=== PATIENT | female | born 1940 | race Caucasian/White ===

== ENCOUNTER 2018-02-04 10:11 | Inpatient (IN) | payer MEDICARE, SELFPAY ==
[2018-02-04] VITALS (10 sets, daily range): BP systolic 114–151; BP diastolic 54–81; PULSE 91–107; RESP 16–20; TEMP 36.7–38.3; O2SAT 94–99; BMI 49.9; BMI 54.6; BMI 54.7
--- NOTE | 2018-02-04 10:33 | EKG12_ITS ---
Test Reason : N/V Blood Pressure : / mmHG Vent. Rate : 112 BPM Atrial Rate : 112 BPM P-R Int : 166 ms QRS Dur : 090 ms QT Int : 332 ms P-R-T Axes : 059 007 035 degrees QTc Int : 453 ms Sinus tachycardia Otherwise normal ECG Confirmed by SHERI SHEA, MAURISIO ([id number]), purchase request editor LAURE GUERRA ([id number]) on 02/08/2018 3:48:02 PM Referred By: ADOLFO Confirmed By:MAURISIO WADE MD
--- NOTE | 2018-02-04 10:35 | RAD_ITS ---
STUDY: X-RAY CHEST REASON FOR EXAM: Female, 78 years old. Shortness of breath TECHNIQUE: Single view of the chest was obtained COMPARISON: None. FINDINGS: No lung consolidation or pneumothorax. Mild cardiomegaly. Calcified nodules in the perihilar region seen. Reticulonodular opacities are also seen bilaterally. No pleural effusion. Osseous structures demonstrate no acute abnormalities. IMPRESSION: Mild cardiomegaly with bilateral pulmonary vascular congestion. Electronically Signed: Olivier Pearson, at 11:05 EDT Tel , Service support , RAD/Chest 1 View (Portable)
--- NOTE | 2018-02-04 10:41 | VDLE_ITS ---
Reason For Study: SWELLING RIGHT Technically difficult/ limited study due to patient body habitus. Unable to visualize CFV/SFJ due to pannus. Rt SFV is compressible where visualized and fills with color. RT POP V is compressible and fills with color. RT T/P Trunk is difficult to assess but appears compressible. RT distal PTV is compressible and fills with color. Proximal PTV is not visualized. RT PeroV is not well visualized. RT GSV is compressible. Procedure Exam performed portable in ED. The exam was of poor technical quality due to body habitus. A preliminary report was called and/or faxed to ED. Interpretation Summary Deep veins of the right lower extremity are patent and compressible segmentally. There is no evidence of right lower extremity deep vein thrombosis. However, portions of the right lower extremity deep venous system were not visualized, or poorly visualized, due to the patient's body habitus. These portions include the right common femoral vein and the right sapheno-femoral junction, the right femoral vein, the right tibio-peroneal trunk, the proximal right posterior tibial vein, and the right peroneal vein. The right greater saphenous vein appears patent and compressible segmentally. Ordering Physician: Jennifer Hope Referring Physician: ANTONIA GODOY Performed By: Shantel Caba, JONH, RVT
--- NOTE | 2018-02-04 10:42 | ED.VISSUMM ---
- ER Visit Summary Date of Service: 02/04/18 Chief Complaint: Nausea History of Present Illness: The patient is a 78 F who presents with complaints of nausea and dry heaves for the past 3 days. She denies any abdominal pain or diarrhea. She has not noticed a fever at home. Patient was seen by her PCP on the for leg swelling and increased dyspnea with exertion. The swelling was felt to be secondary to Actos and this medication was stopped. Patient states since that time she has had nausea and dry heaves. She has not taken her diabetes medications since the . She does have a dry cough that is slightly worse than her baseline. She is on home O2 chronically. Physical Examination: Blood pressure is 151/81, temperature 101.0 TA, heart rate 107, respiratory rate 16, pulse ox 94% on room air. She is 100% on her normal 3 L. Head neck examination is grossly unremarkable. Heart is tachycardic. Lung sounds are grossly clear. Abdomen is soft, obese, nontender. Hypoactive bowel sounds are present throughout. Lower extremity examination reveals 3+ edema to the right leg, 2+ edema to the left leg. There is erythema across the anterior right jacobo that is warm to the touch. Patient states this is chronic secondary to prior phlebitis. Test Results: EKG is sinus tach at 112. No acute ischemia. CBC was a white count of 27.0 with 94% neutrophils. Chemistry studies reveal a sodium of 133, chloride 92, glucose 323. Her creatinine is 1.23. LFTs and lipase are normal. Urinalysis is significant only for glucose. Her lactate is 3.1. Chest x-ray shows mild cardiomegaly and bilateral pulmonary vascular congestion. CT the abdomen pelvis with IV contrast reveals no evidence of obstruction. There is no drainable fluid collection. There is subsegmental atelectasis in the lung bases. Venous ultrasound of the right leg reveals no evidence of DVT. Emergency Department Course and Treatment: Patient is given IV fluids, Zofran, Tylenol. On repeat evaluation temperature is under 99. Heart rate is 95-100. At this time I do not have a definitive source of infection. We will admit the patient overnight for IV hydration and antiemetics. Repeat labs in the morning. Treatment Plan: [] Disposition: Admit Impression: 1. SIRS 2. Vomiting This note was generated with [employer] dictation software. It may contain incorrect words, spelling, and punctuation that were not noted in review of the chart prior to signing ED Disposition - Plan for ED Patient: Chief Complaint: Nausea/Vomiting Referrals: Erlinda Lombardi NP-C [NON-STAFF] -
[2018-02-04] MEDS: 0.9% Normal Saline 1,000 ML 150 ML IV ×2 (10:51→15:57)
[2018-02-04] MEDS: Ondansetron 4 MG/2 ML Vial IV ×2 (10:51→13:17)
[2018-02-04] MEDS: Acetaminophen 325 MG Tablet 650 MG PO (10:51)
--- NOTE | 2018-02-04 10:55 | NURSING ---
NO LW OR POA
[2018-02-04 11:02] LABS: Absolute Lymphocyte Count 0.48 X10^3/ul (0.83-4.51); Absolute Neutrophil Count 25.3 X10^3/uL (2.0-7.7); Basophil# 0.01 X10^3/uL; Hematocrit 40.3 % (37-47); Hemoglobin 12.8 g/dl (12.0-15.0); Lymphocyte # 0.48 X10^3/ul (4.0); Lymphocyte % 1.8 % (19-41); Mean Corp Hgb Conc 31.8 g/gl (32-36); Mean Corpuscular Hgb 30.5 pg (27.0-32.0); Mean Platelet Vol. 10.2 fl (6.2-12.0); Monocyte# 1.13 X10^3/uL; Monocyte% 4.2 % (0-10); Neutrophil # 25.32 X10^3/uL (2.7-7.7); Neutrophil % 93.9 % (47-70); Platelet Count 250 K/mm3 (150-450); RBC Distribution Width CV 13.4 % (11.6-14.6); RBC Distribution Width SD 46.6 fl (35.1-43.9)
[2018-02-04 11:03] LABS: Differential Indicated SCAN CRITERIA MET; POSITIVE COUNT NO; POSITIVE DIFFERENTIAL YES; POSITIVE MORPHOLOGY NO
[2018-02-04 11:14] LABS: AST(SGOT) 35 U/L (15-37); Alanine Aminotransfer ALT/SGPT 36 U/L (13-56); Albumin, Serum 2.9 g/dL (3.2-5.0); Alkaline Phosphatase 106 U/L (45-117); Anion Gap 10 (5-15); BUN 11 mg/dL (7-18); BUN/Creat Ratio 8.9 RATIO (10-20); Bilirubin, Direct 0.24 mg/dL (0.00-0.30); Calcium,Total 8.5 mg/dL (8.5-10.1); Chloride 92 mmol/L (98-107); Creatinine, Serum 1.23 mg/dL (0.55-1.02); EST Glomerular Filtration Rate 45 mL/min (>60); Est Glom Filt Rate - Afr Amer 54 mL/min (>60); Estimated Creatinine Clearance 33.37 ml/min; Globulin 5.3 g/dL (2.2-4.2); Glucose 323 mg/dL (74-106); Lipase 84 U/L (73-393); Potassium 3.8 mmol/L (3.5-5.1); Protein, Total 8.2 g/dL (6.4-8.2); Sodium Level 133 mmol/L (136-145)
[2018-02-04 11:20] LABS: Lactic Acid 3.1 mmol/L (0.4-2.0)
--- NOTE | 2018-02-04 11:26 | CT_ITS ---
STUDY: CT ABDOMEN AND PELVIS WITH CONTRAST REASON FOR EXAM: Female, 78 years old. Nausea with dry heaves since Monday RADIATION DOSAGE (If Supplied By Facility): CTDIvol = ( 21.57 ) mGy, DLP = ( 1678.78 ) mGycm TECHNIQUE: Transaxial images were obtained from the dome of the diaphragm to the symphysis pubis without oral contrast. 100 ml of Isovue 300 contrast was administered. Sagittal and coronal images were reconstructed. Individualized dose optimization techniques were used for this CT. COMPARISON: None. FINDINGS: Lung bases demonstrate no evidence for consolidative process. Bibasilar subsegmental atelectasis and scarring. Small hiatal hernia. Mild hepatic steatosis. Spleen appears unremarkable. No evidence for mesenteric adenopathy. Portal vein is patent. Gallbladder is not visualized. Adrenal glands appear unremarkable. The pancreas are within normal limits. The bowel gas pattern is nonobstructive. Appendix is not seen Vascular calcifications of the abdominal aorta. Kidneys demonstrate no evidence for hydronephrosis. Degenerative changes in the lumbar spine. Multilevel neural foraminal narrowing predominant in the lower lumbar spine small hemangioma of the L2 vertebral body. No free fluid in the pelvis. No free air within the peritoneal cavity. Degenerative changes in the hip joints. There is evidence for hysterectomy. IMPRESSION: Mild hepatic steatosis with mild enlargement of the liver. No evidence for small bowel obstruction. No drainable fluid collections. Somewhat motion degraded CT examination Subsegmental atelectasis in the lung bases Electronically Signed: Olivier Pearson, at 12:18 EDT Tel , Service support , CT/Abdomen/Pelvis W IV Cont ONLY
[2018-02-04] MEDS: 0.9% Normal Saline 1,000 ML 999 ML IV ×3 (11:30→14:57)
[2018-02-04 12:26] LABS: Bedside Glucose 300 mg/dL (70-110)
[2018-02-04 13:08] LABS: Bacteria 0 SEEN /hpf (None Seen); Mucous, Urine 0 SEEN /hpf (<or=2+); Red Blood Cells-Urine 0 SEEN /hpf (0-5); White Blood Cells 0 SEEN /hpf (0-5)
[2018-02-04 13:10] LABS: Color, Urine Yellow (Yellow); Glucose, Dipstick 1000 mg/dl (Normal); Ketone-Dipstick Negative (Negative); Leukocyte Esterase-Dipstick Negative /ul (Negative); Nitrite-Dipstick Negative (Negative); Occult Blood-Urine 10 /ul (Negative); Protein-Dipstick 30 mg/dl (Negative); Urine Bilirubin Dipstick Negative (Negative); Urine Clarity Clear (Clear); Urine Urobilinogen 1 mg/dl (Normal)
[2018-02-04 13:16] LABS: Squamous Epithelial Cells - UA 0-5 SEEN /hpf (5-10)
--- NOTE | 2018-02-04 13:40 | NURSING ---
DR STACK FOR DR MATA
--- NOTE | 2018-02-04 13:54 | NURSING ---
124 SIRS,VOMITING ASHELFAH
--- NOTE | 2018-02-04 14:05 | PCM.HP.STD ---
Problem List (1) Osteoarthritis Status: Chronic (2) Depression Status: Chronic (3) Anxiety Status: Chronic (4) Obstructive sleep apnea Status: Chronic (5) Acquired hypothyroidism Status: Chronic (6) Hypertension Status: Chronic (7) Type 2 diabetes mellitus Status: Chronic History of Present Illness Date of Admission: 02/04/18 Chief Complaint: Nausea. The patient is a 78 year old F with past medical history as mentioned above presented to the medicine because of nausea. Her symptoms started 2 days ago with nausea, persistent, associated with poor appetite, could not keep down any food or liquid and it is without vomiting. She denied abdominal pain, constipation or diarrhea. She denies fever or chills. She denied urinary symptoms. She denied chest pain or shortness of breath. She reported mild dry cough. This past Monday, she went to her PCPs office for leg swelling and increased shortness of breath and this leg swelling attributed to Actos that was discontinued. She has a history of type 2 diabetes mellitus and she has been on 3 different oral hypoglycemic drugs but Actos was discontinued 2 days ago because of leg swelling. She has a history of phlebitis of the right leg and she mentioned that her right leg is always red on the lateral aspect and it is not changed. She had a history of acquired hypothyroidism and according to her, her PCP discontinuing her levothyroxine recently. She had a history of obstructive sleep apnea and she is not using CPAP at home. She had a history of depression and anxiety and she has been on Wellbutrin. In the emergency room, patient was febrile, tachycardic, pulse ox is normal on room air. Her routine blood work was remarkable for significant leukocytosis, creatinine of 1.23. Her LFT and lipase were normal. Lactic acid was elevated at 3.1. Her EKG revealed sinus tachycardia, otherwise normal. Chest x-ray showed mild cardiomegaly, no acute infiltrate, probable pulmonary vascular congestion. CT scan abdomen and pelvis with contrast revealed no evidence of infiltrate or consolidation on the lung bases, mild hepatic steatosis, no acute intra-abdominal pathology. Urinalysis revealed clear urine, negative for nitrite, negative for leukocyte esterase, there was no WBC is and no bacteria seen. She is being admitted for severe sepsis without clear source of infection, low probability of right leg cellulitis, intractable nausea and dehydration. Past Medical History Past Medical History (Chronic Problems): Chronic Problems Osteoarthritis (Chronic) Depression (Chronic) Anxiety (Chronic) Obstructive sleep apnea (Chronic) Acquired hypothyroidism (Chronic) Hypertension (Chronic) Type 2 diabetes mellitus (Chronic) Allergies erythromycin base [Erythromycin Base] Allergy (Verified 02/04/18 10:12) Unknown ibuprofen [From Nuprin] Allergy (Verified 02/04/18 10:12) Unknown Home Medications: Ambulatory Orders Medication Instructions Recorded Gabapentin [Gabapentin] 100 mg PO QHS 05/22/14 Glipizide [Glipizide] 10 mg PO BID 05/22/14 Lisinopril [Lisinopril] 10 mg PO DAILY 05/22/14 Metformin [Metformin HCl] 1,000 mg PO BID 05/22/14 buPROPion SR [Wellbutrin Sr] 150 mg PO BID 05/22/14 Linagliptin [Tradjenta] 5 mg PO DAILY 02/04/18 Surgical History: appendectomy, cholecystectomy, hysterectomy Psychiatric History: Anxiety, Depression 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 Denies: Chills Eyes: Denies: Blurred vision, Double vision, Drainage, Redness HEENT: Denies: Difficulty Hearing, Ear Pain, Eye Pain, Nasal Congestion, Post Nasal Drip, Sore Throat Cardiovascular: Denies: Chest Pain, Chest Pressure, Chest Tightness, Palpitations, Paroxysmal Noc. Dyspnea, Syncope Respiratory: Denies: Cough, Pleuritic Pain, Shortness of Breath, Sputum production, Wheezing Gastrointestinal: Reports: Nausea. Denies: Abdominal Pain, Constipation, Diarrhea, Hematochezia, Melena, Vomiting Genitourinary: Denies: Dysuria, Frequency, Hematuria Musculoskeletal: Denies: Arm Pain, Back Pain, Foot Pain Skin: Denies: Dryness, Rash Neurological: Denies: Balance problems, Double vision, Change in Speech, Slurred speech, Confusion, Headaches, Incoordination, Numbness, Tingling Psychiatric: Reports: Anxiety, Depression Endocrine: Denies: Change in Body Habitus, Polydipsia VTE Information - Inpt Only VTE Present on Admission: No VTE Mechan Device Prophylaxis: None VTE Pharm Prophylaxis ordered?: Yes - Physical Exam General: Alert, Oriented x3, Cooperative, No apparent distress HEENT: Atraumatic, PERRLA, EOMI, Normocephalic Oral: Moist Mucosa, No Gingival or Mucosal Lesions/ Ulcerations Neck: Supple, No JVD, Negative Carotid Bruits, Trachea Midline, Thyroid Normal Size and Texture Lungs: Clear to auscultation, No rhonchi, No wheeze, No rales, Diminished Cardiovascular: Regular rate, Regular Rhythm, Normal S1, Normal S2, No murmurs, PMI Normal, Tachycardic Abdomen: Bowel Sounds Present, Soft, Non Tender, Non-Distended, No Hepato-splenomegaly, Obese Extremities: No clubbing, No cyanosis, Edema - Trace edema., - - Right leg: Area of erythema and mild swelling on the lateral aspect of the right leg, warm to touch, no open wounds. Skin: No rashes, Ulcer/ Wound Lymphatic: No Cervical, Supraclavicular, or Inguinal Adenopathy Neurological: Cranial nerves II-XII grossly intact, Motor Exam 5/5 strength throughout Psych/Mental Status: Normal Affect, Appropriate, Alert and oriented to time, place, person, mood and affect Vital Signs Temp Pulse Resp BP Pulse Ox 101.0 F H 97 16 125/67 H 98 02/04/18 10:12 02/04/18 13:49 02/04/18 13:49 02/04/18 13:49 02/04/18 13:49 Oxygen Delivery Method Room Air Weight: 300 lb Body Mass Index (BMI) 49.9 Finger Stick Blood Glucose 300 Laboratory Tests Past 24 Hrs 02/04/18 02/04/18 02/04/18 10:35 10:35 10:35 WBC 27.0 H RBC 4.20 Hgb 12.8 Hct 40.3 MCV 96.0 MCH 30.5 MCHC 31.8 L RDW 13.4 RDW Differential 46.6 H Plt Count 250 MPV 10.2 Immature Gran % (Auto) 0.100 Neut % (Auto) 93.9 H Lymph % (Auto) 1.8 L [place] % (Auto) 4.2 Eos % (Auto) 0.0 Baso % (Auto) 0.0 Absolute Neuts (auto) 25.3 H Absolute Lymphs (auto) 0.48 L Total Counted Not Reportable Sodium 133 L Potassium 3.8 Chloride 92 L Carbon Dioxide 31.0 Anion Gap 10 BUN 11 Creatinine 1.23 H Estim Creat Clear Calc 33.37 Est GFR (MDRD) Af Amer 54 L Est GFR (MDRD) Non-Af 45 L BUN/Creatinine Ratio 8.9 L Glucose 323 H Lactic Acid 3.1 H Calcium 8.5 Total Bilirubin 0.70 Direct Bilirubin 0.24 AST 35 ALT 36 Alkaline Phosphatase 106 Total Protein 8.2 Albumin 2.9 L Globulin 5.3 H Lipase 84 Urine Color Urine Clarity Urine pH Ur Specific [place] Urine Protein Urine Glucose (UA) Urine Ketones Urine Occult Blood Urine Nitrite Urine Bilirubin Urine Urobilinogen Ur Leukocyte Esterase Urine RBC Urine WBC Ur Squamous Epith Cells Urine Bacteria Urine Mucus 02/04/18 13:00 WBC RBC Hgb Hct MCV MCH MCHC RDW RDW Differential Plt Count MPV Immature Gran % (Auto) Neut % (Auto) Lymph % (Auto) [place] % (Auto) Eos % (Auto) Baso % (Auto) Absolute Neuts (auto) Absolute Lymphs (auto) Total Counted Sodium Potassium Chloride Carbon Dioxide Anion Gap BUN Creatinine Estim Creat Clear Calc Est GFR (MDRD) Af Amer Est GFR (MDRD) Non-Af BUN/Creatinine Ratio Glucose Lactic Acid Calcium Total Bilirubin Direct Bilirubin AST ALT Alkaline Phosphatase Total Protein Albumin Globulin Lipase Urine Color Yellow Urine Clarity Clear Urine pH 6.0 Ur Specific [place] 1.010 Urine Protein 30 H Urine Glucose (UA) 1000 H Urine Ketones Negative Urine Occult Blood 10 H Urine Nitrite Negative Urine Bilirubin Negative Urine Urobilinogen 1 H Ur Leukocyte Esterase Negative Urine RBC 0 SEEN Urine WBC 0 SEEN Ur Squamous Epith Cells 0-5 SEEN Urine Bacteria 0 SEEN Urine Mucus 0 SEEN POC Glucose 02/04/18 12:16 POC Glucose 300 H Clinical Impression(s) from Imaging Studies Chest X-Ray 02/04/18 10:35 Abdomen/Pelvis CT 02/04/18 11:26 Assessment/Plan This is a 78 years old female patient presented to the medicine because of nausea without any other significant complaints, found to have fever, significant leukocytosis, elevated lactic acid consistent with severe sepsis without obvious source of infection when she is being admitted for evaluation. #1 severe sepsis: Without source of infection except mild erythema and swelling on the lateral aspect of the left leg and according to the patient, this is chronic secondary to history of phlebitis. She is febrile, tachycardic, lactic acid is elevated. Chest x-ray showed no acute infiltrate. Urine analysis was negative for acute cystitis. She received 2 L of IV fluid bolus in the ER, blood culture sent. Plan: Admit to PCU, cardiac monitoring, will give her under 1 L of IV fluid bolus, maintenance IV fluids, urine culture, repeat chest x-ray tomorrow morning, repeat lactic acid in 3 hours, start empiric IV vancomycin and Zosyn, repeat CBC and BMP tomorrow morning, PT OT evaluation and treatment. #2 probable acute right leg cellulitis: Patient had a history of phlebitis according to her and her right leg is usually red and swollen and she noticed no change. On examination, lateral aspect of the right leg is slightly erythematous, swollen, warm to palpation. Venous Doppler was done in the ER and verbal report from the ER physician stated that it was negative. Plan as above, start IV empiric antibiotics, wait for the official report of the venous Doppler of the right leg. #3 dehydration: Secondary to severe sepsis. Creatinine 1.23, sodium is 133, likely hypovolemic hyponatremia. Plan for IV fluids with normal saline, input output chart, repeat BMP tomorrow morning. #4 type 2 diabetes mellitus: Blood sugar has been in the 300s, bicarbonate is normal, no acute DKA. Plan: ADA diet, Accu-Cheks, insulin sliding scale, continue glipizide, Tradjenta, hold metformin. #5 hypertension: Blood pressure stable, continue lisinopril. #6 acquired hypothyroidism: According to the patient, levothyroxine was discontinued recently by PCP. Plan to check TSH. #7 obstructive sleep apnea: She is not on CPAP at home. #8 DVT prophylaxis: Subcu heparin. This note was generated with [employer] dictation software. It may contain incorrect words, spelling, and punctuation that were not noted in checking the note before signing. Code Visit Inpatient E&M: 70787 Init Hosp L3
--- NOTE | 2018-02-04 14:12 | NURSING ---
Christophe notified that patient may transfer to PCU.
--- NOTE | 2018-02-04 14:16 | NURSING ---
124 SEVERE SEPSIS, DEHYDRATION, INTRACTABLE NAUSEA ASHELFAH
[2018-02-04 14:44] LABS: Reflex Lactate? Y
[2018-02-04 15:41] LABS: Thyroid Stim Hormone (TSH) 0.42 uIU/mL (0.358-3.74)
--- NOTE | 2018-02-04 15:42 | PCM.RX.CS ---
Consult Pharmacy has been consulted to manage selected antiobiotic: Vancomycin Type of Consult: New start Suspected Infection: Sepsis Prior Doses of Antibiotics Received/Current Regimen: NO PRIOR DOSES OF VANCO Labs: Sodium 133 mmol/L (136-145) L 02/04/18 10:35 Potassium 3.8 mmol/L (3.5-5.1) 02/04/18 10:35 Chloride 92 mmol/L (98-107) L 02/04/18 10:35 Carbon Dioxide 31.0 mmol/L (21.0-32.0) 02/04/18 10:35 Anion Gap 10 (5-15) 02/04/18 10:35 BUN 11 mg/dL (7-18) 02/04/18 10:35 Creatinine 1.23 mg/dL (0.55-1.02) H 02/04/18 10:35 Est GFR (MDRD) Af Amer 54 mL/min (>60) L 02/04/18 10:35 Est GFR (MDRD) Non-Af 45 mL/min (>60) L 02/04/18 10:35 BUN/Creatinine Ratio 8.9 RATIO (10-20) L 02/04/18 10:35 Glucose 323 mg/dL (74-106) H 02/04/18 10:35 Weight used for dosin kg Estimated Creatinine Clearance: 33ML/MIN Goal Trough: 15-20 mcg/mL Pharmacy Plan for Drug Dosing: PLAN/RECOMMENDATIONS 1. Vancomycin 2000mg IV x1 (02/04/18 @1600) 2. Start vancomycin 1500mg IV Q24hrs on 02/05/18 @1600 3. Trough scheduled 02/06/18 @1530, prior to 3rd total dose of vancomycin 4. Pharmacy Service will continue to monitor and adjust dosing as required.
[2018-02-04] MEDS: Heparin Injection (Vial) 5,000 UNIT/ML VIAL 5000 UNIT SC ×2 (16:26→21:20)
[2018-02-04] MEDS: glipiZIDE 10 MG Tablet PO (16:26)
[2018-02-04] MEDS: Insulin Lispro 100 UNIT/ML INSULN.PEN SC (16:31)
[2018-02-04 17:01] LABS: Bedside Glucose 208 mg/dL (70-110)
[2018-02-04 18:09] LABS: Lactic Acid 2.3 mmol/L (0.4-2.0)
[2018-02-04] MEDS: Piperacil/Tazobactam 3.375 GM/50 ML ML IV (21:20)
[2018-02-04] MEDS: buPROPion (SR) 150 MG Tablet.SA PO (21:20)
[2018-02-04 21:30] LABS: Reflex Lactate? Y
[2018-02-04 21:35] LABS: Bedside Glucose 114 mg/dL (70-110)
[2018-02-04 22:34] LABS: Lactic Acid 0.8 mmol/L (0.4-2.0)
[2018-02-05] VITALS (13 sets, daily range): BP systolic 99–126; BP diastolic 46–68; PULSE 83–96; RESP 16–20; TEMP 36.7–37; O2SAT 97–99
[2018-02-05] MEDS: 0.9% Normal Saline 1,000 ML 150 ML IV ×4 (00:34→20:05)
--- NOTE | 2018-02-05 05:55 | RAD_ITS ---
STUDY: X-RAY CHEST REASON FOR EXAM: Female, 78 years old. History of fever. TECHNIQUE: Single AP portable view of the chest. COMPARISON: Comparison is made with prior examination dated February 04, 2018. FINDINGS: EKG electrodes are seen. Mild increased markings at the lung bases suggestive of bibasilar atelectasis. Mild degree of basilar congestion. Follow-up is recommended. There is moderate cardiac enlargement. Normal mediastinum and charlene. Normal visualized pulmonary arteries. There is atherosclerotic calcification of the aortic arch with tortuosity. Normal visualized thoracic spine. Normal visualized ribs, clavicles, and shoulders. There is no demonstrated abnormality of the visualized soft tissue structures of the upper abdomen. RAD/Chest 1 View (Portable) IMPRESSION: Findings suggestive of a mild degree of vascular congestion with bibasilar atelectasis. Cardiomegaly. Electronically Signed: Shawn Sawyer MD at 9:14 EDT Tel [phone], Service support ,
[2018-02-05 06:33] LABS: Absolute Lymphocyte Count 1.27 X10^3/ul (0.83-4.51); Basophil# 0.03 X10^3/uL; Basophil% 0.1 % (0-1); Eosinophil# 0.02 X10^3/uL; Eosinophils% 0.1 % (0-5); Hematocrit 34.9 % (37-47); Hemoglobin 10.9 g/dl (12.0-15.0); Lymphocyte # 1.27 X10^3/ul (4.0); Lymphocyte % 6.2 % (19-41); Mean Corp Hgb Conc 31.2 g/gl (32-36); Mean Corpuscular Hgb 30.4 pg (27.0-32.0); Mean Corpuscular Volume 97.5 fL (81-99); Mean Platelet Vol. 10.3 fl (6.2-12.0); Monocyte% 5.8 % (0-10); Neutrophil # 17.96 X10^3/uL (2.7-7.7); Neutrophil % 87.5 % (47-70); Platelet Count 212 K/mm3 (150-450); RBC Distribution Width CV 13.5 % (11.6-14.6); RBC Distribution Width SD 46.5 fl (35.1-43.9); Red Blood Count 3.58 M/mm3 (4.2-5.4); White Blood Count 20.5 K/mm3 (4.4-11.0)
[2018-02-05 06:40] LABS: POSITIVE COUNT NO; POSITIVE DIFFERENTIAL NO; POSITIVE MORPHOLOGY NO
[2018-02-05 06:53] LABS: Anion Gap 7 (5-15); BUN 11 mg/dL (7-18); BUN/Creat Ratio 11.1 RATIO (10-20); Calcium,Total 7.6 mg/dL (8.5-10.1); Chloride 102 mmol/L (98-107); Creatinine, Serum 0.99 mg/dL (0.55-1.02); EST Glomerular Filtration Rate 57 mL/min (>60); Est Glom Filt Rate - Afr Amer 69 mL/min (>60); Estimated Creatinine Clearance 38.12 ml/min; Glucose 89 mg/dL (74-106); Potassium 3.5 mmol/L (3.5-5.1); Sodium Level 136 mmol/L (136-145)
[2018-02-05] MEDS: Piperacil/Tazobactam 3.375 GM/50 ML ML IV (06:53)
[2018-02-05] MEDS: Heparin Injection (Vial) 5,000 UNIT/ML VIAL 5000 UNIT SC ×3 (06:53→22:00)
[2018-02-05 07:05] LABS: Bedside Glucose 104 mg/dL (70-110)
[2018-02-05] MEDS: buPROPion (SR) 150 MG Tablet.SA PO ×2 (08:43→22:01)
[2018-02-05] MEDS: glipiZIDE 10 MG Tablet PO (08:43)
[2018-02-05] MEDS: LINAGLIPTIN 5 MG TABLET PO (08:43)
[2018-02-05] MEDS: Lisinopril 10 MG Tablet PO (08:43)
[2018-02-05 11:15] LABS: Bedside Glucose 174 mg/dL (70-110)
--- NOTE | 2018-02-05 11:22 | CON.PCM_ITS ---
Problem List (1) Streptococcal bacteremia Status: Acute Reason for Consult: (+) bcx Consulted by: Dr. Haley History of Present Illness: The patient is a 78 year old F who presented yesterday with 2 day history of progressive, severe, nausea and dry heaves. No recent infection, no fever, no chills, no diarrhea or abd pain. No recent dental work or skin infections. No blood in stool, no h/o prior colonoscopy. Sx worsened and taken to ED. Found to be severe sepsis, started on vanc/zosyn. Feeling much better this AM. Full ROS performed and neg except as noted above. - Medical History Past Medical History (Chronic Problems): Chronic Problems Osteoarthritis (Chronic) Depression (Chronic) Anxiety (Chronic) Obstructive sleep apnea (Chronic) Acquired hypothyroidism (Chronic) Hypertension (Chronic) Type 2 diabetes mellitus (Chronic) Allergies/Adverse Reactions: Allergies erythromycin base [Erythromycin Base] Allergy (Verified 02/04/18 10:12) Unknown ibuprofen [From Nuprin] Allergy (Verified 02/04/18 10:12) Unknown Home Medications: Ambulatory Orders Medication Instructions Recorded Glipizide [Glipizide] 10 mg PO BIDCM 05/22/14 Lisinopril [Lisinopril] 10 mg PO DAILY 05/22/14 Metformin [Metformin HCl] 1,000 mg PO BID 05/22/14 buPROPion SR [Wellbutrin Sr] 150 mg PO BID 05/22/14 Fluticasone 0.05% [Flonase Nasal 2 spray NASAL DAILY 02/04/18 [place]] Linagliptin [Tradjenta] 5 mg PO DAILY 02/04/18 Umeclidinium Brm/Vilanterol Tr 1 each IH DAILY 02/04/18 [Anoro Ellipta 62.5-25 Mcg INH] busPIRone [Buspar] 5 mg PO BID 02/04/18 - Social History SMOKING STATUS:: Former smoker Vital Signs Temp Pulse Resp BP Pulse Ox 98.0 F 90 20 H 101/52 L 98 02/05/18 08:44 02/05/18 08:44 02/05/18 08:44 02/05/18 08:44 02/05/18 09:41 Oxygen Flow Rate (L/min) 2 Oxygen Delivery Method Nasal Cannula Weight: 140 kg Body Mass Index (BMI) 54.6 Laboratory Tests Past 24 Hrs 02/04/18 02/04/18 02/04/18 14:58 17:20 21:45 WBC RBC Hgb Hct MCV MCH MCHC RDW RDW Differential Plt Count MPV Immature Gran % (Auto) Neut % (Auto) Lymph % (Auto) [place] % (Auto) Eos % (Auto) Baso % (Auto) Absolute Neuts (auto) Absolute Lymphs (auto) Total Counted Sodium Potassium Chloride Carbon Dioxide Anion Gap BUN Creatinine Estim Creat Clear Calc Est GFR (MDRD) Af Amer Est GFR (MDRD) Non-Af BUN/Creatinine Ratio Glucose Lactic Acid 2.3 H 0.8 Calcium TSH 0.42 02/05/18 02/05/18 06:18 06:18 WBC 20.5 H RBC 3.58 L Hgb 10.9 L Hct 34.9 L MCV 97.5 MCH 30.4 MCHC 31.2 L RDW 13.5 RDW Differential 46.5 H Plt Count 212 MPV 10.3 Immature Gran % (Auto) 0.300 Neut % (Auto) 87.5 H Lymph % (Auto) 6.2 L [place] % (Auto) 5.8 Eos % (Auto) 0.1 Baso % (Auto) 0.1 Absolute Neuts (auto) 18.0 H Absolute Lymphs (auto) 1.27 Total Counted Not Reportable Sodium 136 Potassium 3.5 Chloride 102 Carbon Dioxide 27.0 Anion Gap 7 BUN 11 Creatinine 0.99 Estim Creat Clear Calc 38.12 Est GFR (MDRD) Af Amer 69 Est GFR (MDRD) Non-Af 57 L BUN/Creatinine Ratio 11.1 Glucose 89 Lactic Acid Calcium 7.6 L TSH - Other Studies Radiology: [] reviewed Other Studies: [] Route of nutrition/ use of supplements: [] Nutritional Intake: [] IV Site: [] Rodriguez Catheter: [] - Physical Exam General: Alert, Oriented x3, Cooperative, No apparent distress HEENT: Atraumatic, PERRLA, EOMI Neck: Supple, No Nodes Lungs: Clear to auscultation, Normal air movement Cardiovascular: Regular rate, Regular Rhythm, No murmurs Abdomen: Bowel Sounds Present, Soft, Non Tender, Non-Distended Extremities: Edema Skin: No rashes IV Site: Peripheral, without redness Musculoskeletal: No Tenderness to Palpation of Joints or Extremities Neurological: Cranial nerves II-XII grossly intact - Assessment/Plan Antibiotics: [] Assessment/Plan: [] severe sepsis due to group G strep bacteremia from unclear source - no infection seen on CT abd/pelvis. May be gut translocation with her nausea and dry heaves. Narrow abx to ceftriaxone. May be a candidate for po abx at discharge. Will follow, d/w Dr. Haley, thank you.
[2018-02-05] MEDS: Insulin Lispro 100 UNIT/ML INSULN.PEN SC (12:35)
--- NOTE | 2018-02-05 14:15 | CASEMGMT ---
This RN CM to room to complete CM assessment and pt is on the bedside commode at this time. Will attempt again later. [place] RN CM
--- NOTE | 2018-02-05 15:27 | CASEMGMT ---
Face to Face with patient for initial transition planning/care coordination assessment. RN HAIR introduced self and role at [facility], pt voices understanding and consents to assessment at this time. Pt is sitting up in bed in no distress at this time. Pt is A/Ox4 at this time and answers all questions appropriately at this time. Care providers, pharmacy, and demographics verified. See attached link. Pt voices no further concerns/needs at this time. Advised pt to ask for CM if any further questions/concerns/needs arise, voices understanding. CM to follow for any further discharge planning/needs. PLAN: Home [place]
--- NOTE | 2018-02-05 15:45 | PN_ITS ---
<Carlos Estrella - Last Filed: 02/05/18 15:35> Patient Problems: Active and Suspected Problems Streptococcal bacteremia (Acute) Subjective: Pt resting comfortably in bed. She does have erythema of the RLE with warmth however she has been dealing with this chronically and states this is what it always looks like. She has no nausea or vomiting. She has no SOB or cough. She denies dysuria. - Physical Exam General: Alert, Oriented x3, Cooperative HEENT: Atraumatic, PERRLA, EOMI, Normocephalic Neck: Supple, No JVD, Negative Carotid Bruits Lungs: Clear to auscultation, Normal air movement Cardiovascular: Regular rate, No murmurs Abdomen: Bowel Sounds Present, Soft, Non Tender Extremities: No edema, Capillary Refill Less than 3 Seconds Skin: - - erythema RLE. + warmth. no open areas or discharge. Musculoskeletal: No Tenderness to Palpation of Joints or Extremities Neurological: Cranial nerves II-XII grossly intact Psych/Mental Status: Normal Affect, Appropriate, Alert and oriented to time, place, person, mood and affect Vital Signs Temp Pulse Resp BP Pulse Ox 98.0 F 83 20 H 101/52 L 98 02/05/18 08:44 02/05/18 11:06 02/05/18 08:44 02/05/18 08:44 02/05/18 09:41 Oxygen Flow Rate (L/min) 2 Oxygen Delivery Method Nasal Cannula Weight: 140 kg Body Mass Index (BMI) 54.6 Intake and Output for Last 24 Hours 02/03/18 02/04/18 02/05/18 23:59 23:59 23:59 Intake Total 1601 / 1601 3334 / 3334 Output Total 800 / 800 600 / 600 Balance 801 / 801 2734 / 2734 Laboratory Tests Past 24 Hrs 02/04/18 02/04/18 02/04/18 14:58 17:20 21:45 WBC RBC Hgb Hct MCV MCH MCHC RDW RDW Differential Plt Count MPV Immature Gran % (Auto) Neut % (Auto) Lymph % (Auto) Sullivan % (Auto) Eos % (Auto) Baso % (Auto) Absolute Neuts (auto) Absolute Lymphs (auto) Total Counted Sodium Potassium Chloride Carbon Dioxide Anion Gap BUN Creatinine Estim Creat Clear Calc Est GFR (MDRD) Af Amer Est GFR (MDRD) Non-Af BUN/Creatinine Ratio Glucose Lactic Acid 2.3 H 0.8 Calcium TSH 0.42 02/05/18 02/05/18 06:18 06:18 WBC 20.5 H RBC 3.58 L Hgb 10.9 L Hct 34.9 L MCV 97.5 MCH 30.4 MCHC 31.2 L RDW 13.5 RDW Differential 46.5 H Plt Count 212 MPV 10.3 Immature Gran % (Auto) 0.300 Neut % (Auto) 87.5 H Lymph % (Auto) 6.2 L Sullivan % (Auto) 5.8 Eos % (Auto) 0.1 Baso % (Auto) 0.1 Absolute Neuts (auto) 18.0 H Absolute Lymphs (auto) 1.27 Total Counted Not Reportable Sodium 136 Potassium 3.5 Chloride 102 Carbon Dioxide 27.0 Anion Gap 7 BUN 11 Creatinine 0.99 Estim Creat Clear Calc 38.12 Est GFR (MDRD) Af Amer 69 Est GFR (MDRD) Non-Af 57 L BUN/Creatinine Ratio 11.1 Glucose 89 Lactic Acid Calcium 7.6 L TSH POC Glucose 02/05/18 02/05/18 02/04/18 11:13 07:01 21:20 POC Glucose 174 H 104 114 H 02/04/18 16:29 POC Glucose 208 H Medical Necessity - Tobacco Use Smoking Status: Former smoker Assessment/Plan All Active Problems Streptococcal bacteremia (Acute) 1. Acute severe sepsis with bacteremia 2/2 group G strep unclear source - ID following. Ceftriaxone. ? cellulitis RLE, but there is chronic phlebitis according to patient and she says that there no are new changes. Blood cx + x 2. Possibly able to be go on PO when ready. WBC improved. Lactate now resolved. TSH and lipase neg. Fever resolved. -CXR neg for consolidation - vascular congestion, atelectasis, cardiomegaly -LE doppler for DVT NEG. -CT abdomen unremarkable -UA neg for infection 2. Dehydration - improved. Hyponatremia resolved. 3. T2DM with morbid obesity - continue current therapy. Metformin held. SSI. dietary consult. 4. HTN - stable 5. LAINA - not on home CPAP. 6. Hypothyroid - tsh normal. recently synthroid dc'd. 7. Anx/Dep - home meds. DVT ppx: heparin This patient was seen by Carlos Estrella PA-C under the supervision of Doctor Tera. <Kyle Haley - Last Filed: 02/05/18 16:27> Subjective: Seen and examined. Patient has chronic erythema and warmth of lateral aspect of right lower extremity for several years. No change. No focal source of infection. Patient had nausea but no vomiting. Blood culture positive of Streptococcus G. Discussed with TANIYA Méndez - Physical Exam General: Alert, Oriented x3, Cooperative HEENT: Atraumatic, PERRLA, EOMI, Normocephalic Neck: Supple, No JVD, Negative Carotid Bruits Lungs: Clear to auscultation, Normal air movement Cardiovascular: Regular rate, Regular Rhythm, Normal S1, Normal S2, No murmurs Abdomen: Bowel Sounds Present, Soft, Non Tender Extremities: No edema, Capillary Refill Less than 3 Seconds Skin: No rashes, No breakdown, - Musculoskeletal: No Tenderness to Palpation of Joints or Extremities, - - Bilateral lower extremity, right more than left after Actos Neurological: Cranial nerves II-XII grossly intact Psych/Mental Status: Normal Affect, Appropriate Vital Signs Temp Pulse Resp BP Pulse Ox 98.4 F 85 20 H 99/46 L 99 02/05/18 13:45 02/05/18 15:03 02/05/18 13:45 02/05/18 13:45 02/05/18 13:45 Oxygen Flow Rate (L/min) 2 Oxygen Delivery Method Nasal Cannula Weight: 308 lb 10.354 oz Body Mass Index (BMI) 54.6 Intake and Output for Last 24 Hours 02/03/18 02/04/18 02/05/18 23:59 23:59 23:59 Intake Total 1601 / 1601 3334 / 3334 Output Total 800 / 800 600 / 600 Balance 801 / 801 2734 / 2734 Laboratory Tests Past 24 Hrs 02/04/18 02/04/18 02/05/18 17:20 21:45 06: WBC 20.5 H RBC 3.58 L Hgb 10.9 L Hct 34.9 L MCV 97.5 MCH 30.4 MCHC 31.2 L RDW 13.5 RDW Differential 46.5 H Plt Count 212 MPV 10.3 Immature Gran % (Auto) 0.300 Neut % (Auto) 87.5 H Lymph % (Auto) 6.2 L [place] % (Auto) 5.8 Eos % (Auto) 0.1 Baso % (Auto) 0.1 Absolute Neuts (auto) 18.0 H Absolute Lymphs (auto) 1.27 Total Counted Not Reportable Sodium Potassium Chloride Carbon Dioxide Anion Gap BUN Creatinine Estim Creat Clear Calc Est GFR (MDRD) Af Amer Est GFR (MDRD) Non-Af BUN/Creatinine Ratio Glucose Lactic Acid 2.3 H 0.8 Calcium 02/05/18 06:18 WBC RBC Hgb Hct MCV MCH MCHC RDW RDW Differential Plt Count MPV Immature Gran % (Auto) Neut % (Auto) Lymph % (Auto) [place] % (Auto) Eos % (Auto) Baso % (Auto) Absolute Neuts (auto) Absolute Lymphs (auto) Total Counted Sodium 136 Potassium 3.5 Chloride 102 Carbon Dioxide 27.0 Anion Gap 7 BUN 11 Creatinine 0.99 Estim Creat Clear Calc 38.12 Est GFR (MDRD) Af Amer 69 Est GFR (MDRD) Non-Af 57 L BUN/Creatinine Ratio 11.1 Glucose 89 Lactic Acid Calcium 7.6 L POC Glucose 02/05/18 02/05/18 02/04/18 11:13 07:01 21:20 POC Glucose 174 H 104 114 H 02/04/18 16:29 POC Glucose 208 H Assessment/Plan This patient was seen in conjunction with Carlos ADAM. I have independently interviewed and examined the patient and reviewed pertinent history, examination findings, laboratory and plan of management. I have reviewed the note and agree with the documented findings with the few additional points. In brief, patient is admitted for severe sepsis secondary to Streptococcus G bacteremia, possible GERD source as the patient has nausea. Denies abdominal pain or diarrhea fever. In view of fever, he recommended to continue antibiotics ceftriaxone. I have discussed my assessment with Carlos ADAM and orders have been reviewed. Code Visit Inpatient E&M: 83551 Subs Hosp L3
[2018-02-05 17:00] LABS: Bedside Glucose 49 mg/dL (70-110)
[2018-02-05 18:01] LABS: Bedside Glucose 82 mg/dL (70-110)
[2018-02-05 18:01] LABS: Bedside Glucose 51 mg/dL (70-110)
[2018-02-05 22:15] LABS: Bedside Glucose 65 mg/dL (70-110)
[2018-02-05 23:11] LABS: Bedside Glucose 86 mg/dL (70-110)
[2018-02-06] VITALS (11 sets, daily range): BP systolic 100–158; BP diastolic 55–82; PULSE 78–90; RESP 16–18; TEMP 36.6–37.1; O2SAT 95–97
[2018-02-06] MEDS: 0.9% Normal Saline 1,000 ML 150 ML IV ×2 (03:05→10:01)
[2018-02-06 04:51] LABS: Bedside Glucose 89 mg/dL (70-110)
[2018-02-06] MEDS: glipiZIDE 10 MG Tablet PO (06:59)
[2018-02-06] MEDS: Heparin Injection (Vial) 5,000 UNIT/ML VIAL 5000 UNIT SC ×3 (06:59→22:41)
[2018-02-06 07:05] LABS: Bedside Glucose 102 mg/dL (70-110)
[2018-02-06 08:56] LABS: Absolute Lymphocyte Count 0.96 X10^3/ul (0.83-4.51); Absolute Neutrophil Count 11.5 X10^3/uL (2.0-7.7); Basophil# 0.02 X10^3/uL; Basophil% 0.1 % (0-1); Eosinophil# 0.08 X10^3/uL; Eosinophils% 0.6 % (0-5); Hematocrit 32.9 % (37-47); Hemoglobin 10.3 g/dl (12.0-15.0); Lymphocyte # 0.96 X10^3/ul (4.0); Mean Corp Hgb Conc 31.3 g/gl (32-36); Mean Corpuscular Hgb 30.6 pg (27.0-32.0); Mean Corpuscular Volume 97.6 fL (81-99); Mean Platelet Vol. 11.1 fl (6.2-12.0); Monocyte# 1.05 X10^3/uL; Monocyte% 7.7 % (0-10); Neutrophil # 11.49 X10^3/uL (2.7-7.7); Platelet Count 222 K/mm3 (150-450); RBC Distribution Width CV 13.4 % (11.6-14.6); RBC Distribution Width SD 46.2 fl (35.1-43.9); Red Blood Count 3.37 M/mm3 (4.2-5.4); White Blood Count 13.7 K/mm3 (4.4-11.0)
[2018-02-06 09:01] LABS: POSITIVE COUNT NO; POSITIVE DIFFERENTIAL NO; POSITIVE MORPHOLOGY NO
[2018-02-06 09:22] LABS: Anion Gap 7 (5-15); BUN 12 mg/dL (7-18); Calcium,Total 7.7 mg/dL (8.5-10.1); Chloride 105 mmol/L (98-107); EST Glomerular Filtration Rate 57 mL/min (>60); Est Glom Filt Rate - Afr Amer 69 mL/min (>60); Estimated Creatinine Clearance 37.74 ml/min; Glucose 93 mg/dL (74-106); Potassium 3.2 mmol/L (3.5-5.1); Sodium Level 139 mmol/L (136-145)
[2018-02-06 09:31] LABS: Hemoglobin A1c 7.3 % (4.2-6.3)
[2018-02-06] MEDS: buPROPion (SR) 150 MG Tablet.SA PO ×2 (10:02→22:41)
[2018-02-06] MEDS: LINAGLIPTIN 5 MG TABLET PO (10:02)
[2018-02-06] MEDS: Lisinopril 10 MG Tablet PO (10:02)
--- NOTE | 2018-02-06 10:55 | PN.ID_ITS ---
Patient Problems: Active and Suspected Problems Streptococcal bacteremia (Acute) Subjective: Increased R jacobo pain and redness, no fever. No n/v/d. - Physical Exam General: Alert, Cooperative, No apparent distress Lungs: Clear to auscultation, Normal air movement Cardiovascular: Regular rate, Regular Rhythm Abdomen: Soft, Non Tender, Non-Distended Skin: Rash Present - increased over R jacobo Vital Signs Temp Pulse Resp BP Pulse Ox 97.9 F 79 16 100/59 L 97 02/06/18 10:05 02/06/18 10:05 02/06/18 10:05 02/06/18 10:05 02/06/18 10:05 Oxygen Flow Rate (L/min) 2 Oxygen Delivery Method Room Air Weight: 140 kg Body Mass Index (BMI) 54.6 Intake and Output for Last 24 Hours 02/04/18 02/05/18 02/06/18 23:59 23:59 23:59 Intake Total 1601 / 1601 4386 / 4386 1158 / 1158 Output Total 800 / 800 600 / 600 Balance 801 / 801 3786 / 3786 1158 / 1158 Microbiology Past 72 Hours 02/04/18 17:45 Urine Culture - Final Urine, Clean Catch Mixed Gram Positive Organisms Laboratory Tests Past 24 Hrs 02/06/18 02/06/18 02/06/18 08:15 08:15 08:15 WBC 13.7 H RBC 3.37 L Hgb 10.3 L Hct 32.9 L MCV 97.6 MCH 30.6 MCHC 31.3 L RDW 13.4 RDW Differential 46.2 H Plt Count 222 MPV 11.1 Immature Gran % (Auto) 0.600 Neut % (Auto) 84.0 H Lymph % (Auto) 7.0 L [place] % (Auto) 7.7 Eos % (Auto) 0.6 Baso % (Auto) 0.1 Absolute Neuts (auto) 11.5 H Absolute Lymphs (auto) 0.96 Total Counted Not Reportable Sodium 139 Potassium 3.2 L Chloride 105 Carbon Dioxide 27.0 Anion Gap 7 BUN 12 Creatinine 1.00 Estim Creat Clear Calc 37.74 Est GFR (MDRD) Af Amer 69 Est GFR (MDRD) Non-Af 57 L BUN/Creatinine Ratio 12.0 Glucose 93 Hemoglobin A1c 7.3 H Calcium 7.7 L POC Glucose 0702/06/18 02/05/18 07:00 04:28 23:01 POC Glucose 102 89 86 02/05/18 02/05/18 02/05/18 21:58 17:54 17:19 POC Glucose 65 L 82 51 L 02/05/18 02/05/18 16:49 11:13 POC Glucose 49 L 174 H Medical Necessity - Tobacco Use Smoking Status: Former smoker Route of nutrition/ use of supplements: [] Nutritional Intake: [] IV Site: [] Rodriguez Catheter: [] - Assessment/Plan Antibiotics: [] Assessment/Plan: [] severe sepsis due to group G strep bacteremia from unclear source, likely RLE cellulitis - no infection seen on CT abd/pelvis. Cont ceftriaxone. Will follow, d/w primary team
--- NOTE | 2018-02-06 11:30 | NURSING ---
wound photo: right lower leg
--- NOTE | 2018-02-06 11:35 | CT_ITS ---
Exam: Contrast CT of the right leg. HISTORY: Abscess. Cellulitis. COMPARISON: None. FINDINGS: There is no focal fluid collection or evidence for abscess. There is diffuse subcutaneous induration and skin thickening which is most pronounced distally. These findings could represent cellulitis. There is diffuse atrophy of the muscle bundles. Heavily calcified vascular structures are seen. Normal bone contours. No acute fracture, destructive process, or dislocation. Mineralization appears within normal limits. Mild degenerative changes. CT/Extremity Lower WITH Contrast IMPRESSION: No focal fluid collection or evidence for abscess. Induration of the subcutis tissues with areas of skin thickening could represent cellulitis. Electronically Signed: Lisandro Curry MD at 16:57 EDT , Service support ,
[2018-02-06 11:45] LABS: Bedside Glucose 96 mg/dL (70-110)
--- NOTE | 2018-02-06 12:27 | NURSING ---
Was asked to see patient to mateus redness to the right lower leg. there are no open areas noted. there is redness and warmth noted that extends up to the thigh. area is slightly tender. washed legs with soap and water. applied aloe vesta and wrapped with kerlix after marking the redness. see photo.
--- NOTE | 2018-02-06 13:44 | PCM.PROGNOTE ---
<Carlos Estrella - Last Filed: 02/06/18 13:44> Patient Problems: Active and Suspected Problems Streptococcal bacteremia (Acute) Subjective: Today she has increased pain, swelling, and discomfort of her RLE. Rash is more diffuse. No SOB. On home o2 levels for COPD hx. No fever or chills. No abdominal pain, Naus/Vomiting. - Physical Exam General: Alert, Oriented x3, Cooperative HEENT: Atraumatic, PERRLA, EOMI, Normocephalic Neck: Supple, No JVD, Negative Carotid Bruits Lungs: Clear to auscultation, Normal air movement Cardiovascular: Regular rate, No murmurs Abdomen: Bowel Sounds Present, Soft, Non Tender Extremities: Capillary Refill Less than 3 Seconds, Edema - RLE Skin: - - erythematous, diffuse, spreading up lateral thigh. no open areas. warm to the touch . Musculoskeletal: No Tenderness to Palpation of Joints or Extremities Neurological: Cranial nerves II-XII grossly intact Psych/Mental Status: Normal Affect, Appropriate, Alert and oriented to time, place, person, mood and affect Vital Signs Temp Pulse Resp BP Pulse Ox 97.9 F 83 16 100/59 L 97 02/06/18 10:05 02/06/18 11:58 02/06/18 10:05 02/06/18 10:05 02/06/18 10:05 Oxygen Flow Rate (L/min) 2 Oxygen Delivery Method Room Air Weight: 140 kg Body Mass Index (BMI) 54.6 Intake and Output for Last 24 Hours 02/04/18 02/05/18 02/06/18 23:59 23:59 23:59 Intake Total 1601 / 1601 4386 / 4386 3188 / 3188 Output Total 800 / 800 600 / 600 Balance 801 / 801 3786 / 3786 3188 / 3188 Microbiology Past 72 Hours 02/04/18 17:45 Urine Culture - Final Urine, Clean Catch Mixed Gram Positive Organisms Laboratory Tests Past 24 Hrs 02/06/18 02/06/18 02/06/18 08:15 08:15 08:15 WBC 13.7 H RBC 3.37 L Hgb 10.3 L Hct 32.9 L MCV 97.6 MCH 30.6 MCHC 31.3 L RDW 13.4 RDW Differential 46.2 H Plt Count 222 MPV 11.1 Immature Gran % (Auto) 0.600 Neut % (Auto) 84.0 H Lymph % (Auto) 7.0 L [place] % (Auto) 7.7 Eos % (Auto) 0.6 Baso % (Auto) 0.1 Absolute Neuts (auto) 11.5 H Absolute Lymphs (auto) 0.96 Total Counted Not Reportable Sodium 139 Potassium 3.2 L Chloride 105 Carbon Dioxide 27.0 Anion Gap 7 BUN 12 Creatinine 1.00 Estim Creat Clear Calc 37.74 Est GFR (MDRD) Af Amer 69 Est GFR (MDRD) Non-Af 57 L BUN/Creatinine Ratio 12.0 Glucose 93 Hemoglobin A1c 7.3 H Calcium 7.7 L POC Glucose 02/06/18 02/06/18 02/06/18 11:39 07:00 04:28 POC Glucose 96 102 89 02/05/18 02/05/18 02/05/18 23:01 21:58 17:54 POC Glucose 86 65 L 82 02/05/18 02/05/18 17:19 16:49 POC Glucose 51 L 49 L Medical Necessity - Tobacco Use Smoking Status: Former smoker Assessment/Plan All Active Problems Streptococcal bacteremia (Acute) 1. Acute severe sepsis with bacteremia 2/2 group G strep unclear source - ID following. Ceftriaxone. ? cellulitis RLE, increased swelling, erythema, pain. Blood cx + x 2.WBC improved, afebrile. Lactate now resolved. TSH and lipase neg. Fever resolved. -LE CT with contrast ordered. pending -repeat Blood cultures. -wound care to see and demarcate. -CXR neg for consolidation - vascular congestion, atelectasis, cardiomegaly -LE doppler for DVT NEG. -CT abdomen unremarkable -UA neg for infection 2. Dehydration - improved. Hyponatremia resolved. 3. T2DM with morbid obesity - continue current therapy. Metformin held. SSI. dietary consult. A1c 7.3. Glipizide decreased as she was running low here. 4. HTN - stable 5. LAINA - not on home CPAP. 6. Hypothyroid - tsh normal. recently synthroid dc'd. 7. Anx/Dep - home meds. 8. Hx COPD with chronic hypoxic respiratory failure - no breathing symptoms, on home o2 level 9. Hypokalemia - replete. DVT ppx: heparin This patient was seen by Carlos Estrella PA-C under the supervision of Doctor Tera. <Kyle Haley - Last Filed: 02/06/18 14:52> Subjective: Patient did not had a spike in temperature. Leukocytosis improving. The extent of erythema, swelling and pain spread proximally to lateral aspect of right lower thigh and upper leg. Patient also has increased tenderness. CT right lower extremity with contrast ordered. Patient also seen by wound nurse, Gretel and discussed with her. - Physical Exam Cardiovascular: Regular rate Extremities: Edema Skin: - Musculoskeletal: No Tenderness to Palpation of Joints or Extremities Vital Signs Temp Pulse Resp BP Pulse Ox 97.9 F 83 16 100/59 L 97 02/06/18 10:05 02/06/18 11:58 02/06/18 10:05 02/06/18 10:05 02/06/18 10:05 Oxygen Flow Rate (L/min) 2 Oxygen Delivery Method Nasal Cannula Weight: 308 lb 10.354 oz Body Mass Index (BMI) 54.6 Intake and Output for Last 24 Hours 02/04/18 02/05/18 02/06/18 23:59 23:59 23:59 Intake Total 1601 / 1601 4386 / 4386 3188 / 3188 Output Total 800 / 800 600 / 600 Balance 801 / 801 3786 / 3786 3188 / 3188 Microbiology Past 72 Hours 02/04/18 17:45 Urine Culture - Final Urine, Clean Catch Mixed Gram Positive Organisms Laboratory Tests Past 24 Hrs 02/06/18 02/06/18 02/06/18 08:15 08:15 08:15 WBC 13.7 H RBC 3.37 L Hgb 10.3 L Hct 32.9 L MCV 97.6 MCH 30.6 MCHC 31.3 L RDW 13.4 RDW Differential 46.2 H Plt Count 222 MPV 11.1 Immature Gran % (Auto) 0.600 Neut % (Auto) 84.0 H Lymph % (Auto) 7.0 L [place] % (Auto) 7.7 Eos % (Auto) 0.6 Baso % (Auto) 0.1 Absolute Neuts (auto) 11.5 H Absolute Lymphs (auto) 0.96 Total Counted Not Reportable Sodium 139 Potassium 3.2 L Chloride 105 Carbon Dioxide 27.0 Anion Gap 7 BUN 12 Creatinine 1.00 Estim Creat Clear Calc 37.74 Est GFR (MDRD) Af Amer 69 Est GFR (MDRD) Non-Af 57 L BUN/Creatinine Ratio 12.0 Glucose 93 Hemoglobin A1c 7.3 H Calcium 7.7 L POC Glucose 02/06/18 02/06/18 02/06/18 11:39 07:00 04:28 POC Glucose 96 102 89 02/05/18 02/05/18 02/05/18 23:01 21:58 17:54 POC Glucose 86 65 L 82 02/05/18 02/05/18 17:19 16:49 POC Glucose 51 L 49 L Assessment/Plan This patient was seen in conjunction with Carlos ADAM. I have independently interviewed and examined the patient and reviewed pertinent history, examination findings, laboratory and plan of management. I have reviewed the note and agree with the documented findings with the few additional points. In brief, patient is admitted for severe sepsis secondary to Streptococcus G bacteremia, possible GI source as the patient had nausea. Denies abdominal pain or diarrhea fever. Maculopapular rash, pain and swelling spread more proximally in right lower extremity suggestive of worsening of cellulitis. CT right lower extremity ordered and report is pending. Continue ceftriaxone. Mild hypokalemia: Potassium being replaced. I have discussed my assessment with Carlos ADAM and orders have been reviewed. Code Visit Inpatient E&M: 45344 Subs Hosp L3
[2018-02-06] MEDS: glipiZIDE 10 MG Tablet 5 MG PO (16:28)
[2018-02-06 18:00] LABS: Bedside Glucose 87 mg/dL (70-110)
[2018-02-06] MEDS: Nystatin Powder 15gm Bottle 1 APPLIC TOPICAL (22:45)
[2018-02-06 22:56] LABS: Bedside Glucose 87 mg/dL (70-110)
[2018-02-07 03:13] VITALS: PULSE 88
[2018-02-07 04:00] VITALS: BP 131/59; PULSE 84; RESP 16; TEMP 36.5; O2SAT 99
[2018-02-07] MEDS: Heparin Injection (Vial) 5,000 UNIT/ML VIAL 5000 UNIT SC (06:48)
[2018-02-07] MEDS: glipiZIDE 10 MG Tablet 5 MG PO (06:49)
[2018-02-07 06:55] LABS: Absolute Lymphocyte Count 1.03 X10^3/ul (0.83-4.51); Absolute Neutrophil Count 10.1 X10^3/uL (2.0-7.7); Basophil# 0.03 X10^3/uL; Basophil% 0.2 % (0-1); Eosinophil# 0.09 X10^3/uL; Eosinophils% 0.7 % (0-5); Hemoglobin 10.4 g/dl (12.0-15.0); Lymphocyte # 1.03 X10^3/ul (4.0); Lymphocyte % 8.4 % (19-41); Mean Corp Hgb Conc 30.6 g/gl (32-36); Mean Corpuscular Hgb 29.8 pg (27.0-32.0); Mean Corpuscular Volume 97.4 fL (81-99); Mean Platelet Vol. 10.1 fl (6.2-12.0); Monocyte# 0.97 X10^3/uL; Monocyte% 7.9 % (0-10); Neutrophil # 10.12 X10^3/uL (2.7-7.7); Neutrophil % 82.1 % (47-70); Platelet Count 253 K/mm3 (150-450); RBC Distribution Width CV 13.8 % (11.6-14.6); RBC Distribution Width SD 49.5 fl (35.1-43.9); Red Blood Count 3.49 M/mm3 (4.2-5.4); White Blood Count 12.3 K/mm3 (4.4-11.0)
[2018-02-07 07:01] LABS: Bedside Glucose 105 mg/dL (70-110)
[2018-02-07 07:03] LABS: POSITIVE COUNT NO; POSITIVE DIFFERENTIAL NO; POSITIVE MORPHOLOGY NO
[2018-02-07 07:04] LABS: Anion Gap 5 (5-15); BUN 11 mg/dL (7-18); Chloride 105 mmol/L (98-107); Creatinine, Serum 0.92 mg/dL (0.55-1.02); EST Glomerular Filtration Rate 63 mL/min (>60); Est Glom Filt Rate - Afr Amer 76 mL/min (>60); Estimated Creatinine Clearance 41.02 ml/min; Glucose 98 mg/dL (74-106); Potassium 3.7 mmol/L (3.5-5.1); Sodium Level 139 mmol/L (136-145)
[2018-02-07 07:08] VITALS: PULSE 80
[2018-02-07 07:25] VITALS: O2SAT 94
[2018-02-07] MEDS: Nystatin Powder 15gm Bottle 1 APPLIC TOPICAL (09:29)
[2018-02-07] MEDS: buPROPion (SR) 150 MG Tablet.SA PO (09:30)
[2018-02-07] MEDS: Lisinopril 10 MG Tablet PO (09:30)
[2018-02-07] MEDS: LINAGLIPTIN 5 MG TABLET PO (09:30)
--- NOTE | 2018-02-07 09:34 | PCM.PN.ID ---
Patient Problems: Active and Suspected Problems Streptococcal bacteremia (Acute) Subjective: Feeling better, leg less sore, no fever. - Physical Exam General: Alert, Cooperative, No apparent distress Lungs: Clear to auscultation, Normal air movement Cardiovascular: Regular rate, Regular Rhythm Extremities: Edema Skin: Rash Present - RLE erythema, receding Vital Signs Temp Pulse Resp BP Pulse Ox 97.7 F L 80 16 131/59 H 94 02/07/18 04:00 02/07/18 07:08 02/07/18 04:00 02/07/18 04:00 02/07/18 07:25 Oxygen Flow Rate (L/min) 2 Oxygen Delivery Method Nasal Cannula Weight: 140 kg Body Mass Index (BMI) 54.6 Intake and Output for Last 24 Hours 02/05/18 02/06/18 02/07/18 23:59 23:59 23:59 Intake Total 4386 / 4386 3548 / 3548 220 / 220 Output Total 600 / 600 400 / 400 Balance 3786 / 3786 3148 / 3148 220 / 220 Microbiology Past 72 Hours 02/04/18 17:45 Urine Culture - Final Urine, Clean Catch Mixed Gram Positive Organisms Laboratory Tests Past 24 Hrs 02/07/18 02/07/18 06:15 06:15 WBC 12.3 H RBC 3.49 L Hgb 10.4 L Hct 34.0 L MCV 97.4 MCH 29.8 MCHC 30.6 L RDW 13.8 RDW Differential 49.5 H Plt Count 253 MPV 10.1 Immature Gran % (Auto) 0.700 Neut % (Auto) 82.1 H Lymph % (Auto) 8.4 L [place] % (Auto) 7.9 Eos % (Auto) 0.7 Baso % (Auto) 0.2 Absolute Neuts (auto) 10.1 H Absolute Lymphs (auto) 1.03 Total Counted Not Reportable Sodium 139 Potassium 3.7 Chloride 105 Carbon Dioxide 29.0 Anion Gap 5 BUN 11 Creatinine 0.92 Estim Creat Clear Calc 41.02 Est GFR (MDRD) Af Amer 76 Est GFR (MDRD) Non-Af 63 BUN/Creatinine Ratio 12.0 Glucose 98 Calcium 8.0 L POC Glucose 02/07/18 02/06/18 02/06/18 06:47 22:40 16:25 POC Glucose 105 87 87 02/06/18 11:39 POC Glucose 96 Medical Necessity - Tobacco Use Smoking Status: Former smoker Route of nutrition/ use of supplements: [] Nutritional Intake: [] IV Site: [] Rodriguez Catheter: [] - Assessment/Plan Antibiotics: [] Assessment/Plan: [] severe sepsis due to group G strep bacteremia from RLE cellulitis - no infection seen on CT abd/pelvis. On ceftriaxone. Ok for d/c home today or tomorrow on po levaquin 500mg tid for one more week. This should have good strep coverage as well as good blood levels. Will follow, d/w primary team
[2018-02-07 10:00] VITALS: BP 139/78; PULSE 87; RESP 18; TEMP 36.6; O2SAT 97
[2018-02-07 11:01] LABS: Bedside Glucose 142 mg/dL (70-110)
[2018-02-07 11:11] VITALS: PULSE 82
--- NOTE | 2018-02-07 11:39 | PCM.DC ---
- Discharge Diagnoses Current Active Problems: Current Active and Chronic Problems Streptococcal bacteremia (Acute) Osteoarthritis (Chronic) Depression (Chronic) Anxiety (Chronic) Obstructive sleep apnea (Chronic) Acquired hypothyroidism (Chronic) Hypertension (Chronic) Type 2 diabetes mellitus (Chronic) You will use the following diet at home:: Calorie/Carbohydrate Controlled (specify 1200, 1400, etc) - 1800 lexx / day, Cardiac - <2 grams sodium per day Your food should be the consistency of: Regular Your liquids should be the consistency of: Regular/Thin Discharge Activity: Return to Normal Activity Allergies/Adverse Reactions: Allergies erythromycin base [Erythromycin Base] Allergy (Verified 02/04/18 10:12) Unknown ibuprofen [From Nuprin] Allergy (Verified 02/04/18 10:12) Unknown Medications to take at Discharge Lisinopril 10 mg PO DAILY 05/22/14 Metformin [Metformin HCl] 1,000 mg PO BID 05/22/14 buPROPion SR [Wellbutrin SR (150mg tablets)] 150 mg PO BID 05/22/14 Fluticasone 0.05% [Flonase Nasal [place]] 2 spray NASAL DAILY 02/04/18 Linagliptin [Tradjenta] 5 mg PO DAILY 02/04/18 Umeclidinium Brm/Vilanterol Tr [Anoro Ellipta 62.5-25 Mcg INH] 1 each IH DAILY 02/04/18 busPIRone [Buspar] 5 mg PO BID 02/04/18 Levofloxacin [Levaquin] 500 mg PO DAILY #7 tab 02/07/18 Nystatin Powder [Mycostatin Powder] 1 applic TOPICAL BID bottle 02/07/18 glipiZIDE [Glucotrol] 5 mg PO BIDAC tablet 02/07/18 The following prescriptions were given: Levofloxacin [Levaquin] 500 mg PO DAILY #7 tab Primary Care Physician: Erlinda Lombardi NP-C [NON-STAFF] - Please follow up with your Primary Care Physician in: 1-2 weeks Test Results: Please Follow Up With: Juvencio Méndez MD When: 2 weeks Proposed Discharge Date: 02/07/18
--- NOTE | 2018-02-07 14:23 | PCM.DC.SUM ---
<Carlos Estrella - Last Filed: 02/07/18 14:25> Discharge Date and Diagnosis Date of Admission: 02/04/18 Date of Discharge: 02/07/18 - Primary Discharge Diagnosis Acute severe sepsis 2/2 group G strep bacteremia 2/2 RLE cellulitis Dehydration DMt2 with morbid obesity HTN LAINA Hypothyroidism COPD with chronic hypoxic respiratory failure Anx/Depression - Secondary Discharge Diagnosis Chronic Problems Osteoarthritis (Chronic) Depression (Chronic) Anxiety (Chronic) Obstructive sleep apnea (Chronic) Acquired hypothyroidism (Chronic) Hypertension (Chronic) Type 2 diabetes mellitus (Chronic) Hospital Course and Treatment Imaging Results: CXR: FINDINGS: No lung consolidation or pneumothorax. Mild cardiomegaly. Calcified nodules in the perihilar region seen. Reticulonodular opacities are also seen bilaterally. No pleural effusion. Osseous structures demonstrate no acute abnormalities. IMPRESSION: Mild cardiomegaly with bilateral pulmonary vascular congestion. Venous US: Interpretation Summary Deep veins of the right lower extremity are patent and compressible segmentally. There is no evidence of right lower extremity deep vein thrombosis. However, portions of the right lower extremity deep venous system were not visualized, or poorly visualized, due to the patient's body habitus. These portions include the right common femoral vein and the right sapheno-femoral junction, the right femoral vein, the right tibio-peroneal trunk, the proximal right posterior tibial vein, and the right peroneal vein. The right greater saphenous vein appears patent and compressible segmentally. CT abd: IMPRESSION: Mild hepatic steatosis with mild enlargement of the liver. No evidence for small bowel obstruction. No drainable fluid collections. Somewhat motion degraded CT examination Subsegmental atelectasis in the lung bases RAD/Chest 1 View (Portable) IMPRESSION: Findings suggestive of a mild degree of vascular congestion with bibasilar atelectasis. Cardiomegaly. CT/Extremity Lower WITH Contrast IMPRESSION: No focal fluid collection or evidence for abscess. Induration of the subcutis tissues with areas of skin thickening could represent cellulitis. Consultations Dev: Infectious Disease. 02/06/18 10:32 Consult: Onc/Wound/mechanical design engineer facilities Routine Comment: RLE cellulitis Reason for Consult:: RLE cellulitis Comments:: please demarcate Operations: None Procedures: None Summary of Care Provided: Physical exam on day of discharge: General: Resting comfortably NAD Psych: A/Ox3 normal affect HEENT: BON[place] AT NC Neck: Supple NT CV: RRR no m/t/r/g/h Resp: CTA Abd: [id number] Soft NT no guarding or rigidity Ext: DP2+= decreased swelling right lower extremity. Erythema is receding away from demarcations that were placed yesterday. She is decreased tenderness to palpation. It is mildly warm to the touch. There is no lymphatic stranding appreciated at this time. Skin: W/D normal turgor Lymph/Heme: No active bleeding or adenopathy Neuro: CN2-12 intact Hospital course: The patient is a 78 year old F with past medical history of type 2 diabetes, COPD, chronic hypoxic respiratory failure on 2 L of oxygen at home, obstructive sleep apnea for which she is not on BiPAP or CPAP at home, anxiety depression, osteoarthritis, hypertension who presented to the emergency room with chief complaint of nausea and vomiting. She had been in her PCPs office Monday prior to presentation with increased swelling of her right lower extremity and some shortness of breath, at that time it was felt to be related to recent trial of Actos for her diabetes and this was discontinued. 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 It did appear with increased warmth and erythema compared to the left and it was felt to be a possible cellulitis. She was septic on presentation in the ER with leukocytosis, lactic acidosis, fever, tachycardia. Venous ultrasound of the right lower extremity was obtained was negative. A CT of her abdomen was obtained and was negative. Chest x-ray and urinalysis were negative for infection. She is placed on Vanco and Zosyn and IV fluids and admitted to the PCU. Blood cultures were obtained and both blood cultures grew group G Streptococcus-infectious disease was consulted. Her antibiotics were changed to ceftriaxone. At first it did not appear that her right lower extremity was greatly inflamed however during the course of her stay became severely edematous, erythematous, the rash spread upper proximal leg. Repeat blood cultures were obtained which are pending at this time. She became afebrile, and her white count improved, her pain and swelling were controlled her leg. Wound care was consulted and dressed and wrapped her leg appropriately. She was transitioned to oral Levaquin. She will complete 500 mg daily for 7 more days. Infectious disease felt comfortable with her being transitioned to oral antibiotics and being followed up with as an outpatient. She is advised to see her PCP in 1-2 weeks and follow-up with infectious disease at the wound care center in 1-2 weeks. She was discharged home in stable condition. Also of note while she was here her blood sugars are running on the low side and her glipizide was decreased by half. Her A1c was 7.3. This patient was seen by Carlos Estrella PA-C under the supervision of Doctor Tera. [] Discharge Diet: Low fat/ Low Cholesterol, 1800 Calorie Control Diet, 2000 mg Sodium Diet Discharge Activity: Return to Normal Activity Home Medications: Medications to take at Discharge Lisinopril 10 mg PO DAILY 05/22/14 Metformin [Metformin HCl] 1,000 mg PO BID 05/22/14 buPROPion SR [Wellbutrin SR (150mg tablets)] 150 mg PO BID 05/22/14 Fluticasone 0.05% [Flonase Nasal Cactus] 2 spray NASAL DAILY 02/04/18 Linagliptin [Tradjenta] 5 mg PO DAILY 02/04/18 Umeclidinium Brm/Vilanterol Tr [Anoro Ellipta 62.5-25 Mcg INH] 1 each IH DAILY 02/04/18 busPIRone [Buspar] 5 mg PO BID 02/04/18 Levofloxacin [Levaquin] 500 mg PO DAILY #7 tab 02/07/18 Nystatin Powder [Mycostatin Powder] 1 applic TOPICAL BID bottle 02/07/18 glipiZIDE [Glucotrol] 5 mg PO BIDAC tablet 02/07/18 Following Prescrptions Were Given to Patient: Levofloxacin [Levaquin] 500 mg PO DAILY #7 tab Primary Care Physician: Erlinda Lombardi NP-C [NON-STAFF] - Please follow up with your Primary Care Physician in: 1-2 weeks Please Follow Up With: Juvencio Méndez MD When: 2 weeks Disposition: Home Minutes spent on discharge:: 35 Patient Condition:: Stable Medical Necessity - Tobacco Use Smoking Status: Former smoker Meaningful Use Info Meaningful Use Diagnoses (Choose all that apply): None applicable <Kyle Haley - Last Filed: 02/07/18 15:24> Discharge Date and Diagnosis - Secondary Discharge Diagnosis Chronic Problems Osteoarthritis (Chronic) Depression (Chronic) Anxiety (Chronic) Obstructive sleep apnea (Chronic) Acquired hypothyroidism (Chronic) Hypertension (Chronic) Type 2 diabetes mellitus (Chronic) Hospital Course and Treatment Consultations 02/06/18 10:32 Consult: Onc/Wound/mechanical design engineer facilities Routine Comment: RLE cellulitis Reason for Consult:: RLE cellulitis Comments:: please demarcate Summary of Care Provided: This patient was seen in conjunction with Carlos ADAM. I have independently interviewed and examined the patient and reviewed pertinent history, examination findings, laboratory and plan of management. I have reviewed the note and agree with the documented findings with the few additional points. The patient was seen and examined today General: Alert, Oriented x3, Cooperative HEENT: Atraumatic, PERRLA, EOMI, Normocephalic Neck: Supple, No JVD, Negative Carotid Bruits Lungs: Clear to auscultation, Normal air movement Cardiovascular: Regular rate, No murmurs Abdomen: Bowel Sounds Present, Soft, Non Tender Extremities: Capillary Refill Less than 3 Seconds, bilateral lower extremity edema, right more than left, improved Skin: - erythematous rash in right lower leg improved. No open areas. warm to the touch . Musculoskeletal: No Tenderness to Palpation of Joints or Extremities Neurological: Cranial nerves II-XII grossly intact In brief, patient is admitted for severe sepsis secondary to Streptococcus G bacteremia, possible GI source as the patient had nausea. Denies abdominal pain or diarrhea fever. Initially, maculopapular rash, pain and swelling spread more proximally in right lower extremity but today is much better. ID Dr. Méndez was consulted. CT lower extremity was done which did not show any focal fluid collection or evidence of abscess but more suggestive of cellulitis. Initially started on IV ceftriaxone but later changed to Levaquin 500 mg daily. Discharge on Levaquin for 7 days. Discharge medication reconciliation done. Discharge follow-up instructions completed. Total time spent, exact 35 minutes on discharge meds reconciliation, examination, review of imaging and blood test and discussion with the patient on follow-up instructions. Clinical Impression(s) from Imaging Studies Lower Extremity CT 02/06/18 11:35 IMPRESSION: No focal fluid collection or evidence for abscess. Induration of the subcutis tissues with areas of skin thickening could represent cellulitis. Electronically Signed: Lisandro Curry MD at 16:57 EDT , Service support , Mild hypokalemia: Potassium being replaced. I have discussed my assessment with Carlos ADAM and orders have been reviewed. [] Code Visit Inpatient E&M: 24778 Disch Hosp
--- NOTE | 2018-02-08 16:39 | CASEMGMT ---
LAMIN ARNDT Discharge F/U Phone Call LACE: 11 Strata: 3 Discharge Date: 02/07/18 Call Date: 02/08/18 Call Time: 1638 Attempted to reach pt without success at this time and there is no opportunity to leave a message. [facility]ND[facility] Admission dx: Severe sepsis, dehydration, intractable nausea
== END 2018-02-07 14:06 | disposition home or self-care (01) | DRG 872 ==
LOC: ED 11:06 → PCU 14:31
PROVIDERS: Admitting Provider Hospitalist; Emergency Provider Emergency Medicine; Family Provider Internal Medicine; PCP Internal Medicine; Visit Provider Internal Medicine
DX: A40.8 Other streptococcal sepsis (principal); L03.115 Cellulitis of right lower limb; J96.11 Chronic respiratory failure with hypoxia; E87.1 Hypo-osmolality and hyponatremia; R65.20 Severe sepsis without septic shock; J44.9 Chronic obstructive pulmonary disease, unspecified; E03.9 Hypothyroidism, unspecified; G47.33 Obstructive sleep apnea (adult) (pediatric); I10 Essential (primary) hypertension; E66.01 Morbid (severe) obesity due to excess calories; E11.9 Type 2 diabetes mellitus without complications; E86.0 Dehydration; M19.90 Unspecified osteoarthritis, unspecified site; F32.9 Major depressive disorder, single episode, unspecified; F41.9 Anxiety disorder, unspecified; Z99.81 Dependence on supplemental oxygen; Z87.891 Personal history of nicotine dependence; Z79.84 Long term (current) use of oral hypoglycemic drugs
CPT/HCPCS: 36415; 71045; 73701; 74177; 80048; 80076; 81001; 82962; 83036; 83605; 83690; 84443; 85025; 87040; 87077; 87086; 87088; 87149; 87186; 93005; 93971; 94762; 97162; 97165; 97530; 97802; 99283; J7030; J7040; Q9967; A4216; J0696; J2405

== ENCOUNTER 2018-04-29 21:07 | Inpatient (IN) | payer MEDICARE, SELFPAY ==
[2018-04-29 21:08] VITALS: BP 160/63; PULSE 102; RESP 22; TEMP 38.3; O2SAT 90; BMI 54.6
[2018-04-29 22:34] VITALS: PULSE 99; RESP 22; O2SAT 97
--- NOTE | 2018-04-29 22:34 | EKG12_ITS ---
Test Reason : Blood Pressure : / mmHG Vent. Rate : 100 BPM Atrial Rate : 100 BPM P-R Int : 166 ms QRS Dur : 090 ms QT Int : 366 ms P-R-T Axes : 043 003 030 degrees QTc Int : 472 ms Normal sinus rhythm Normal ECG Confirmed by SHERI SHEA, MAURISIO ([id number]), video effects editor LAURE GUERRA ([id number]) on 05/02/2018 9:00:50 AM Referred By: KAYLEE Confirmed By:MAURISIO WADE MD
--- NOTE | 2018-04-29 22:34 | RAD_ITS ---
STUDY: X-RAY CHEST REASON FOR EXAM: Female, 78 years old. Nausea and fever. History of recent infection. TECHNIQUE: 1 view COMPARISON: Prior portable chest exam of February 05, 2018, February 04, 2018 and a prior anterior lateral chest of December 01, 2016 FINDINGS: The lung rosas remain well expanded. Stable appearance of chronic lung changes including bronchial thickening similar to preceding exams. Negative for new major areas of consolidation or focal atelectasis. Stable cardiac size, borderline cardiomegaly. Normal mediastinum and charlene. Negative for pulmonary venous congestion. There is atherosclerotic calcification of the aortic arch with tortuosity. Normal visualized ribs, clavicles, and shoulders. There is no demonstrated abnormality of the visualized soft tissue structures of the upper abdomen. RAD/Chest 1 View (Portable) IMPRESSION: Stable chronic changes without new consolidation, focal atelectasis or a substantial pleural effusion. Stable cardiac size, borderline cardiomegaly without pulmonary venous congestion. Electronically Signed: Joyce Armstrong MD at 23:31 EDT , Service support ,
--- NOTE | 2018-04-29 22:34 | CT_ITS ---
STUDY: CT ABDOMEN AND PELVIS WITHOUT CONTRAST REASON FOR EXAM: Female, 78 years old. Nausea, fever and abdominal pain. RADIATION DOSAGE (If Supplied By Facility): CTDIvol = ( 23.57 ) mGy, DLP = ( 1165.69 ) mGycm TECHNIQUE: Transaxial images were obtained from the dome of the diaphragm to the symphysis pubis without oral contrast, and without intravenous contrast. Sagittal and coronal images were reconstructed. Individualized dose optimization techniques were used for this CT. COMPARISON: Prior abdomen and pelvic CT exam of February 04, 2018 FINDINGS: Stable chronic scarring of the lung bases. The visualized portions of the heart are within normal limits. Elongated right liver lobe which is of unusually globular and protrudes anteriorly. This portion of the liver also has a slightly reduced in density compared to the remaining liver parenchyma without a focal mass density. The left liver lobe is not enlarged. Slightly reduced density of the inferior portion of the liver, possibly fatty change without a focal well-defined mass density. There are surgical clips in the gallbladder fossa consistent with a prior cholecystectomy. Normal spleen. Normal pancreas. Normal bilateral adrenal glands. Normal right kidney. Normal left kidney. Normal visualized stomach. Several distal small bowel loops are mildly dilated and are associated with slightly alice adjacent mesentery. Minimal diverticulosis of the colon without evidence of acute diverticulitis. There is non-visualization of the appendix. Normal abdominal aorta. Normal inferior vena cava. Normal retroperitoneum. Normal urinary bladder. There is absence of the uterus consistent with a prior hysterectomy. Normal abdominal wall. There are diffuse degenerative changes of the visualized lumbar spine. CT/Abdomen/Pelvis without Cont IMPRESSION: Negative for evidence of bowel obstruction or perforation. Minimal diverticulosis without evidence of diverticulitis. The appendix is not visualized. Mildly dilated distal small bowel with slightly alice mesentery. Findings may indicate infectious/inflammatory ileitis. Negative for mesenteric adenopathy. Elongated and globular inferior right liver with a slightly lower density than the remainder of the liver. This finding is unchanged from the prior exam and demonstrated no underlying enhancing mass density on the prior contrasted exam. 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 Status post cholecystectomy with a nondistended common bile duct without filling defects. Status post hysterectomy without pelvic mass or free fluid in the pelvis. Minor atherosclerotic calcifications of the aorta. Normal size of the kidneys bilaterally without hydronephrosis or stones. Electronically Signed: Joyce Armstrong MD at 23:55 EDT , Service support ,
[2018-04-29] MEDS: 0.9% Normal Saline 1,000 ML 250 ML IV (22:37)
[2018-04-29 22:59] LABS: Absolute Lymphocyte Count 0.93 X10^3/ul (0.83-4.51); Basophil# 0.02 X10^3/uL; Basophil% 0.1 % (0-1); Hemoglobin 12.1 g/dl (12.0-15.0); Lymphocyte # 0.93 X10^3/ul (4.0); Lymphocyte % 4.7 % (19-41); Mean Corpuscular Hgb 29.3 pg (27.0-32.0); Mean Corpuscular Volume 94.4 fL (81-99); Mean Platelet Vol. 10.7 fl (6.2-12.0); Monocyte# 0.67 X10^3/uL; Monocyte% 3.4 % (0-10); Neutrophil % 91.7 % (47-70); Platelet Count 297 K/mm3 (150-450); RBC Distribution Width CV 14.2 % (11.6-14.6); RBC Distribution Width SD 48.8 fl (35.1-43.9); Red Blood Count 4.13 M/mm3 (4.2-5.4); White Blood Count 19.6 K/mm3 (4.4-11.0)
[2018-04-29 23:00] LABS: POSITIVE COUNT NO; POSITIVE DIFFERENTIAL NO; POSITIVE MORPHOLOGY NO
[2018-04-29 23:01] LABS: International Normalized Ratio 1.1; Partial Thromboplast Time 29.7 Seconds (24.1-36.2); Prothrombin Time (Protime)PT. 14.6 SECONDS (11.7-14.9)
[2018-04-29 23:11] LABS: Lactic Acid 1.8 mmol/L (0.4-2.0)
[2018-04-29 23:14] LABS: ALB/GLOB Ratio 0.5 RATIO (0.9-2.4); AST(SGOT) 13 U/L (15-37); Alanine Aminotransfer ALT/SGPT 15 U/L (13-56); Albumin, Serum 2.8 g/dL (3.2-5.0); Alkaline Phosphatase 87 U/L (45-117); Anion Gap 6 (5-15); BUN 13 mg/dL (7-18); BUN/Creat Ratio 13.2 RATIO (10-20); Calcium,Total 8.4 mg/dL (8.5-10.1); Chloride 97 mmol/L (98-107); Creatinine, Serum 0.99 mg/dL (0.55-1.02); EST Glomerular Filtration Rate 58 mL/min (>60); Est Glom Filt Rate - Afr Amer 70 mL/min (>60); Estimated Creatinine Clearance 36.44 ml/min; Globulin 5.6 g/dL (2.2-4.2); Glucose 222 mg/dL (74-106); Potassium 3.8 mmol/L (3.5-5.1); Protein, Total 8.4 g/dL (6.4-8.2); Sodium Level 133 mmol/L (136-145)
[2018-04-29 23:34] VITALS: BP 147/71; PULSE 99; RESP 19; TEMP 37.2; O2SAT 96
[2018-04-29 23:54] VITALS: TEMP 37.2
[2018-04-29 23:56] LABS: Mucous, Urine 0 SEEN /hpf (<or=2+); Red Blood Cells-Urine 0 SEEN /hpf (0-5); White Blood Cells 0 SEEN /hpf (0-5)
[2018-04-29 23:58] LABS: Color, Urine Yellow (Yellow); Glucose, Dipstick Normal (Normal); Ketone-Dipstick Negative (Negative); Leukocyte Esterase-Dipstick Negative /ul (Negative); Nitrite-Dipstick Negative (Negative); Occult Blood-Urine 10 /ul (Negative); Protein-Dipstick 15 mg/dl (Negative); Specific Gravity, Urine 1.015 (1.002-1.030); Urine Bilirubin Dipstick Negative (Negative); Urine Clarity Clear (Clear); Urine Urobilinogen Normal (Normal); Urine pH 6.5 (5.0 - 8.0)
[2018-04-30] VITALS (12 sets, daily range): BP systolic 125–161; BP diastolic 50–74; PULSE 77–92; RESP 16–18; TEMP 36.8–37.3; O2SAT 95–98; BMI 53.5
[2018-04-30 00:09] LABS: Bacteria RARE /hpf (None Seen); Squamous Epithelial Cells - UA 0-5 SEEN /hpf (5-10)
--- NOTE | 2018-04-30 01:29 | ED.DCSUM_ITS ---
- ER Visit Summary Date of Service: 04/30/18 Chief Complaint: Abdominal pain, nausea, feverish History of Present Illness: The patient is a 78 F who presents with the above symptoms. Her main complaints are of being feverish and nauseous. Patient states she was admitted back in February for cellulitis of the right lower extremity. She states it grew out a pretty rare infection. Upon evaluation of her records it was shown that she grew out group G strep. It was sensitive to Rocephin. She states that she went home and is felt better but today she started feeling worse. She felt feverish. She noticed on the right buttock that was warm and hot. She also had some dull left-sided abdominal pain as well. Denies any urinary symptoms. Physical Examination: Vital signs reviewed. Temperature over 100. HEENT exam unremarkable. Heart is tachycardic and regular rhythm without murmurs. Lungs are clear to auscultation. Abdomen soft nontender with no distention. Extremities reveal no edema. Skin exam reveals erythema of the right buttock. No abscess. Neurologic exam normal Test Results: EKG is sinus rhythm with nonspecific ST and T-wave changes. Chest x-ray reveals no acute findings. CAT scan of the abdomen and pelvis reveals some mildly enlarged lymph nodes. There is also remarked of some possible inflammatory or infectious ileitis. I feel that this is likely incidental. White blood cell count 19.6. Lactate normal. Glucose 222. Urinalysis is negative for infection Emergency Department Course and Treatment: Feel that the patient's source of her infection is the buttock cellulitis. She has no pneumonia or UTI. I feel that the CAT scan of the abdomen findings are all incidental. Patient will be treated with IV Rocephin as her last cellulitis was sensitive to this. Cultures will be taken and the patient will be admitted to the hospital. Treatment Plan: [] Disposition: Admit Impression: Sepsis, right buttock cellulitis This note was generated with [employer] dictation software. It may contain incorrect words, spelling, and punctuation that were not noted in review of the chart prior to signing ED Disposition - Plan for ED Patient: Chief Complaint: Nausea/Vomiting Referrals: Dustin Lang MD [Primary Care Provider] -
[2018-04-30] MEDS: Ceftriaxone 1 GM/50 ML BAG IV (01:57)
[2018-04-30] MEDS: 0.9% Normal Saline 1,000 ML 125 ML IV ×3 (04:35→21:18)
--- NOTE | 2018-04-30 05:11 | PCM.HP.STD ---
Problem List (1) Cellulitis Status: Acute (2) Depression Status: Chronic (3) Anxiety Status: Chronic (4) Hypertension Status: Chronic (5) Type 2 diabetes mellitus Status: Chronic History of Present Illness Date of Admission: 04/30/18 Chief Complaint: Rash The patient is a 78 year old F with a PMH as above presents to the hospital with a rash. She happened to noti that she had some mild pain with redness and warmth on herright buttock, so she presented to the ER. She was worried because the last time she had cellulitis, she had it in her blood and was told that her group G strep infection was rare, so she did not want to take any chances this time and she came in. She denies fevers, chills, SOB, CP, lightheadedness, malaise or fatigue, and states that if she didnt have the rash she would not be here because she feels great otherwise. In the ER she was found to have a leukocytosis, with tachycardia, tachypnea and a temperature >38. She was given a fluid bolus and had cultures drawn and was given a dose of rocephin in the ER, based on the previous sensitivities. Lactate was normal. Past Medical History Past Medical History (Chronic Problems): Chronic Problems Osteoarthritis (Chronic) Depression (Chronic) Anxiety (Chronic) Obstructive sleep apnea (Chronic) Acquired hypothyroidism (Chronic) Hypertension (Chronic) Type 2 diabetes mellitus (Chronic) Allergies erythromycin base [Erythromycin Base] Allergy (Verified 04/29/18 21:11) Unknown ibuprofen [From Nuprin] Allergy (Verified 04/29/18 21:11) Unknown Home Medications: Ambulatory Orders Medication Instructions Recorded Lisinopril 10 mg PO DAILY 05/22/14 Metformin [Metformin HCl] 1,000 mg PO BID 05/22/14 buPROPion SR [Wellbutrin SR (150mg 150 mg PO BID 05/22/14 tablets)] Linagliptin [Tradjenta] 5 mg PO DAILY 02/04/18 Umeclidinium Brm/Vilanterol Tr 1 each IH DAILY 02/04/18 [Anoro Ellipta 62.5-25 Mcg INH] busPIRone [Buspar] 5 mg PO BID 02/04/18 Gabapentin [Neurontin] 1 capsule PO DAILY 04/30/18 Surgical History: appendectomy, cholecystectomy, hysterectomy Psychiatric History: Anxiety, Depression 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 History: No pertinent DIESEL DINKEY ENGINEER history Smoking Status: Former smoker Alcohol: None Drugs: None - *Family History Maternal History Items: No pertinent history Paternal History Items: No pertinent history Review of Systems Constitutional: Denies: Chills, Fever, Weight Change HEENT: Denies: Head Aches, Sinus Congestion, Sinus Drainage Cardiovascular: Denies: Chest Pain, Palpitations Respiratory: Denies: Cough, Shortness of breath at rest, Sputum production Gastrointestinal: Denies: Abdominal Pain, Nausea, Vomiting Genitourinary: Denies: Dysuria Musculoskeletal: Denies: Joint Pain, Joint Tenderness Skin: Reports: Rash. Denies: Wounds Neurological: Denies: Numbness, Tingling, Focal weakness Psychiatric: Denies: Anxiety, Depression Hematologic/ Lymphatic: Denies: Easy Bruising, Easy Bleeding VTE Information - Inpt Only VTE Present on Admission: No Patient Problems: Active and Suspected Problems Cellulitis (Acute) - Physical Exam General: Alert, Oriented x3, Cooperative, No apparent distress HEENT: Atraumatic, PERRLA, EOMI, Normocephalic Oral: Moist Mucosa Neck: Supple, No JVD Lungs: Clear to auscultation, Normal air movement, No rhonchi, No wheeze, No rales Cardiovascular: Regular rate, Regular Rhythm, Normal S1, Normal S2, No murmurs Abdomen: Soft, Non Tender, Non-Distended, No Hepato-splenomegaly Extremities: No edema, Capillary Refill Less than 3 Seconds Skin: - - Erythema on the right buttock and right thigh. Warm to the touch Musculoskeletal: No Tenderness to Palpation of Joints or Extremities Neurological: Neuro grossly intact, Sensory exam intact to light touch and pain Psych/Mental Status: Normal Affect, Appropriate Vital Signs Temp Pulse Resp BP Pulse Ox 98.3 F 86 16 144/60 H 97 04/30/18 02:28 04/30/18 02:48 04/30/18 02:28 04/30/18 02:28 04/30/18 03:21 Oxygen Flow Rate (L/min) 3 Oxygen Delivery Method Nasal Cannula Weight: 292 lb 12.382 oz Body Mass Index (BMI) 53.5 Assessment/Plan All Active Problems Streptococcal bacteremia (Acute) Cellulitis (Acute) 1. Sepsis 2/2 cellulitis - Based on her previous sensitivities, will start Unasyn for possible conversion to augmentin on DC - Blood cx pending - IVF@125 - Lactate is normal 2. DM2 - Will hold home medications and start a SSI coverage 3. HTN - Stable currently - Will restart home medications, once the home med list is verified 4. Depression/Anxiety - Appears stable - Once her home med list is verified, can rest her medications DVT: Lovenox Diet: DM Code Visit Inpatient E&M: 37429 Init Hosp L3
--- NOTE | 2018-04-30 05:16 | HP.PCM_ITS ---
Problem List (1) Cellulitis Status: Acute (2) Depression Status: Chronic (3) Anxiety Status: Chronic (4) Hypertension Status: Chronic (5) Type 2 diabetes mellitus Status: Chronic History of Present Illness Date of Admission: 04/30/18 Chief Complaint: Rash The patient is a 78 year old F with a PMH as above presents to the hospital with a rash. She happened to noti that she had some mild pain with redness and warmth on herright buttock, so she presented to the ER. She was worried because the last time she had cellulitis, she had it in her blood and was told that her group G strep infection was rare, so she did not want to take any chances this time and she came in. She denies fevers, chills, SOB, CP, lightheadedness, malaise or fatigue, and states that if she didnt have the rash she would not be here because she feels great otherwise. In the ER she was found to have a leukocytosis, with tachycardia, tachypnea and a temperature >38. She was given a fluid bolus and had cultures drawn and was given a dose of rocephin in the ER , based on the previous sensitivities. Lactate was normal. Past Medical History Past Medical History (Chronic Problems): Chronic Problems Osteoarthritis (Chronic) Depression (Chronic) Anxiety (Chronic) Obstructive sleep apnea (Chronic) Acquired hypothyroidism (Chronic) Hypertension (Chronic) Type 2 diabetes mellitus (Chronic) Allergies erythromycin base [Erythromycin Base] Allergy (Verified 04/29/18 21:11) Unknown ibuprofen [From Nuprin] Allergy (Verified 04/29/18 21:11) Unknown Home Medications: Ambulatory Orders Medication Instructions Recorded Lisinopril 10 mg PO DAILY 05/22/14 Metformin [Metformin HCl] 1,000 mg PO BID 05/22/14 buPROPion SR [Wellbutrin SR (150mg 150 mg PO BID 05/22/14 tablets)] Linagliptin [Tradjenta] 5 mg PO DAILY 02/04/18 Umeclidinium Brm/Vilanterol Tr 1 each IH DAILY 02/04/18 [Anoro Ellipta 62.5-25 Mcg INH] busPIRone [Buspar] 5 mg PO BID 02/04/18 Gabapentin [Neurontin] 1 capsule PO DAILY 04/30/18 Surgical History: appendectomy, cholecystectomy, hysterectomy Psychiatric History: Anxiety, Depression CERTIFIED INDUSTRIAL HYGIENIST History: No pertinent CERTIFIED INDUSTRIAL HYGIENIST history Smoking Status: Former smoker Alcohol: None Drugs: None - *Family History Maternal History Items: No pertinent history Paternal History Items: No pertinent history Review of Systems Constitutional: Denies: Chills, Fever, Weight Change HEENT: Denies: Head Aches, Sinus Congestion, Sinus Drainage Cardiovascular: Denies: Chest Pain, Palpitations Respiratory: Denies: Cough, Shortness of breath at rest, Sputum production Gastrointestinal: Denies: Abdominal Pain, Nausea, Vomiting Genitourinary: Denies: Dysuria Musculoskeletal: Denies: Joint Pain, Joint Tenderness Skin: Reports: Rash. Denies: Wounds Neurological: Denies: Numbness, Tingling, Focal weakness Psychiatric: Denies: Anxiety, Depression Hematologic/ Lymphatic: Denies: Easy Bruising, Easy Bleeding VTE Information - Inpt Only VTE Present on Admission: No Patient Problems: Active and Suspected Problems Cellulitis (Acute) - Physical Exam General: Alert, Oriented x3, Cooperative, No apparent distress HEENT: Atraumatic, PERRLA, EOMI, Normocephalic Oral: Moist Mucosa Neck: Supple, No JVD Lungs: Clear to auscultation, Normal air movement, No rhonchi, No wheeze, No rales Cardiovascular: Regular rate, Regular Rhythm, Normal S1, Normal S2, No murmurs Abdomen: Soft, Non Tender, Non-Distended, No Hepato-splenomegaly Extremities: No edema, Capillary Refill Less than 3 Seconds Skin: - - Erythema on the right buttock and right thigh. Warm to the touch Musculoskeletal: No Tenderness to Palpation of Joints or Extremities Neurological: Neuro grossly intact, Sensory exam intact to light touch and pain Psych/Mental Status: Normal Affect, Appropriate Vital Signs Temp Pulse Resp BP Pulse Ox 98.3 F 86 16 144/60 H 97 04/30/18 02:28 04/30/18 02:48 04/30/18 02:28 04/30/18 02:28 04/30/18 03:21 Oxygen Flow Rate (L/min) 3 Oxygen Delivery Method Nasal Cannula Weight: 292 lb 12.382 oz Body Mass Index (BMI) 53.5 Assessment/Plan All Active Problems Streptococcal bacteremia (Acute) Cellulitis (Acute) 1. Sepsis 2/2 cellulitis - Based on her previous sensitivities, will start Unasyn for possible conversion to augmentin on DC - Blood cx pending - IVF@125 - Lactate is normal 2. DM2 - Will hold home medications and start a SSI coverage 3. HTN - Stable currently - Will restart home medications, once the home med list is verified 4. Depression/Anxiety - Appears stable - Once her home med list is verified, can rest her medications DVT: Lovenox Diet: DM Code Visit Inpatient E&M: 41655 Init Hosp L3
[2018-04-30 06:18] LABS: Absolute Lymphocyte Count 1.49 X10^3/ul (0.83-4.51); Basophil# 0.03 X10^3/uL; Basophil% 0.2 % (0-1); Eosinophil# 0.03 X10^3/uL; Eosinophils% 0.2 % (0-5); Hematocrit 35.1 % (37-47); Lymphocyte # 1.49 X10^3/ul (4.0); Mean Corp Hgb Conc 31.3 g/gl (32-36); Mean Corpuscular Hgb 29.8 pg (27.0-32.0); Mean Corpuscular Volume 95.1 fL (81-99); Mean Platelet Vol. 11.1 fl (6.2-12.0); Neutrophil # 14.03 X10^3/uL (2.7-7.7); Neutrophil % 84.4 % (47-70); Platelet Count 245 K/mm3 (150-450); RBC Distribution Width CV 14.1 % (11.6-14.6); RBC Distribution Width SD 46.4 fl (35.1-43.9); Red Blood Count 3.69 M/mm3 (4.2-5.4); White Blood Count 16.6 K/mm3 (4.4-11.0)
[2018-04-30 06:31] LABS: Anion Gap 8 (5-15); BUN 10 mg/dL (7-18); BUN/Creat Ratio 12.5 RATIO (10-20); Calcium,Total 8.1 mg/dL (8.5-10.1); Chloride 101 mmol/L (98-107); EST Glomerular Filtration Rate 74 mL/min (>60); Est Glom Filt Rate - Afr Amer 89 mL/min (>60); Glucose 170 mg/dL (74-106); Potassium 3.6 mmol/L (3.5-5.1); Sodium Level 138 mmol/L (136-145)
[2018-04-30 06:35] LABS: POSITIVE COUNT NO; POSITIVE DIFFERENTIAL NO; POSITIVE MORPHOLOGY NO
[2018-04-30 06:56] LABS: Bedside Glucose 185 mg/dL (70-110)
[2018-04-30] MEDS: Enoxaparin 40 MG/0.4 ML Syringe SC (08:29)
[2018-04-30] MEDS: Insulin Lispro 100 UNIT/ML INSULN.PEN SQ ×4 (08:30→21:13)
[2018-04-30 11:21] LABS: Bedside Glucose 206 mg/dL (70-110)
--- NOTE | 2018-04-30 11:34 | PCM.PROGNOTE ---
Patient Problems: Active and Suspected Problems Cellulitis (Acute) Subjective: Pt resting comfortably in bed. No fevers or chills. She has been seeing dr. Mullins in the office since last admission for cellulitis and bacteremia, strep at that time. She was treated with vanc/zosyn/rocephin and ultimately dc'd on levaquin. She states that cellulitis of her RLE has resolved, however a new erythema, warmth and pain started on her right buttocks, which is why she is now here. She has been on an antibiotic - green tid pill otherwise unsure what it is. She denies open wounds, sores, drainage, denies trauma. - Physical Exam General: Alert, Oriented x3, Cooperative HEENT: Atraumatic, PERRLA, EOMI, Normocephalic Neck: Supple, No JVD, Negative Carotid Bruits Lungs: Clear to auscultation, Normal air movement Cardiovascular: Regular rate, No murmurs Abdomen: Bowel Sounds Present, Soft, Non Tender Extremities: No edema, Capillary Refill Less than 3 Seconds Skin: - - large area of warmth and erythema with no open sores or drainage. Musculoskeletal: No Tenderness to Palpation of Joints or Extremities, - - BL feet with fungal changes. Neurological: Cranial nerves II-XII grossly intact Psych/Mental Status: Normal Affect, Appropriate, Alert and oriented to time, place, person, mood and affect Vital Signs Temp Pulse Resp BP Pulse Ox 98.7 F 83 16 126/50 H 95 04/30/18 08:28 04/30/18 10:59 04/30/18 08:28 04/30/18 08:28 04/30/18 08:28 Oxygen Flow Rate (L/min) 3 Oxygen Delivery Method Nasal Cannula Weight: 292 lb 12.382 oz Body Mass Index (BMI) 53.5 Intake and Output for Last 24 Hours 04/28/18 04/29/18 04/30/18 23:59 23:59 23:59 Intake Total 1451 / 1451 Balance 1451 / 1451 Laboratory Tests Past 24 Hrs 04/30/18 04/30/18 05:10 05:10 WBC 16.6 H RBC 3.69 L Hgb 11.0 L Hct 35.1 L MCV 95.1 MCH 29.8 MCHC 31.3 L RDW 14.1 RDW Differential 46.4 H Plt Count 245 MPV 11.1 Immature Gran % (Auto) 0.200 Neut % (Auto) 84.4 H Lymph % (Auto) 9.0 L Harper % (Auto) 6.0 Eos % (Auto) 0.2 Baso % (Auto) 0.2 Absolute Neuts (auto) 14.0 H Absolute Lymphs (auto) 1.49 Total Counted Not Reportable Sodium 138 Potassium 3.6 Chloride 101 Carbon Dioxide 29.0 Anion Gap 8 BUN 10 Creatinine 0.80 Estim Creat Clear Calc 45.10 Est GFR (MDRD) Af Amer 89 Est GFR (MDRD) Non-Af 74 BUN/Creatinine Ratio 12.5 Glucose 170 H Calcium 8.1 L POC Glucose 04/30/18 04/30/18 11:12 06:50 POC Glucose 206 H 185 H Medical Necessity - Tobacco Use Smoking Status: Former smoker Assessment/Plan All Active Problems Streptococcal bacteremia (Acute) Cellulitis (Acute) 1. Acute sepsis 2/2 cellulitis right buttocks - unasyn. Known to ID - consult placed. Bacteremic with strep 2 months ago from cellulitis. That area is resolved. Blood cultures pending. WBC improved, fever resolved. Only possible open area I can see at this time is her BL fungal feet issues - she needs outpatient podiatry follow up given her diabetes. Will treat this with BID clotrimazole for now. 2. DMt2 with morbid obesity - restart oral if renal function remains stable. SSI only for now. 3. HTN - stable 4. Anx/dep - home meds 5. Chronic hypoxic resp failure 2/2 copd - stable, at baseline. DVT ppx: lovenox DC planning: pending improvement in cellulitis, blood cultures. This patient was seen by Carlos Estrella PA-C under the supervision of Doctor Kaur.
--- NOTE | 2018-04-30 11:48 | CASEMGMT ---
Face to Face with patient for initial transition planning/care coordination assessment. LAMIN ARNDT introduced self and role at [facility], pt voices understanding and consents to assessment at this time. Pt is lying in bed in no distress at this time. Pt is A/O x4 at this time and answers all questions appropriately at this time. Care providers, pharmacy, and demographics verified. See attached link. Pt states no concerns/needs at this time. Advised pt to ask for CM if any further questions/concerns/needs arise, voices understanding. CM to follow for any further discharge planning/needs. PLAN: [place] LAMIN ARNDT
--- NOTE | 2018-04-30 13:06 | PCM.HP.ID ---
Problem List (1) Cellulitis Status: Acute Reason for Consult: cellulitis Consulted by: Dr. Alfaro History of Present Illness: The patient is a 78 year old F with recurrent cellulitis, last admission with strep bacteremia, presented to ED 04/29 with one day of R hip severe burning pain, redness. No fever or chills. Some nausea. No recent abx. No inciting event. Fever to 100.8 in ED. Given ceftriaxone, then unasyn. Feeling better, pain resolved. Full ROS performed and neg except as noted above. - Medical History Past Medical History (Chronic Problems): Chronic Problems Osteoarthritis (Chronic) Depression (Chronic) Anxiety (Chronic) Obstructive sleep apnea (Chronic) Acquired hypothyroidism (Chronic) Hypertension (Chronic) Type 2 diabetes mellitus (Chronic) Allergies/Adverse Reactions: Allergies erythromycin base [Erythromycin Base] Allergy (Verified 04/29/18 21:11) Unknown ibuprofen [From Nuprin] Allergy (Verified 04/29/18 21:11) Unknown Home Medications: Ambulatory Orders Medication Instructions Recorded Lisinopril 10 mg PO DAILY 05/22/14 Metformin [Metformin HCl] 1,000 mg PO BID 05/22/14 buPROPion SR [Wellbutrin SR (150mg 150 mg PO BID 05/22/14 tablets)] Linagliptin [Tradjenta] 5 mg PO DAILY 02/04/18 Umeclidinium Brm/Vilanterol Tr 1 each IH DAILY 02/04/18 [Anoro Ellipta 62.5-25 Mcg INH] busPIRone [Buspar] 5 mg PO BID 02/04/18 Gabapentin [Neurontin] 1 capsule PO DAILY 04/30/18 - Social History SMOKING STATUS:: Former smoker Vital Signs Temp Pulse Resp BP Pulse Ox 98.7 F 83 16 126/50 H 95 04/30/18 08:28 04/30/18 10:59 04/30/18 08:28 04/30/18 08:28 04/30/18 08:28 Oxygen Flow Rate (L/min) 3 Oxygen Delivery Method Nasal Cannula Weight: 132.8 kg Body Mass Index (BMI) 53.5 Laboratory Tests Past 24 Hrs 04/30/18 04/30/18 05:10 05:10 WBC 16.6 H RBC 3.69 L Hgb 11.0 L Hct 35.1 L MCV 95.1 MCH 29.8 MCHC 31.3 L RDW 14.1 RDW Differential 46.4 H Plt Count 245 MPV 11.1 Immature Gran % (Auto) 0.200 Neut % (Auto) 84.4 H Lymph % (Auto) 9.0 L [place] % (Auto) 6.0 Eos % (Auto) 0.2 Baso % (Auto) 0.2 Absolute Neuts (auto) 14.0 H Absolute Lymphs (auto) 1.49 Total Counted Not Reportable Sodium 138 Potassium 3.6 Chloride 101 Carbon Dioxide 29.0 Anion Gap 8 BUN 10 Creatinine 0.80 Estim Creat Clear Calc 45.10 Est GFR (MDRD) Af Amer 89 Est GFR (MDRD) Non-Af 74 BUN/Creatinine Ratio 12.5 Glucose 170 H Calcium 8.1 L - Other Studies Radiology: [] reviewed Other Studies: [] Route of nutrition/ use of supplements: [] Nutritional Intake: [] IV Site: [] Rodriguez Catheter: [] - Physical Exam General: Alert, Oriented x3, Cooperative, No apparent distress HEENT: Atraumatic, PERRLA, EOMI Neck: Supple, No Nodes Lungs: Clear to auscultation, Normal air movement Cardiovascular: Regular rate, Regular Rhythm Abdomen: Soft, Non Tender, Non-Distended Extremities: No edema Skin: Rash Present - area of redness, mild pain, warmth, tenderness over R hip IV Site: Peripheral, without redness Musculoskeletal: No Tenderness to Palpation of Joints or Extremities Neurological: Cranial nerves II-XII grossly intact - Assessment/Plan Antibiotics: [] Assessment/Plan: [] Active and Suspected Problems Cellulitis (Acute) R hip cellulitis with sepsis (fever and leukocytosis) - much improved. No purulence seen. Narrow unasyn to cefazolin. Feeling much better. Likely home soon on po keflex. May benefit from continuous pillowcase cutter suppressive low dose amoxicillin. Will follow, thank you.
[2018-04-30] MEDS: Cefazolin 1 GM/50 ML BAG IV ×2 (14:09→21:18)
[2018-04-30 18:00] LABS: Bedside Glucose 218 mg/dL (70-110)
[2018-04-30 21:50] LABS: Bedside Glucose 224 mg/dL (70-110)
[2018-05-01] MEDS: 0.9% Normal Saline 1,000 ML 125 ML IV (05:16)
[2018-05-01] MEDS: Cefazolin 1 GM/50 ML BAG IV (05:16)
[2018-05-01 06:21] LABS: Anion Gap 4 (5-15); BUN 11 mg/dL (7-18); BUN/Creat Ratio 13.5 RATIO (10-20); Calcium,Total 7.8 mg/dL (8.5-10.1); Chloride 105 mmol/L (98-107); Creatinine, Serum 0.82 mg/dL (0.55-1.02); EST Glomerular Filtration Rate 72 mL/min (>60); Est Glom Filt Rate - Afr Amer 87 mL/min (>60); Glucose 162 mg/dL (74-106); Potassium 3.7 mmol/L (3.5-5.1); Sodium Level 139 mmol/L (136-145)
[2018-05-01 06:29] LABS: Absolute Lymphocyte Count 1.37 X10^3/ul (0.83-4.51); Absolute Neutrophil Count 7.9 X10^3/uL (2.0-7.7); Basophil# 0.02 X10^3/uL; Basophil% 0.2 % (0-1); Eosinophil# 0.13 X10^3/uL; Eosinophils% 1.3 % (0-5); Hematocrit 35.4 % (37-47); Hemoglobin 10.7 g/dl (12.0-15.0); Lymphocyte # 1.37 X10^3/ul (4.0); Lymphocyte % 13.3 % (19-41); Mean Corp Hgb Conc 30.2 g/gl (32-36); Mean Corpuscular Hgb 29.3 pg (27.0-32.0); Mean Platelet Vol. 10.7 fl (6.2-12.0); Monocyte# 0.82 X10^3/uL; Neutrophil # 7.91 X10^3/uL (2.7-7.7); Neutrophil % 76.8 % (47-70); Platelet Count 236 K/mm3 (150-450); RBC Distribution Width CV 14.2 % (11.6-14.6); RBC Distribution Width SD 48.2 fl (35.1-43.9); Red Blood Count 3.65 M/mm3 (4.2-5.4); White Blood Count 10.3 K/mm3 (4.4-11.0)
[2018-05-01 06:40] LABS: POSITIVE COUNT NO; POSITIVE DIFFERENTIAL NO; POSITIVE MORPHOLOGY NO
[2018-05-01 07:00] LABS: Bedside Glucose 180 mg/dL (70-110)
[2018-05-01 07:01] VITALS: BP 172/72; PULSE 80; RESP 18; TEMP 36.7; O2SAT 96
[2018-05-01 07:13] VITALS: PULSE 78
[2018-05-01] MEDS: Enoxaparin 40 MG/0.4 ML Syringe SC (08:17)
[2018-05-01] MEDS: Insulin Lispro 100 UNIT/ML INSULN.PEN SQ ×2 (08:17→11:20)
[2018-05-01] MEDS: Lisinopril 10 MG Tablet PO (08:17)
[2018-05-01] MEDS: LINAGLIPTIN 5 MG TABLET PO (09:50)
--- NOTE | 2018-05-01 10:40 | DCINST_ITS ---
- Discharge Diagnoses Current Active Problems: Current Active and Chronic Problems Cellulitis (Acute) You will use the following diet at home:: Calorie/Carbohydrate Controlled (specify 1200, 1400, etc) - 1800 lexx / day, Cardiac Your food should be the consistency of: Regular Your liquids should be the consistency of: Regular/Thin Discharge Activity: Return to Normal Activity Allergies/Adverse Reactions: Allergies erythromycin base [Erythromycin Base] Allergy (Verified 04/29/18 21:11) Unknown ibuprofen [From Nuprin] Allergy (Verified 04/29/18 21:11) Unknown Medications to take at Discharge Lisinopril 10 mg PO DAILY 05/22/14 Metformin [Metformin HCl] 1,000 mg PO BID 05/22/14 buPROPion SR [Wellbutrin SR (150mg tablets)] 150 mg PO BID 05/22/14 Linagliptin [Tradjenta] 5 mg PO DAILY 02/04/18 Umeclidinium Brm/Vilanterol Tr [Anoro Ellipta 62.5-25 Mcg INH] 1 each IH DAILY 02/04/18 busPIRone [Buspar] 5 mg PO BID 02/04/18 Gabapentin [Neurontin] 1 capsule PO DAILY 04/30/18 Amoxicillin 500 mg PO DAILY #30 tablet 05/01/18 Cephalexin [Keflex] 500 mg PO BID #11 capsule 05/01/18 The following prescriptions were given: Amoxicillin 500 mg PO DAILY #30 tablet Cephalexin [Keflex] 500 mg PO BID #11 capsule Primary Care Physician: Dustin Lang MD [Primary Care Provider] - Please follow up with your Primary Care Physician in: 1-2 weeks Test Results: Test results from this visit will be discussed in further detail at your follow- up appointment, if applicable. Please Follow Up With: Juvencio Méndez MD When: 2 weeks
--- NOTE | 2018-05-01 10:56 | PN.ID_ITS ---
Patient Problems: Active and Suspected Problems Cellulitis (Acute) Subjective: Feeling better, no fever, rash improving. - Physical Exam General: Alert, Cooperative, No apparent distress Lungs: Clear to auscultation, Normal air movement Cardiovascular: Regular rate, Regular Rhythm Abdomen: Soft, Non Tender, Non-Distended Skin: Rash Present - Over R thigh and buttock Vital Signs Temp Pulse Resp BP Pulse Ox 98.0 F 78 18 172/72 H 96 05/01/18 07:01 05/01/18 07:13 05/01/18 07:01 05/01/18 07:01 05/01/18 07:01 Oxygen Flow Rate (L/min) 3 Oxygen Delivery Method Nasal Cannula Weight: 132.8 kg Body Mass Index (BMI) 53.5 Finger Stick Blood Glucose 300 Intake and Output for Last 24 Hours 04/29/18 04/30/18 05/01/18 23:59 23:59 23:59 Intake Total 2935 / 2935 694 / 694 Balance 2935 / 2935 694 / 694 Microbiology Past 72 Hours 04/29/18 23:50 Urine Culture - Preliminary Urine, Clean Catch Culture exhibits no growth. Laboratory Tests Past 24 Hrs 05/01/18 05/01/18 05:25 05:25 WBC 10.3 RBC 3.65 L Hgb 10.7 L Hct 35.4 L MCV 97.0 MCH 29.3 MCHC 30.2 L RDW 14.2 RDW Differential 48.2 H Plt Count 236 MPV 10.7 Immature Gran % (Auto) 0.400 Neut % (Auto) 76.8 H Lymph % (Auto) 13.3 L Trinity % (Auto) 8.0 Eos % (Auto) 1.3 Baso % (Auto) 0.2 Absolute Neuts (auto) 7.9 H Absolute Lymphs (auto) 1.37 Total Counted Not Reportable Sodium 139 Potassium 3.7 Chloride 105 Carbon Dioxide 30.0 Anion Gap 4 L BUN 11 Creatinine 0.82 Estim Creat Clear Calc 44.00 Est GFR (MDRD) Af Amer 87 Est GFR (MDRD) Non-Af 72 BUN/Creatinine Ratio 13.5 Glucose 162 H Calcium 7.8 L POC Glucose 05/01/18 04/30/18 04/30/18 06:50 21:11 17:24 POC Glucose 180 H 224 H 218 H 04/30/18 11:12 POC Glucose 206 H Medical Necessity - Tobacco Use Smoking Status: Former smoker Route of nutrition/ use of supplements: [] Nutritional Intake: [] IV Site: [] Rodriguez Catheter: [] - Assessment/Plan Antibiotics: [] Assessment/Plan: [] Active and Suspected Problems Cellulitis (Acute) R hip cellulitis with sepsis (fever and leukocytosis) - much improved. No purulence seen. Narrowed unasyn to cefazolin. Feeling much better. 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 Will follow, d/w primary team. ID follow up as needed.
[2018-05-01 11:03] VITALS: PULSE 77
[2018-05-01 11:31] LABS: Bedside Glucose 204 mg/dL (70-110)
[2018-05-01 13:05] VITALS: BP 151/75; PULSE 74; RESP 18; TEMP 36.7; O2SAT 98
--- NOTE | 2018-05-01 15:02 | PCM.DC.SUM ---
Discharge Date and Diagnosis - Problem List Patient Problems: Active and Suspected Problems Cellulitis (Acute) Date of Admission: 04/30/18 Date of Discharge: 05/01/18 - Primary Discharge Diagnosis Active and Suspected Problems Acute sepsis 2/2 recurrent cellulitis presumed streptococcal tinea pedis DMt2 HTN anx/dep chronic hypoxic resp failure 2/2 COPD - Secondary Discharge Diagnosis Chronic Problems Osteoarthritis (Chronic) Depression (Chronic) Anxiety (Chronic) Obstructive sleep apnea (Chronic) Acquired hypothyroidism (Chronic) Hypertension (Chronic) Type 2 diabetes mellitus (Chronic) Hospital Course and Treatment Imaging Results: CT/Abdomen/Pelvis without Cont IMPRESSION: Negative for evidence of bowel obstruction or perforation. Minimal diverticulosis without evidence of diverticulitis. The appendix is not visualized. Mildly dilated distal small bowel with slightly alice mesentery. Findings may indicate infectious/inflammatory ileitis. Negative for mesenteric adenopathy. Elongated and globular inferior right liver with a slightly lower density than the remainder of the liver. This finding is unchanged from the prior exam and demonstrated no underlying enhancing mass density on the prior contrasted exam. 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 Status post cholecystectomy with a nondistended common bile duct without filling defects. Status post hysterectomy without pelvic mass or free fluid in the pelvis. Minor atherosclerotic calcifications of the aorta. Normal size of the kidneys bilaterally without hydronephrosis or stones. RAD/Chest 1 View (Portable) IMPRESSION: Stable chronic changes without new consolidation, focal atelectasis or a substantial pleural effusion. Stable cardiac size, borderline cardiomegaly without pulmonary venous congestion. Consults: Dev MONAHAN Operations: None Procedures: None Summary of Care Provided: Physical exam on day of discharge: General: Resting comfortably NAD Psych: A/Ox3 normal affect HEENT: PEARRLA AT NC Neck: Supple NT CV: RRR no m/t/r/g/h Resp: CTA Abd: NABS ?4, nontender, morbidly obese Ext: DP2+= no edema. Bilateral feet fungal changes, right lower extremity with scaly dry skin. Skin: W/D normal turgor, large area of irregular erythema, warmth to touch, mildly tender over the right buttocks, receding in size. No open sores. Lymph/Heme: No active bleeding or adenopathy Neuro: CN2-12 intact Hospital course: The patient is a 78 year old F with hx of cellulitis and bacteremia in february of this year followed by Dr. Méndez as outpatient, who presented to the ER with c/o increased erythematous rash of the buttocks concerning for strep infection. She was septic in the ER with leukocytosis, fever, tachycardia, and tachypnea. She was admitted to PCU and placed on IV unasyn. ID was consulted as they had been following her as an outpatient, and abx were changed to ancef. Fever and leukocytosis resolved with IV abx therapy. There were no open wounds or sores, and no drainage. No clear point of entry was identified. She does have chronic fungal changes of the BL feet and does not see a psychologist engineering. We started clotrimazole bid and advised that she started having at least yearly podiatry visits as she is a diabetic, advised Dr. Thurman as she desires to stay in the [facility] system. Blood cultures are pending at this time. She was also advised to f/u with her PCP and with ID. She was discharged home in stable condition and will complete a total of 7 days of abx therapy on keflex, and after completing this will start taking once daily amoxicillin for cellulitis prophylaxis. This patient was seen by Carlos Estrella PA-C under the supervision of Doctor Vincent. [] Discharge Diet: Low fat/ Low Cholesterol, 1800 Calorie Control Diet, 2000 mg Sodium Diet Discharge Activity: Return to Normal Activity Home Medications: Medications to take at Discharge Lisinopril 10 mg PO DAILY 05/22/14 Metformin [Metformin HCl] 1,000 mg PO BID 05/22/14 buPROPion SR [Wellbutrin SR (150mg tablets)] 150 mg PO BID 05/22/14 Linagliptin [Tradjenta] 5 mg PO DAILY 02/04/18 Umeclidinium Brm/Vilanterol Tr [Anoro Ellipta 62.5-25 Mcg INH] 1 each IH DAILY 02/04/18 busPIRone [Buspar] 5 mg PO BID 02/04/18 Gabapentin [Neurontin] 1 capsule PO DAILY 04/30/18 Amoxicillin 500 mg PO DAILY #30 tablet 05/01/18 Cephalexin [Keflex] 500 mg PO BID #11 capsule 05/01/18 Clotrimazole [Lotrimin] 1 applicatio TOPICAL BID #1 tube 05/01/18 Following Prescrptions Were Given to Patient: Amoxicillin 500 mg PO DAILY #30 tablet Cephalexin [Keflex] 500 mg PO BID #11 capsule Clotrimazole [Lotrimin] 1 applicatio TOPICAL BID #1 tube Primary Care Physician: Dustin Lang MD [Primary Care Provider] - Please follow up with your Primary Care Physician in: 1-2 weeks Please Follow Up With: Juvencio Méndez MD When: Follow up as Needed Please Follow Up With: Dustin Lang MD Disposition: Home Minutes spent on discharge:: 35 Patient Condition:: Stable Medical Necessity - Tobacco Use Smoking Status: Former smoker Meaningful Use Info Meaningful Use Diagnoses (Choose all that apply): None applicable
--- NOTE | 2018-05-02 16:09 | CASEMGMT ---
LAMIN ARNDT Discharge Follow-Up Phone Call: JUAN DAVID: Asim STRATA: 3 Discharge Date: 05/01/18 Adm Dx: Cellulitis RN HAIR spoke with pt re: how she has been feeling since she left the hospital. Pt states, I'm doing okay. Pt states she has not picked up her prescriptions yet, stating, I was just getting ready to leave now to go get them. Pt instructed to take the antibiotics as soon as she picks them up and instructed to not double-dose the Keflex, even though she has missed a couple doses. Pt voices understanding. Pt stated she has an appt with Dr Lang this Monday, but that she had a question about a phone call she received this AM from the [facility] about an appt and stated she tried to call them back but was unable to reach the correct person to talk to. Pt instructed to make a return call to the [facility] to follow up about the missed call/appt. Pt stated she will do this. Pt also stated she is aware she is to make a follow-up appt with Dr Thurman and Dr Méndez but that she has not made those appts yet. Pt denies having any further questions. LAMIN ARNDT thanked pt for choosing [facility]. LAMIN ARNDT made phone call to [facility] and spoke w/Lashaun, Hydrological Technical Officer, re: pt's question about her appt and the missed call she had this AM. Lashaun was also made aware pt has not picked up her prescriptions/antibiotics yet and therefore has missed a couple of doses since leaving the hospital. Lashaun states she will follow up with pt about the appointments, phone call, and antibiotics. Lee Ann PHAM RN, CM
--- NOTE | 2018-05-03 14:15 | CASEMGMT ---
LAMIN ARNDT NOTE: Received phone call from Lashaun Recinos, Road Patcher @ [facility]. Lashaun states that she was able to reach pt and confirmed her appt with Dr Lang for tomorrow 05/04/18. Lashaun also states that pt confirmed with her that she did potato picker her prescriptions yesterday and that she did start taking them as prescribed. Lee Ann PHAM RN CM
== END 2018-05-01 15:35 | disposition home or self-care (01) | DRG 872 ==
LOC: ED 22:49 → PCU 04-30 01:55
PROVIDERS: Physician Assistant; Admitting Provider Family Medicine; Emergency Provider Emergency Medicine; Family Provider Internal Medicine; PCP Internal Medicine; Visit Provider Internal Medicine
DX: A40.9 Streptococcal sepsis, unspecified (principal); L03.317 Cellulitis of buttock; J96.11 Chronic respiratory failure with hypoxia; Z68.43 Body mass index [BMI] 50.0-59.9, adult; E11.9 Type 2 diabetes mellitus without complications; J44.9 Chronic obstructive pulmonary disease, unspecified; B35.3 Tinea pedis; G47.33 Obstructive sleep apnea (adult) (pediatric); E66.01 Morbid (severe) obesity due to excess calories; Z79.84 Long term (current) use of oral hypoglycemic drugs; F32.9 Major depressive disorder, single episode, unspecified; F41.9 Anxiety disorder, unspecified; M19.90 Unspecified osteoarthritis, unspecified site; Z87.891 Personal history of nicotine dependence; I10 Essential (primary) hypertension
CPT/HCPCS: 36415; 71045; 74176; 80048; 80053; 81001; 82962; 83605; 85025; 85610; 85730; 87040; 87086; 93005; 97161; 97166; 97802; 99283; 99406; J7030; J0295

== ENCOUNTER 2024-03-08 05:58 | Emergency (ER) | payer MEDICARE, SELFPAY ==
[2024-03-08 05:58] VITALS: BP 110/76; PULSE 89; RESP 16; TEMP 36.6; O2SAT 97; BMI 51.8
--- NOTE | 2024-03-08 06:20 | RAD_ITS ---
INDICATION: injury EXAMINATION/TECHNIQUE: X-RAY - LEFT XR Tibia/Fibula 2 Views 4 VIEWS COMPARISON: Knee and foot radiograph on same day FINDINGS: SOFT TISSUES: Diffuse lower leg edema. No subcutaneous emphysema. No radiopaque foreign body. Peripheral atherosclerosis. BONES/JOINTS: No acute fracture.. Normal alignment. No aggressive periostitis or osseous erosion. Scattered cortical thickening compatible with degenerative tug lesions. RAD/Tibia & Fibula 2 Views IMPRESSION: Nonspecific lower leg edema without acute osseous finding.. Electronically Signed: Rosalio Hernandez MD at 8:00 EDT ,
--- NOTE | 2024-03-08 06:20 | RAD_ITS ---
INDICATION: injury EXAMINATION/TECHNIQUE: X-RAY - LEFT XR Foot Min 3 Views 3 VIEWS COMPARISON: No relevant prior comparison study available FINDINGS: SOFT TISSUES: Diffuse ankle and lower leg edema. Dorsal forefoot bullous soft tissue thickening overlying the proximal phalanges and to lesser degree overlying the metatarsals. No subcutaneous emphysema No radiopaque foreign body. Scattered peripheral atherosclerosis. BONES/JOINTS: No acute fracture or subluxation.. Normal alignment. Preservation of the joint space.. No sclerotic or destructive changes observed. RAD/Foot min 3 Views IMPRESSION: Nonspecific lower leg and ankle edema with multifocal bullous soft tissue thickening along the dorsal forefoot. No acute osseous finding. Electronically Signed: Rosalio Hernandez MD at 7:57 EDT ,
--- NOTE | 2024-03-08 06:20 | RAD_ITS ---
INDICATION: injury EXAMINATION/TECHNIQUE: X-RAY - LEFT XR Knee 1 or 2 Views 2 VIEWS COMPARISON: Tibiofibular radiograph same day FINDINGS: SOFT TISSUES: Diffuse soft tissue prominence about the imaged [.. No radiopaque foreign body. BONES/JOINTS: No acute fracture. Trace suprapatellar effusion.. Normal alignment. Mild patellofemoral compartment space loss and minimal patellar osteophyte formation... No aggressive osseous lesion. RAD/Knee 1 or 2 Views IMPRESSION: Patellofemoral compartment degenerative change with trace nonspecific effusion. No acute osseous finding.. Electronically Signed: Rosalio Hernandez MD at 8:15 EDT ,
--- NOTE | 2024-03-08 06:23 | ED.VIS.FALL ---
HPI HPI - Fall History of Present Illness Chief Complaint: Fall Informant: patient and friend Narrative Narrative: Presents by EMS at home increasing pain left lower leg. Patient had a mechanical fall 2 days ago getting out of her recliner. She been feeling weaker for the past month. She did not ambulate any assistance. She landed on her knees when she fell. No head injuries. No anticoagulants. EMS was contacted for assistance. She had no pain at that time. Since then pain is increased worse with weightbearing on the left lower extremity. No new injuries. She been using Tylenol. Friend is here of over 20 years and lives with her has been helping her to the restroom. [facility] Medical History Anxiety On home oxygen therapy HTN (hypertension) Diabetes History of cellulitis Home Medications ?Medication ?Instructions ?Recorded ?Last Taken ?Type bupropion HCl 150 mg tablet,12 hr 150 mg PO BID DEPRESSION 05/22/14 04/28/18 History sustained-release metformin 500 mg tablet 1,000 mg PO BID DM 05/22/14 04/28/18 History buspirone 5 mg tablet 5 mg PO BID depression 02/04/18 04/28/18 History gabapentin 100 mg capsule 1 capsule PO DAILY neuropathy 04/30/18 04/28/18 History amoxicillin 500 mg capsule 500 mg PO DAILY 03/08/24 Unknown History docusate sodium 100 mg capsule 100 mg PO BID #30 caps 03/08/24 Unknown Rx (Colace) glipizide 10 mg tablet, extended 20 mg PO DAILY 03/08/24 Unknown History release 24 hr lisinopril 20 2 tab PO DAILY 03/08/24 Unknown History mg-hydrochlorothiazide 12.5 mg tablet oxycodone-acetaminophen 5 mg-325 1 tab PO Q6H PRN PRN Pain 3 days 03/08/24 Unknown Rx mg tablet #12 TABLETS Allergy/AdvReac Type Severity Reaction Status Date / Time erythromycin base Allergy Unknown Verified 03/08/24 05:58 (Erythromycin Base) ibuprofen (From Nuprin) Allergy Unknown Verified 03/08/24 05:58 Surgical History Hx of cholecystectomy History of hysterectomy History of appendectomy Social History Smoking Status: Former smoker ROS ROS ED Constitutional Constitutional ED: Denies chills, fever(s) or sweats ENT ENT ED: Denies dysphagia or sore throat Cardiovascular Cardiovascular: Denies chest pain, leg edema, palpitations or racing heartbeat Respiratory/Chest Respiratory/Chest: Denies cough, dyspnea or dyspnea on exertion Gastrointestinal Gastrointestinal: Denies abdominal pain, diarrhea, nausea or vomiting Genitourinary Genitourinary ED: Denies dysuria, hematuria or urinary frequency Musculoskeletal Musculoskeletal: Reports extremity pain; Denies back pain or neck pain Integumentary Denies rash or wounds Neurologic Neurologic: Denies headache(s), paresthesias or weakness EXAM Physical Exam Const Vital Signs: 03/08/24 05:58 03/08/24 06:42 03/08/24 07:21 Temperature 97.8 F Temperature Source Oral Pulse Rate 89 Respiratory Rate 16 Respiratory Effort Normal Respiratory Depth Normal Respiratory Pattern Normal Blood Pressure 110/76 Blood Pressure Mean 87 Pulse Ox 97 93 84 Oxygen Delivery Method Room Air Room Air Oxygen Flow Rate (L/min) 03/08/24 07:22 03/08/24 08:29 Temperature 97.5 F L Temperature Source Pulse Rate 81 Respiratory Rate 16 Respiratory Effort Respiratory Depth Respiratory Pattern Blood Pressure 134/76 H Blood Pressure Mean 95 Pulse Ox 95 98 Oxygen Delivery Method Nasal Cannula Oxygen Flow Rate (L/min) 3 Positive well nourished and well developed Constitutional Narrative: BMI 51, GCS 15 General Appearance ED: well developed and NAD HEENT Reports moist mucous membranes normocephalic and atraumatic Eyes EOMs intact bilaterally and conjunctivae normal General Eye ED: Yes normal appearance of both eyes Neck no lymphadenopathy and supple General: Negative for tenderness Chest Wall Chest: Negative for tenderness Resp normal respiratory effort and normal air movement Effort and Inspection: symmetric chest movement; Negative for respiratory distress Cardio regular rate, regular rhythm and no murmurs Peripheral Pulses: pulses 2+ throughout GI normal to inspection, nondistended, normoactive bowel sounds and non-tender Palpation: Negative for guarding or rebound tenderness present Back/Spine no CVA tenderness and no thoracic nor lumbar tenderness Extremity Extremity Narrative: Upper extremities: Full range of motion without tenderness. Right lower extremity: Negative logroll knee extensor mechanism intact. Very minimal ecchymosis at the patellar. Skin intact. No deformities. No ankle tenderness. Neuro vas intact distally. Left lower extremity: Negative logroll. Tender palpation and patellar with ecchymosis and abrasion. Knee extensor intact. Negative varus and valgus. Mild tenderness in the mid leg without any deformities. No ankle tenderness. There is midfoot tenderness on exam there is light ecchymosis on the dorsal lateral aspect. There is clear blister noted about the third metatarsal. General Extremety ED: Yes tenderness; Negative for edema General Extremity: Negative for edema Neuro oriented x3 and no sensory deficits noted Sensorium / Orientation: awake and alert Skin Skin Narrative: See above MDM MDM MDM Narrative Medical decision making narrative: Interventions / MDM: Differential diagnosis: Leg contusion, fall Diagnosis considered but do not suspect: Fracture however x-ray negative My EKG interpretation: N/A Imaging independently reviewed and interpreted by myself: 2 view left knee: No fracture. 2 view left tib-fib: No fracture. 3 view left foot: No fracture. Soft tissue swelling noted. External documents reviewed: N/A Test considered but not ordered:N/A ED course: Patient's pain worse with weightbearing, at this time we will treat with oxycodone. Will x-ray left knee tib-fib and foot for further evaluation. No other injuries noted. X-ray negative reevaluation patient was controlled. Cliff wrap to left lower extremity she was ambulated with a walker with no difficulties. Prescription for a walker for the patient as none is available to dispense. Prescription for oxycodone for pain control. Stools nurse to prevent constipation. Outpatient follow-up with her PCP. All questions were answered. Re-evaluation: stable Disposition discussed with patient/family/significant other: Patient and friend Case discussed with consulting clinician: N/A This note was generated with [employer] dictation software. It may contain incorrect words, spelling, and punctuation that were not noted in checking the note before signing. Radiography Diagnostic Testing: Clinical Impression(s) from Imaging Studies Foot X-Ray 03/08/24 06:20 IMPRESSION: Nonspecific lower leg and ankle edema with multifocal bullous soft tissue thickening along the dorsal forefoot. No acute osseous finding. Electronically Signed: Rosalio Hernandez MD at 7:57 EDT Reading Location ID and State: [facility] / [place] Tel , Service support , Knee X-Ray 03/08/24 06:20 IMPRESSION: Patellofemoral compartment degenerative change with trace nonspecific effusion. No acute osseous finding.. Electronically Signed: Rosalio Hernandez MD at 8:15 EDT , Tibia/Fibula X-Ray 03/08/24 06:20 IMPRESSION: Nonspecific lower leg edema without acute osseous finding.. Electronically Signed: Rosalio Hernandez MD at 8:00 EDT , Discharge Plan Triage Chief Complaint: Fall ED Provider: Sunny Miranda Dx/Rx/DC Orders Clinical Impression: Contusion of left leg, Contusion of left foot, Fall Instructions: ED Contusion, Lower Extremity Prescriptions: New docusate sodium [Colace] 100 mg capsule 100 mg PO BID Qty: 30 0RF oxycodone-acetaminophen 5-325 mg tablet 1 tab PO Q6H PRN PRN (Reason: Pain) 3 Days Qty: 12 0RF No Action metformin 500 MG tablet 1,000 mg PO BID Patient Comments: supposed to take 2 tabs bid; patient only takes 1 tab bid bupropion HCl 150 MG tablet sustained-release 12 hr 150 mg PO BID buspirone 5 tablet 5 mg PO BID Patient Comments: gabapentin 100 MG capsule 1 capsule PO DAILY Patient Comments: Take 1 capsule by mouth twice daily. glipizide 10 mg tablet extended release 24hr 20 mg PO DAILY lisinopril-hydrochlorothiazide 20-12.5 mg tablet 2 tab PO DAILY amoxicillin 500 mg capsule 500 mg PO DAILY Other Ambulatory Orders: Walker (Routine) Location: None Selected Ordered By: Dr. Sunny Miranda Primary Care Provider: Dustin Lang Referrals: Dustin Lang MD [Primary Care Provider] - 1 Week Activity Restrictions/Additional Instructions: Pickup walker in use for stability. Take pain medicine as prescribed. Use stool softeners to prevent constipation. Follow-up with your doctor. Print Language: Albanian Disposition Disposition: Home, Self Care Discharge Date/Time: 03/08/24 08:47
[2024-03-08] MEDS: oxyCODONE 5 MG Tablet PO (06:35)
[2024-03-08 06:42] VITALS: O2SAT 93
[2024-03-08 07:21] VITALS: O2SAT 84
[2024-03-08 07:22] VITALS: O2SAT 95
[2024-03-08 08:29] VITALS: BP 134/76; PULSE 81; RESP 16; TEMP 36.4; O2SAT 98
== END 2024-03-08 08:47 | disposition home or self-care (01) ==
PROVIDERS: Emergency Provider Emergency Medicine; PCP Internal Medicine; Visit Provider Emergency Medicine
DX: S80.12XA Contusion of left lower leg, initial encounter (principal); E11.9 Type 2 diabetes mellitus without complications; Z87.891 Personal history of nicotine dependence; S90.32XA Contusion of left foot, initial encounter; I10 Essential (primary) hypertension; W07.XXXA Fall from chair, initial encounter; Z79.84 Long term (current) use of oral hypoglycemic drugs; Z79.899 Other long term (current) drug therapy
CPT/HCPCS: 99282; 73560; 73590; 73630

== ENCOUNTER 2024-03-11 08:07 | Inpatient (IN) | payer MEDICARE, SELFPAY ==
[2024-03-11] VITALS (9 sets, daily range): BP systolic 104–142; BP diastolic 36–82; PULSE 68–107; RESP 14–20; TEMP -8.8–36.6; O2SAT 94–100; BMI 51.2; BMI 51.6
--- NOTE | 2024-03-11 08:30 | EKG12_ITS ---
Test Reason : FALL Blood Pressure : / mmHG Vent. Rate : 091 BPM Atrial Rate : 091 BPM P-R Int : 184 ms QRS Dur : 088 ms QT Int : 388 ms P-R-T Axes : 059 004 003 degrees QTc Int : 477 ms Sinus rhythm with occasional and consecutive Premature ventricular complexes Nonspecific ST abnormality Abnormal ECG Baseline artifact Confirmed by Marciano Carlson ([id number]), food expeditor JIMENEZ RIDDLE ([id number]) on 03/12/2024 2:02:43 PM Referred By: Confirmed By:Marciano Carlson
--- NOTE | 2024-03-11 08:31 | EDS_ITS ---
HPI HPI - Fall History of Present Illness Chief Complaint: Fall Informant: patient and spouse/S.O. Occured/Mechanism Occurred: Days Mechanism/Context: Yes same level fall Pain/Injury Pain Location: lower extremity Current Severity: Mild Maximum Severity: Mild Associated Symptoms Associated Symptoms: Negative for Parasthesias, Weakness or Loss of function Narrative Narrative: 84-year-old female history of diabetes, COPD for which she is on 3 L oxygen at home. In the last month is just gotten weaker at home. Difficulty getting around her house. She fell last Monday try to get up out of her chair. She was seen in the emergency department last week had negative x-rays of her knee and left foot. She had a similar episode today. She fell while trying to get up. Her significant other was helping her and counter broke her fall. She denies any new injuries. She has a healing blister on her left foot from the initial fall on Monday. She denies any head injury. She denies any recent illness. She denies any dysuria or fever. Prior similar symptoms: Yes Recent Illness/Hospitalization: No PFSH PFSH Medical History Anxiety On home oxygen therapy HTN (hypertension) Diabetes History of cellulitis Home Medications ?Medication ?Instructions ?Recorded ?Last Taken ?Type metformin 500 mg tablet 1,000 mg PO BID DM 05/22/14 03/10/24 History buspirone 5 mg tablet 5 mg PO BID depression 02/04/18 03/10/24 History amoxicillin 500 mg capsule 500 mg PO DAILY 03/08/24 03/10/24 History glipizide 10 mg tablet, extended 20 mg PO DAILY 03/08/24 03/10/24 History release 24 hr lisinopril 20 2 tab PO DAILY 03/08/24 03/10/24 History mg-hydrochlorothiazide 12.5 mg tablet acetaminophen 500 mg capsule 1,000 mg PO Q6H PRN pain 03/11/24 03/10/24 History Allergy/AdvReac Type Severity Reaction Status Date / Time erythromycin base Allergy Unknown Verified 03/08/24 05:58 (Erythromycin Base) ibuprofen (From Nuprin) Allergy Unknown Verified 03/08/24 05:58 Surgical History Hx of cholecystectomy History of hysterectomy History of appendectomy Social History Smoking Status: Former smoker ROS ROS ED ROS Narrative Denies any recent illness. Generalized weakness. Review of Systems ROS Unobtainable: Denies due to encephalopathy Constitutional Constitutional ED: Denies chills or fever(s) Eyes Eyes: Denies blurry vision ENT ENT ED: Denies ear pain Cardiovascular Cardiovascular: Denies chest pain Respiratory/Chest Respiratory/Chest: Denies cough or dyspnea Gastrointestinal Gastrointestinal: Denies abdominal pain, constipation, diarrhea, melena, nausea or vomiting Genitourinary Genitourinary ED: Denies dysuria or hematuria Musculoskeletal Musculoskeletal: Denies arthralgias Integumentary Denies abscess Neurologic Neurologic: Denies headache(s) Psychiatric Psychiatric: Denies anxiety Endocrine Endocrinology: Denies polydipsia Hematologic/Lymphatic Hematologic/Lymphatic: Denies easy bleeding Allergic/Immunologic Allergic/Immunologic ED: Denies mouth swelling or tongue swelling EXAM Physical Exam Narrative Exam Narrative: 84-year-old female no acute distress. Vital signs are stable afebrile. Pulse ox 94% on room air no hypoxia. Significant other at bedside. H EENT exam atraumatic. Pupils round reactive light. Nontender. Neck nontender. Back nontender. Lungs clear to auscultation bilaterally. Heart regular rhythm rate about 95 no murmur. Chest wall and ribs nontender. Abdomen soft nontender. Moving all 4 extremities. She has a bruise on her anterior right knee. She is able to flex and extend the knee. There is no gross bony deformity. Hips are nontender. Right lower extremity unremarkable. Top of right foot has a healing blood blister. She is able to wiggle her toes. Ankle is nontender. Neurologically she is awake and alert. Answering questions and following commands. Const Vital Signs: 03/11/24 08:08 03/11/24 08:28 03/11/24 08:43 Temperature 97.4 F L Temperature Source Temporal Pulse Rate 96 Respiratory Rate 16 Respiratory Effort Normal Respiratory Depth Normal Respiratory Pattern Normal Blood Pressure 131/82 H Blood Pressure Mean 98 Pulse Ox 94 94 94 Oxygen Delivery Method Room Air Room Air Nasal Cannula Oxygen Flow Rate (L/min) 3 Positive well nourished, well developed and obese; Negative for cachectic, contractures or unkempt General Appearance ED: well developed and NAD; Negative for unkempt, cachectic or contractures Nutritional Appearance: obese; Negative for cachectic HEENT Reports normocephalic atraumatic; Negative for trauma, contusion, hematoma or tenderness Eyes PERRL and EOMs intact bilaterally General Eye ED: Negative for pale conjunctiva or scleral icterus Neck full ROM, no lymphadenopathy and supple General: Negative for tenderness Chest Wall inspection of chest normal and palpation of chest normal Chest: Negative for other Resp normal respiratory effort, no retractions and clear to auscultation bilaterally Effort and Inspection: Negative for pain with movement Auscultation: Negative for rales, rhonchi, wheezes, diminished lung sounds or other Cardio regular rate, regular rhythm, S1 normal heart sound, S2 normal heart sound and no murmurs Rate: Negative for bradycardia or tachycardic Rhythm: Negative for abnormal rhythm Bruits: Negative for other GI non-tender, non-distended and no masses Inspection: Negative for abdominal distention Auscultation: normoactive bowel sounds Palpation: soft; Negative for guarding or rebound tenderness present Back/Spine no CVA tenderness General Back: Negative for CVA tenderness Cervical Spine: Negative for cervical spine tenderness Lumbar Spine / Lower Back: Negative for lumbar spinal tenderness Neuro oriented x3, CN's II-XII intact bilaterally, moves all extremities and no focal motor deficits Sensorium / Orientation: alert, oriented to person, oriented to place and oriented to time; Negative for orientation impaired, confused, lethargic or stuporous Motor Exam: strength 5/5 throughout Psych mental status grossly normal and thought process normal Appearance: Negative for unkempt Attitude: No agitated Mood & Affect: Negative for depressed, anxious or tearful Skin Lesions: no lesions Rashes: no rashes Trauma: Negative for abrasion or laceration MDM MDM MDM Narrative Medical decision making narrative: 84-year-old female fell last Monday and again today. Generalized weakness for about a month. No other complaints. She had knee and foot x-rays last week which were unremarkable for any acute injury. Chronic changes. Routine labs to be obtained. She may need to be admitted for failure to thrive. Nursing attempted to walk the patient was very difficult. There is difficulty in getting her out of bed. I discussed this with her significant other was very comfortable and appreciative if she would be admitted for physical therapy. I spoke to the hospitalist. Patient will be admitted. History & Record Review Discussion w/independent historian: Patient and Significant other Additional record(s) reviewed:: Prior inpatient record, Prior outpatient record, Prior ED visit and Prior labs Lab Data Attestation: I reviewed the patient's lab results. Lab results narrative: CBC shows white count 13.8. H&H 12 and 39. Platelets 278. Electrolytes show sodium 137. Gap 8. BUN of 44 and creatinine 2.31 Liver enzymes are unremarkable. Kidney function is significantly changed and worsened from prior but the last labs we have on this are from 2018 6 years ago. I do not know if this is acute from dehydration or chronic because her most recent labs been done at another facility which I do not have access to at this time. Labs: Laboratory Results - last 24 hr 03/11/24 09:00 WBC 13.8 H RBC 4.01 L Hgb 12.2 Hct 39.4 MCV 98.3 MCH 30.4 MCHC 31.0 L RDW Std Deviation 47.9 H RDW Coeff of Jose 13.3 Plt Count 278 MPV 11.2 Immature Gran % (Auto) 0.700 Neut % (Auto) 79.8 H Lymph % (Auto) 10.2 L [place] % (Auto) 8.0 Eos % (Auto) 0.7 Baso % (Auto) 0.6 Absolute Neuts (auto) 11.1 H Absolute Lymphs (auto) 1.41 Nucleated RBC % 0 Sodium 137 Potassium 4.2 Chloride 99 Carbon Dioxide 30.0 Anion Gap 8 BUN 44 H Creatinine 2.31 H Estim Creat Clear Calc 24.47 Est GFR (MDRD) Af Amer 26 L Est GFR (MDRD) Non-Af 21 L BUN/Creatinine Ratio 19.0 Glucose 103 Calcium 8.7 Total Bilirubin 0.70 AST 27 ALT 24 Alkaline Phosphatase 97 Total Protein 7.0 Albumin 2.7 L Globulin 4.3 H Albumin/Globulin Ratio 0.6 L Rhythm Strip Rhythm Strip: Sinus Rhythm Rate: 91 Ectopy: PVC(s) EKG Initial EKG: Attestation: I personally reviewed and interpreted this EKG as follows: Interpretation: Sinus Rhythm and No Acute Injury Pattern Comments: Normal sinus rhythm rate of 91. Occasional PVCs. No acute signs of IL or ischemia. Discharge Plan Dx/Rx/DC Orders Clinical Impression: Falls, Contusion of foot, left, Weakness generalized, Chronic kidney disease, History of COPD, Contusion of knee, left Disposition Disposition: Acute Care Hospital [facility]
[2024-03-11 09:09] LABS: Absolute Lymphocyte Count 1.41 X10^3/uL (0.83-4.51); Absolute Neutrophil Count 11.1 X10^3/uL (2.0-7.7); Basophil# 0.08 X10^3/uL; Basophil% 0.6 % (0-1); Eosinophil# 0.09 X10^3/uL; Eosinophils% 0.7 % (0-5); Hematocrit 39.4 % (37-47); Hemoglobin 12.2 g/dL (12.0-15.0); Lymphocyte # 1.41 X10^3/ul (0.83-4.51); Lymphocyte % 10.2 % (19-41); Mean Corpuscular Hgb 30.4 pg (27.0-32.0); Mean Corpuscular Volume 98.3 fL (81-99); Mean Platelet Vol. 11.2 fl (6.2-12.0); Monocyte# 1.11 X10^3/uL; NRBC Flagged by Analyzer 0 % (0-5); Neutrophil # 11.05 X10^3/uL (2.7-7.7); Neutrophil % 79.8 % (47-70); Platelet Count 278 K/mm3 (150-450); RBC Distribution Width CV 13.3 % (11.6-14.6); RBC Distribution Width SD 47.9 fl (35.1-43.9); Red Blood Count 4.01 M/mm3 (4.2-5.4); White Blood Count 13.8 K/mm3 (4.4-11.0)
[2024-03-11 09:35] LABS: ALB/GLOB Ratio 0.6 RATIO (0.9-2.4); AST(SGOT) 27 U/L (15-37); Alanine Aminotransfer ALT/SGPT 24 U/L (13-56); Albumin, Serum 2.7 g/dL (3.2-5.0); Alkaline Phosphatase 97 U/L (45-117); Anion Gap 8 (5-15); BUN 44 mg/dL (7-18); Calcium,Total 8.7 mg/dL (8.5-10.1); Chloride 99 mmol/L (98-107); Creatinine, Serum 2.31 mg/dL (0.55-1.02); EST Glomerular Filtration Rate 21 mL/min (>60); Est Glom Filt Rate - Afr Amer 26 mL/min (>60); Estimated Creatinine Clearance 24.47 ml/min; Globulin 4.3 g/dL (2.2-4.2); Glucose 103 mg/dL (74-106); Potassium 4.2 mmol/L (3.5-5.1); Sodium Level 137 mmol/L (136-145)
--- NOTE | 2024-03-11 10:44 | PCM.HP.STD ---
[facility] - General General Date of Admission: 03/11/24 Date of Service: 03/11/24 Chief Complaint: Worsening weakness with falls HPI Narrative RASHIDA TOWNSEND, is a 84 F who presented to [facility] ED on 03/11/2024 with worsening weakness and falls at home. Patient has history of COPD on chronic 3 L oxygen, hypertension, [id number] diabetes and morbid obesity with BMI around 50. She lives at home with her significant other. She noted that over the past month or so she has gotten generally weaker and has had more difficulty getting around the house. She had a small fall last Monday when tried to get up out of her chair. She was seen in the ED for this and had negative x-rays of her knee and left foot, and was discharged home. She had another episode like this today that brought her back into the ED. States her significant other was helping her up and was able to help break the fall. Patient denied any new injuries today aside from rug burn on her left foot. She denied any dizziness or lightheadedness with these episodes of falls. In the ED, she was found to have a suspected ROSHNI with creatinine 2.31 (baseline back in 2017 was 0.8); labs were otherwise unremarkable. Vital signs were unremarkable. Given her worsening weakness and ROSHNI, hospitalist was contacted for admission. I saw the patient at bedside on the floor shortly after arriving over from the ED. Significant other was present. Patient was mildly fatigued appearing but otherwise sitting up comfortably in bed, conversing normally, in no acute distress. She was receiving some IV fluids when I saw her and states she felt slightly better now than she did earlier today. However, she reiterated that she has generally felt more fatigued and weak over the past several weeks. Patient's significant other was in agreement with this. She otherwise denied any acute pain or discomfort currently. She denied any fevers or chills. Does report decreased urine output recently but denies any burning with urination or difficulty with urination. No other acute concerns at this time. [facility] Medical History Anxiety On home oxygen therapy HTN (hypertension) Diabetes History of cellulitis Home Medications ?Medication ?Instructions ?Recorded ?Last Taken ?Type metformin 500 mg tablet 1,000 mg PO BID DM 05/22/14 03/10/24 History buspirone 5 mg tablet 5 mg PO BID depression 02/04/18 03/10/24 History amoxicillin 500 mg capsule 500 mg PO DAILY 03/08/24 03/10/24 History glipizide 10 mg tablet, extended 20 mg PO DAILY 03/08/24 03/10/24 History release 24 hr lisinopril 20 2 tab PO DAILY 03/08/24 03/10/24 History mg-hydrochlorothiazide 12.5 mg tablet acetaminophen 500 mg capsule 1,000 mg PO Q6H PRN pain 03/11/24 03/10/24 History Allergy/AdvReac Type Severity Reaction Status Date / Time erythromycin base Allergy Unknown Verified 03/08/24 05:58 (Erythromycin Base) ibuprofen (From Nuprin) Allergy Unknown Verified 03/08/24 05:58 Surgical History Hx of cholecystectomy History of hysterectomy History of appendectomy Social History Smoking Status: Former smoker ROS Constitutional Constitutional: Reports fatigue and weakness; Denies chills or fever(s) Eyes Eyes: Denies change in vision Cardiovascular Cardiovascular: Denies chest pain, edema, lightheadedness, rapid heart rate or syncope Respiratory/Chest Respiratory/Chest: Denies shortness of breath at rest, shortness of breath with exertion or wheezing Gastrointestinal Gastrointestinal: Denies abdominal pain, constipation, diarrhea, nausea or vomiting Genitourinary Genitourinary: Denies difficulty urinating, dysuria, urinary frequency, urinary incontinence or urinary urgency Musculoskeletal Musculoskeletal: Denies arthralgias or myalgias Neurologic Neurologic: Denies dizziness, focal weakness or headache(s) Vital Signs Vital Signs Vital Signs: 03/11/24 08:08 03/11/24 08:28 03/11/24 08:30 Temperature 97.4 F L 16 F L Temperature Source Temporal Pulse Rate 96 72 Respiratory Rate 16 16 Respiratory Effort Normal Respiratory Depth Normal Respiratory Pattern Normal Blood Pressure 131/82 H 142/54 H Blood Pressure Mean 98 83 Pulse Ox 94 94 97 Oxygen Delivery Method Room Air Room Air Oxygen Flow Rate (L/min) 03/11/24 08:43 03/11/24 10:07 Temperature Temperature Source Pulse Rate 78 Respiratory Rate 16 Respiratory Effort Respiratory Depth Respiratory Pattern Blood Pressure 142/77 H Blood Pressure Mean 98 Pulse Ox 94 98 Oxygen Delivery Method Nasal Cannula Room Air Oxygen Flow Rate (L/min) 3 Weight Weight: 135.6 kg Body Mass Index (BMI) 51.2 Physical Exam Const alert, oriented x3 and no apparent distress Constitutional Narrative: Pleasant elderly female, morbidly obese, mildly fatigued appearing, otherwise sitting up comfortably in bed, conversing normally, in no acute distress. General Appearance: cooperative and comfortable HEENT normocephalic, head/scalp atraumatic, hearing grossly normal bilaterally and nasal mucous membranes and turbinates normal Eyes PERRL, EOMs intact bilaterally and conjunctivae normal Neck full ROM Chest inspection of chest normal Resp normal respiratory effort and no use of accessory muscles Resp Narrative: Diminished breath sounds bilaterally, suspected due to body habitus. No wheezing or crackles noted. Breathing comfortably on 2 L nasal cannula at rest. Cardio regular rate, regular rhythm, no murmurs and peripheral pulses 2+ throughout GI normal to inspection, nondistended, normoactive bowel sounds, soft to palpation, non-tender and non-distended Back/Spine normal ROM Extremity normal to inspection, full ROM and no pedal edema Skin no rashes or lesions noted Neuro moves all extremities and no focal motor deficits Speech: speech normal Psych mental status grossly normal Results Lab / Micro Data 03/11/24 09:00 03/11/24 09:00 Labs: Laboratory Results - last 24 hr 03/11/24 09:00: WBC 13.8 H, RBC 4.01 L, Hgb 12.2, Hct 39.4, MCV 98.3, MCH 30.4, MCHC 31.0 L, RDW Std Deviation 47.9 H, RDW Coeff of Jose 13.3, Plt Count 278, MPV 11.2, Immature Gran % (Auto) 0.700, Neut % (Auto) 79.8 H, Lymph % (Auto) 10.2 L, [place] % (Auto) 8.0, Eos % (Auto) 0.7, Baso % (Auto) 0.6, Absolute Neuts (auto) 11.1 H, Absolute Lymphs (auto) 1.41, Nucleated RBC % 0, Sodium 137, Potassium 4.2, Chloride 99, Carbon Dioxide 30.0, Anion Gap 8, BUN 44 H, Creatinine 2.31 H, Estim Creat Clear Calc 24.47, Est GFR (MDRD) Af Amer 26 L, Est GFR (MDRD) Non-Af 21 L, BUN/Creatinine Ratio 19.0, Glucose 103, Calcium 8.7, Total Bilirubin 0.70, AST 27, ALT 24, Alkaline Phosphatase 97, Total Protein 7.0, Albumin 2.7 L, Globulin 4.3 H, Albumin/Globulin Ratio 0.6 L Rhythm Strip Rhythm Strip: Sinus Rhythm Rate: 91 Ectopy: PVC(s) Assessment & Plan Assessment/Plan (1) Debility: (2) Falls: (3) ROSHNI (acute kidney injury): PLAN: Plan Patient is an 84-year-old female who presented [facility] ED on 03/11/2024 with worsening weakness and falls. 1. Acute on chronic debility with falls ? Admit under inpatient status to [facility]. PT/OT/case management consulted. Suspect acute worsening with falls may be secondary to some degree of dehydration with orthostatic hypotension given ROSHNI noted below and her home BP medications. IV fluid resuscitation given on admission. Will hold home lisinopril and hydrochlorothiazide for now. Will plan to check orthostatics tomorrow. Encouraged p.o. intake. Patient very likely has a degree of chronic debility given her age and morbid obesity. Suspect she will require SNF placement on discharge. 2. ROSHNI ? Creatinine 2.31 on admit. Last labs were from 2018, creatinine 0.8 at that time. Suspect some degree of ROSHNI due to prerenal etiology. IV fluid resuscitation given on admission as noted above. Monitor BMP and urine output daily. Chronic medical conditions: ? Morbid obesity: BMI 51 on admit. Complicates hospital course, care and prognosis. ? Hypertension: Holding home lisinopril?hydrochlorothiazide given ROSHNI as noted above. ? Type 2 diabetes mellitus: Home regimen of metformin 1000 mg twice daily and glipizide 20 mg daily. Will treat with sliding scale insulin while inpatient. ? Depression/anxiety: Stable. Continue home BuSpar. ? Mild chronic anemia: Hemoglobin stable at baseline around 10-11. DVT prophylaxis: Heparin subcu CODE STATUS: Full code, verified Expected disposition: TBD Total clinical time spent by myself addressing the patient's medical issues, reviewing all the data, and collaborating with patient's care team: 55 minutes. Charges/Coding Visit Charges Inpatient E&M: 36092 Init Hosp L2
[2024-03-11] MEDS: 0.9% Normal Saline (1000mL) 1,000 ML 200 ML IV (11:11)
[2024-03-11 11:19] LABS: Bacteria 0 SEEN /hpf (None Seen); Mucous, Urine 0 SEEN /hpf (<or=2+); Red Blood Cells-Urine 0 SEEN /hpf (0-5); White Blood Cells 0 SEEN /hpf (0-5)
[2024-03-11 11:24] LABS: Color, Urine Yellow (Yellow); Glucose, Dipstick Normal (Normal); Ketone-Dipstick Negative (Negative); Leukocyte Esterase-Dipstick Negative /ul (Negative); Nitrite-Dipstick Negative (Negative); Occult Blood-Urine Negative /ul (Negative); Protein-Dipstick 15 mg/dl (Negative); Specific Gravity, Urine 1.015 (1.002-1.030); Urine Bilirubin Dipstick Negative (Negative); Urine Clarity Sl. Cloudy (Clear); Urine Urobilinogen Normal (Normal)
[2024-03-11 11:36] LABS: Squamous Epithelial Cells - UA 0-5 SEEN /hpf (5-10)
[2024-03-11 14:05] LABS: Bedside Glucose 89 mg/dL (74-106)
[2024-03-11] MEDS: Nystatin Powder 15gm Bottle 1 APPLIC TOPICAL ×2 (16:30→21:50)
[2024-03-11] MEDS: Menthol/Lanolin/Calamine/Znox 113 GM Tube 1 APPLIC TOPICAL ×2 (16:31→21:50)
[2024-03-11] MEDS: Insulin Lispro 100 UNIT/ML INSULN.PEN SC (16:49)
[2024-03-11 17:00] LABS: Bedside Glucose 154 mg/dL (74-106)
[2024-03-11] MEDS: busPIRone 5 MG Tablet PO (21:50)
[2024-03-11 22:20] LABS: Bedside Glucose 120 mg/dL (74-106)
[2024-03-11] MEDS: Heparin Injection (Vial) 5,000 UNIT/ML VIAL 5000 UNIT SC (23:00)
[2024-03-12] VITALS: O2SAT 96
[2024-03-12 04:02] VITALS: BP 109/49; PULSE 92; RESP 14; TEMP 36.7; O2SAT 100
[2024-03-12 04:59] LABS: Hematocrit 36.4 % (37-47); Hemoglobin 11.4 g/dL (12.0-15.0); Mean Corp Hgb Conc 31.3 g/dL (32-36); Mean Corpuscular Hgb 31.2 pg (27.0-32.0); Mean Corpuscular Volume 99.7 fL (81-99); Mean Platelet Vol. 10.7 fl (6.2-12.0); Platelet Count 284 K/mm3 (150-450); RBC Distribution Width CV 13.6 % (11.6-14.6); RBC Distribution Width SD 50.4 fl (35.1-43.9); Red Blood Count 3.65 M/mm3 (4.2-5.4); White Blood Count 12.5 K/mm3 (4.4-11.0)
[2024-03-12 05:32] LABS: Anion Gap 3 (5-15); BUN 44 mg/dL (7-18); BUN/Creat Ratio 24.7 RATIO (10-20); Calcium,Total 8.3 mg/dL (8.5-10.1); Chloride 103 mmol/L (98-107); Creatinine, Serum 1.78 mg/dL (0.55-1.02); EST Glomerular Filtration Rate 29 mL/min (>60); Est Glom Filt Rate - Afr Amer 35 mL/min (>60); Estimated Creatinine Clearance 31.99 ml/min; Glucose 133 mg/dL (74-106); Potassium 4.4 mmol/L (3.5-5.1); Sodium Level 138 mmol/L (136-145)
[2024-03-12] MEDS: Nystatin Powder 15gm Bottle 1 APPLIC TOPICAL ×3 (05:36→21:37)
[2024-03-12] MEDS: Menthol/Lanolin/Calamine/Znox 113 GM Tube 1 APPLIC TOPICAL ×3 (05:37→21:37)
[2024-03-12 05:59] VITALS: O2SAT 95
[2024-03-12] MEDS: busPIRone 5 MG Tablet PO ×2 (08:23→21:34)
[2024-03-12] MEDS: Heparin Injection (Vial) 5,000 UNIT/ML VIAL 5000 UNIT SC ×2 (08:23→21:34)
[2024-03-12] MEDS: Lactated Ringers 1,000 ML 200 ML IV (08:30)
[2024-03-12 08:58] LABS: Hemoglobin A1c 6.1 % (3.8-5.6)
--- NOTE | 2024-03-12 09:52 | PN.HOSP_ITS ---
Reason for Visit Reason for Visit: Diagnoses Acute kidney failure, unspecified (03/11/24) Repeated falls (03/11/24) Other malaise (03/11/24) Subjective Subjective No acute events overnight. Saw patient at bedside this morning. Remains mildly fatigued today but improving from yesterday. Sitting up comfortably in bed, conversing normally, in no acute distress. Patient states she feels a little bit better today compared to yesterday. States she has had slightly more urine output since admission then the days prior to coming in. She has not worked with therapy yet to this point. Denies any pain or discomfort. No other new concerns today. Objective Data Objective Data Vital Signs: Vital Signs Temp Pulse Resp BP Pulse Ox O2 Del Method O2 Flow Rate 98.1 F 92 14 109/49 L 95 Nasal Cannula 2 03/12/24 04:02 03/12/24 04:02 03/12/24 04:02 03/12/24 04:02 03/12/24 05:59 03/12/24 07:11 03/12/24 07:11 Oxygen Flow Rate (L/min) 2 Oxygen Delivery Method Nasal Cannula Weight: 137.2 kg Body Mass Index (BMI) 51.6 Intake & Output: Intake and Output for Last 24 Hours 03/10/24 03/11/24 03/12/24 23:59 23:59 23:59 Intake Total 1000 / 1000 325 / 325 Output Total 400 / 400 Balance 600 / 600 325 / 325 Lab / Micro Data 03/12/24 04:25 03/12/24 04:25 Labs: Laboratory Results - last 24 hr 03/11/24 11:13: Urine Color Yellow, Urine Clarity Sl. Cloudy, Urine pH 5.0, Ur Specific Dyess 1.015, Urine Protein 15 H, Urine Glucose (UA) Normal, Urine Ketones Negative, Urine Occult Blood Negative, Urine Nitrite Negative, Urine Bilirubin Negative, Urine Urobilinogen Normal, Ur Leukocyte Esterase Negative, Urine RBC 0 SEEN, Urine WBC 0 SEEN, Ur Squamous Epith Cells 0-5 SEEN, Urine Bacteria 0 SEEN, Urine Mucus 0 SEEN 03/11/24 13:47: POC Glucose 89 03/11/24 16:43: POC Glucose 154 H 03/11/24 21:48: POC Glucose 120 H 03/12/24 04:25: WBC 12.5 H, RBC 3.65 L, Hgb 11.4 L, Hct 36.4 L, MCV 99.7 H, MCH 31.2, MCHC 31.3 L, RDW Std Deviation 50.4 H, RDW Coeff of Jose 13.6, Plt Count 284, MPV 10.7, Sodium 138, Potassium 4.4, Chloride 103, Carbon Dioxide 32.0, A nion Gap 3 L, BUN 44 H, Creatinine 1.78 H, Estim Creat Clear Calc 31.99, Est GFR (MDRD) Af Amer 35 L, Est GFR (MDRD) Non-Af 29 L, BUN/Creatinine Ratio 24.7 H, G lucose 133 H, Hemoglobin A1c 6.1 H, Calcium 8.3 L Rhythm Strip Rhythm Strip: Sinus Rhythm Rate: 91 Ectopy: PVC(s) Physical Exam Const alert, oriented x3 and no apparent distress Constitutional Narrative: Pleasant elderly female, morbidly obese, mildly fatigued appearing, otherwise sitting up comfortably in bed, conversing normally, in no acute distress. Improving. General Appearance: cooperative and comfortable HEENT normocephalic, head/scalp atraumatic, hearing grossly normal bilaterally and nasal mucous membranes and turbinates normal Eyes PERRL, EOMs intact bilaterally and conjunctivae normal Neck full ROM Chest inspection of chest normal Resp normal respiratory effort and no use of accessory muscles Resp Narrative: Diminished breath sounds bilaterally, suspected due to body habitus. No wheezing or crackles noted. Breathing comfortably on 2 L nasal cannula at rest. Stable. Cardio regular rate, regular rhythm, no murmurs and peripheral pulses 2+ throughout GI normal to inspection, nondistended, normoactive bowel sounds, soft to palpation, non-tender and non-distended Back/Spine normal ROM Extremity normal to inspection, full ROM and no pedal edema Skin no rashes or lesions noted Neuro moves all extremities and no focal motor deficits Speech: speech normal Psych mental status grossly normal Assessment & Plan Assessment/Plan (1) Debility: (2) Falls: (3) ROSHNI (acute kidney injury): PLAN: Plan Patient is an 84-year-old female who presented [facility] ED on 03/11/2024 with worsening weakness and falls. 1. Acute on chronic debility with falls ? PT/OT/case management consulted. Suspect acute worsening with falls may be secondary to some degree of dehydration with orthostatic hypotension given ROSHNI noted below and her home BP medications. ROSHNI slowly improving with IV fluid resuscitation and patient with improving energy level. Continue to hold home lisinopril hydrochlorothiazide. Suspect some degree of chronic debility given patient's age and morbid obesity. Will follow-up therapy recs; suspect patient will require SNF placement on discharge. 2. ROSHNI, improving ? Creatinine 2.31 on admit. Last labs were from 2018, creatinine 0.8 at that time. Suspect some degree of ROSHNI due to prerenal etiology. Creatinine 1.78 on hospital day 2 after IV fluid resuscitation. Will give another 1 L of fluids today. Monitor BMP and urine output daily. Chronic medical conditions: ? Morbid obesity: BMI 51 on admit. Complicates hospital course, care and prognosis. ? Hypertension: Holding home lisinopril?hydrochlorothiazide given ROSHNI as noted above. ? Type 2 diabetes mellitus: Home regimen of metformin 1000 mg twice daily and glipizide 20 mg daily. Treating with sliding scale insulin while inpatient. ? Depression/anxiety: Stable. Continue home BuSpar. ? Mild chronic anemia: Hemoglobin stable at baseline around 10-11. DVT prophylaxis: Heparin subcu CODE STATUS: Full code, verified Expected disposition: Likely SNF, 2 to 3 days Total clinical time spent by myself addressing the patient's medical issues, reviewing all the data, and collaborating with patient's care team: 35 minutes. Charges/Coding Visit Charges Inpatient E&M: 60519 Subs Hosp L2
[2024-03-12] MEDS: Insulin Lispro 100 UNIT/ML INSULN.PEN SC ×3 (12:02→21:36)
[2024-03-12 12:33] LABS: Bedside Glucose 154 mg/dL (74-106)
--- NOTE | 2024-03-12 13:03 | CASEMGMT ---
LAMIN ARNDT Assessment Face to Face with patient for initial transition planning/care coordination assessment. LAMIN ARNDT introduced self and role at [facility], pt voices understanding. Pt is A&Ox4 and is resting comfortably in bed and is calm. Pt SO at bedside. Care providers, pharmacy, and demographics verified. Admitting dx: Weakness, ROSHNI LACE Strata: 2 PCP: Dustin Lang Specialists: Denies Preferred Pharmacy: [facility] Insurance: [facility] A/B Prescription Benefit: Pt states yes, through [employer] [facility]: Cici Meza (Leela), Baltazar Contreras (SO) Living Arrangements: Pt lives with her SO in a mobile home with a ramp to enter ADLs/IADLs: SO assists Transportation: Pt does not drive. Pt SO provides transportation DME: Pt states that she wears 3L continuous through [employer] [facility] [employer]. TC to [facility] who state the pt current Rx states 3L HS via [place] only. Pt also reports that she has a concentrator and portable tanks. Pt does not have a pulse ox and was given education regarding purchasing options. Pt also states that she used to have a BGM and supplies at home but is unsure if she still has one or not. Pt has a cane at home. HHC/SNF: denies history Pt?s goal: Return to PLOF Plan: Per the hospitalist, anticipate SNF. The pt states that she would be willing to attend a SNF for short term rehab to help her return to her PLOF. However, PT and OT evaluations are pending. SW notified and aware. CM and SW to follow. If the pt DC's home, CM will follow for DME needs and potential HHC. Niya Bourgeois RN, CM
--- NOTE | 2024-03-12 14:08 | CASEMGMT ---
Addendum entered by Madelaine Copeland 03/12/24 14:46: Social Work As per CM, pt and significant other are thinking pt may need SNF. SW met w/pt in the room in regard to plan. She is just about to work w/therapy. Pt became immediately tearful and said she did not want to talk about it. She then said her significant other said if she doesn't do better she would have to go to a care home and stay. SW and PT both attempted to encourage pt, explaining that the plan would be for her to go to get stronger and go home. SW did leave the care home list in the room w/pt as she is about to work with PT, and SW will follow up tomorrow. AIDA Barrera Original Note: Social Work SW created in [facility] a list of intermediate facilities in network w/pt's insurance, in pt's preferred geographic area, and complete w/quality and resource use data, should pt and family want to review SNF options. AIDA Barrera
[2024-03-12 17:06] LABS: Bedside Glucose 172 mg/dL (74-106)
[2024-03-12 20:03] VITALS: BP 111/90; PULSE 85; RESP 18; TEMP 36.5; O2SAT 98
[2024-03-12] MEDS: 0.9% Saline Lock 10 ML Syringe IV (21:38)
[2024-03-12 22:38] LABS: Bedside Glucose 176 mg/dL (74-106)
[2024-03-13 04:42] VITALS: BP 139/41; PULSE 90; RESP 18; TEMP 37.1; O2SAT 98
[2024-03-13 05:32] LABS: Anion Gap 4 (5-15); BUN 39 mg/dL (7-18); BUN/Creat Ratio 28.5 RATIO (10-20); Calcium,Total 8.5 mg/dL (8.5-10.1); Chloride 105 mmol/L (98-107); Creatinine, Serum 1.37 mg/dL (0.55-1.02); EST Glomerular Filtration Rate 39 mL/min (>60); Est Glom Filt Rate - Afr Amer 47 mL/min (>60); Estimated Creatinine Clearance 41.57 ml/min; Glucose 145 mg/dL (74-106); Potassium 4.4 mmol/L (3.5-5.1); Sodium Level 139 mmol/L (136-145)
[2024-03-13] MEDS: Menthol/Lanolin/Calamine/Znox 113 GM Tube 1 APPLIC TOPICAL ×3 (06:12→21:54)
[2024-03-13] MEDS: Nystatin Powder 15gm Bottle 1 APPLIC TOPICAL ×3 (06:13→21:54)
[2024-03-13 07:20] LABS: Bedside Glucose 147 mg/dL (74-106)
[2024-03-13 07:40] VITALS: O2SAT 98
[2024-03-13 08:58] VITALS: BP 101/64; PULSE 90; RESP 18; TEMP 36.7; O2SAT 98
[2024-03-13] MEDS: busPIRone 5 MG Tablet PO ×2 (09:05→21:55)
[2024-03-13] MEDS: Heparin Injection (Vial) 5,000 UNIT/ML VIAL 5000 UNIT SC ×2 (09:05→21:54)
--- NOTE | 2024-03-13 11:27 | CASEMGMT ---
Addendum entered by Taylor Torres 03/13/24 12:16: Social Work [facility] able to accept pt on 03/14. Physician notified and agreeable. SW met with pt and SO and updated and they are agreeable with dc plan. Plan: [facility], on [address] [place] Torres Original Note: Social Work BELKIS met with pt and her significant other to discuss discharge plan. SW reviewed functional status with therapy and discussed Medicare SNF benefit. Pt and SO are agreeable to short term SNF and preferred provider is [facility]. DC assistant prosecuting attorney updated and referral to be sent to [facility]. Plan: [facility], pending acceptance.
--- NOTE | 2024-03-13 11:32 | CASEMGMT ---
Addendum entered by Krista Grey 03/13/24 12:06: Patient has been accepted by [facility]. SW updated. Krista Grey DC Planning Asst. Original Note: Discharge Planning Referral sent to [facility] at [facility] via [facility]. Krista Grey DC Planning Asst.
--- NOTE | 2024-03-13 12:27 | PCM.PN.HOSP ---
Reason for Visit Reason for Visit: Diagnoses Acute kidney failure, unspecified (03/11/24) Repeated falls (03/11/24) Other malaise (03/11/24) Subjective Subjective No acute events overnight. Saw patient at bedside this morning. Patient appeared similar to yesterday, was mildly fatigued appearing but otherwise sitting up comfortably in bed, in no acute distress. She was somewhat distressed this morning because she was tired of being in the hospital and wanted to go home. She was able to work with therapy yesterday but was only able to ambulate 50 feet with her wheeled walker. Patient and significant other are on board for SNF placement on discharge. Patient continues to report improving urine output. No other new concerns today. Objective Data Objective Data Vital Signs: Vital Signs Temp Pulse Resp BP Pulse Ox O2 Del Method O2 Flow Rate 98.1 F 90 18 101/64 98 Nasal Cannula 2 03/13/24 08:58 03/13/24 08:58 03/13/24 08:58 03/13/24 08:58 03/13/24 08:58 03/13/24 08:58 03/13/24 11:31 Oxygen Flow Rate (L/min) 2 Oxygen Delivery Method Nasal Cannula Weight: 137.2 kg Body Mass Index (BMI) 51.6 Intake & Output: Intake and Output for Last 24 Hours 03/11/24 03/12/24 03/13/24 23:59 23:59 23:59 Intake Total 1000 / 1000 1525 / 1525 200 / 200 Output Total 400 / 400 Balance 600 / 600 1525 / 1525 200 / 200 Lab / Micro Data 03/12/24 04:25 03/13/24 04:21 Labs: Laboratory Results - last 24 hr 03/12/24 12:02: POC Glucose 154 H 03/12/24 16:45: POC Glucose 172 H 03/12/24 21:33: POC Glucose 176 H 03/13/24 04:21: Sodium 139, Potassium 4.4, Chloride 105, Carbon Dioxide 30.0, Anion Gap 4 L, BUN 39 H, Creatinine 1.37 H, Estim Creat Clear Calc 41.57, Est GFR (MDRD) Af Amer 47 L, Est GFR (MDRD) Non-Af 39 L, BUN/Creatinine Ratio 28.5 H, Glucose 145 H, Calcium 8.5 03/13/24 06:11: POC Glucose 147 H Rhythm Strip Rhythm Strip: Sinus Rhythm Rate: 91 Ectopy: PVC(s) Physical Exam Const alert, oriented x3 and no apparent distress Constitutional Narrative: Pleasant elderly female, morbidly obese, mildly fatigued appearing, otherwise sitting up comfortably in bed, conversing normally, in no acute distress. Improving. General Appearance: cooperative and comfortable HEENT normocephalic, head/scalp atraumatic, hearing grossly normal bilaterally and nasal mucous membranes and turbinates normal Eyes PERRL, EOMs intact bilaterally and conjunctivae normal Neck full ROM Chest inspection of chest normal Resp normal respiratory effort and no use of accessory muscles Resp Narrative: Diminished breath sounds bilaterally, suspected due to body habitus. No wheezing or crackles noted. Breathing comfortably on 2 L nasal cannula at rest. Stable. Cardio regular rate, regular rhythm, no murmurs and peripheral pulses 2+ throughout GI normal to inspection, nondistended, normoactive bowel sounds, soft to palpation, non-tender and non-distended Back/Spine normal ROM Extremity normal to inspection, full ROM and no pedal edema Skin no rashes or lesions noted Neuro moves all extremities and no focal motor deficits Speech: speech normal Psych mental status grossly normal Assessment & Plan Assessment/Plan (1) Debility: (2) Falls: (3) ROSHNI (acute kidney injury): PLAN: Plan Patient is an 84-year-old female who presented [facility] ED on 03/11/2024 with worsening weakness and falls. 1. Acute on chronic debility with falls ? PT/OT/case management following. Suspect acute worsening with falls may be secondary to some degree of dehydration with orthostatic hypotension given ROSHNI noted below and her home BP medications. ROSHNI improving with IV fluid resuscitation and patient with improving energy level. Continue to hold home lisinopril and hydrochlorothiazide. Suspect some degree of chronic debility given patient's age and morbid obesity. Patient with borderline therapy scores, only able to ambulate about 50 feet with wheeled walker. [facility]ed [facility] SN[facility], planning for discharge there on 03/14. 2. ROSHNI, improving ? Creatinine 2.31 on admit. Last labs were from 2018, creatinine 0.8 at that time. Suspect some degree of ROSHNI due to prerenal etiology. Improved with IV fluids resuscitation, most recent creatinin 1.37 on 8/7. No need to monitor further BMPs here, can repeat BMP about 1 week after discharge if needed. Chronic medical conditions: ? Morbid obesity: BMI 51 on admit. Complicates hospital course, care and prognosis. ? Hypertension: Holding home lisinopril?hydrochlorothiazide given ROSHNI as noted above. Blood pressures have remained low during hospitalization, will likely plan to hold BP medications on discharge. ? Type 2 diabetes mellitus: Home regimen of metformin 1000 mg twice daily and glipizide 20 mg daily. Treating with sliding scale insulin while inpatient. ? Depression/anxiety: Stable. Continue home BuSpar. ? Mild chronic anemia: Hemoglobin stable at baseline around 10-11. ? COPD with chronic respiratory failure: Stable on home 2 L nasal cannula since admission, not in COPD exacerbation. DVT prophylaxis: Heparin subcu CODE STATUS: Full code, verified Expected disposition: Likely SNF, 2 to 3 days Total clinical time spent by myself addressing the patient's medical issues, reviewing all the data, and collaborating with patient's care team: 35 minutes. Charges/Coding Visit Charges Inpatient E&M: 94742 Subs Hosp L2
[2024-03-13 12:29] LABS: Bedside Glucose 147 mg/dL (74-106)
[2024-03-13 15:00] VITALS: BP 114/57; PULSE 91; RESP 18; TEMP 36.8; O2SAT 98
[2024-03-13 17:18] LABS: Bedside Glucose 146 mg/dL (74-106)
[2024-03-13 20:17] VITALS: BP 138/58; PULSE 90; RESP 18; TEMP 36.8; O2SAT 99
[2024-03-13 20:18] VITALS: PULSE 80
[2024-03-13 22:45] LABS: Bedside Glucose 148 mg/dL (74-106)
[2024-03-14 01:15] VITALS: BP 139/47; PULSE 85; RESP 18; TEMP 36.6; O2SAT 99
[2024-03-14] MEDS: Acetaminophen 325 MG Tablet 650 MG PO (01:16)
[2024-03-14 06:26] VITALS: BP 144/54; PULSE 78; RESP 18; TEMP 36.4; O2SAT 98
[2024-03-14] MEDS: Nystatin Powder 15gm Bottle 1 APPLIC TOPICAL (06:29)
[2024-03-14] MEDS: Menthol/Lanolin/Calamine/Znox 113 GM Tube 1 APPLIC TOPICAL (06:29)
[2024-03-14 07:23] LABS: Bedside Glucose 108 mg/dL (74-106)
[2024-03-14 07:27] LABS: Hematocrit 35.4 % (37-47); Mean Corp Hgb Conc 31.1 g/dL (32-36); Mean Corpuscular Hgb 31.3 pg (27.0-32.0); Mean Corpuscular Volume 100.9 fL (81-99); Mean Platelet Vol. 10.9 fl (6.2-12.0); Platelet Count 250 K/mm3 (150-450); RBC Distribution Width CV 13.8 % (11.6-14.6); RBC Distribution Width SD 50.6 fl (35.1-43.9); Red Blood Count 3.51 M/mm3 (4.2-5.4); White Blood Count 9.8 K/mm3 (4.4-11.0)
[2024-03-14 07:56] LABS: Anion Gap 5 (5-15); BUN 40 mg/dL (7-18); Calcium,Total 8.2 mg/dL (8.5-10.1); Chloride 107 mmol/L (98-107); Creatinine, Serum 1.29 mg/dL (0.55-1.02); EST Glomerular Filtration Rate 42 mL/min (>60); Est Glom Filt Rate - Afr Amer 51 mL/min (>60); Estimated Creatinine Clearance 44.14 ml/min; Glucose 129 mg/dL (74-106); Potassium 4.6 mmol/L (3.5-5.1); Sodium Level 142 mmol/L (136-145)
--- NOTE | 2024-03-14 09:15 | TREXTCAR_ITS ---
Diet Diet Order/Speech Therapy: 03/11/24 12:03 Diet: Consistent Carb - Calorie Controlled Food consistency:: Regular Liquid Consistency:: Regular/Thin How many daily calories?: 1800 calorie Routine Orders/Code Status Routine Lab Work: CBC and BMP Code Status: Full Code Wound(s) right foot: Wound Type: blister left foot: Wound Type: blister left knee: Wound Type: Abrasion left abd fold: Wound Type: scattered open areas Therapies Physical Therapy: Eval and Treat Occupational Therapy: Eval and Treat Problem/Diagnosis (1) Debility: Status: Acute Code(s): R53.81 - Other malaise (2) Falls: Status: Acute Code(s): R29.6 - Repeated falls (3) ROSHNI (acute kidney injury): Status: Acute Code(s): N17.9 - Acute kidney failure, unspecified Allergies/Procedures Done in Hospital Allergies erythromycin base (Erythromycin Base) Allergy (Verified 03/08/24 05:58) Unknown ibuprofen (From Nuprin) Allergy (Verified 03/08/24 05:58) Unknown Procedures: None Type of Care/Length of Stay Estimated LOS: Convalescent Care Less Than 30 days Type of Care Needed: Skilled Rehab Potential: Good Prognosis: Good Additional Orders/Day of Discharge Day of Discharge: 03/14/24 Dietary and Speech Recommendations Dietitian Recommendations/Changes: Adjust diet to 1800 calorie consistent carbohydrate. If PO intake declines, will offer ONS. Reviewed and approved by Nahomy Gamez RD, LD Discharge Plan Admission Admit Date/Time: 03/11/24 10:44 Attending Provider: Eros Alfaro Primary Care Provider: Dustin Lang Consulting Providers: Delbert Dickson Discharge Orders/Prescriptions Prescriptions: Continued metformin 500 MG tablet 1,000 mg PO BID Patient Comments: supposed to take 2 tabs bid; patient only takes 1 tab bid buspirone 5 tablet 5 mg PO BID Patient Comments: glipizide 10 mg tablet extended release 24hr 20 mg PO DAILY acetaminophen 500 mg capsule 1,000 mg PO Q6H PRN (Reason: pain) Held lisinopril-hydrochlorothiazide 20-12.5 mg tablet 2 tab PO DAILY Hold Instructions: Resume on 03/18/24. Discontinued amoxicillin 500 mg capsule 500 mg PO DAILY Referrals / Follow Up: Dustin Lang MD [Primary Care Provider] - Disposition Disposition (needs filled in before D/C Order can be placed): [facility] Facility
--- NOTE | 2024-03-14 09:30 | CASEMGMT ---
Social Work Per physician, pt is ready for discharge today to the [facility]. 7000 exemption form completed in [facility]. DC commissary assistant updated and to complete discharge. Disposition: [facility], [facility] level of care under convalescent stay YOKO Emmanuel
[2024-03-14 09:46] VITALS: BP 116/56; PULSE 89; RESP 18; TEMP 36.3; O2SAT 97
[2024-03-14] MEDS: busPIRone 5 MG Tablet PO (09:53)
[2024-03-14] MEDS: Heparin Injection (Vial) 5,000 UNIT/ML VIAL 5000 UNIT SC (09:53)
--- NOTE | 2024-03-14 10:18 | NURSING ---
Report called to Teod[facility] at [facility], pt to be picked up at 10:30.
--- NOTE | 2024-03-14 10:19 | PHA.DC.MR.R ---
Pharmacy MA Med Reconciliation Pharmacy Service has performed discharge medication reconciliation for this patient. The patient's discharge medication list was reviewed for discrepancies and discrepancies were resolved. Medications at Discharge Home Medications metformin 500 mg tablet 1,000 mg PO BID DM 05/22/14 buspirone 5 mg tablet 5 mg PO BID depression 02/04/18 glipizide 10 mg tablet, extended release 24 hr 20 mg PO DAILY 03/08/24 lisinopril 20 mg-hydrochlorothiazide 12.5 mg tablet 2 tab PO DAILY 03/08/24 acetaminophen 500 mg capsule 1,000 mg PO Q6H PRN pain 03/11/24
--- NOTE | 2024-03-14 11:06 | PCM.DC.SUM ---
Providers Date of Admission: 03/11/24 Primary Care Physician: Dr. Dustin Lang MD Reason For Visit: WEAKNESS, ROSHNI Diagnosis Discharge Diagnosis (1) Debility: Status: Acute Code(s): R53.81 - Other malaise (2) Falls: Status: Acute Code(s): R29.6 - Repeated falls (3) ROSHNI (acute kidney injury): Status: Acute Code(s): N17.9 - Acute kidney failure, unspecified Medications at Discharge Home Medications metformin 500 mg tablet 1,000 mg PO BID DM 05/22/14 buspirone 5 mg tablet 5 mg PO BID depression 02/04/18 glipizide 10 mg tablet, extended release 24 hr 20 mg PO DAILY 03/08/24 lisinopril 20 mg-hydrochlorothiazide 12.5 mg tablet 2 tab PO DAILY 03/08/24 acetaminophen 500 mg capsule 1,000 mg PO Q6H PRN pain 03/11/24 Hospital Course Operations None Procedures None Summary of Care Provided Minutes Spent on Discharge: 33 Hospital Course: Per HPI: RASHIDA TOWNSEND, is a 84 F who presented to [facility] ED on 03/11/2024 with worsening weakness and falls at home. Patient has history of COPD on chronic 3 L oxygen, hypertension, [id number] diabetes and morbid obesity with BMI around 50. She lives at home with her significant other. She noted that over the past month or so she has gotten generally weaker and has had more difficulty getting around the house. She had a small fall last Monday when tried to get up out of her chair. She was seen in the ED for this and had negative x-rays of her knee and left foot, and was discharged home. She had another episode like this today that brought her back into the ED. States her significant other was helping her up and was able to help break the fall. Patient denied any new injuries today aside from rug burn on her left foot. She denied any dizziness or lightheadedness with these episodes of falls. In the ED, she was found to have a suspected ROSHNI with creatinine 2.31 (baseline back in 2017 was 0.8); labs were otherwise unremarkable. Vital signs were unremarkable. Given her worsening weakness and ROSHNI, hospitalist was contacted for admission. I saw the patient at bedside on the floor shortly after arriving over from the ED. Significant other was present. Patient was mildly fatigued appearing but otherwise sitting up comfortably in bed, conversing normally, in no acute distress. She was receiving some IV fluids when I saw her and states she felt slightly better now than she did earlier today. However, she reiterated that she has generally felt more fatigued and weak over the past several weeks. Patient's significant other was in agreement with this. She otherwise denied any acute pain or discomfort currently. She denied any fevers or chills. Does report decreased urine output recently but denies any burning with urination or difficulty with urination. No other acute concerns at this time. Hospital Course: 1. Acute on chronic debility with falls ? PT/OT/case management following. Suspect acute worsening with falls may be secondary to some degree of dehydration with orthostatic hypotension given ROSHNI noted below and her home BP medications. ROSHNI improving with IV fluid resuscitation and patient with improving energy level. Continue to hold home lisinopril and hydrochlorothiazide. Suspect some degree of chronic debility given patient's age and morbid obesity. Patient with borderline therapy scores, only able to ambulate about 50 feet with wheeled walker. Accepted for SNF placement at the [facility], planning for discharge there on 03/14. 03/14/2024: Received pre-CERT and will be able to be discharged to group home today. I discussed with her the plan for discharge that she expressed understanding of the risk benefits of going to the group home and would like to go today. 2. ROSHNI, improving ? Creatinine 2.31 on admit. Last labs were from 2018, creatinine 0.8 at that time. Suspect some degree of ROSHNI due to prerenal etiology. Improved with IV fluids resuscitation, most recent creatinin 1.37 on 03/13. No need to monitor further BMPs here, can repeat BMP about 1 week after discharge if needed. 03/14/2024: Creatinine today is 1.29 which is improved and close to her baseline. Will continue to hold her combination lisinopril and hydrochlorothiazide due to lower blood pressures and can resume at the group home, may need to start at 1 tablet daily instead of the 2 tablets daily that she has been taking at home. Can resume her home blood sugar medications including glipizide and metformin, may need to make adjustments to dosing if she will be on an appropriate diet while at the group home. Recommend following BMPs while at the group home for the first week to make sure her renal function stays stable Chronic medical conditions: ? Morbid obesity: BMI 51 on admit. Complicates hospital course, care and prognosis. ? Hypertension: Holding home lisinopril?hydrochlorothiazide given ROSHNI as noted above. Blood pressures have remained low during hospitalization, will likely plan to hold BP medications on discharge. ? Type 2 diabetes mellitus: Home regimen of metformin 1000 mg twice daily and glipizide 20 mg daily. Treating with sliding scale insulin while inpatient. ? Depression/anxiety: Stable. Continue home BuSpar. ? Mild chronic anemia: Hemoglobin stable at baseline around 10-11. ? COPD with chronic respiratory failure: Stable on home 2 L nasal cannula since admission, not in COPD exacerbation. Physical Exam Narrative General: Alert, Oriented x3, Cooperative, No apparent distress HEENT: Atraumatic, PERRLA, EOMI, Normocephalic Oral: Moist Mucosa Neck: Supple, No JVD Lungs: Diminished, Normal air movement, No rhonchi, No wheeze, No rales Cardiovascular: Regular rate, Regular Rhythm, Normal S1, Normal S2, No murmurs Abdomen: Soft, Non Tender, Non-Distended, No Hepato-splenomegaly Extremities: No edema, Capillary Refill Less than 3 Seconds Skin: Left lower extremity blister is wrapped, dressing intact Musculoskeletal: No Tenderness to Palpation of Joints or Extremities Neurological: No focal neurological deficits, Motor Exam 5/5 strength throughout, Sensory exam intact to light touch and pain Psych/Mental Status: Flat, tearful Weight / BMI Weight Weight: 302 lb 7.587 oz Body Mass Index (BMI) 51.6 ABG / Lab / Microbiology Data 03/14/24 06:22 03/14/24 06:22 Laboratory: Laboratory Results - last 24 hr 03/13/24 11:56: POC Glucose 147 H 03/13/24 16:43: POC Glucose 146 H 03/13/24 21:53: POC Glucose 148 H 03/14/24 06:22: WBC 9.8, RBC 3.51 L, Hgb 11.0 L, Hct 35.4 L, MCV 100.9 H, MCH 31.3, MCHC 31.1 L, RDW Std Deviation 50.6 H, RDW Coeff of Jose 13.8, Plt Count 250, MPV 10.9, Sodium 142, Potassium 4.6, Chloride 107, Carbon Dioxide 30.0, Anion Gap 5, BUN 40 H, Creatinine 1.29 H, Estim Creat Clear Calc 44.14, Est GFR (MDRD) Af Amer 51 L, Est GFR (MDRD) Non-Af 42 L, BUN/Creatinine Ratio 31.0 H, Glucose 129 H, Calcium 8.2 L 03/14/24 06:35: POC Glucose 108 H Meaningful Use Info Meaningful Use Meaningful Use Diagnoses (Choose all that apply): None applicable Ischemic Stroke Statin Dosing Therapy Reference: STATIN DOSE THERAPY REFERENCE: * Patients > 75 years receive moderate or high dose statin therapy. * Patients 75 years or YOUNGER should receive HIGH intensity statin dose unless contraindicated. You will be required to document reason for non-treatment if statin daily dose does not meet guidelines. HIGH DOSE STATIN THERAPY DAILY Atorvastatin > than or = to 40 mg Rosuvastatin > than or = to 20 mg Amlodipine + Atorvastatin > than or = to 2.5/40 mg Ezetimibe + Simvastatin 10/80 mg Simvastatin 80mg Discharge Plan Admission Admit Date/Time: 03/11/24 10:44 Attending Provider: Eros Alfaro Primary Care Provider: Dustin Lang Consulting Providers: Delbert Dickson Discharge Orders/Prescriptions Prescriptions: Continued metformin 500 MG tablet 1,000 mg PO BID Patient Comments: supposed to take 2 tabs bid; patient only takes 1 tab bid buspirone 5 tablet 5 mg PO BID Patient Comments: glipizide 10 mg tablet extended release 24hr 20 mg PO DAILY acetaminophen 500 mg capsule 1,000 mg PO Q6H PRN (Reason: pain) Held lisinopril-hydrochlorothiazide 20-12.5 mg tablet 2 tab PO DAILY Hold Instructions: Resume on 03/18/24. Discontinued amoxicillin 500 mg capsule 500 mg PO DAILY Referrals / Follow Up: Dustin Lang MD [Primary Care Provider] - Disposition Disposition (needs filled in before D/C Order can be placed): [facility] Charges/Coding Visit Charges Inpatient E&M: 82264 Disch Hosp >30min
--- NOTE | 2024-03-14 11:30 | CASEMGMT ---
Discharge Planning Discharge orders, signed med list, and transport time sent to [facility] [place] via [facility]. Physicians will transport patient by wheelchair at 12p. Nursing, SW, patient, and her daughter (Cici) updated. Krista Grey DC Planning Asst.
[2024-03-14 11:50] VITALS: O2SAT 97
== END 2024-03-14 13:06 | disposition skilled nursing facility (03) | DRG 683 ==
LOC: ED 10:13 → ICU 11:19 → MS3 03-12 16:00
PROVIDERS: Admitting Provider Hospitalist; Emergency Provider Emergency Medicine; PCP Internal Medicine; Visit Provider Family Medicine
DX: N17.9 Acute kidney failure, unspecified (principal); Z68.43 Body mass index [BMI] 50.0-59.9, adult; J96.10 Chronic respiratory failure, unspecified whether with hypoxia or hypercapnia; E11.22 Type 2 diabetes mellitus with diabetic chronic kidney disease; D64.9 Anemia, unspecified; F41.8 Other specified anxiety disorders; J44.9 Chronic obstructive pulmonary disease, unspecified; I12.9 Hypertensive chronic kidney disease with stage 1 through stage 4 chronic kidney disease, or unspecified chronic kidney disease; N18.9 Chronic kidney disease, unspecified; S90.32XA Contusion of left foot, initial encounter; E66.01 Morbid (severe) obesity due to excess calories; S80.02XA Contusion of left knee, initial encounter; W07.XXXA Fall from chair, initial encounter; Z99.81 Dependence on supplemental oxygen; Z87.891 Personal history of nicotine dependence; Z79.84 Long term (current) use of oral hypoglycemic drugs; R53.81 Other malaise; Z79.899 Other long term (current) drug therapy; Z90.49 Acquired absence of other specified parts of digestive tract; Z90.710 Acquired absence of both cervix and uterus; R29.6 Repeated falls
CPT/HCPCS: 36415; 73560; 73590; 73630; 80048; 80053; 81001; 82962; 83036; 85025; 85027; 93005; 94668; 97110; 97162; 97166; 97530; 97802; 99282; 99284; J7030; J7120; A4216

== ENCOUNTER 2024-06-02 11:28 | Emergency (ER) | payer MEDICARE, SELFPAY ==
[2024-06-02] VITALS (7 sets, daily range): BP systolic 107–137; BP diastolic 62–82; PULSE 82–101; RESP 17–20; TEMP 36.6; O2SAT 95–99; BMI 58.8
--- NOTE | 2024-06-02 12:11 | EKG12_ITS ---
Test Reason : SOB Blood Pressure : / mmHG Vent. Rate : 095 BPM Atrial Rate : 095 BPM P-R Int : 174 ms QRS Dur : 094 ms QT Int : 356 ms P-R-T Axes : 065 049 015 degrees QTc Int : 447 ms Normal sinus rhythm Nonspecific ST abnormality Abnormal ECG Confirmed by SHERI SHEA, MAURISIO ([id number]), social media editor PETRA ACE ([id number]) on 06/04/2024 7:52:25 AM Referred By: Confirmed By:MAURISIO WADE MD
--- OUTSIDE RECORDS SUMMARY | 2024-06-02 12:13 | XMS RPT_ITS | CCD ---
Author Organization [facility] Care Team Providers Care Barrel Turner Name Role Phone Rickey SHEA, Dustin Mujica Primary Care Provider [phone] DUSTIN WILDER Primary Care Unavailable LORIN WARREN Attending Unavailable LORIN WARREN Attending Unavailable DSUTIN WILDER Primary Care Unavailable LORIN WARREN Attending Unavailable DUSTIN WILDER Primary Care Unavailable DUSTIN WILDER Primary Care Unavailable DUSTIN WILDER Referring Unavailable DUSTIN WILDER Primary Care Unavailable DUSTIN WILDER Attending Unavailable DUSTIN WILDER Primary Care Unavailable LORIN WARREN Referring Unavailable Allergies Allergy Classification Reported Allergen(s) Allergy Type Date of Onset Reaction(s) Facility (20 sources) Erythromycin; Translations: [ERYTHROMYCIN] Drug Allergy 06-13-2005 Hives [facility] (20 sources) Ibuprofen; Translations: [IBUPROFEN] Drug Allergy 07-07-2006 Anaphylaxis [facility] Work Phone: (20 sources) Naproxen; Translations: [NAPROXEN] Drug Allergy 06-13-2005 Swelling [facility] Medications Current Medications Medication Drug Class(es) Dates Sig (Normalized) Sig (Original) busPIRone hydrochloride 5 mg oral tablet (7 sources) Start: 10-12-2023 take 1 tablet by mouth twice daily busPIRone (BUSPAR) 5 mg tablet Indications: Anxiety Take 1 tablet by mouth two times a day. 180 tablet 3 10/12/2023 Active Comment on above: Take 1 tablet by gisela th two times a day. COMPOUNDED PRESCRIPTION (20 sources) Start: 09-26-2016 COMPOUNDED PRESCRIPTION Oxygen 3L home. DX: Sob, COPD, HALL. Night time use and with activity. [facility] Supplier 1 Each 09/26/2016 Active Start: 09-26-2016 COMPOUNDED PRE SCRIPTION Oxygen 3L home. DX: Sob, COPD, HALL. Night time use and with activity. [facility] Supplier 1 Each 0 09/26/2016 Active Comment on above: Oxygen 3L home. DX: Sob, COPD, HALL. Night time use and with activity. [facility] Supplier escitalopram 10 mg oral tablet (1 source) Serotonin Reuptake Inhibitor Start: take 1 tablet by mouth once daily escitalopram oxalate (LEXAPRO) 10 mg tablet Indications: Depression with anxiety Take 1 tablet by mouth once daily. 30 tablet 2 05/28/2024 Active glipiZIDE er 10 mg 24 hr extended release oral tablet (20 sources) Sulfonylurea Start: glipiZIDE (GLUCOTROL XL) 10mg 24 hr tablet Indications: Type 2 diabetes mellitus with stage 3 chronic kidney disease, without long-term current use of insulin (HCC) Take 2 tablets by mouth every morning. 180 tablet 1 07/24/2023 Active Start: 06-24-2021 End: 02-20-2023 glipiZIDE (GLUCOTROL XL) 10m g 24 hr tablet Indications: Type 2 diabetes mellitus with stage 3 chronic kidney disease, without long-term current use of insulin (HCC) Take 2 tablets by mouth every morning. 180 tablet 1 02/20/2023 Active Comment on above: Take 2 tablets by mo [facility] every morning. hydroCHLOROthiazide 12.5 mg / lisinopril 20 mg oral tablet (20 sources) Thiazide Diuretic, Angiotensin Converting Enzyme Inhibitor Start: 2020 End: 2022 take 2 tablets by mouth once daily in the morning lisinopril-hydroCH LOROthiazide (ZESTORETIC) 20-12.5 mg per tablet Indications: Essential hypertension Take 2 tablets by mouth every morning. 180 tablet 1 07/17/2023 Active Comment on above: Take 2 tablets by mo [facility] every morning. metFORMIN hydrochloride 500 mg oral tablet (20 sources) Biguanide Start: 2019 End: 2023 metFORMIN (GLUCOPHAGE) 500 mg tablet Indications: Type 2 diabetes mellitus with stage 3 chronic kidney disease, without long-term current use of insulin (HCC) Take 2 tablets by mouth two times a day with meals. 360 tablet 1 12/01/2023 Active Comment on above: Take 2 tablets by [facility] twice daily with meals. mometasone furoate 1 mg/ml topical cream (1 source) Corticosteroid Start: 2023 End: 2024 mometasone (ELOCON) 0.1 % cream Indications: 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 Apply to affected area once daily as needed (rash of leg). 45 g 05/28/2024 11/24/2024 Active 30 actuat umeclidinium 0.0625 mg/actuat / vilanterol 0.025 mg/actuat dry powder inhaler (20 sources) Anticholinergic, beta2-Adrenergic Agonist Start: 2022 take 1 dose by inhalation once daily umeclidinium-vilan terol (ANORO ELLIPTA) 62.5-25 mcg/actuation inhaler Indications: Asthma with chronic obstructive pulmonary disease (COPD) ([facility]) Inhale 1 Inhalation as instructed once daily. 3 Each 3 08/19/2022 Active Start: 06-24-2021 take 1 dose by inhal ation once daily umeclidinium-vilanterol (ANORO ELLIPTA) 62.5-25 mcg/actuation inhaler Indications: Asthma with chronic obstructive pulmonary disease (COPD) ([facility]) Inhale 1 Inhalation as instructed once daily. 3 Each 3 06/24/2021 Active Comment on above: Inhale 1 Inhalation as instructed once daily. Completed/Discontinued Medications Medication Drug Class(es) Dates Sig (Normalized) Sig (Original) amoxicillin 500 mg oral capsule (20 sources) Penicillin-class Antibacterial Start: 06-21-2019 End: 05-28-2024 take 1 capsule by mouth once amoxicillin (POLYMOX, AMOXIL) 500 mg capsule Take 1 capsule by mouth once daily. Per infectious disease. 06/21/2019 05/28/2024 Discontinued Comment on above: Take 1 capsule by [facility] once daily. Per infectious disease. gabapentin 100 mg oral capsule (3 sources) Anti-epileptic Agent Start: 06-24-2021 take 1 capsule by mouth once daily at bedtime gabapentin (NEURONTIN) 100 mg capsule Indications: Meralgia paresthetica, unspecified laterality Take 1 capsule by mouth daily at bedtime for 180 days. 90 capsule 1 06/24/2021 Active Comment on above: Take 1 capsule by mo [facility] daily at bedtime for 180 days. linagliptin 5 mg oral tablet (3 sources) Dipeptidyl Peptidase 4 Inhibitor Start: 10-29-2019 take 1 tablet by mouth once daily linaGLIPtin (TRADJENTA) 5 mg tab Indications: type 2 diabetes mellitus Take 1 tablet by mouth once daily. 90 tablet 1 10/29/2019 Active Comment on above: Take 1 tablet by gisela once daily. Problems Active Problems Problem Classification Problem Date Documented Date Episodic/Chronic Anxiety disorders (20 sources) Needle phobia; Translations: [Other specified phobia] Onset: 04-28-2010 Resolved: 10-29-2019 12-26-2016 Chronic Chronic kidney disease (10 sources) Chronic kidney disease stage 3A ; Translations: [Stage 3a chronic kidney disease (HCC)] Onset: 06-21-2019 Resolved: 08-19-2022 Chronic Chronic obstructive pulmonary disease and bronchiectasis (20 sources) Asthma-chronic obstructive pulmonary disease overlap syndrome; Translations: [Chronic obstructive pulmonary disease, unspecified] 06-27-2015 Chronic Delirium, dementia, and amnestic and other cognitive disorders (6 sources) Senile asthenia; Translations: [Age-related physical debility] Onset: 03-21-2024 03-21-2024 Chronic Diabetes mellitus with complications (20 sources) Type 2 diabetes mellitus; Translations: [Type 2 diabetes mellitus with diabetic chronic kidney disease] Onset: 01-23-2015 Resolved: 09-25-2014 Chronic Diabetes mellitus without complication (1 source) Diabetes mellitus without complication; Translations: [Type 2 diabetes mellitus with stage 3a chronic kidney disease, without long-term current use of insulin ([facility])] Onset: 07-23-2019 Diseases of white blood cells (20 sources) Leukocytosis; Translations: [Elevated white blood cell count, unspecified] Onset: 06-28-2021 06-28-2021 Chronic Disorders of lipid metabolism (20 sources) Mixed hyperlipidemia; Translations: [Mixed hyperlipidemia] Onset: 06-13-2005 06-27-2015 Chronic Essential hypertension (20 sources) Essential hypertension; Translations: [Essential (primary) hypertension] Onset: 04-28-2010 Chronic Hypertension with complications and secondary hypertension (20 sources) 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; Translations: [Hypertensive chronic kidney disease with stage 1 through stage 4 chronic kidney disease, or unspecified chronic kidney disease] Onset: 11-06-2020 11-06-2020 Chronic Immunizations and screening for infectious disease (4 sources) Vaccination needed; Translations: [Encounter for immunization] Episodic Mycoses (2 sources) Onychomycosis due to dermatophyte ; Translations: [Tinea unguium] Onset: 05-28-2024 05-28-2024 Episodic Osteoarthritis (20 sources) Osteoarthritis; Translations: [Unspecified osteoarthritis, unspecified site] Onset: 04-28-2010 04-28-2010 Chronic Other diseases of veins and lymphatics (20 sources) 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; Translations: [Chronic venous hypertension (idiopathic) with inflammation of right lower extremity] Onset: 04-05-2018 04-06-2018 Chronic Other diseases of veins and lymphatics (1 source) Chronic venous hypertension (idiopathic) with inflammation of right lower extremity; Translations: [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] Onset: 04-06-2018 Chronic Other lower respiratory disease (1 source) Dyspnea; Translations: [Dyspnea, unspecified] 07-06-2023 Episodic Other nutritional; endocrine; and metabolic disorders (20 sources) Body mass index 40+ - severely obese; Translations: [Morbid (severe) obesity due to excess calories] Onset: 09-26-2016 11-06-2020 Chronic Other upper respiratory infections (1 source) Sore throat symptom; Translations: [Acute pharyngitis, unspecified] Episodic Residual codes; unclassified (9 sources) Obstructive sleep apnea syndrome; Translations: [Obstructive sleep apnea (adult) (pediatric)] Onset: 10-31-2016 06-28-2023 Chronic Respiratory failure; insufficiency; arrest (adult) (20 sources) Chronic hypoxemic respiratory failure; Translations: [Chronic respiratory failure with hypoxia] Onset: 09-26-2016 Resolved: 10-29-2019 07-23-2019 Chronic Past or Other Problems Problem Classification Problem Date Documented Da te Episodic/Chronic Administrative/social admission (6 sources) Bereavement; Translations: [Disappearance and of family member] Onset: 03-13-2014 Resolved: 05-31-2016 05-31-2016 Episodic Allergic reactions (6 sources) Urticaria; Translations: [Urticaria] Resolved: 05-31-2016 05-31-2016 Episodic Diabetes mellitus without complication (6 sources) Diabetes mellitus; Translations: [Type 2 diabetes mellitus without complications] Onset: 06-13-2005 Resolved: 09-25-2014 09-25-2014 Chronic Mood disorders (15 sources) Depressive disorder; Translations: [Depressive disorder] Onset: 04-28-2010 Resolved: 08-19-2022 10-13-2021 Chronic Nutritional deficiencies (6 sources) Vitamin D deficiency; Translations: [Vitamin D deficiency, unspecified] Onset: 09-26-2016 Resolved: 10-02-2017 10-02-2017 Chronic Other bone disease and musculoskeletal deformities (20 sources) Osteopenia; Translations: [Other specified disorders of bone density and structure, unspecified site] Onset: 04-22-2009 10-02-2017 Episodic Other nervous system disorders (6 sources) Meralgia paresthetica; Translations: [Meralgia paresthetica, unspecified lower limb] Onset: 04-28-2010 Resolved: 09-26-2016 09-26-2016 Chronic Other non-traumatic joint disorders (6 sources) Pain in right knee; Translations: [Pain in joint, lower leg] Onset: 02-26-2010 Resolved: 10-29-2019 10-29-2019 Episodic Skin and subcutaneous tissue infections (20 sources) Cellulitis of lower leg; Translations: [Cellulitis of unspecified part of limb] Onset: 05-09-2018 06-21-2019 Episodic Thyroid disorders (20 sources) Acquired hypothyroidism; Translations: [Hypothyroidism, unspecified] Onset: 01-21-2008 Resolved: 02-20-2023 05-31-2016 Chronic Results Test Name Value Interpretation Reference Range Facil ity CBC panel Auto (Bld)on 05-28 Erythrocyte distribution width (RBC) [Ratio] 13.7 % Normal 11.5-15.0 [facility] Comment on above: Order Comment: Speci men Type: BLOOD SPECIMENOrdering Facility: [facility] Address: [address] [place] [address] Performed By: #### 5 8410-2 ####[facility] LABCLIA [id number] [place] [address] [place] Hematocrit (Bld) [Volume fraction] 36.5 % Normal 36.0-46.0 [facility] Comment on above: Order Comment: Speci men Type: BLOOD SPECIMENOrdering Facility: [facility] Address: [address] [place] [address] Performed By: #### 5 8410-2 ####[facility] LABIA [id number] [place] [address] [place] Hemoglobin (Bld) [Mass/Vol] 10.8 g/dL Low 11.5-15.5 [facility] Comment on above: Order Comment: Speci men Type: BLOOD SPECIMENOrdering Facility: [facility] Address: [address] [place] [address] Performed By: #### 5 8410-2 ####[facility] [id number] [place] [address] [place] MCH (RBC) [Entitic mass] 31.6 pg Normal 26.0-34.0 [facility] Comment on above: Order Comment: Speci men Type: BLOOD SPECIMENOrdering Facility: [facility] Address: [address] [place] [address] Performed By: #### 5 8410-2 ####[facility] [id number] [place] [address] [place] MCHC (RBC) [Mass/Vol] 29.6 g/dL Low 30.5-36.0 [facility] Comment on above: Order Comment: Speci men Type: BLOOD SPECIMENOrdering Facility: [facility] Address: [address] [place] [address] Performed By: #### 5 8410-2 ####[facility] [id number] [place] [address] [place] MCV (RBC) [Entitic vol] 106.7 fL High 80.0-100.0 [facility] Comment on above: Order Comment: Speci men Type: BLOOD SPECIMENOrdering Facility: [facility] Address: [address] [place] [address] Performed By: #### 5 8410-2 ####[facility] LABCLIA [id number] [place] [address] [place] Nucleated RBC (Bld) [#/Vol] 10*3/uL Normal <0.01 [facility] Comment on above: Order Comment: Speci men Type: BLOOD SPECIMENOrdering Facility: [facility] Address: [address] [place] [address] Performed By: #### 5 8410-2 ####[facility] LABIA [id number] [place] [address] [place] Platelet mean volume (Bld) [Entitic vol] 11.2 fL Normal 9.0-12.7 [facility] Comment on above: Order Comment: Speci men Type: BLOOD SPECIMENOrdering Facility: [facility] Address: [address] [place] [address] Performed By: #### 5 8410-2 ####[facility] LABIA [id number] [place] [address] [place] Platelets (Bld) [#/Vol] 264 10*3/uL Normal 150-400 [facility] Comment on above: Order Comment: Speci men Type: BLOOD SPECIMENOrdering Facility: [facility] Address: [address] [place] [address] Performed By: #### 5 8410-2 ####[facility] LABIA [id number] [place] [address] [place] RBC (Bld) [#/Vol] 3.42 10*6/uL Low 3.90-5.20 [facility] Comment on above: Order Comment: Speci men Type: BLOOD SPECIMENOrdering Facility: [facility] Address: [address] [place] [address] Performed By: #### 5 8410-2 ####[facility] LABIA [id number] [address] [address] [place] WBC (Bld) [#/Vol] 11.66 10*3/uL High 3.70-11.00 [facility] Comment on above: Order Comment: Speci men Type: BLOOD SPECIMENOrdering Facility: [facility] Address: [address] [place] [address] Performed By: #### 5 8410-2 ####[facility] LABCLIA [id number] JENNIFEREleanor CLAY [address] [place] CNOVon 05-28-2024 CNOV Office Visit (INTMWS ) RASHIDA KAUFMAN ([id number]) 1940 F Date Time Provider Department 05/28/24 11:00 AM DUSTIN WILDER INTMWS During your visit today, we recorded the following information about you: Pulse Respiration Blood pressure 112/minute 16/minute 123/77 Dustin Wilder MD 05/28/2024 12:03 PM Signed This note was created using Beeplter. Subjective Patient presents with: Rash: R leg rash Rashida Kaufman is a 84 year old female here with her significant other for a chronic rash on her right lateral leg. She may have scraped this falling down a few months ago. She denied pain, warmth, drainage, or fever. She was taking buspar for anxiety, but had also been depressed since her recent admission and discharge to a [place] [facility]. On top of that, her sister , as well the brother of her significant other. It seems she was on escitalopram while in the [place] [facility] [place], but she did not vegetable picker the 14 day prescription on discharge. She did not schedule a follow up until she became concerned about her right leg. She was homebound and had significant difficulty leaving her house. Review of Systems Constitutional: Negative for chills, diaphoresis, fatigue and fever. HENT: Negative for congestion, sinus pressure and sore throat. Respiratory: Negative for cough, shortness of breath and wheezing. No change from baseline. Cardiovascular: Positive for leg swelling. Negative for chest pain and palpitations. Gastrointestinal: Negative for constipation, diarrhea, nausea and vomiting. Genitourinary: Negative for difficulty urinating and dysuria. Skin: Negative for wound. Neurological: Negative for dizziness, numbness and headaches. 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 Chronic Respiratory Failure With Hypoxia ([facility]) Hypertensive Kidney Disease With Stage 3 Chronic Kidney Disease ([facility]) Leukocytosis Age-Related Physical Debility Social History Tobacco Use Smoking status: Former Current packs/day: 0.00 Average packs/day: 0.5 packs/day for 7.0 years (3.5 ttl pk-yrs) Types: Cigarettes Start date: 08/07/1996 Quit date: 08/07/2003 Years since quittin.8 Smokeless tobacco: Never Substance Use Topics Alcohol use: No Drug use: No Current Outpatient Medications Medication Sig metFORMIN (GLUCOPHAGE) 500 mg tablet Take 2 tablets by mouth two times a day with meals. busPIRone (BUSPAR) 5 mg tablet Take 1 tablet by mouth two times a day. glipiZIDE (GLUCOTROL XL) 10mg 24 hr tablet Take 2 tablets by mouth every morning. lisinopril-hydroCHLORO thiazide (ZESTORETIC) 20-12.5 mg per tablet Take 2 tablets by mouth every morning. umeclidinium-vilantero l (ANORO ELLIPTA) 62.5-25 mcg/actuation inhaler Inhale 1 Inhalation as instructed once daily. COMPOUNDED PRESCRIPTION Oxygen 3L home. DX: Sob, COPD, HALL. Night time use and with activity. [facility] Supplier mometasone (ELOCON) 0.1 % cream Apply to affected area once daily as needed (rash of leg). escitalopram oxalate (LEXAPRO) 10 mg tablet Take 1 tablet by mouth once daily. No current facility-administered medications for this visit. Objective BP 123/77 Pulse 112 Resp 16 Physical Exam Constitutional: General: She is not in acute distress. Appearance: She is obese. HENT: Head: Normocephalic. Nose: No rhinorrhea. Eyes: Conjunctiva/sclera: Conjunctivae normal. Cardiovascular: Rate and Rhythm: Regular rhythm. Tachycardia present. Heart sounds: No murmur heard. No gallop. Pulmonary: Effort: No respiratory distress. Breath sounds: Wheezing present. No rhonchi or rales. Abdominal: Palpations: Abdomen is soft. Tenderness: There is no abdominal tenderness. Musculoskeletal: General: No tenderness. Right lower le+ Pitting Edema present. Left lower le+ Pitting Edema present. Skin: Findings: Rash present. Comments: Localized patch of dermatitis, right lateral leg. Neurological: General: No focal deficit present. Mental Status: She is alert. Comments: Wheelchair bound. Psychiatric: Attention and Perception: Attention normal. Mood and Affect: Mood is depressed. Feet:Shoes and socks removed, Are you having foot pain no, No ulcers, calluses, abnormal pulses Decreased bilaterally, not sensitive to monofilament in some toees. , and nails notable for Crumbly, Deformed, Hypertrophic, or Yellowish Assessment and Plan 1. Stasis dermatitis o (more content not included)... Normal [facility] Comprehensive metabolic 2000 panelon 05-28-2024 Albumin [Mass/Vol] 3.1 g/dL Low 3.9-4.9 [facility] Comment on above: Order Comment: Speci men Type: BLOOD SPECIMENOrdering Facility: [facility] Address: [address] [place] [address] Performed By: #### L ROBBIE, 27320-4 ####[facility] LABCLIA [id number] [place] [address] [place] ALP [Catalytic activity/Vol] 109 U/L Normal 34-123 [facility] Comment on above: Order Comment: Speci men Type: BLOOD SPECIMENOrdering Facility: [facility] Address: [address] [place] [address] Performed By: #### L ROBBIE, 41808-3 ####[facility] LABCLIA [id number] [place] [address] [place] ALT [Catalytic activity/Vol] 12 U/L Normal 7-38 [facility] Comment on above: Order Comment: Speci men Type: BLOOD SPECIMENOrdering Facility: [facility] Address: [address] [place] [address] Performed By: #### L IPNF, 51699-2 ####[facility] LABCLIA [id number] [place] [address] [place] Anion gap [Moles/Vol] 6 mmol/L Low 8-15 [facility] Comment on above: Order Comment: Speci men Type: BLOOD SPECIMENOrdering Facility: [facility] Address: [address] [place] [address] Performed By: #### L IPNF, 05543-7 ####[facility] LABCLIA [id number] [place] [address] [place] AST [Catalytic activity/Vol] 18 U/L Normal 13-35 [facility] Comment on above: Order Comment: Speci men Type: BLOOD SPECIMENOrdering Facility: [facility] Address: [address] [place] [address] Performed By: #### L IPNF, 22235-4 ####[facility] LABCLIA [id number] [place] [address] [place] Bilirubin [Mass/Vol] 0.4 mg/dL Normal 0.2-1.3 [facility] Comment on above: Order Comment: Speci men Type: BLOOD SPECIMENOrdering Facility: [facility] Address: [address] [place] [address] Performed By: #### L IPNF, 13792-5 ####[facility] LABCLIA [id number] [place] [address] [place] Calcium [Mass/Vol] 8.7 mg/dL Normal 8.5-10.2 [facility] Comment on above: Order Comment: Speci men Type: BLOOD SPECIMENOrdering Facility: [facility] Address: [address] [place] [address] Performed By: #### L IPNF, 33856-3 ####[facility] LABCLIA [id number] [place] [address] [place] Chloride [Moles/Vol] 98 mmol/L Normal 98-107 [facility] Comment on above: Order Comment: Speci men Type: BLOOD SPECIMENOrdering Facility: [facility] Address: [address] [place] [address] Performed By: #### L IPNF, 62857-2 ####[facility] LABCLIA [id number] [place] [address] [place] CO2 [Moles/Vol] 34 mmol/L High 22-30 [facility] Comment on above: Order Comment: Speci men Type: BLOOD SPECIMENOrdering Facility: [facility] Address: [address] [place] [address] Performed By: #### L IPNF, 65099-9 ####[facility] LABCLIA [id number] [place] [address] [place] Creatinine [Mass/Vol] 1.01 mg/dL High 0.58-0.96 [facility] Comment on above: Order Comment: Speci men Type: BLOOD SPECIMENOrdering Facility: [facility] Address: [address] [place] [address] Performed By: #### L IPNF, 14108-9 ####[facility] LABCLIA [id number] [place] [address] [place] Creatinine and Glomerular filtration rate.predicted panel (S/P/Bld) 55 mL/min/1.73m??? Low >=60 [facility] Comment on above: Order Comment: Speci men Type: BLOOD SPECIMENOrdering Facility: [facility] Address: [address] [place] [address] Result Comment: Alycia mated Glomerular Filtration Rate (eGFR) is calculated using the 2020 CKD-EPI creatinine equation. This equation utilizes serum creatinine, sex, and age as parameters. The creatinine assay has traceable calibration to isotope dilution-mass spectrometry. Refer to KDIGO guidelines for clinical interpretation. In patients with unstable renal function, e.g. those with acute kidney injury, the eGFR may not accurately reflect actual GFR. Performed By: #### L ROBBIE, 55767-2 ####[facility] LABIA [id number] [place] [address] [place] Glucose [Mass/Vol] 131 mg/dL High 74-99 [facility] Comment on above: Order Comment: Sepideh gabriel Type: BLOOD SPECIMENOrdering Facility: [facility] Address: [address] [place] [address] Result Comment: The [place] Diabetes Association (ADA) provides guidance for cutoff values for fasting glucose and random glucose. The ADA defines fasting as no caloric intake for at least 8 hours. Fasting plasma glucose results between 100 to 125 mg/dL indicate increased risk for diabetes (prediabetes). Fasting plasma glucose results greater than or equal to 126 mg/dL meet the criteria for diagnosis of diabetes. In the absence of unequivocal hyperglycemia, results should be confirmed by repeat testing. In a patient with classic symptoms of hyperglycemia or hyperglycemic crisis, random plasma glucose results greater than or equal to 200 mg/dL meet the criteria for diagnosis of diabetes. Reference: Standards of Medical Care in Diabetes 2016, [place] Diabetes Association. Diabetes Care. 2016.39(Suppl 1). Performed By: #### L ROBBIE, 31807-0 ####[facility] [id number] [place] [id number] [place] Potassium [Moles/Vol] 4.3 mmol/L Normal 3.7-5.1 [facility] Comment on above: Order Comment: Sepideh gabriel Type: BLOOD SPECIMENOrdering Facility: [facility] Address: [address] [place] [address] Performed By: #### L ROBBIE, 68559-0 ####[facility] LABCLIA [id number] [place] [address] [place] Protein [Mass/Vol] 6.6 g/dL Normal 6.3-8.0 [facility] Comment on above: Order Comment: Speci men Type: BLOOD SPECIMENOrdering Facility: [facility] Address: [address] [place] [address] Performed By: #### L IPNF, 08108-6 ####[facility] LABCLIA [id number] [place] [address] [place] Sodium [Moles/Vol] 138 mmol/L Normal 136-144 [facility] Comment on above: Order Comment: Speci men Type: BLOOD SPECIMENOrdering Facility: [facility] Address: [address] [place] [address] Performed By: #### L IPNF, 12651-2 ####[facility] LABCLIA [id number] [place] [address] [place] Urea nitrogen [Mass/Vol] 13 mg/dL Normal 7-21 [facility] Comment on above: Order Comment: Speci men Type: BLOOD SPECIMENOrdering Facility: [facility] Address: [address] [place] [address] Performed By: #### L IPNF, 84233-9 ####[facility] LABCLIA [id number] [place] [address] [place] HbA1c (Bld)on 05-28-2024 Average glucose Estimated from glycated hemoglobin (Bld) [Mass/Vol] 100 mg/dL Normal [facility] Comment on above: Order Comment: Speci men Type: BLOOD SPECIMENOrdering Facility: [facility] Address: [address] [place] [address] Result Comment: eAG: (Estimated average glucose) is a calculated value from HgbA1c and is software sales representative of the average blood glucose level in the last 2-3 month period. Performed By: #### 5 5454-3 ####[facility] LABCLIA [id number] [place] [address] [place] HbA1c (Bld) [Mass fraction] 5.1 % Normal 4.3-5.6 [facility] Comment on above: Order Comment: Sepideh men Type: BLOOD SPECIMENOrdering Facility: [facility] Address: [address] [place] [address] Result Comment: [place] Diabetes Association guidelines indicate that patients with HgbA1c in the range 5.7-6.4% are at increased risk for development of diabetes, and intervention by lifestyle modification may be beneficial. HgbA1c greater or equal to 6.5% is considered diagnostic of diabetes. Performed By: #### 5 5454-3 ####[facility] LABCLIA [id number] [address] OF [place] LIPID PANEL, NONFASTINGon Cholesterol [Mass/Vol] 113 mg/dL Normal <200 [facility] Comment on above: Order Comment: Sepideh men Type: BLOOD SPECIMENOrdering Facility: [facility] Address: [address] [place] [address] Result Comment: <200 mg/dL, Desirable 200-239 mg/dL, Borderline high >239 mg/dL, High Performed By: #### L IPGABY, 46545-5 ####[facility] LABCLIA [id number] [address] [place] HDL CHOLESTEROL, NF 46 mg/dL Normal >39 [facility] Comment on above: Order Comment: Sepideh men Type: BLOOD SPECIMENOrdering Facility: [facility] Address: [address] [place] [address] Result Comment: 40-5 9 mg/dL, Acceptable >59 mg/dL, High: Negative risk factor for coronary heart disease <40 mg/dL, Low: Positive risk factor for coronary heart disease Performed By: #### L IPNF, 51495-9 ####[facility] LABCLIA [id number] [place] [address] [place] LDL CHOLESTEROL, NF 56 mg/dL Normal <100 [facility] Comment on above: Order Comment: Sepideh gabriel Type: BLOOD SPECIMENOrdering Facility: [facility] Address: [address] [place] [address] Result Comment: <100 mg/dL, Optimal 100-129 mg/dL, Near optimal/above optimal 130-159 mg/dL, Borderline high 160-189 mg/dL, High >189 mg/dL, Very high Secondary prevention optimal LDL Cholesterol levels are recommended to be < 70 mg/dL Performed By: #### L IPNF, 19021-9 ####[facility] LABCLIA [id number] [address] LDL/HDL RATIO, NF 1.22 mg/dL Normal <2.54 [facility] Comment on above: Order Comment: Sepideh gabriel Type: BLOOD SPECIMENOrdering Facility: [facility] Address: [address] [place] [address] Result Comment: Refflo englandce: 1. National Cholesterol Education Program ATP III Guideline At-A-Glance Quick Desk Reference: National Heart, Lung, and Blood [place]. National Institutes of Health. 2001: NIH Publication No. 01-3305. 2. An International Atherosclerosis Society position paper: global recommendations for the management of dyslipidemia: executive summary, Atherosclerosis. 2014: 232(2):410-413. Performed By: #### L IPGABY, 42113-9 ####[facility] LABCLIA [id number] [address] [place] NON HDL CHOL, NF 67 mg/dL Normal <130 [facility] Comment on above: Order Comment: Sepideh gabriel Type: BLOOD SPECIMENOrdering Facility: [facility] Address: [address] [place] [address] Result Comment: <130 mg/dL, Optimal 130-159 mg/dL, Near optimal/above optimal 160-189 mg/dL, Borderline high 190-219 mg/dL, High >219 mg/dL, Very high Secondary prevention optimal non HDL Cholesterol levels are recommended to be <100 mg/dL Performed By: #### L IPNF, 60862-5 ####[facility] LABCLIA [id number] [place] [address] [place] T CHOL/HDL RATIO NF 2.46 mg/dL Normal <5.10 [facility] Comment on above: Order Comment: Speci men Type: BLOOD SPECIMENOrdering Facility: [facility] Address: [address] [place] [address] Performed By: #### L IPNF, ####[facility] LABCLIA [id number] [place] [address] [place] TRIGLYCERIDES, NF 56 mg/dL Normal <150 [facility] Comment on above: Order Comment: Speci men Type: BLOOD SPECIMENOrdering Facility: [facility] Address: [address] [place] [address] Result Comment: <150 mg/dL, Normal 150-199 mg/dL, Borderline high 200-499 mg/dL, High >499 mg/dL, Very high Performed By: #### L IPNF, ####[facility] LABCLIA [id number] [place] [address] [place] VLDL CHOLESTEROL, NF 11 mg/dL Normal <30 [facility] Comment on above: Order Comment: Speci men Type: BLOOD SPECIMENOrdering Facility: [facility] Address: [address] [place] [address] Performed By: #### L IPNF, ####[facility] LABCLIA [id number] [place] [address] [place] Jesika 04-09-2024 JOCELYNN Telephone (INTMWS) RASHIDA KAUFMAN ([id number]) 1940 F Date Time Provider Department 04/09/24 DUSTIN WILDER During your visit today, we recorded the following information about you: Omer Sin LPN 04/09/2024 8:40 AM Signed Ayse with [facility] calling to let you know pt is home from the [facility] and they will be provider, nursing, PT and OT. DX COPD exacerbation. uncontrolled DM. Also pt's DM medication was increased. Ayse calling to see if you will follow and sign for home health. Please advise Ayse back. Okay to leave a detailed message. GLADYS Agrawal Naz M, APRN.JOCELYN 04/09/2024 8:44 AM Signed Yes Lorin Warren APRN.Omer Chowdhury LPN 04/09/2024 9:11 AM Signed Ayse Notified. Omer Sin LPN Allergies As of Date: 04/09/2024 Noted Allergy Reaction ERYTHROMYCIN 06/13/2005 4 - Hives NAPROSYN (NAPROXEN) 06/13/2005 7 - Swelling Comments: facial swelling NUPRIN (IBUPROFEN) 07/07/2006 10 - Anaphylaxis Date Reviewed: 10/12/2023 Reviewed by: Lorin Warren APRN.OIL WELL SHOOTER - Fully Assessed Reason for Visit: [facility]-verbal orders [Other] Prescriptions as of 04/09/2024 - metFORMIN (GLUCOPHAGE) 500 mg tablet Take 2 tablets by mouth two times a day with meals. - busPIRone (BUSPAR) 5 mg tablet Take 1 tablet by mouth two times a day. - glipiZIDE (GLUCOTROL XL) 10mg 24 hr tablet Take 2 tablets by mouth every morning. - lisinopril-hydroCHLORO thiazide (ZESTORETIC) 20-12.5 mg per tablet Take 2 tablets by mouth every morning. - umeclidinium-vilantero l (ANORO ELLIPTA) 62.5-25 mcg/actuation inhaler Inhale 1 Inhalation as instructed once daily. - amoxicillin (POLYMOX, AMOXIL) 500 mg capsule Take 1 capsule by mouth once daily. Per infectious disease. - COMPOUNDED PRESCRIPTION Oxygen 3L home. DX: Sob, COPD, HALL. Night time use and with activity. [facility] Supplier Problem List As Of Date 04/09/2024 Noted Resolved DIABETES MELLITUS TYPE II-UNCOMPL [E11.9] 06/13/2005 09/25/2014 Mixed hyperlipidemia [E78.2] 06/13/2005 Type II or unspecified type diabetes mellitus w* 09/25/2014 Urticaria [708] 05/31/2016 DEPRESSIVE DISORDER NEC [F32.89] 09/25/2014 Asthma with chronic obstructive pulmonary disea* Hypothyroidism [E03.9] 01/21/2008 05/31/2016 Thyrotoxicosis without mention of goiter or oth*02/01/2008 09/26/2016 Osteopenia [M85.80] 04/22/2009 Right knee pain (neuropathic) [M25.561] 02/26/2010 10/29/2019 Graves disease [E05.00] 04/28/2010 06/21/2019 Meralgia paraesthetica [G57.10] 04/28/2010 09/26/2016 Osteoarthritis [M19.90] 04/28/2010 Essential hypertension [I10] 04/28/2010 Depressive disorder [F32.A] 04/28/2010 08/19/2022 Anxiety [F41.9] 04/28/2010 10/29/2019 Recent bereavement [Z63.4] 03/13/2014 05/31/2016 Type 2 diabetes mellitus with stage 3 chronic k*01/23/2015 Acquired hypothyroidism [E03.9] 05/31/2016 02/20/2023 Morbid obesity with BMI of 50.0-59.9, adult (HC*09/26/2016 Vitamin D deficiency [E55.9] 09/26/2016 10/02/2017 Supplemental oxygen dependent [Z99.81] 09/26/2016 10/29/2019 Obstructive sleep apnea [G47.33] 10/31/2016 Needle phobia [F40.298] 12/26/2016 Stasis dermatitis of right lower extremity due *04/05/2018 Recurrent cellulitis of lower leg, right. [L03.*05/09/2018 CKD (chronic kidney disease) stage 3, GFR 30-59*06/21/2019 08/19/2022 Chronic respiratory failure with hypoxia (HCC) *07/23/2019 Hypertensive kidney disease with stage 3 chroni*11/06/2020 Leukocytosis [D72.829] 06/28/2021 Age-related physical debility [R54] 03/21/2024 Encounter Status:Closed by OMER SIN on 04/09/24 [facility] CNPNon 04-02-2024 CNPN Telephone (INTMWS) RASHIDA KAUFMAN ([id number]) 1940 F Date Time Provider Department 04/02/24 DUSTIN WILDER INTMWS During your visit today, we recorded the following information about you: Qing Bright RN 04/02/2024 11:45 AM Signed Adriana with [facility] calling to see if provider will follow their orders for SN, PT, OT following [facility] 04/02/2024. Patient was treated for fall, kidney injury, and COPD exacerbation. LAMIN Flores Naz M, APRN.JOCELYN 04/02/2024 1:10 PM Signed PCP will follow. She needs hospital follow-up, should be with Dr. Wilder as he has not seen her since last year Lorin Warren APRN.Barb Driscoll LPN 04/02/2024 1:55 PM Signed Phoned Adriana and went over notes from Lorin Warren WET MACHINE TENDER with understanding. Allergies As of Date: 04/02/2024 Noted Allergy Reaction ERYTHROMYCIN 06/13/2005 4 - Hives NAPROSYN (NAPROXEN) 06/13/2005 7 - Swelling Comments: facial swelling NUPRIN (IBUPROFEN) 07/07/2006 10 - Anaphylaxis Date Reviewed: 10/12/2023 Reviewed by: Kelvin, Lorin M, PHARMACY INTAKE COORDINATOR.OIL WELL SHOOTER - Fully Assessed Reason for Visit: Orders [681] Prescriptions as of 04/02/2024 - metFORMIN (GLUCOPHAGE) 500 mg tablet Take 2 tablets by mouth two times a day with meals. - busPIRone (BUSPAR) 5 mg tablet Take 1 tablet by mouth two times a day. - glipiZIDE (GLUCOTROL XL) 10mg 24 hr tablet Take 2 tablets by mouth every morning. - lisinopril-hydroCHLORO thiazide (ZESTORETIC) 20-12.5 mg per tablet Take 2 tablets by mouth every morning. - umeclidinium-vilantero l (ANORO ELLIPTA) 62.5-25 mcg/actuation inhaler Inhale 1 Inhalation as instructed once daily. - amoxicillin (POLYMOX, AMOXIL) 500 mg capsule Take 1 capsule by mouth once daily. Per infectious disease. - COMPOUNDED PRESCRIPTION Oxygen 3L home. DX: Sob, COPD, HALL. Night time use and with activity. [facility] Supplier Problem List As Of Date 04/02/2024 Noted Resolved DIABETES MELLITUS TYPE II-UNCOMPL [E11.9] 06/13/2005 09/25/2014 Mixed hyperlipidemia [E78.2] 06/13/2005 Type II or unspecified type diabetes mellitus w* 09/25/2014 Urticaria [708] 05/31/2016 DEPRESSIVE DISORDER NEC [F32.89] 09/25/2014 Asthma with chronic obstructive pulmonary disea* Hypothyroidism [E03.9] 01/21/2008 05/31/2016 Thyrotoxicosis without mention of goiter or oth*02/01/2008 09/26/2016 Osteopenia [M85.80] 04/22/2009 Right knee pain (neuropathic) [M25.561] 02/26/2010 10/29/2019 Graves disease [E05.00] 04/28/2010 06/21/2019 Meralgia paraesthetica [G57.10] 04/28/2010 09/26/2016 Osteoarthritis [M19.90] 04/28/2010 Essential hypertension [I10] 04/28/2010 Depressive disorder [F32.A] 04/28/2010 08/19/2022 Anxiety [F41.9] 04/28/2010 10/29/2019 Recent bereavement [Z63.4] 03/13/2014 05/31/2016 Type 2 diabetes mellitus with stage 3 chronic k*01/23/2015 Acquired hypothyroidism [E03.9] 05/31/2016 02/20/2023 Morbid obesity with BMI of 50.0-59.9, adult (HC*09/26/2016 Vitamin D deficiency [E55.9] 09/26/2016 10/02/2017 Supplemental oxygen dependent [Z99.81] 09/26/2016 10/29/2019 Obstructive sleep apnea [G47.33] 10/31/2016 Needle phobia [F40.298] 12/26/2016 Stasis dermatitis of right lower extremity due *04/05/2018 Recurrent cellulitis of lower leg, right. [L03.*05/09/2018 CKD (chronic kidney disease) stage 3, GFR 30-59*06/21/2019 08/19/2022 Chronic respiratory failure with hypoxia (HCC) *07/23/2019 Hypertensive kidney disease with stage 3 chroni*11/06/2020 Leukocytosis [D72.829] 06/28/2021 Age-related physical debility [R54] 03/21/2024 Encounter Status:Closed by BAR[facility] RASHIDA KAUFMAN ([id number]) 1940 F Date Time Provider Department 03/21/24 [facility] During your visit today, we recorded the following information about you: Ginette Alvarez LPN 03/21/2024 11:08 AM Signed Patient phoned requesting a raised toilet seat and a lift chair. Patient is currently at [facility]. Going home 04/04/24. Call [facility] when orders/prescriptions for raised toilet seat and lift chair is ready and patient's manager of loss prevention operations Baltazar can come vegetable picker rxs please review and advise GLADYS Teague Victor H, MD 03/21/2024 7:51 PM Signed ASSESSMENT/PLAN: 1. Asthma with chronic obstructive pulmonary disease (COPD) ([facility]) - ICD9: 493.20, ICD10: J44.89 (primary diagnosis) - SEAT LIFT MECHANISM COMBL - RAISED TOILET SEAT 2. Osteoarthritis, unspecified osteoarthritis type, unspecified site - ICD9: 715.90, ICD10: M19.90 - SEAT LIFT MECHANISM COMBL - RAISED TOILET SEAT 3. Age-related physical debility - ICD9: 797, ICD10: R54 - SEAT LIFT MECHANISM COMBL - RAISED TOILET SEAT MD Jasbir Arcos Toni, MA 03/22/2024 8:44 AM Signed Left message to call office. 03/22/2024 8:44 AM Orders have been taken to Medical Records to be picked up. Barb Hammer LPN 03/22/2024 3:27 PM Signed Patient returned call and went over notes below with understanding and gave her hours office will be open to come and vegetable picker. Allergies As of Date: 03/21/2024 Noted Allergy Reaction ERYTHROMYCIN 06/13/2005 4 - Hives NAPROSYN (NAPROXEN) 06/13/2005 7 - Swelling Comments: facial swelling NUPRIN (IBUPROFEN) 07/07/2006 10 - Anaphylaxis Date Reviewed: 10/12/2023 Reviewed by: Lorin Warren, PHARMACY INTAKE COORDINATOR.OIL WELL SHOOTER - Fully Assessed Reason for Visit: Orders [681] Cmt: needs a raised toilet seat and a lift chair Primary Visit Diagnosis:Asthma with chronic obstructive pulmonary disease (COPD) ([facility]) [J44.89] Other Visit Diagnoses:Osteoarthrit is, unspecified osteoarthritis type, unspecified site [M19.90] Age-related physical debility [R54] Order(s):SEAT LIFT MECHANISM COMBL [[id number]] Order #: [id number] RAISED TOILET SEAT [[id number]] Order #: [id number] Prescriptions as of 03/22/2024 - metFORMIN (GLUCOPHAGE) 500 mg tablet Take 2 tablets by mouth two times a day with meals. - busPIRone (BUSPAR) 5 mg tablet Take 1 tablet by mouth two times a day. - glipiZIDE (GLUCOTROL XL) 10mg 24 hr tablet Take 2 tablets by mouth every morning. - lisinopril-hydroCHLORO thiazide (ZESTORETIC) 20-12.5 mg per tablet Take 2 tablets by mouth every morning. - umeclidinium-vilantero l (ANORO ELLIPTA) 62.5-25 mcg/actuation inhaler Inhale 1 Inhalation as instructed once daily. - amoxicillin (POLYMOX, AMOXIL) 500 mg capsule Take 1 capsule by mouth once daily. Per infectious disease. - COMPOUNDED PRESCRIPTION Oxygen 3L home. DX: Sob, COPD, HALL. Night time use and with activity. [facility] Supplier Problem List As Of Date 03/21/2024 Noted Resolved DIABETES MELLITUS TYPE II-UNCOMPL [E11.9] 06/13/2005 09/25/2014 Mixed hyperlipidemia [E78.2] 06/13/2005 Type II or unspecified type diabetes mellitus w* 09/25/2014 Urticaria [708] 05/31/2016 DEPRESSIVE DISORDER NEC [F32.89] 09/25/2014 Asthma with chronic obstructive pulmonary disea* Hypothyroidism [E03.9] 01/21/2008 05/31/2016 Thyrotoxicosis without mention of goiter or oth*02/01/2008 09/26/2016 Osteopenia [M85.80] 04/22/2009 Right knee pain (neuropathic) [M25.561] 02/26/2010 10/29/2019 Graves disease [E05.00] 04/28/2010 06/21/2019 Meralgia paraesthetica [G57.10] 04/28/2010 09/26/2016 Osteoarthritis [M19.90] 04/28/2010 Essential hypertension [I10] 04/28/2010 Depressive disorder [F32.A] 04/28/2010 08/19/2022 Anxiety [F41.9] 04/28/2010 10/29/2019 Recent bereavement [Z63.4] 03/13/2014 05/31/2016 Type 2 diabetes mellitus with stage 3 chronic k*01/23/2015 Acquired hypothyroidism [E03.9] 05/31/2016 02/20/2023 Morbid obesity with BMI of 50.0-59.9, adult (HC*09/26/2016 Vitamin D deficiency [E55.9] 09/26/2016 10/02/2017 Supplemental oxygen dependent [Z99.81] 09/26/2016 10/29/2019 Obstructive sleep apnea [G47.33] 10/31/2016 Needle phobia [F40.298] 12/26/2016 Stasis dermatitis of right lower extremity due *04/05/2018 Recurrent cellulitis of lower leg, right. [L03.*05/09/2018 CKD (chronic kidney disease) stage 3, GFR 30-59*06/21/2019 08/19/2022 Chronic respiratory failure with hypoxia (HCC) *07/23/2019 Hypertensive kidney disease with stage 3 chroni*11/06/2020 Leukocytosis [D72.829] 06/28/2021 Age-related physical debility [R54] 03/21/2024 Encounter Status:Closed by BARB HAMMER on 03/22/24 [facility]OVon 10-12-2023 CNOV Office Visit (INTMWS ) RASHIDA KAUFMAN ([id number]) 1940 F Date Time Provider Department 10/12/23 1:00 PM LORIN WARREN INTMWS During your visit today, we recorded the following information about you: Temperature Pulse Respiration Blood pressure 97.1 degrees 98/minute 20/minute 128/58 Weight Height 133.1 kg 1.6 m Lorin Warren, PHARMACY INTAKE COORDINATOR.OIL WELL SHOOTER 10/12/2023 1:52 PM Signed Rashida Kaufman is a 83 year old female here for a Medicare wellness visit. Medicare Health Risk Assessment General Health Good Exercise: Minutes/Day 0 min Exercise: Days/Week 0 days Alcohol: Daily Use Never Alcohol: Drinks/Day Patient does not drink Alcohol: 6 or more drinks Never Feel off balance No Concerns: Teeth/Dentures No Concerns: Sexual function No Troubled by feelings Anxious Frequency: Eating healthy diet More than half the days ADLs requiring help Housework Safety precautions in home/vehicle Yes Smoke, vape, chews tobacco No Difficulty hearing Yes Difficulty seeing No Current Providers Specialists: I have reviewed specialist-related care of the patient in the medical record. Current care team: Patient Care Team: Dustin Wilder MD as PCP - General (Internal Medicine) Outside specialists seen: [facility] Medical/Family history review Reviewed and updated problem list, medical/surgical/famil y/social history, medications, and allergies. Opioid use review Opioid Medications (last 90 days) Some values may be hidden. Unless noted otherwise, only the newest values recorded on each date are displayed. Opioid Medications No data to display. Depression screening Depression Screening PHQ-2 Score 02/20/2023 0 Depression screening tool completed and reviewed. Based on score and interview, patient is not at risk for depression. Screening tool discussed with patient, and I recommended no further intervention at this time. Cognitive screening Mini Cog Score: 4 Cognitive screening reviewed and no further action needed (score 3-5) Functional Observation Was the patient's Timed Up AND Go test unsteady or ? 12 seconds? No Advance Care Planning Surrogate decision maker documented and/or advance directives scanned in chart Measurements BP 128/58 Pulse 98 Temp (Src) 97.1 (Right Tympanic) Resp 20 Ht 5' 3 (1.60m) Wt 293 lb 6.4 oz (133.1kg) SpO2 96% BMI 51.99 kg/(m2). Additional screenings: Vision Screening Right eye - Without correction: With correction: 20/30 Left eye - Without correction: With correction: 20/50 Both eyes - Without correction: With correction: 20/30 Assessment/Plan Medicare annual wellness visit, subsequent (Z00.00) - Counseled on healthy diet and regular exercise - Fall avoidance information provided - Personalized prevention plan provided - Discussed need for and benefit of weight loss. BMI 51.97 kg/(m2) Additional Concerns The following concerns were also discussed with the patient: Anxiety- patient reports she has been feeling more anxious lately. Worries a lot of about little things that are probably not important. Denies feeling down or depressed. She has a history of anxiety and depression. Treated for years with Wellbutrin and Buspar, also took Ativan as needed. HTN-Medication changes:No Taking all medications as prescribed: Yes Side effects: No Home BP's: No Denies: headache, chest pain, palpitations, dyspnea, and peripheral edema. Last 3 Encounter BP Readings: Date: BP: 10/12/2023 128/58 06/28/2023 140/70 02/20/2023 128/69 Diabetes: Home blood sugar readings: does not check Hypoglycemia: No She is compliant with medication(s) and is tolerating med(s) without any side effects. Increased thirst: No Urinary frequency: No Nocturia: No Fatigue: No Unintentional weight loss: No Blurred vision: No Numbness, tingling or pain in extremities: No Ulcers or sores on feet: No Last Ophthalmology exam: over one year ago, will call and schedule Patient's last HgA1C : Hemoglobin A1C (%) Date Value 02/15/2023 6.5 08/15/2022 7.6 06/24/2021 6.8 05/23/2020 8.1 COPD/chronic respiratory failure. Current symptoms: daily chronic cough and shortness of breath on exertion. Symptoms are limiting daily activities or exercise. Treatment: Anoro Ellipta and albuterol as needed. Outdoor Adventure Leader: denies, does not want to see any specialists She quit smoking 20 years ago Current oxygen use of night time and during exertion with oxygen prescription 2L/min. PHYSICAL EXAM BP 128/58 Pulse 98 Temp 36.2 ?C (97.1 ?F) (Right Tympanic) Resp 20 Ht 160 cm (5' 3 ) Wt 133.1 kg (293 lb 6.4 oz) SpO2 96% BMI 51.97 kg/m? GENERAL: well appearing, alert, in no acute distress CARDIOVASCULAR: regular rate and rhythm. No murmur, rubs or gallops. PULMONARY: clear to auscultation, no wheezing, rhonchi, or crackles Feet:Shoes (more content not included)... Normal [facility] LIPID PANEL, NONFASTINGon Cholesterol [Mass/Vol] 135 mg/dL Normal <200 [facility] Comment on above: Order Comment: Speci men Type: BLOOD SPECIMENOrdering Facility: [facility] Address: [address] [place] [address] Result Comment: <200 mg/dL, Desirable 200-239 mg/dL, Borderline high >239 mg/dL, High Performed By: #### L IPNF ####[facility] LABCLIA [id number] [address] [place] HDL CHOLESTEROL, NF 41 mg/dL Normal >39 [facility] Comment on above: Order Comment: Isamari men Type: BLOOD SPECIMENOrdering Facility: [facility] Address: [address] [place] [address] Result Comment: 40-5 9 mg/dL, Acceptable >59 mg/dL, High: Negative risk factor for coronary heart disease <40 mg/dL, Low: Positive risk factor for coronary heart disease Performed By: #### L IPNF ####[facility] LABCLIA [id number] [address] OF [facility] LDL CHOLESTEROL, NF 75 mg/dL Normal <100 [facility] Comment on above: Order Comment: Sep[facility]h [facility] Type: BLOOD SPECIMENOrdering Facility: [facility] Address: [address] [place] [address] Result Comment: <100 mg/dL, Optimal 100-129 mg/dL, Near optimal/above optimal 130-159 mg/dL, Borderline high 160-189 mg/dL, High >189 mg/dL, Very high Secondary prevention optimal LDL Cholesterol levels are recommended to be < 70 mg/dL Performed By: #### L IPNF ####[facility] LABCLIA [id number] [address] OF [facility] LDL/HDL RATIO, NF 1.83 mg/dL Normal <2.54 [facility] Comment on above: Order Comment: Isamarsharon [facility] Type: BLOOD SPECIMENOrdering Facility: [facility] Address: [address] [place] [address] Result Comment: Johnnie englandce: 1. National Cholesterol Education Program ATP III Guideline At-A-Glance Quick Desk Reference: National Heart, Lung, and Blood [place]. National Institutes of Health. 2001: NIH Publication No. 01-3305. 2. An International Atherosclerosis Society position paper: global recommendations for the management of dyslipidemia: executive summary, Atherosclerosis. 2014: 232(2):410-413. Performed By: #### L IPNF ####[facility] LABCLIA [id number] [place] [address] [place] NON HDL CHOL, NF 94 mg/dL Normal <130 [facility] Comment on above: Order Comment: Sepideh gabriel Type: BLOOD SPECIMENOrdering Facility: [facility] Address: [address] [place] [address] Result Comment: <130 mg/dL, Optimal 130-159 mg/dL, Near optimal/above optimal 160-189 mg/dL, Borderline high 190-219 mg/dL, High >219 mg/dL, Very high Secondary prevention optimal non HDL Cholesterol levels are recommended to be <100 mg/dL Performed By: #### L IPNF ####[facility] LABCLIA [id number] [address] OF [facility] T CHOL/HDL RATIO NF 3.29 mg/dL Normal <5.10 [facility] Comment on above: Order Comment: Sepideh gabriel Type: BLOOD SPECIMENOrdering Facility: [facility] Address: [address] [place] [address] Performed By: #### L IPNF ####[facility] LABCLIA [id number] [place] [address] [place] TRIGLYCERIDES, NF 94 mg/dL Normal <150 [facility] Comment on above: Order Comment: Sepideh gabriel Type: BLOOD SPECIMENOrdering Facility: [facility] Address: [address] [place] [address] Result Comment: <150 mg/dL, Normal 150-199 mg/dL, Borderline high 200-499 mg/dL, High >499 mg/dL, Very high Performed By: #### L IPNF ####[facility] LABCLIA [id number] [place] [address] [place] VLDL CHOLESTEROL, NF 19 mg/dL Normal <30 [facility] Comment on above: Order Comment: Speci men Type: BLOOD SPECIMENOrdering Facility: [facility] Address: [address] [place] [address] Performed By: #### L IPNF ####[facility] LABCLIA [id number] [id number] OF [facility] Jesika 08-24-2023 CNPN Telephone (INTMWS) RASHIDA KAUFMAN ([id number]) 1940 F Date Time Provider Department 08/24/23 DUSTIN WILDER INTMWS During your visit today, we recorded the following information about you: Sayra Browne RN 08/24/2023 12:41 PM Signed Joelle with [facility] calling regarding oxygen order. Requesting a more recent OV note for patient if availablle. Faxed as requested to [phone]. Sayra Browne RN Allergies As of Date: 08/24/2023 Noted Allergy Reaction ERYTHROMYCIN 06/13/2005 4 - Hives NAPROSYN (NAPROXEN) 06/13/2005 7 - Swelling Comments: facial swelling NUPRIN (IBUPROFEN) 07/07/2006 10 - Anaphylaxis Date Reviewed: 06/28/2023 Reviewed by: Lorin Gonzalez APRN.OIL WELL SHOOTER - Fully Assessed Reason for Visit: Patient Request [[id number]] Prescriptions as of 08/24/2023 - glipiZIDE (GLUCOTROL XL) 10mg 24 hr tablet Take 2 tablets by mouth every morning. - lisinopril-hydroCHLORO thiazide (ZESTORETIC) 20-12.5 mg per tablet Take 2 tablets by mouth every morning. - metFORMIN (GLUCOPHAGE) 500 mg tablet Take 2 tablets by mouth twice daily with meals. - umeclidinium-vilantero l (ANORO ELLIPTA) 62.5-25 mcg/actuation inhaler Inhale 1 Inhalation as instructed once daily. - amoxicillin (POLYMOX, AMOXIL) 500 mg capsule Take 1 capsule by mouth once daily. Per infectious disease. - COMPOUNDED PRESCRIPTION Oxygen 3L home. DX: Sob, COPD, HALL. Night time use and with activity. [facility] Supplier Problem List As Of Date 08/24/2023 Noted Resolved DIABETES MELLITUS TYPE II-UNCOMPL [E11.9] 06/13/2005 09/25/2014 Mixed hyperlipidemia [E78.2] 06/13/2005 Type II or unspecified type diabetes mellitus w* 09/25/2014 Urticaria [708] 05/31/2016 DEPRESSIVE DISORDER NEC [F32.89] 09/25/2014 Asthma with chronic obstructive pulmonary disea* Hypothyroidism [E03.9] 01/21/2008 05/31/2016 Thyrotoxicosis without mention of goiter or oth*02/01/2008 09/26/2016 Osteopenia [M85.80] 04/22/2009 Right knee pain (neuropathic) [M25.561] 02/26/2010 10/29/2019 Graves disease [E05.00] 04/28/2010 06/21/2019 Meralgia paraesthetica [G57.10] 04/28/2010 09/26/2016 Osteoarthritis [M19.90] 04/28/2010 Essential hypertension [I10] 04/28/2010 Depressive disorder [F32.A] 04/28/2010 08/19/2022 Anxiety [F41.9] 04/28/2010 10/29/2019 Recent bereavement [Z63.4] 03/13/2014 05/31/2016 Type 2 diabetes mellitus with stage 3 chronic k*01/23/2015 Acquired hypothyroidism [E03.9] 05/31/2016 02/20/2023 Morbid obesity with BMI of 50.0-59.9, adult (HC*09/26/2016 Vitamin D deficiency [E55.9] 09/26/2016 10/02/2017 Supplemental oxygen dependent [Z99.81] 09/26/2016 10/29/2019 Obstructive sleep apnea [G47.33] 10/31/2016 Needle phobia [F40.298] 12/26/2016 Stasis dermatitis of right lower extremity due *04/05/2018 Recurrent cellulitis of lower leg, right. [L03.*05/09/2018 CKD (chronic kidney disease) stage 3, GFR 30-59*06/21/2019 08/19/2022 Chronic respiratory failure with hypoxia (HCC) *07/23/2019 Hypertensive kidney disease with stage 3 chroni*11/06/2020 Leukocytosis [D72.829] 06/28/2021 Encounter Status:Closed by SAYRA BROWNE [facility]24/[facility] Tele[facility] (INTMWS) RASHIDA KAUFMAN ([id number]) 1940 F Date Time Provider Department 07/11/23 LORIN WARREN INTMadyWS During your visit today, we recorded the following information about you: Lorin Warren APRN.CNP 07/11/2023 7:28 AM Signed Please let the patient know the heart monitor showed an abnormally fast rhythm at times up to 164 bpm but heart rate did not drop lower than 64. The reading physician recommends cardiology consult for further evaluation, please assist patient in scheduling AJ Anthony Ma, Toni 07/11/2023 10:10 AM Signed Tc to patient - notified of results and referral. Patient states that she wants to wait until after the holidays to schedule anything. Pt states that she would like to discuss this with Lorin at her follow up appointment 08/23/2023. Allergies As of Date: 07/11/2023 Noted Allergy Reaction ERYTHROMYCIN 06/13/2005 4 - Hives NAPROSYN (NAPROXEN) 06/13/2005 7 - Swelling Comments: facial swelling NUPRIN (IBUPROFEN) 07/07/2006 10 - Anaphylaxis Date Reviewed: 06/28/2023 Reviewed by: Lorin Gonzalez APRN.OIL WELL SHOOTER - Fully Assessed Primary Visit Diagnosis:SVT (supraventricular tachycardia) [I47.10] Order(s):CONSULT TO CARDIOLOGY [9004] Order #: [id number]: 1 FUTURE Prescriptions as of 07/28/2023 - glipiZIDE (GLUCOTROL XL) 10mg 24 hr tablet Take 2 tablets by mouth every morning. - lisinopril-hydroCHLORO thiazide (ZESTORETIC) 20-12.5 mg per tablet Take 2 tablets by mouth every morning. - metFORMIN (GLUCOPHAGE) 500 mg tablet Take 2 tablets by mouth twice daily with meals. - umeclidinium-vilantero l (ANORO ELLIPTA) 62.5-25 mcg/actuation inhaler Inhale 1 Inhalation as instructed once daily. - amoxicillin (POLYMOX, AMOXIL) 500 mg capsule Take 1 capsule by mouth once daily. Per infectious disease. - COMPOUNDED PRESCRIPTION Oxygen 3L home. DX: Sob, COPD, HALL. Night time use and with activity. [facility] Supplier Problem List As Of Date 07/11/2023 Noted Resolved DIABETES MELLITUS TYPE II-UNCOMPL [E11.9] 06/13/2005 09/25/2014 Mixed hyperlipidemia [E78.2] 06/13/2005 Type II or unspecified type diabetes mellitus w* 09/25/2014 Urticaria [708] 05/31/2016 DEPRESSIVE DISORDER NEC [F32.89] 09/25/2014 Asthma with chronic obstructive pulmonary disea* Hypothyroidism [E03.9] 01/21/2008 05/31/2016 Thyrotoxicosis without mention of goiter or oth*02/01/2008 09/26/2016 Osteopenia [M85.80] 04/22/2009 Right knee pain (neuropathic) [M25.561] 02/26/2010 10/29/2019 Graves disease [E05.00] 04/28/2010 06/21/2019 Meralgia paraesthetica [G57.10] 04/28/2010 09/26/2016 Osteoarthritis [M19.90] 04/28/2010 Essential hypertension [I10] 04/28/2010 Depressive disorder [F32.A] 04/28/2010 08/19/2022 Anxiety [F41.9] 04/28/2010 10/29/2019 Recent bereavement [Z63.4] 03/13/2014 05/31/2016 Type 2 diabetes mellitus with stage 3 chronic k*01/23/2015 Acquired hypothyroidism [E03.9] 05/31/2016 02/20/2023 Morbid obesity with BMI of 50.0-59.9, adult (HC*09/26/2016 Vitamin D deficiency [E55.9] 09/26/2016 10/02/2017 Supplemental oxygen dependent [Z99.81] 09/26/2016 10/29/2019 Obstructive sleep apnea [G47.33] 10/31/2016 Needle phobia [F40.298] 12/26/2016 Stasis dermatitis of right lower extremity due *04/05/2018 Recurrent cellulitis of lower leg, right. [L03.*05/09/2018 CKD (chronic kidney disease) stage 3, GFR 30-59*06/21/2019 08/19/2022 Chronic respiratory failure with hypoxia (HCC) *07/23/2019 Hypertensive kidney disease with stage 3 chroni*11/06/2020 Leukocytosis [D72.829] 06/28/2021 Encounter Status:Closed by LORIN WARREN on 07/28/23 [facility] CNOVon 07-06-2023 CNOV Office Visit (INTMWS ) RASHIDA KAUFMAN ([id number]) 1940 F Date Time Provider Department 07/06/23 10:40 AM LORIN GONZALEZ INTMWS During your visit today, we recorded the following information about you: Yumiko Martell Ma 07/06/2023 11:08 AM Signed Patient presents to office today requiring assistance placing a [employer] home ambulatory monitoring device. I placed device that was ordered by Lorin Gonzalez CNP on patient and instructed patient about device and how to record events, charge device and how to change and place electrodes. Patient instructed to either call office and speak with myself with questions or refer to instruction pamphlet/customer care # she was given. Patient and caregiver verbalized understanding. Yumiko Martell Ma Allergies As of Date: 07/06/2023 Noted Allergy Reaction ERYTHROMYCIN 06/13/2005 4 - Hives NAPROSYN (NAPROXEN) 06/13/2005 7 - Swelling Comments: facial swelling NUPRIN (IBUPROFEN) 07/07/2006 10 - Anaphylaxis Date Reviewed: 06/28/2023 Reviewed by: Lorin Gonzalez APRN.OIL WELL SHOOTER - Fully Assessed Primary Visit Diagnosis:Dyspnea, unspecified type [R06.00] Prescriptions as of 07/06/2023 - glipiZIDE (GLUCOTROL XL) 10mg 24 hr tablet Take 2 tablets by mouth every morning. - metFORMIN (GLUCOPHAGE) 500 mg tablet Take 2 tablets by mouth twice daily with meals. - lisinopril-hydroCHLORO thiazide (ZESTORETIC) 20-12.5 mg per tablet Take 2 tablets by mouth every morning. - umeclidinium-vilantero l (ANORO ELLIPTA) 62.5-25 mcg/actuation inhaler Inhale 1 Inhalation as instructed once daily. - amoxicillin (POLYMOX, AMOXIL) 500 mg capsule Take 1 capsule by mouth once daily. Per infectious disease. - COMPOUNDED PRESCRIPTION Oxygen 3L home. DX: Sob, COPD, HALL. Night time use and with activity. [facility] Supplier Problem List As Of Date 07/06/2023 Noted Resolved DIABETES MELLITUS TYPE II-UNCOMPL [E11.9] 06/13/2005 09/25/2014 Mixed hyperlipidemia [E78.2] 06/13/2005 Type II or unspecified type diabetes mellitus w* 09/25/2014 Urticaria [708] 05/31/2016 DEPRESSIVE DISORDER NEC [F32.89] 09/25/2014 Asthma with chronic obstructive pulmonary disea* Hypothyroidism [E03.9] 01/21/2008 05/31/2016 Thyrotoxicosis without mention of goiter or oth*02/01/2008 09/26/2016 Osteopenia [M85.80] 04/22/2009 Right knee pain (neuropathic) [M25.561] 02/26/2010 10/29/2019 Graves disease [E05.00] 04/28/2010 06/21/2019 Meralgia paraesthetica [G57.10] 04/28/2010 09/26/2016 Osteoarthritis [M19.90] 04/28/2010 Essential hypertension [I10] 04/28/2010 Depressive disorder [F32.A] 04/28/2010 08/19/2022 Anxiety [F41.9] 04/28/2010 10/29/2019 Recent bereavement [Z63.4] 03/13/2014 05/31/2016 Type 2 diabetes mellitus with stage 3 chronic k*01/23/2015 Acquired hypothyroidism [E03.9] 05/31/2016 02/20/2023 Morbid obesity with BMI of 50.0-59.9, adult (HC*09/26/2016 Vitamin D deficiency [E55.9] 09/26/2016 10/02/2017 Supplemental oxygen dependent [Z99.81] 09/26/2016 10/29/2019 Obstructive sleep apnea [G47.33] 10/31/2016 Needle phobia [F40.298] 12/26/2016 Stasis dermatitis of right lower extremity due *04/05/2018 Recurrent cellulitis of lower leg, right. [L03.*05/09/2018 CKD (chronic kidney disease) stage 3, GFR 30-59*06/21/2019 08/19/2022 Chronic respiratory failure with hypoxia (HCC) *07/23/2019 Hypertensive kidney disease with stage 3 chroni*11/06/2020 Leukocytosis [D72.829] 06/28/2021 Visit Notes: >> Yumiko Martell Ma Yajaira Jul 06, 2023 10:53 AM Status: Signed Patient presents to office today requiring assistance placing a [employer] home ambulatory monitoring device. I placed device that was ordered by Lorin Gonzalez CNP on patient and instructed patient about device and how to record events, charge device and how to change and place electrodes. Patient instructed to either call office and speak with myself with questions or refer to instruction pamphlet/customer care # she was given. Patient and caregiver verbalized understanding. Yumiko Martell Ma Encounter Status:Closed by YUMIKO MARTELL MA on 07/06/23 Normal [facility] CNOVon 06-28-2023 CNOV Office Visit (INTMWS ) RASHIDA KAUFMAN ([id number]) 1940 F Date Time Provider Department 06/28/23 9:40 AM LORIN GONZALEZMABHISHEK During your visit today, we recorded the following information about you: Pulse Respiration Blood pressure 88/minute 20/minute 140/70 Lorin Gonzalez, PHARMACY INTAKE COORDINATOR.OIL WELL SHOOTER 06/28/2023 10:27 AM Signed CC: Patient presents with: decreased heart rate when sleeping HPI Rashida Kaufman is a 83 year old female who presents today for above. Patient had nocturnal pulse ox study to qualify for home oxygen. There was an incidental finding of bradycardia with heart rate less than 40 during the study. Patient denies a history of heart disease or low heart rate. She is not on any rate controlling medications. Denies chest pain, palpitations, dizziness, lightheadedness, feeling faint, passing out, malaise, PND, orthopnea. She has chronic SOB secondary to COPD/asthma, no worse than usual. She was diagnosed with LAINA in 2017 but declined treatment with CPAP. She is unsure about snoring or witnessed apnea. Denies waking up gasping/choking. Reports un-refreshed sleep, insomnia and excessive daytime sleepiness. Review of Systems See HPI PAST MEDICAL HISTORY Diagnosis Date Acquired hypothyroidism 05/31/2016 Anxiety 04/28/2010 Asthma with chronic obstructive pulmonary disease (COPD) Cellulitis of right lower leg 02/04/2018 SIRS CKD (chronic kidney disease) Stage 3, GFR 30-59 ml/min 06/21/2019 Depression 04/28/2010 Depressive disorder 04/28/2010 Essential hypertension 04/28/2010 Graves disease 07/2008 Mixed hyperlipidemia 06/13/2005 LAINA (obstructive sleep apnea) 10/31/201610/2016 - Testing at [facility]. . Intolerant of CPAP. Osteopenia 04/22/2009 Recurrent cellulitis of lower leg, right. 05/09/2018 Right knee pain (neuropathic) 02/26/2010 Supplemental oxygen dependent 09/26/2016 since 2013, 3LPM Uncontrolled diabetes mellitus type 2 without complications 01/23/2015 Unspecified asthma(493.90) Urticaria PAST SURGICAL HISTORY Procedure Laterality Date 2D ECHO (EXEP) 03/28/2018 EF=61%, Mild LVH and Murray Dysf. no valve issues. APPENDECTOMY 1958 CHOLECYSTECTOMY 1978 Cholecystectomy TOTAL ABDOMINAL HYSTERECT W/WO RMVL TUBE OVARY 1984 Hysterectomy, FLORENCIO ALLERGIES Erythromycin, Naprosyn [Naproxen], and Nuprin [Ibuprofen] MEDICATIONS glipiZIDE (GLUCOTROL XL) 10mg 24 hr tablet Take 2 tablets by mouth every morning. metFORMIN (GLUCOPHAGE) 500 mg tablet Take 2 tablets by mouth twice daily with meals. lisinopril-hydroCHLORO thiazide (ZESTORETIC) 20-12.5 mg per tablet Take 2 tablets by mouth every morning. umeclidinium-vilantero l (ANORO ELLIPTA) 62.5-25 mcg/actuation inhaler Inhale 1 Inhalation as instructed once daily. amoxicillin (POLYMOX, AMOXIL) 500 mg capsule Take 1 capsule by mouth once daily. Per infectious disease. COMPOUNDED PRESCRIPTION Oxygen 3L home. DX: Sob, COPD, HALL. Night time use and with activity. [place] [employer] Supplier FAMILY HISTORY Problem Relation Age of Onset Cancer Mother Lung cancer Diabetes Mother Diabetes Father Cancer Father skin Diabetes Sister other (Other) Sister Schumacher's palsy Diabetes Sister Heart Attack Sister d/t [place] None Sister Heart Attack Other d/t [place] @ 57 year, Maternal niece Social History Tobacco Use Smoking status: Former Packs/day: 0.50 Years: 7.00 Additional pack years: 0.00 Total pack years: 3.50 Types: Cigarettes Start date: 08/07/1996 Quit date: 08/07/2003 Years since quittin.9 Smokeless tobacco: Never Substance Use Topics Alcohol use: No Drug use: No BP 140/70 Pulse 88 Resp 20 SpO2 98% Physical Exam Vitals reviewed. Constitutional: General: She is not in acute distress. Appearance: She is obese. She is not ill-appearing. Cardiovascular: Rate and Rhythm: Normal rate and regular rhythm. Pulses: Normal pulses. Heart sounds: Normal heart sounds. No murmur heard. Pulmonary: Effort: Pulmonary effort is normal. Breath sounds: Normal breath sounds. No wheezing, rhonchi or rales. Musculoskeletal: Right lower leg: No edema. Left lower leg: No edema. Neurological: Mental Status: She is alert. ASSESSMENT/PLAN: 1. Bradycardia - ICD9: 427.89, ICD10: R00.1 (primary diagnosis) Etiology unclear. Possibly secondary to untreated sleep apnea. No concerning symptoms or exam findings today. - ECG COMPLETE today normal sinus rhythm with occasional PVC's. No changes from previous in 2018. - recommend ambulatory campus monitor for further evaluation, patient agreeable. - see plan below 2. Obstructive sleep apnea - ICD9: 327.23, ICD10: G47.33 Discussed potential risks of untreated sleep apnea including heart attack and stroke. Recommend repeat sleep study, patient agreeable. She is adamant that she will not be able to tolerate any type of mask. If sleep study (more content not included)... Normal [facility] ECG COMPLETEon 06-28-2023 ECG COMPLETE Ventricular Rate : 8 6 BPM Atrial Rate : 86 BPM P-R Interval : 176 ms QRS Duration : 94 ms Q-T Interval : 400 ms QTC Calculation(Bazett) : 478 ms Calculated P Sarepta : 71 degrees Calculated R Sarepta : -6 degrees Calculated T Sarepta : 28 degrees SINUS RHYTHM WITH OCCASIONAL PREMATURE VENTRICULAR COMPLEXES OTHERWISE NORMAL ECG Confirmed by KATLYN GUZMAN DO ([id number]) on 07/03/2023 5:39:03 PM NAME : RASHIDA KAUFMAN PID : [id number] : 1940 Gender : Female Race : ORD : [id number] Procedure Date : Jun 28 2023 09:45:22 Edit Date : Jul 03 2023 17:39:05 Diagnosis: SINUS RHYTHM WITH OCCASIONAL PREMATURE VENTRICULAR COMPLEXES OTHERWISE NORMAL ECG Confirmed by KATLYN GUZMAN DO ([id number]) on 07/03/2023 5:39:03 PM Test Reason : R00.1 Bradycardia Location : 185 : [facility] Overread By : KATLYN GUZMAN DO Edited By : KATLYN GUZMAN DO Referred By : Arely GONZALEZ, Acquired by : Monalisa STYLES [facility] Jesika 06-27-2023 IMAN Telephone (INTMWS) RASHIDA KAUFMAN ([id number]) 1940 F Date Time Provider Department 06/27/23 LORIN GONZALEZ INTMWS During your visit today, we recorded the following information about you: Lorin Gonzalez APRN.JOCELYN 06/27/2023 2:53 PM Signed Please let the patient know her during the nocturnal pulse ox study her heart rate continually dropped less than 40 which is concerning for a heart arrhythmia. It is recommended she schedule a follow-up appointment for this in order to determine if additional cardiac testing is needed. Lorin Gonzalez APRN.Sharri Hu RN 06/27/2023 3:24 PM Signed Pt called and is notified of providers results and instructions. Pt voices understanding. She is going to call back to make the appointment. LAMIN Roque Laurie Lynn LPN 06/27/2023 3:41 PM Signed Pt called back and apt scheduled for 06-28-23. Omer Sin LPN Allergies As of Date: 06/27/2023 Noted Allergy Reaction ERYTHROMYCIN 06/13/2005 4 - Hives NAPROSYN (NAPROXEN) 06/13/2005 7 - Swelling Comments: facial swelling NUPRIN (IBUPROFEN) 07/07/2006 10 - Anaphylaxis Date Reviewed: 02/20/2023 Reviewed by: Yeni Renee LPN - Fully Assessed Reason for Visit: Results [95] Appointment [186] Prescriptions as of 06/27/2023 - glipiZIDE (GLUCOTROL XL) 10mg 24 hr tablet Take 2 tablets by mouth every morning. - metFORMIN (GLUCOPHAGE) 500 mg tablet Take 2 tablets by mouth twice daily with meals. - lisinopril-hydroCHLORO thiazide (ZESTORETIC) 20-12.5 mg per tablet Take 2 tablets by mouth every morning. - umeclidinium-vilantero l (ANORO ELLIPTA) 62.5-25 mcg/actuation inhaler Inhale 1 Inhalation as instructed once daily. - amoxicillin (POLYMOX, AMOXIL) 500 mg capsule Take 1 capsule by mouth once daily. Per infectious disease. - COMPOUNDED PRESCRIPTION Oxygen 3L home. DX: Sob, COPD, HALL. Night time use and with activity. [facility] Supplier Problem List As Of Date 06/27/2023 Noted Resolved DIABETES MELLITUS TYPE II-UNCOMPL [E11.9] 06/13/2005 09/25/2014 Mixed hyperlipidemia [E78.2] 06/13/2005 Type II or unspecified type diabetes mellitus w* 09/25/2014 Urticaria [708] 05/31/2016 DEPRESSIVE DISORDER NEC [F32.89] 09/25/2014 Asthma with chronic obstructive pulmonary disea* Hypothyroidism [E03.9] 01/21/2008 05/31/2016 Thyrotoxicosis without mention of goiter or oth*02/01/2008 09/26/2016 Osteopenia [M85.80] 04/22/2009 Right knee pain (neuropathic) [M25.561] 02/26/2010 10/29/2019 Graves disease [E05.00] 04/28/2010 06/21/2019 Meralgia paraesthetica [G57.10] 04/28/2010 09/26/2016 Osteoarthritis [M19.90] 04/28/2010 Essential hypertension [I10] 04/28/2010 Depressive disorder [F32.A] 04/28/2010 08/19/2022 Anxiety [F41.9] 04/28/2010 10/29/2019 Recent bereavement [Z63.4] 03/13/2014 05/31/2016 Type 2 diabetes mellitus with stage 3 chronic k*01/23/2015 Acquired hypothyroidism [E03.9] 05/31/2016 02/20/2023 Morbid obesity with BMI of 50.0-59.9, adult (HC*09/26/2016 Vitamin D deficiency [E55.9] 09/26/2016 10/02/2017 Supplemental oxygen dependent [Z99.81] 09/26/2016 10/29/2019 LAINA (obstructive sleep apnea) [G47.33] 10/31/2016 06/21/2019 Needle phobia [F40.298] 12/26/2016 Stasis dermatitis of right lower extremity due *04/05/2018 Recurrent cellulitis of lower leg, right. [L03.*05/09/2018 CKD (chronic kidney disease) stage 3, GFR 30-59*06/21/2019 08/19/2022 Chronic respiratory failure with hypoxia (HCC) *07/23/2019 Hypertensive kidney disease with stage 3 chroni*11/06/2020 Leukocytosis [D72.829] 06/28/2021 Encounter Status:Closed by OMER SIN LPN on 06/27/23 Normal [facility] Jesika 06-21-2023 IMAN Telephone (INTMWS) RASHIDA KAUFMAN ([id number]) 1940 F Date Time Provider Department 06/21/23 LORIN GONZALEZ INTADRIANO During your visit today, we recorded the following information about you: Lorin Gonzalez APRN.CNP 06/21/2023 2:31 PM Signed Received results of nocturnal pulse oximetry testing, patient qualifies for nocturnal oxygen. AJ Simon Ma, Toni 06/21/2023 3:22 PM Signed Patient notified, verbalized understanding. Form and patient information faxed to [facility] Allergies As of Date: 06/21/2023 Noted Allergy Reaction ERYTHROMYCIN 06/13/2005 4 - Hives NAPROSYN (NAPROXEN) 06/13/2005 7 - Swelling Comments: facial swelling NUPRIN (IBUPROFEN) 07/07/2006 10 - Anaphylaxis Date Reviewed: 02/20/2023 Reviewed by: Yeni Renee LPN - Fully Assessed Prescriptions as of 06/21/2023 - glipiZIDE (GLUCOTROL XL) 10mg 24 hr tablet Take 2 tablets by mouth every morning. - metFORMIN (GLUCOPHAGE) 500 mg tablet Take 2 tablets by mouth twice daily with meals. - lisinopril-hydroCHLORO thiazide (ZESTORETIC) 20-12.5 mg per tablet Take 2 tablets by mouth every morning. - umeclidinium-vilantero l (ANORO ELLIPTA) 62.5-25 mcg/actuation inhaler Inhale 1 Inhalation as instructed once daily. - amoxicillin (POLYMOX, AMOXIL) 500 mg capsule Take 1 capsule by mouth once daily. Per infectious disease. - COMPOUNDED PRESCRIPTION Oxygen 3L home. DX: Sob, COPD, HALL. Night time use and with activity. [facility] Supplier Problem List As Of Date 06/21/2023 Noted Resolved DIABETES MELLITUS TYPE II-UNCOMPL [E11.9] 06/13/2005 09/25/2014 Mixed hyperlipidemia [E78.2] 06/13/2005 Type II or unspecified type diabetes mellitus w* 09/25/2014 Urticaria [708] 05/31/2016 DEPRESSIVE DISORDER NEC [F32.89] 09/25/2014 Asthma with chronic obstructive pulmonary disea* Hypothyroidism [E03.9] 01/21/2008 05/31/2016 Thyrotoxicosis without mention of goiter or oth*02/01/2008 09/26/2016 Osteopenia [M85.80] 04/22/2009 Right knee pain (neuropathic) [M25.561] 02/26/2010 10/29/2019 Graves disease [E05.00] 04/28/2010 06/21/2019 Meralgia paraesthetica [G57.10] 04/28/2010 09/26/2016 Osteoarthritis [M19.90] 04/28/2010 Essential hypertension [I10] 04/28/2010 Depressive disorder [F32.A] 04/28/2010 08/19/2022 Anxiety [F41.9] 04/28/2010 10/29/2019 Recent bereavement [Z63.4] 03/13/2014 05/31/2016 Type 2 diabetes mellitus with stage 3 chronic k*01/23/2015 Acquired hypothyroidism [E03.9] 05/31/2016 02/20/2023 Morbid obesity with BMI of 50.0-59.9, adult (HC*09/26/2016 Vitamin D deficiency [E55.9] 09/26/2016 10/02/2017 Supplemental oxygen dependent [Z99.81] 09/26/2016 10/29/2019 LAINA (obstructive sleep apnea) [G47.33] 10/31/2016 06/21/2019 Needle phobia [F40.298] 12/26/2016 Stasis dermatitis of right lower extremity due *04/05/2018 Recurrent cellulitis of lower leg, right. [L03.*05/09/2018 CKD (chronic kidney disease) stage 3, GFR 30-59*06/21/2019 08/19/2022 Chronic respiratory failure with hypoxia (HCC) *07/23/2019 Hypertensive kidney disease with stage 3 chroni*11/06/2020 Leukocytosis [D72.829] 06/28/2021 Encounter Status:Closed by YUMIKO MARTELL MA on 06/21/23 Normal [facility] OXIMETRY WITH AMBULATIONon 0 03-22-2023 [facility] STREP A MOLECULAR (POC)on Procedural Control Valid [facility] Strep A (POCT) Negative Negative [facility] Vital Signs Date Time Vital Sign Value Performing Clinician Faci lity 05-28-2024 11:06-0400 Diastolic blood pressure 77 mm[Hg] Dustin Wilder MD Work Phone: [facility] 05-28-2024 11:06-0400 Heart rate 112 /min Dustin Wilder MD Work Phone: [facility] 05-28-2024 11:06-0400 Respiratory rate 16 /min Dustin Wilder MD Work Phone: [facility] 05-28-2024 11:06-0400 Systolic blood pressure 123 mm[Hg] Dustin Wilder MD Work Phone: [facility] 10-12-2023 13:04-0500 Body height 160 cm Lorin Warren APRN.OIL WELL SHOOTER Work Phone: [facility] 10-12-2023 13:04-0500 Body temperature 97.11 [degF] Lorin Warren PHARMACY INTAKE COORDINATOR.OIL WELL SHOOTER Work Phone: [facility] 10-12-2023 13:04-0500 Body weight 133.09 kg Lorin Warren PHARMACY INTAKE COORDINATOR.OIL WELL SHOOTER Work Phone: [facility] 10-12-2023 13:04-0500 Diastolic blood pressure 58 mm[Hg] Lorin Warren PHARMACY INTAKE COORDINATOR.OIL WELL SHOOTER Work Phone: [facility] 10-12-2023 13:04-0500 Heart rate 98 /min Lorin Warren PHARMACY INTAKE COORDINATOR.OIL WELL SHOOTER Work Phone: [facility] 10-12-2023 13:04-0500 Respiratory rate 20 /min Lorin Warren PHARMACY INTAKE COORDINATOR.OIL WELL SHOOTER Work Phone: [facility] 10-12-2023 13:04-0500 SaO2% (BldA) [Mass fraction] 96 % Lorinmarychuy Warren PHARMACY INTAKE COORDINATOR.OIL WELL SHOOTER Work Phone: [facility] 10-12-2023 13:04-0500 Systolic blood pressure 128 mm[Hg] Lorin Warren PHARMACY INTAKE COORDINATOR.OIL WELL SHOOTER Work Phone: [facility] 03-22-2023 09:12-0400 Body height 161.3 cm Pulm Wstr Work Phone: [facility] 03-22-2023 09:12-0400 Body weight 132.9 kg Pulm Wstr Work Phone: [facility] 02-20-2023 13:37-0400 Diastolic blood pressure 69 mm[Hg] Dustin Wilder MD Work Phone: [facility] 02-20-2023 13:37-0400 Heart rate 89 /min Dustin Wilder MD Work Phone: [facility] 02-20-2023 13:37-0400 Systolic blood pressure 128 mm[Hg] Dustin Wilder MD Work Phone: [facility] 02-20-2023 13:24-0400 Body weight 130.18 kg Dustin Wilder MD Work Phone: [facility] 02-20-2023 13:24-0400 Respiratory rate 20 /min Dustin Wilder MD Work Phone: [facility] 02-23-2022 12:38-0400 Body temperature 98.01 [degF] Lorin Older PHARMACY INTAKE COORDINATOR.OIL WELL SHOOTER Work Phone: [facility] 02-23-2022 12:38-0400 Body weight 131.09 kg Lorin Older PHARMACY INTAKE COORDINATOR.OIL WELL SHOOTER Work Phone: [facility] 02-23-2022 12:38-0400 Diastolic blood pressure 88 mm[Hg] Lorin Older PHARMACY INTAKE COORDINATOR.OIL WELL SHOOTER Work Phone: [facility] 02-23-2022 12:38-0400 Heart rate 92 /min Lorin Older PHARMACY INTAKE COORDINATOR.OIL WELL SHOOTER Work Phone: [facility] 02-23-2022 12:38-0400 Respiratory rate 16 /min Lorin Older PHARMACY INTAKE COORDINATOR.OIL WELL SHOOTER Work Phone: [facility] 02-23-2022 12:38-0400 SaO2% (BldA) [Mass fraction] 93 % Lorin Older PHARMACY INTAKE COORDINATOR.OIL WELL SHOOTER Work Phone: [facility] 02-23-2022 12:38-0400 Systolic blood pressure 136 mm[Hg] Lorin Older PHARMACY INTAKE COORDINATOR.OIL WELL SHOOTER Work Phone: [facility] 02-14-2022 13:47-0400 Body temperature 97.7 [degF] Dustin Wilder MD Work Phone: [facility] 02-14-2022 13:47-0400 Body weight 131.54 kg Dustin Wilder MD Work Phone: [facility] 02-14-2022 13:47-0400 Diastolic blood pressure 70 mm[Hg] Dustin Wilder MD Work Phone: [facility] 02-14-2022 13:47-0400 Heart rate 92 /min Dustin Wilder MD Work Phone: [facility] 02-14-2022 13:47-0400 Respiratory rate 18 /min Dustin Wilder MD Work Phone: [facility] 02-14-2022 13:47-0400 SaO2% (BldA) [Mass fraction] 93 % Dustin Wilder MD Work Phone: [facility] 02-14-2022 13:47-0400 Systolic blood pressure 120 mm[Hg] Dustin Wilder MD Work Phone: [facility] Encounters Encounter Date Encounter Type Care Provider Facility Start: 05-28-2024 End: 05-28-2024 ambulatory DUSTIN WILDER Facility:[facility] Start: 05-28-2024 End: 05-28-2024 Office outpatient visit 25 minutes Dustin Wilder MD Work Phone: [facility] [place] Comment on above: 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 (Primary Dx); Depression with anxiety; Encounter for immunization; Asthma with chronic obstructive pulmonary disease (COPD) (HCC); Essential hypertension; Type 2 diabetes mellitus with stage 3a chronic kidney disease, without long-term current use of insulin (HCC); Mixed hyperlipidemia; Dermatophytosis of nail Start: 05-27-2024 End: 05-27-2024 ambulatory Ting Domínguez RN Work Phone: [employer] Comment on above: Community monitoring outreach (CDM) Start: 04-09-2024 End: 04-09-2024 Telephone encounter Dustin Wilder MD Work Phone: [facility] [place] Comment on above: [facility]-verbal orders Start: 04-02-2024 End: 04-02-2024 Telephone encounter Dustin Wilder MD Work Phone: [facility] [place] Comment on above: Orders Start: 03-21-2024 Telephone encounter Dustin santos MD Work Phone: [facility] [place] Comment on above: Orders (needs a rais ed toilet seat and a lift chair) Start: 12-01-2023 Refill Dustin davies MD Work Phone: [facility] [place] Comment on above: Refill Request Start: 10-12-2023 End: 10-12-2023 ambulatory DUSTIN WILDER Facility:[facility] Start: 10-12-2023 End: 10-12-2023 Patient encounter procedure Lorin Warren APRN.CNP Work Phone: [facility] [place] Comment on above: Medicare annual well ness visit, subsequent (Primary Dx); Anxiety; Essential hypertension; Mixed hyperlipidemia; Type 2 diabetes mellitus with stage 3a chronic kidney disease, without long-term current use of insulin (HCC); Chronic respiratory failure with hypoxia ([facility]); Asthma with chronic obstructive pulmonary disease (COPD) ([facility]); Morbid obesity with BMI of 50.0-59.9, adult ([facility]); Encounter for immunization Start: 07-17-2023 Refill Dustin davies MD Work Phone: [facility] [place] Comment on above: Refill Request Start: 07-06-2023 End: 07-06-2023 ambulatory [facility] Facility:[facility] Start: 07-06-2023 End: 07-06-2023 Patient encounter procedure Lorin Older PHARMACY INTAKE COORDINATOR.OIL WELL SHOOTER Work Phone: [facility] [place] Comment on above: Dyspnea, unspecified type (Primary Dx) Start: 06-28-2023 End: 06-28-2023 [facility] Facility:[facility] Start: 06-27-2023 Telephone encounter Lorin Older PHARMACY INTAKE COORDINATOR.OIL WELL SHOOTER Work Phone: [facility] [place] Comment on above: Results; Appointment Start: 04-04-2023 Telephone encounter Dustin santos MD Work Phone: [facility] [place] Comment on above: Patient Question Start: 03-22-2023 End: 03-22-2023 ambulatory [facility] Work Phone: [facility] Comment on above: Spirometry Start: 03-22-2023 End: 03-22-2023 Patient encounter procedure [facility] Work Phone: [place] [facility] Start: 03-09-2023 Telephone encounter Dustin santos MD Work Phone: [facility] [place] Comment on above: Orders Start: 03-01-2023 Telephone encounter Dustin santos MD Work Phone: [facility] [place] Comment on above: Orders Start: 02-20-2023 End: 02-20-2023 Patient encounter procedure Dustin Wilder MD Work Phone: [facility] [place] Comment on above: Essential hypertensi on (Primary Dx); Type 2 diabetes mellitus with stage 3 chronic kidney disease, without long-term current use of insulin (HCC); Mixed hyperlipidemia; Asthma with chronic obstructive pulmonary disease (COPD) (HCC); Need for COVID-19 vaccine; Leukocytosis, unspecified type; Type 2 diabetes mellitus with stage 3a chronic kidney disease, without long-term current use of insulin (HCC) Start: 09-12-2022 Refill Dustin davies MD Work Phone: [facility] [place] Comment on above: Refill Request Start: 08-26-2022 Telephone encounter Dustin santos MD Work Phone: [facility] [place] Comment on above: Medication Problem Start: 03-03-2022 Telephone encounter Dustin santos MD Work Phone: [facility] [place] Comment on above: Results, Lab Start: 02-23-2022 End: 02-23-2022 Patient encounter procedure Lorin Gonzalez APRN.OIL WELL SHOOTER Work Phone: [facility] [place] Comment on above: Sore throat (Primary Dx) Start: 02-14-2022 End: 02-14-2022 Patient encounter procedure Dustin Wilder MD Work Phone: [facility] [place] Comment on above: Stage 3a chronic kid alexandra disease (HCC) (Primary Dx); Type 2 diabetes mellitus with stage 3 chronic kidney disease, without long-term current use of insulin (HCC); Essential hypertension; Need for COVID-19 vaccine; Type 2 diabetes mellitus with stage 3a chronic kidney disease, without long-term current use of insulin (HCC) Procedures Date Procedure Procedure Detail Performing Clinician Start: 05-28-2024 PFIZER-BIONTECH COVI D-19 VACCINE AGE 12+ YR (COMIRNATY) Dustin Wilder MD Work Phone: Start: 10-12-2023 INFLUENZA VACCINE, P RSV FREE, AGE 65+ YR, HIGH DOSE, QUADRIVALENT (FLUZONE HIGH-DOSE) Lorin Warren PHARMACY INTAKE COORDINATOR.OIL WELL SHOOTER Work Phone: Start: 10-12-2023 PFIZER-BIONTECH COVI D-19 VACCINE () AGE 12+ YR Lorin Warren PHARMACY INTAKE COORDINATOR.OIL WELL SHOOTER Work Phone: Start: 03-22-2023 Noninvasive ear/puls e oximetry multiple deter Dustin Wilder MD Work Phone: Start: 02-20-2023 PFIZER-BIONTECH COVI D-19 BIVALENT VACCINE, AGE 12+ YR Dustin Wilder MD Work Phone: Start: 02-23-2022 STREP A MOLECULAR (POC) Lorin Gonzalez PHARMACY INTAKE COORDINATOR.OIL WELL SHOOTER Work Phone: Start: 02-14-2022 PFIZER-BIONTECH COVI D-19 VACCINE, AGE 12+ YR (COSME TOP) Dustin Wilder MD Work Phone: Plan of Treatment Date Care Activity Detail Author Start: 05-28-2025 Diabetic foot examination Diabetic Foot Exam [facility] Start: 04-30-2025 End: 04-30-2025 Patient encounter procedure 04/30/2025 11:00 AM EDT Office Visit [facility] [place] [address], [place] [id number] Dustin Wilder MD [address] [place], [place] [id number] 11 month f/u [facility] [place] Comment on above: 11 month f/u Start: 10-21-2024 End: 10-21-2024 Patient encounter procedure 10/21/2024 11:00 AM EDT Office Visit [facility] [place] [address] [place] [id number] Lorin Warren, PHARMACY INTAKE COORDINATOR.OIL WELL SHOOTER [address] [facility] [place] [id number] 5 month f/u [facility] [place] Comment on above: 5 month f/u Start: 10-11-2024 Diabetic foot examination Diabetic Foot Exam [facility] Start: 10-11-2024 Hepatitis B surface antibody level LDL Cholesterol [facility] Start: 10-11-2024 RSV Vaccine (1 - 1-dose 60+ series) RSV Vaccine (1 - 1-dose 60+ series) [facility] Comment on above: Postponed from 1999 (Declined at t his time) Start: 10-11-2024 RSV Vaccine (1 - 1-dose 75+ series) RSV Vaccine (1 - 1-dose 75+ series) [facility] Comment on above: Postponed from 2014 (Declined at t his time) Start: 10-11-2024 Shingrix Vaccine (1 of 2) Shingrix Vaccine (1 of 2) [facility] Comment on above: Postponed from 1989 (Declined at t his time) Start: 10-11-2024 Urine microalbumin profile DTaP,Tdap,Td Vaccine (2 - Tdap) [facility] Comment on above: Postponed from 06/14/2016 (Insurance Cov erage) Start: 08-13-2024 End: 08-13-2024 Patient encounter procedure Ophthalmology Comment on above: Type 2 diabetes mellitus with stage 3a c hronic kidney disease, without long-term current use of insulin (HCC) [E11.22, N18.31] ype 2 diabetes melli tus with stage 3a chronic kidney disease, without long-term current use of insulin (HCC) [E11.22, N18.31]; Dermatophytosis of nail [B35.1] Start: 08-06-2024 Behavioral Health Screening Behavioral Health Screening [facility] Comment on above: Postponed from 08/07/2023 (Insurance Cov era) Start: 08-06-2024 Depression Assessment Depression Assessment [facility] Comment on above: Postponed from 08/07/2023 (Insurance Cov era) Start: 05-28-2024 End: 08-27-2024 CBC panel - Blood by Automated count [facility] Work Phone: Comment on above: Expected: 05/28/2024, Expires: 5 Start: 05-28-2024 End: 08-27-2024 Comprehensive metabolic 2000 panel - Serum or Plasma [facility] Comment on above: Expected: 05/28/2024, Expires: 5 Start: 05-28-2024 End: 08-27-2024 Hemoglobin A1c in Blood [facility] Comment on above: Expected: 05/28/2024, Expires: Start: 05-28-2024 End: 08-27-2024 LIPID PANEL, NONFASTING [facility] Comment on above: Expected: 05/28/2024, Expires: Start: 05-28-2024 End: 08-27-2024 Microalbumin/Creatinine [Mass Ratio] in Urine ALBUMIN/CREATININE RATIO, URINE Lab Routine Type 2 diabetes mellitus with stage 3a chronic kidney disease, without long-term current use of insulin (HCC) Expected: 05/28/2024, Expires: 08/27/2024 [facility] Comment on above: Expected: 05/28/2024, Expires: Start: 05-28-2024 End: 05-28-2024 Patient encounter procedure 05/28/2024 11:00 AM EDT Office Visit [facility] [place] [address] [facility] [place], [place] [phone] Dustin Wilder MD [address] [place], [place] [phone] check foot for swelling and redness [facility] [place] Comment on above: check foot for swelling and redness Start: 04-07-2024 Covid-19 Vaccine ( season) Covid-19 Vaccine ( season) [facility] Start: 04-07-2024 Covid-19 Vaccine ( season) Covid-19 Vaccine ( season) [facility] Start: 04-07-2024 Influenza vaccination [facility] Start: 02-21-2024 End: 02-21-2024 Patient encounter procedure 02/21/2024 1:00 PM EDT Office Visit [facility] [place] [address] [place], [place] [phone] Dustin Wilder MD [address] [place], [place] [id number] 6 month follow-up [facility] [place] Comment on above: 6 month follow-up Start: 02-17-2024 Hepatitis B screening URINE ALBUMIN:CREATININE RATIO [facility] Start: 02-11-2024 Covid-19 Vaccine ( season) Covid-19 Vaccine () [facility] Start: 10-12-2023 End: 01-11-2024 LIPID PANEL, NONFASTING [facility] Work Phone: Comment on above: Expected: 10/12/2023, Expires: Start: 08-23-2023 End: 10-23-2023 Comprehensive metabolic 2000 panel - Serum or Plasma COMP METABOLIC PANEL Lab Routine Mixed hyperlipidemia Expected: 08/23/2023, Expires: 10/23/2023 [facility] Work Phone: Comment on above: Expected: 08/23/2023, Expires: Start: 08-23-2023 End: 10-23-2023 Hemoglobin A1c in Blood HGB A1C Lab Routine Type 2 diabetes mellitus with stage 3 chronic kidney disease, without long-term current use of insulin (HCC) Expected: 08/23/2023, Expires: 10/23/2023 [facility] Work Phone: Comment on above: Expected: 08/23/2023, Expires: 4 Start: 08-23-2023 End: 10-23-2023 Lipid 1996 panel - Serum or Plasma LIPID PANEL BASIC Lab Routine Mixed hyperlipidemia Expected: 08/23/2023, Expires: 10/23/2023 [facility] Work Phone: Comment on above: Expected: 08/23/2023, Expires: 4 Start: 08-19-2023 3 comp foot exam completed DIABETIC FOOT EXAM [facility] Start: 08-18-2023 Hemoglobin A1c measurement HbA1C [facility] Start: 08-18-2023 Hemoglobin A1c/Hemoglobin.total in Blood HBA1C [facility] Start: 08-15-2023 Hepatitis B surface antibody level LDL CHOLESTEROL [facility] Start: 07-18-2023 Glaucoma screening Dilated Retinal Exam [facility] Start: 07-18-2023 Hepatitis C antibody, confirmatory test DILATED RETINAL EXAM [facility] Start: 04-17-2023 Covid-19 Vaccine ( season) Covid-19 Vaccine ( season) [facility] Start: 04-07-2023 Influenza vaccination [facility] Start: 02-12-2023 Hemoglobin A1c/Hemoglobin.total in Blood HBA1C [facility] Start: 08-17-2022 End: 10-17-2022 ALBUMIN/CREAT RATIO RND UR ALBUMIN/CREAT RATIO RND UR Lab Routine Type 2 diabetes mellitus with stage 3 chronic kidney disease, without long-term current use of insulin ([facility]) Expected: 08/17/2022, Expires: 10/17/2022 [facility] Work Phone: Comment on above: Expected: 08/17/2022, Expires: Start: 08-17-2022 End: 10-17-2022 Comprehensive metabolic 2000 panel - Serum or Plasma COMP METABOLIC PANEL Lab Routine Type 2 diabetes mellitus with stage 3 chronic kidney disease, without long-term current use of insulin ([facility]) Expected: 08/17/2022, Expires: 10/17/2022 [facility] Work Phone: Comment on above: Expected: 08/17/2022, Expires: 3 Start: 08-17-2022 End: 10-17-2022 Hemoglobin A1c in Blood HGB A1C Lab Routine Type 2 diabetes mellitus with stage 3 chronic kidney disease, without long-term current use of insulin (HCC) Expected: 08/17/2022, Expires: 10/17/2022 [facility] Work Phone: Comment on above: Expected: 08/17/2022, Expires: 3 Start: 08-17-2022 Hemoglobin A1c/Hemoglobin.total in Blood HBA1C [facility] Start: 08-17-2022 End: 10-17-2022 Lipid 1996 panel - Serum or Plasma LIPID PANEL BASIC Lab Routine Type 2 diabetes mellitus with stage 3 chronic kidney disease, without long-term current use of insulin (HCC) Expected: 08/17/2022, Expires: 10/17/2022 [facility] Work Phone: Comment on above: Expected: 08/17/2022, Expires: 3 Start: 08-07-2022 ADVANCE DIRECTIVE DISCUSSION ADVANCE DIRECTIVE DISCUSSION [facility] Start: 08-07-2022 DEPRESSION ASSESSMENT DEPRESSION ASSESSMENT [facility] Start: 06-24-2022 3 comp foot exam completed DIABETIC FOOT EXAM [facility] Start: 06-24-2022 Hepatitis B screening URINE ALBUMIN:CREATININE RATIO [facility] Start: 06-24-2022 Hepatitis B surface antibody level LDL CHOLESTEROL [facility] Start: 04-07-2022 Influenza vaccination INFLUENZA (#1) [facility] Start: 02-14-2022 End: 04-16-2022 Basic metabolic 2000 panel - Serum or Plasma [facility] Work Phone: Comment on above: Expected: 02/14/2022, Expires: 2 Start: 02-14-2022 End: 04-16-2022 CBC panel - Blood by Automated count [facility] Work Phone: Comment on above: Expected: 02/14/2022, Expires: 2 Start: 02-14-2022 End: 04-16-2022 Hemoglobin A1c in Blood [facility] Work Phone: Comment on above: Expected: 02/14/2022, Expires: 2 Start: 12-22-2021 Hemoglobin A1c/Hemoglobin.total in Blood HBA1C [facility] Start: 07-02-2020 Hepatitis C antibody, confirmatory test DILATED RETINAL EXAM [facility] Start: 06-14-2016 Urine microalbumin profile [facility] Start: 1999 Hepatitis B Vaccine (1 of 3 - Risk 3-dose series) Hepatitis B Vaccine (1 of 3 - Risk 3-dose series) [facility] Start: 1999 RSV Vaccine (1 - 1-dose 60+ series) RSV Vaccine (1 - 1-dose 60+ series) [facility] Start: 1989 SHINGRIX VACCINE (1 of 2) SHINGRIX VACCINE (1 of 2) [facility] Start: 1957 Anxiety Screening Anxiety Screening [facility] Start: 1957 Depression Screening Depression Screening [facility] OXIMETRY - NOCTURNAL OXIMETRY - NOCTURNAL Procedures Routine Chronic respiratory failure with hypoxia (HCC) Ordered: 04/11/2023 [facility] Work Phone: Comment on above: Ordered: 04/11/2023 End: 04-07-2024 OXIMETRY WITH AMBULATION OXIMETRY WITH AMBULATION PFT Routine Chronic respiratory failure with hypoxia (HCC) 1 Occurrences starting 03/10/2023 until 04/07/2024 [facility] Work Phone: Comment on above: 1 Occurrences starting 03/10/2023 until 04/07/2024 [facility] Immunizations Immunization Date Immunization Notes Care Provider [facility] 05-28-2024 COVID-19 vaccine, ag e 12+ yr (PFIZER-BIONTECH COMIRNAT) Dustin Wilder MD Work Phone: [facility] 05-28-2024 influenza, high dose seasonal, preservative-free Dustin Wilder MD Work Phone: [facility] 10-12-2023 COVID-19 vaccine, ag e 12+ yr, season (PFIZER-BIONTECH) Lorin Warren PHARMACY INTAKE COORDINATOR.OIL WELL SHOOTER Work Phone: [facility] 10-12-2023 influenza (HD-IIV4) vaccine, age 65+ yr, high dose, quadrivalent, PF (FLUZONE HIGH-DOSE) Lorin Warren PHARMACY INTAKE COORDINATOR.OIL WELL SHOOTER Work Phone: [facility] 10-12-2023 influenza virus vaccine, unspecified formulation Dustin Wilder MD Work Phone: [facility] 02-20-2023 COVID-19 vaccine, ag e 12+ yr, bivalent (PFIZER-BIONTECH) Dustin Wilder MD Work Phone: [facility] Work Phone: 08-19-2022 COVID-19 booster vaccine, age 12+ yr, bivalent (PFIZER-BIONTECH) Dustin Wilder MD Work Phone: [facility] 08-19-2022 influenza, high-dose , quadrivalent vaccine (FLUZONE HIGH DOSE QUADRIVALENT) Dustin Wilder MD Work Phone: [facility] 08-19-2022 influenza virus vaccine, unspecified formulation Dustin Wilder MD Work Phone: [facility] 02-14-2022 COVID-19 vaccine, ag e 12+ yr (PFIZER-BIONTECH - COSME TOP) Dustin Wilder MD Work Phone: [facility] Work Phone: 06-24-2021 influenza, high-dose , quadrivalent vaccine (FLUZONE HIGH DOSE QUADRIVALENT) Dustin Wilder MD Work Phone: [facility] Work Phone: 03-25-2021 COVID-19 vaccine, ag e 12+ yr (PFIZER-BIONTECH - PURPLE TOP) Dustin Wilder MD Work Phone: [facility] Work Phone: 02-25-2021 COVID-19 vaccine, ag e 12+ yr (PFIZER-BIONTECH - PURPLE TOP) Dustin Wilder MD Work Phone: [facility] Work Phone: 05-22-2020 influenza, high-dose , quadrivalent vaccine (FLUZONE HIGH DOSE QUADRIVALENT) Dustin Wilder MD Work Phone: [facility] Work Phone: 06-21-2019 influenza, high dose seasonal, preservative-free Dustin Wilder MD Work Phone: [facility] 04-05-2018 influenza, high dose seasonal, preservative-free Dustin Wilder MD Work Phone: [facility] 10-02-2017 influenza, high dose seasonal, preservative-free Dustin Wilder MD Work Phone: [facility] Work Phone: 07-15-2016 influenza, high dose seasonal, preservative-free Dustin Wilder MD Work Phone: [facility] 05-29-2015 influenza, high dose seasonal, preservative-free Dustin Wilder MD Work Phone: [facility] 09-25-2014 pneumococcal conjuga te vaccine, 13 valent Dustin Wilder MD Work Phone: [facility] 04-27-2012 influenza virus vaccine, unspecified formulation Dustin Wilder MD Work Phone: [facility] Work Phone: 05-27-2010 influenza virus vaccine, unspecified formulation Dustin Wilder MD Work Phone: [facility] 04-03-2009 pneumococcal polysaccharide vaccine, 23 valent Dustin Wilder MD Work Phone: [facility] Work Phone: 08-05-2008 influenza virus vaccine, unspecified formulation Dustin Wilder MD Work Phone: [facility] Work Phone: 06-14-2006 diphtheria and tetan us toxoids, adsorbed for pediatric use Dustin Wilder MD Work Phone: [facility] Work Phone: 06-14-2006 influenza virus vaccine, unspecified formulation Dustin Wilder MD Work Phone: [facility] Work Phone: 06-13-2005 influenza virus vaccine, unspecified formulation Dustin Wilder MD Work Phone: [facility] 06-26-2001 pneumococcal polysaccharide vaccine, 23 valent Dustin Wilder MD Work Phone: [facility] Work Phone: Payers Date Payer Category Payer Medicare MEDICARE MEDICAR E A AND B [id number] 2004-Present [phone] [place] [address] Medicare [id number] 2004 Medicare MEDICARE MEDICAR E A AND B [id number] 2004-Present [phone] [place] [address] Medicare [id number] 2004 Medicare [id number] Social History Date Type Detail Facility Start: 10-02-2017 End: 05-28-2024 Tobacco smoking status NHIS Ex-smoker [facility] Work Phone: Start: 08-07-1996 End: 08-07-2003 History of tobacco use Current smoker [facility] Work Phone: Start: 08-07-1996 End: 08-07-2003 History of tobacco use Cigarette Smoker [facility] Work Phone: Start: 02-14-2022 End: 05-28-2024 Alcohol intake Current non-drinker of alcohol (finding) [facility] Start: 1940 Sex Assigned At Not on file [facility] Start: 02-04-2022 End: 02-23-2022 Exposure to SARS-CoV-2 (event) Not sure [facility] Work Phone: Start: 10-02-2017 End: 02-20-2023 Cigarettes smoked current (pack per day) - Reported 0.5 [facility] Work Phone: Start: 10-02-2017 End: 05-28-2024 Tobacco use and exposure Smokeless tobacco non-user [facility] Work Phone: Start: 02-20-2023 End: 10-12-2023 Tobacco use panel [facility] Work Phone: Adult Depression Screening Assessment 0 [facility] Work Phone: How often to you hav e a drink containing alcohol? Never [facility] Work Phone: Goals Date Patient Goal Desired Activity /State Personal health goal Clinical Notes 10-31-2016 to 05-28-2024 Dustin Wilder MD - 05/28/2024 11:16 AM Shirin Grande LPN - 05/27/2024 3:36 PM Shirin Grande LPN - 05/27/2024 2:12 PM Ting Goyal RN - 05/27/2024 1:13 PM EDT Note Date & Type Note Facility 05-28-2024 Note HNO ID: [id number] Author: DUSTIN WILDER MD Service: ? Author Type: Physician Type: Progress Notes Filed: 05/28/2024 12:03 Note Text: This note was created using [email or web address]. Subjective Patient presents with: Rash: R leg rash Rashida Kaufman is a 84 year old female here with her significant other for a chronic rash on her right lateral leg. She may have scraped this falling down a few months ago. She denied pain, warmth, drainage, or fever. She was taking buspar for anxiety, but had also been depressed since her recent admission and [place] to a [place] [facility]. On top of that, her sister , as well the brother of her significant other. It seems she was on escitalopram while in the [place], but she did not vegetable picker the 14 day prescription on discharge. She did not schedule a follow up until she became concerned about her right leg. She was homebound and had significant difficulty leaving her house. Review of Systems Constitutional: Negative for chills, diaphoresis, fatigue and fever. HENT: Negative for congestion, sinus pressure and sore throat. Respiratory: Negative for cough, shortness of breath and wheezing. No change from baseline. Cardiovascular: Positive for leg swelling. Negative for chest pain and palpitations. Gastrointestinal: Negative for constipation, diarrhea, nausea and vomiting. Genitourinary: Negative for difficulty urinating and dysuria. Skin: Negative for wound. Neurological: Negative for dizziness, numbness and headaches. 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 Chronic Respiratory Failure With Hypoxia ([facility]) Hypertensive Kidney Disease With Stage 3 Chronic Kidney Disease ([facility]) Leukocytosis Age-Related Physical Debility Social History Tobacco Use Smoking status: Former Current packs/day: 0.00 Average packs/day: 0.5 packs/day for 7.0 years (3.5 ttl pk-yrs) Types: Cigarettes Start date: 08/07/1996 Quit date: 08/07/2003 Years since quittin.8 Smokeless tobacco: Never Substance Use Topics Alcohol use: No Drug use: No Current Outpatient Medications Medication Sig metFORMIN (GLUCOPHAGE) 500 mg tablet Take 2 tablets by mouth two times a day with meals. busPIRone (BUSPAR) 5 mg tablet Take 1 tablet by mouth two times a day. glipiZIDE (GLUCOTROL XL) 10mg 24 hr tablet Take 2 tablets by mouth every morning. lisinopril-hydroCHLOROthiazide (ZESTORETIC) 20-12.5 mg per tablet Take 2 tablets by mouth every morning. umeclidinium-vilanterol (ANORO ELLIPTA) 62.5-25 mcg/actuation inhaler Inhale 1 Inhalation as instructed once daily. COMPOUNDED PRESCRIPTION Oxygen 3L home. DX: Sob, COPD, HALL. Night time use and with activity. [facility] Supplier mometasone (ELOCON) 0.1 % cream Apply to affected area once daily as needed (rash of leg). escitalopram oxalate (LEXAPRO) 10 mg tablet Take 1 tablet by mouth once daily. No current facility-administered medications for this visit. Objective BP 123/77 Pulse 112 Resp 16 Physical Exam Constitutional: General: She is not in acute distress. Appearance: She is obese. HENT: Head: Normocephalic. Nose: No rhinorrhea. Eyes: Conjunctiva/sclera: Conjunctivae normal. Cardiovascular: Rate and Rhythm: Regular rhythm. Tachycardia present. Heart sounds: No murmur heard. No gallop. Pulmonary: Effort: No respiratory distress. Breath sounds: Wheezing present. No rhonchi or rales. Abdominal: Palpations: Abdomen is soft. Tenderness: There is no abdominal tenderness. Musculoskeletal: General: No tenderness. Right lower le+ Pitting Edema present. Left lower le+ Pitting Edema present. Skin: Findings: Rash present. Comments: Localized patch of dermatitis, right lateral leg. Neurological: General: No focal deficit present. Mental Status: She is alert. Comments: Wheelchair bound. Psychiatric: Attention and Perception: Attention normal. Mood and Affect: Mood is depressed. Feet:Shoes and socks removed, Are you having foot pain no, No ulcers, calluses, abnormal pulses Decreased bilaterally, not sensitive to monofilament in some toees. , and nails notable for Crumbly, Deformed, Hypertrophic, or Yellowish Assessment and Plan 1. 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 - ICD9: 454.1, 459.30, ICD10: I87.321 (primary diagnosis) Discussed medication dosage, usage, goals of therapy, and side effects. - MOMETASONE 0.1 % TOPICAL CREAM - COMPLETE BLOOD COUNT 2. Depression (more content not included)... [facility] 05-28-2024 History of Presen t illness Narrative This note was created using Beeplter. Subjective Patient presents with: Rash: R leg rash Rashida Kaufman is a 84 year old female here with her significant other for a chronic rash on her right lateral leg. She may have scraped this falling down a few months ago. She denied pain, warmth, drainage, or fever. She was taking buspar for anxiety, but had also been depressed since her recent admission and [place] to a [place]. On top of that, her sister , as well the brother of her significant other. It seems she was on escitalopram while in the [place], but she did not vegetable picker the 14 day prescription on discharge. She did not schedule a follow up until she became concerned about her right leg. She was homebound and had significant difficulty leaving her house. Review of Systems Constitutional: Negative for chills, diaphoresis, fatigue and fever. HENT: Negative for congestion, sinus pressure and sore throat. Respiratory: Negative for cough, shortness of breath and wheezing. No change from baseline. Cardiovascular: Positive for leg swelling. Negative for chest pain and palpitations. Gastrointestinal: Negative for constipation, diarrhea, nausea and vomiting. Genitourinary: Negative for difficulty urinating and dysuria. Skin: Negative for wound. Neurological: Negative for dizziness, numbness and headaches. 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 Chronic Respiratory Failure With Hypoxia (Hcc) Hypertensive Kidney Disease With Stage 3 Chronic Kidney Disease (Hcc) Leukocytosis Age-Related Physical Debility Social History Tobacco Use Smoking status: Former Current packs/day: 0.00 Average packs/day: 0.5 packs/day for 7.0 years (3.5 ttl pk-yrs) Types: Cigarettes Start date: 08/07/1996 Quit date: 08/07/2003 Years since quittin.8 Smokeless tobacco: Never Substance Use Topics Alcohol use: No Drug use: No Current Outpatient Medications Medication Sig metFORMIN (GLUCOPHAGE) 500 mg tablet Take 2 tablets by mouth two times a day with meals. busPIRone (BUSPAR) 5 mg tablet Take 1 tablet by mouth two times a day. glipiZIDE (GLUCOTROL XL) 10mg 24 hr tablet Take 2 tablets by mouth every morning. lisinopril-hydroCHLOROthiazide (ZESTORETIC) 20-12.5 mg per tablet Take 2 tablets by mouth every morning. umeclidinium-vilanterol (ANORO ELLIPTA) 62.5-25 mcg/actuation inhaler Inhale 1 Inhalation as instructed once daily. COMPOUNDED PRESCRIPTION Oxygen 3L home. DX: Sob, COPD, HALL. Night time use and with activity. [facility] Supplier mometasone (ELOCON) 0.1 % cream Apply to affected area once daily as needed (rash of leg). escitalopram oxalate (LEXAPRO) 10 mg tablet Take 1 tablet by mouth once daily. No current facility-administered medications for this visit. Objective BP 123/77 Pulse 112 Resp 16 Physical Exam Constitutional: General: She is not in acute distress. Appearance: She is obese. HENT: Head: Normocephalic. Nose: No rhinorrhea. Eyes: Conjunctiva/sclera: Conjunctivae normal. Cardiovascular: Rate and Rhythm: Regular rhythm. Tachycardia present. Heart sounds: No murmur heard. No gallop. Pulmonary: Effort: No respiratory distress. Breath sounds: Wheezing present. No rhonchi or rales. Abdominal: Palpations: Abdomen is soft. Tenderness: There is no abdominal tenderness. Musculoskeletal: General: No tenderness. Right lower le+ Pitting Edema present. Left lower le+ Pitting Edema present. Skin: Findings: Rash present. Comments: Localized patch of dermatitis, right lateral leg. Neurological: General: No focal deficit present. Mental Status: She is alert. Comments: Wheelchair bound. Psychiatric: Attention and Perception: Attention normal. Mood and Affect: Mood is depressed. Feet:Shoes and socks removed, Are you having foot pain no, No ulcers, calluses, abnormal pulses Decreased bilaterally, not sensitive to monofilament in some toees. , and nails notable for Crumbly, Deformed, Hypertrophic, or Yellowish Assessment and Plan 1. 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 - ICD9: 454.1, 459.30, ICD10: I87.321 (primary diagnosis) Discussed medication dosage, usage, goals of therapy, and side effects. - MOMETASONE 0.1 % TOPICAL CREAM - COMPLETE BLOOD COUNT 2. Depression with anxiety - ICD9: 300.4, ICD10: F41.8 Discussed medication dosage, usage, goals of therapy, and side effects. - ESCITALOPRAM 10 MG TABLET 3. Encounter for immunization - ICD9: V03.89, ICD10: Z23 - [employer] [place] COVID-19 VACCINE AGE 12+ YR (COMIRNATY) - INFLUENZA VACCINE, PRSV FREE, AGE 65+ YR, HIGH DOSE, TRIVALENT (FLUZONE HIGH-DOSE) 4. Asthma with chronic obstructive pulmonary disease (COPD) ([facility]) - ICD9: 493.20, ICD10: J44.89 - Stable. - Continue current medications 5. Essential hypertension - ICD9: 401.9, ICD10: I10 - Controlled - Continue current medications 6. Type 2 diabetes mellitus with stage 3a chronic kidney disease, without long-term current use of insulin (HCC) - ICD9: 250.40, 585.3, ICD10: E11.22, N18.31 - Control undetermined, due for labs - Continue current medications - COMPREHENSIVE METABOLIC PANEL - HEMOGLOBIN A1C - ALBUMIN/CREATININE RATIO, URINE - CONSULT TO PODIATRY - CONSULT TO OPHTHALMOLOGY 7. Mixed hyperlipidemia - ICD9: 272.2, ICD10: E78.2 - Control undetermined, due for labs - LIPID PANEL, NONFASTING 8. Dermatophytosis of nail - ICD9: 110.1, ICD10: B35.1 - CONSULT TO PODIATRY Dustin Wilder MD documented in this encounter [facility] 05-27-2024 Note HNO ID: [id number] Author: SHIRIN DUMAS LPN Service: ? Author Type: LICENSED NURSE Type: Progress Notes Filed: 05/27/2024 15:37 Note Text: Appt with pcp arranged. Pt reports she would like the same home health services but only the nurse. She doesn't want any therapy care. [facility] 05-27-2024 History of Presen t illness Narrative Appt with pcp arranged. Pt reports she would like the same home health services but only the nurse. She doesn't want any therapy care. In review pt was in the [facility] facility in March. She has HHS when discharged with [facility] home care. Called them and they discharged pt's services 04/25/24. To resume any home care pt would need an appt. Could be a virtual visit if pt can't get someone to help her in for an in office appt. Called pt and appt arranged. She will try to come in. She doesn't have anyone that can help her with a virtual visit. [facility]ALATION Provider Action / FYI: Pt called and states she cannot get into office as she is unable to get shoes/socks on and is concerned as she has blisters on the top of her feet and wonders if there is a INVESTIGATIVE REPORTER/MD service that could come see her? Message received via: electronic scanner operator Pool Contact made with patient: Yes The patient was identified by name and date of . Discussed Care with patient Based on crosstie inspector, the following disposition is advised: No symptoms or symptoms present, not severe. Routed to: Navigation Team: PCP visit within 7 days [employer]FI[employer] Education Provided this Outreach: Luz Reyna RN May 27, 2024 1:17 PM documented in this encounter [facility] 05-27-2024 Note HNO ID: [id number] Author: SHIRIN DUMAS LPN Service: ? Author Type: LICENSED NURSE Type: Progress Notes Filed: 05/27/2024 15:27 Note Text: In review [facility]. She has HHS when discharged with [facility] home care. Called them and they discharged pt's services 04/25/24. To resume any home care pt would need an appt. Could be a virtual visit if pt can't get someone to help her in for an in office appt. Called pt and appt arranged. She will try to come in. She doesn't have anyone that can help her with a virtual visit. [facility] 05-27-2024 Note HNO ID: [id number] Author: TING BARRAZA RN Service: ? Author Type: Registered Nurse Type: Progress Notes Filed: 05/27/2024 15:27 Note Text: ESCALATION Provider Action / FYI: Pt called and states she cannot get into office as she is unable to get shoes/socks on and is concerned as she has blisters on the top of her feet and wonders if there is a INVESTIGATIVE REPORTER/MD service that could come see her? Message received via: electronic scanner operator Pool Contact made with patient: Yes The patient was identified by name and date of . Discussed Care with patient Based on crosstie inspector, the following disposition is advised: No symptoms or symptoms present, not severe. Routed to: Navigation Team: PCP visit within 7 days SOFIE Education Provided this Outreach: No Ting Reyna RN May 27, 2024 1:17 PM [facility] 05-27-2024 Note Patient Outreach ([facility] CARYRASHIDA ([id number]) 1940 F Date Time Provider Department 05/27/24 TING BARRAZA During your visit today, we recorded the following information about you: Ting Barraza RN 05/27/2024 3:27 PM Signed ESCALATION Provider Action / FYI: Pt called and states she cannot get into office as she is unable to get shoes/socks on and is concerned as she has blisters on the top of her feet and wonders if there is a INVESTIGATIVE REPORTER/MD service that could come see her? Message received via: electronic scanner operator Pool Contact made with patient: Yes The patient was identified by name and date of . Discussed Care with patient Based on crosstie inspector, the following disposition is advised: No symptoms or symptoms present, not severe. Routed to: Navigation Team: PCP visit within 7 days SOFIE Education Provided this Outreach: No Ting Reyna RN May 27, 2024 1:17 PM Shirin Dumas LPN 05/27/2024 3:27 PM Signed In review pt was in the [facility] facility in March. She has HHS when discharged with [facility] home care. Called them and they discharged pt's services 04/25/24. To resume any home care pt would need an appt. Could be a virtual visit if pt can't get someone to help her in for an in office appt. Called pt and appt arranged. She will try to come in. She doesn't have anyone that can help her with a virtual visit. Shirin Dumas LPN 05/27/2024 3:37 PM Signed Appt with pcp arranged. Pt reports she would like the same home health services but only the nurse. She doesn't want any therapy care. Allergies As of Date: 05/27/2024 Noted Allergy Reaction ERYTHROMYCIN 06/13/2005 4 - Hives NAPROSYN (NAPROXEN) 06/13/2005 7 - Swelling Comments: facial swelling NUPRIN (IBUPROFEN) 07/07/2006 10 - Anaphylaxis Date Reviewed: 10/12/2023 Reviewed by: Lorin Warren, PHARMACY INTAKE COORDINATOR.OIL WELL SHOOTER - Fully Assessed Reason for Visit: Community monitoring outreach [Other] Cmt: CDM Prescriptions as of 05/27/2024 - metFORMIN (GLUCOPHAGE) 500 mg tablet Take 2 tablets by mouth two times a day with meals. - busPIRone (BUSPAR) 5 mg tablet Take 1 tablet by mouth two times a day. - glipiZIDE (GLUCOTROL XL) 10mg 24 hr tablet Take 2 tablets by mouth every morning. - lisinopril-hydroCHLOROthiazide (ZESTORETIC) 20-12.5 mg per tablet Take 2 tablets by mouth every morning. - umeclidinium-vilanterol (ANORO ELLIPTA) 62.5-25 mcg/actuation inhaler Inhale 1 Inhalation as instructed once daily. - amoxicillin (POLYMOX, AMOXIL) 500 mg capsule Take 1 capsule by mouth once daily. Per infectious disease. - COMPOUNDED PRESCRIPTION Oxygen 3L home. DX: Sob, COPD, HALL. Night time use and with activity. [facility] Supplier Problem List As Of Date 05/27/2024 Noted Resolved DIABETES MELLITUS TYPE II-UNCOMPL [E11.9] 06/13/2005 09/25/2014 Mixed hyperlipidemia [E78.2] 06/13/2005 Type II or unspecified type diabetes mellitus w* 09/25/2014 Urticaria [708] 05/31/2016 DEPRESSIVE DISORDER NEC [F32.89] 09/25/2014 Asthma with chronic obstructive pulmonary disea* Hypothyroidism [E03.9] 01/21/2008 05/31/2016 Thyrotoxicosis without mention of goiter or oth*02/01/2008 09/26/2016 Osteopenia [M85.80] 04/22/2009 Right knee pain (neuropathic) [M25.561] 02/26/2010 10/29/2019 Graves disease [E05.00] 04/28/2010 06/21/2019 Meralgia paraesthetica [G57.10] 04/28/2010 09/26/2016 Osteoarthritis [M19.90] 04/28/2010 Essential hypertension [I10] 04/28/2010 Depressive disorder [F32.A] 04/28/2010 08/19/2022 Anxiety [F41.9] 04/28/2010 10/29/2019 Recent bereavement [Z63.4] 03/13/2014 05/31/2016 Type 2 diabetes mellitus with stage 3 chronic k*01/23/2015 Acquired hypothyroidism [E03.9] 05/31/2016 02/20/2023 Morbid obesity with BMI of 50.0-59.9, adult (HC*09/26/2016 Vitamin D deficiency [E55.9] 09/26/2016 10/02/2017 Supplemental oxygen dependent [Z99.81] 09/26/2016 10/29/2019 Obstructive sleep apnea [G47.33] 10/31/2016 Needle phobia [F40.298] 12/26/2016 Stasis dermatitis of right lower extremity due *04/05/2018 Recurrent cellulitis of lower leg, right. [L03.*05/09/2018 CKD (chronic kidney disease) stage 3, GFR 30-59*06/21/2019 08/19/2022 Chronic respiratory failure with hypoxia (HCC) *07/23/2019 Hypertensive kidney disease with stage 3 chroni*11/06/2020 Leukocytosis [D72.829] 06/28/2021 Age-related physical debility [R54] 03/21/2024 Encounter Status:Closed by TING DOMÍNGUEZ on 05/27/24 [facility] 04-09-2024 Telephone encounter Note Ayse Notified. Omer Sin LPN [facility] 04-09-2024 Miscellaneous Notes Ayse Notified. Omer Sin LPN Yes Lorin Warren APRN.OIL WELL SHOOTER Ayse with [facility] calling to let you know pt is home from the [facility] and they will be provider, nursing, PT and OT. DX COPD exacerbation. uncontrolled DM. Also pt's DM medication was increased. Ayse calling to see if you will follow and sign for home health. Please advise Ayse back. Okay to leave a detailed message. Omer Sin LPN documented in this encounter [facility] 04-09-2024 Telephone encounter Note Yes Lorin Warren APRN.OIL WELL SHOOTER [facility] 04-09-2024 Telephone encounter Note [facility] calling to let you know pt is home from the [facility] and they will be provider, nursing, PT and OT. DX COPD exacerbation. uncontrolled DM. Also pt's DM medication was increased. Ayse calling to see if you will follow and sign for home health. Please advise Ayse back. Okay to leave a detailed message. Omer Sin LPN [facility] 04-02-2024 Telephone encounter Note Phoned Adriana and went over notes from Lorin Warren WET MACHINE TENDER with understanding. [facility] 04-02-2024 Miscellaneous Notes Phoned Adriana and went over notes from Lorin Warren WET MACHINE TENDER with understanding. PCP will follow. She needs hospital follow-up, should be with Dr. Wilder as he has not seen her since last year Lorin Warren APRN.OIL WELL SHOOTER Adriana with [facility] calling to see if provider will follow their orders for SN, PT, OT following discharge from [facility] today 04/02/2024. Patient was treated for fall, kidney injury, and COPD exacerbation. Qing Bright RN documented in this encounter [facility] 04-02-2024 Telephone encounter Note PCP will follow. She needs hospital follow-up, should be with Dr. Wilder as he has not seen her since last year Lorin Warren APRN.OIL WELL SHOOTER [facility] 04-02-2024 Telephone encounter Note Adraina with [facility] calling to see if provider will follow their orders for SN, PT, OT following discharge from [facility] today 04/02/2024. Patient was treated for fall, kidney injury, and COPD exacerbation. Qing Bright RN [facility] 03-22-2024 Telephone encounter Note Patient returned call and went over notes below with understanding and gave her hours office will be open to come and vegetable picker. [facility] 03-22-2024 Miscellaneous Notes Patient returned call and went over notes below with understanding and gave her hours office will be open to come and vegetable picker. Left message to call office. 03/22/2024 8:44 AM Orders have been taken to Medical Records to be picked up. ASSESSMENT/PLAN: 1. Asthma with chronic obstructive pulmonary disease (COPD) (HCC) - ICD9: 493.20, ICD10: J44.89 (primary diagnosis) - SEAT LIFT MECHANISM COMBL - RAISED TOILET SEAT 2. Osteoarthritis, unspecified osteoarthritis type, unspecified site - ICD9: 715.90, ICD10: M19.90 - SEAT LIFT MECHANISM COMBL - RAISED TOILET SEAT 3. Age-related physical debility - ICD9: 797, ICD10: R54 - SEAT LIFT MECHANISM COMBL - RAISED TOILET SEAT Dustin Wilder MD Patient phoned requesting a raised toilet seat and a lift chair. Patient is currently at [facility]. Going home 04/04/24. Call [facility] when orders/prescriptions for raised toilet seat and lift chair is ready and patient's manager of loss prevention operations Baltazar can come vegetable picker rxs please review and advise Ginette Alvarez LPN documented in this encounter [facility] 03-22-2024 Telephone encounter Note Left message to call office. 03/22/2024 8:44 AM Orders have been taken to Medical Records to be picked up. [facility] 03-21-2024 Telephone encounter Note ASSESSMENT/PLAN: 1. Asthma with chronic obstructive pulmonary disease (COPD) (HCC) - ICD9: 493.20, ICD10: J44.89 (primary diagnosis) - SEAT LIFT MECHANISM COMBL - RAISED TOILET SEAT 2. Osteoarthritis, unspecified osteoarthritis type, unspecified site - ICD9: 715.90, ICD10: M19.90 - SEAT LIFT MECHANISM COMBL - RAISED TOILET SEAT 3. Age-related physical debility - ICD9: 797, ICD10: R54 - SEAT LIFT MECHANISM COMBL - RAISED TOILET SEAT Dustin Wilder MD [facility] 03-21-2024 Telephone encounter Note Patient phoned requesting a raised toilet seat and a lift chair. [facility] Going home 04/04/24. Call [facility] when orders/prescriptions for raised toilet seat and lift chair is ready and patient's manager of loss prevention operations Baltazar can come vegetable picker rxs please review and advise Ginette Alvarez LPN [facility] 12-01-2023 Telephone encounter Note Patient has been identified by name and date of : Patient phones for refill(s): Requested Prescriptions Pending Prescriptions Disp Refills metFORMIN (GLUCOPHAGE) 500 mg tablet 360 tablet 1 Sig: Take 2 tablets by mouth two times a day with meals. Date of last office visit in primary care: 10/12/2023 Date of next office visit in primary care: 02/21/2024 Please advise. Thank you. Valeria Abad RN. [facility] 12-01-2023 Miscellaneous Notes Patient has been identified by name and date of : Patient phones for refill(s): Requested Prescriptions Pending Prescriptions Disp Refills metFORMIN (GLUCOPHAGE) 500 mg tablet 360 tablet 1 Sig: Take 2 tablets by mouth two times a day with meals. Date of last office visit in primary care: 10/12/2023 Date of next office visit in primary care: 02/21/2024 Please advise. Thank you. Valeria Abad RN. documented in this encounter [facility] 10-12-2023 Instructions Lorin Warren, PHARMACY INTAKE COORDINATOR.OIL WELL SHOOTER - 10/12/2023 1:24 PM EST [facility] Screening schedule The following prevention plan is recommended: Shingrix Vaccine(1 of 2) Never done RSV Vaccine(1 - 1-dose 60+ series) Never done Dilated Retinal Exam due on 07/18/2023 WHAT YOU CAN DO TO PREVENT FALLS Many falls can be prevented. By making some changes, you can lower your chances of falling. Four things YOU can do to prevent falls for you* and your caregiver 1. Begin a regular exercise program Exercise is one of the most important ways to lower your chances of falling. It makes you stronger and helps you feel better. Exercises that improve balance and coordination (like Jefry Chi) are the most helpful. Lack of exercise leads to weakness and increases your chances of falling. Ask your doctor or health care provider about the best type of exercise program for you. 2. Have your health care provider review your medicines Have your doctor or pharmacist review all the medicines you take, even occh-abw-tflhuko medicines. As you get older, the way medicines work in your body can change. Some medicines, or combinations of medicines, can make you sleepy or dizzy and can cause you to fall. 3. Have your vision checked Have your eyes checked by an eye doctor at least once a year. You may be wearing the wrong glasses or have a condition like glaucoma or cataracts that limits your vision. Poor vision can increase your chances of falling. 4. Make your home safer About half of all falls happen at home. To make your home safer: Remove things you can trip over (like papers, books, clothes, and shoes) from stairs and places where you walk. Remove small throw rugs or use double-sided tape to keep the rugs from slipping. Keep items you use often in cabinets you can reach easily without using a step stool. Have grab bars put in next to your toilet and in the tub or shower. Use non-slip mats in the bathtub and on shower floors. Improve the lighting in your home. As you get older, you need brighter lights to see well. Hang light-weight curtains or shades to reduce glare. Have handrails and lights put in on all staircases. Wear shoes both inside and outside the house. Avoid going barefoot or wearing slippers. For more information, contact: Centers for Disease Control and Prevention www.cdc.gov/injury * This information may not apply if you have certain medical conditions. documented in this encounter [facility] 10-12-2023 Note HNO ID: [id number] Author: LORIN WARREN APRN.CNP Service: ? Author Type: Nurse Practitioner Type: Progress Notes Filed: 10/12/2023 13:52 Note Text: Rashida Kaufman is a 83 year old female here for a Medicare wellness visit. Medicare Health Risk Assessment General Health Good Exercise: Minutes/Day 0 min Exercise: Days/Week 0 days Alcohol: Daily Use Never Alcohol: Drinks/Day Patient does not drink Alcohol: 6 or more drinks Never Feel off balance No Concerns: Teeth/Dentures No Concerns: Sexual function No Troubled by feelings Anxious Frequency: Eating healthy diet More than half the days ADLs requiring help Housework Safety precautions in home/vehicle Yes Smoke, vape, chews tobacco No Difficulty hearing Yes Difficulty seeing No Current Providers Specialists: I have reviewed specialist-related care of the patient in the medical record. Current care team: Patient Care Team: Dustin Wilder MD as PCP - General (Internal Medicine) Outside specialists seen: [facility] Medical/Family history review Reviewed and updated problem list, medical/surgical/family/social history, medications, and allergies. Opioid use review Opioid Medications (last 90 days) Some values may be hidden. Unless noted otherwise, only the newest values recorded on each date are displayed. Opioid Medications No data to display. Depression screening Depression Screening PHQ-2 Score 02/20/2023 0 Depression screening tool completed and reviewed. Based on score and interview, patient is not at risk for depression. Screening tool discussed with patient, and I recommended no further intervention at this time. Cognitive screening Mini Cog Score: 4 Cognitive screening reviewed and no further action needed (score 3-5) Functional Observation Was the patient's Timed Up AND Go test unsteady or ? 12 seconds? No Advance Care Planning Surrogate decision maker documented and/or advance directives scanned in chart Measurements BP 128/58 Pulse 98 Temp (Src) 97.1 (Right Tympanic) Resp 20 Ht 5' 3 (1.60m) Wt 293 lb 6.4 oz (133.1kg) SpO2 96% BMI 51.99 kg/(m2). Additional screenings: Vision Screening Right eye - Without correction: With correction: 20/30 Left eye - Without correction: With correction: 20/50 Both eyes - Without correction: With correction: 20/30 Assessment/Plan Medicare annual wellness visit, subsequent (Z00.00) - Counseled on healthy diet and regular exercise - Fall avoidance information provided - Personalized prevention plan provided - Discussed need for and benefit of weight loss. BMI 51.97 kg/(m2) Additional Concerns The following concerns were also discussed with the patient: Anxiety- patient reports she has been feeling more anxious lately. Worries a lot of about little things that are probably not important. Denies feeling down or depressed. She has a history of anxiety and depression. Treated for years with Wellbutrin and Buspar, also took Ativan as needed. HTN-Medication changes:No Taking all medications as prescribed: Yes Side effects: No Home BP's: No Denies: headache, chest pain, palpitations, dyspnea, and peripheral edema. Last 3 Encounter BP Readings: Date: BP: 10/12/2023 128/58 06/28/2023 140/70 02/20/2023 128/69 Diabetes: Home blood sugar readings: does not check Hypoglycemia: No She is compliant with medication(s) and is tolerating med(s) without any side effects. Increased thirst: No Urinary frequency: No Nocturia: No Fatigue: No Unintentional weight loss: No Blurred vision: No Numbness, tingling or pain in extremities: No Ulcers or sores on feet: No Last Ophthalmology exam: over one year ago, will call and schedule Patient's last HgA1C : Hemoglobin A1C (%) Date Value 02/15/2023 6.5 08/15/2022 7.6 06/24/2021 6.8 05/23/2020 8.1 COPD/chronic respiratory failure. Current symptoms: daily chronic cough and shortness of breath on exertion. Symptoms are limiting daily activities or exercise. Treatment: Anoro Ellipta and albuterol as needed. Outdoor Adventure Leader: denies, does not want to see any specialists She quit smoking 20 years ago Current oxygen use of night time and during exertion with oxygen prescription 2L/min. PHYSICAL EXAM BP 128/58 Pulse 98 Temp 36.2 ?C (97.1 ?F) (Right Tympanic) Resp 20 Ht 160 cm (5' 3 ) Wt 133.1 kg (293 lb 6.4 oz) SpO2 96% BMI 51.97 kg/m? GENERAL: well appearing, alert, in no acute distress CARDIOVASCULAR: regular rate and rhythm. No murmur, rubs or gallops. PULMONARY: clear to auscultation, no wheezing, rhonchi, or crackles Feet:Shoes and socks removed, No deformities, ulcers, calluses, and sensitive to 10 gm monofilament ASSESSMENT/PLAN: 1. Medicare annual wellness visit, subsequent - ICD9: V70.0, ICD10: Z00.00 (primary diagnosis) See medicare wellness plan 2. Anxiety - ICD9: 300.00, ICD10: F41.9 Start treatment with Buspar 5 (more content not included)... [facility] 10-12-2023 History of Presen t illness Narrative Rashida Kaufman is a 83 year old female here for a Medicare wellness visit. Medicare Health Risk Assessment General Health Good Exercise: Minutes/Day 0 min Exercise: Days/Week 0 days Alcohol: Daily Use Never Alcohol: Drinks/Day Patient does not drink Alcohol: 6 or more drinks Never Feel off balance No Concerns: Teeth/Dentures No Concerns: Sexual function No Troubled by feelings Anxious Frequency: Eating healthy diet More than half the days ADLs requiring help Housework Safety precautions in home/vehicle Yes Smoke, vape, chews tobacco No Difficulty hearing Yes Difficulty seeing No Current Providers Specialists: I have reviewed specialist-related care of the patient in the medical record. Current care team: Patient Care Team: Dustin Wilder MD as PCP - General (Internal Medicine) Outside specialists seen: [facility] Medical/Family history review Reviewed and updated problem list, medical/surgical/family/social history, medications, and allergies. Opioid use review Opioid Medications (last 90 days) Some values may be hidden. Unless noted otherwise, only the newest values recorded on each date are displayed. Opioid Medications No data to display. Depression screening Depression Screening PHQ-2 Score 02/20/2023 0 Depression screening tool completed and reviewed. Based on score and interview, patient is not at risk for depression. Screening tool discussed with patient, and I recommended no further intervention at this time. Cognitive screening Mini Cog Score: 4 Cognitive screening reviewed and no further action needed (score 3-5) Functional Observation Was the patient's Timed Up & Go test unsteady or ? 12 seconds? No Advance Care Planning Surrogate decision maker documented and/or advance directives scanned in chart Measurements BP 128/58 Pulse 98 Temp (Src) 97.1 (Right Tympanic) Resp 20 Ht 5' 3 (1.60m) Wt 293 lb 6.4 oz (133.1kg) SpO2 96% BMI 51.99 kg/(m^2). Additional screenings: Vision Screening Right eye - Without correction: With correction: 20/30 Left eye - Without correction: With correction: 20/50 Both eyes - Without correction: With correction: 20/30 Assessment/Plan Medicare annual wellness visit, subsequent (Z00.00) - Counseled on healthy diet and regular exercise - Fall avoidance information provided - Personalized prevention plan provided - Discussed need for and benefit of weight loss. BMI 51.97 kg/(m^2) Additional Concerns The following concerns were also discussed with the patient: Anxiety- patient reports she has been feeling more anxious lately. Worries a lot of about little things that are probably not important. Denies feeling down or depressed. She has a history of anxiety and depression. Treated for years with Wellbutrin and Buspar, also took Ativan as needed. HTN-Medication changes:No Taking all medications as prescribed: Yes Side effects: No Home BP's: No Denies: headache, chest pain, palpitations, dyspnea, and peripheral edema. Last 3 Encounter BP Readings: Date: BP: 10/12/2023 128/58 06/28/2023 140/70 02/20/2023 128/69 Diabetes: Home blood sugar readings: does not check Hypoglycemia: No She is compliant with medication(s) and is tolerating med(s) without any side effects. Increased thirst: No Urinary frequency: No Nocturia: No Fatigue: No Unintentional weight loss: No Blurred vision: No Numbness, tingling or pain in extremities: No Ulcers or sores on feet: No Last Ophthalmology exam: over one year ago, will call and schedule Patient's last HgA1C : Hemoglobin A1C (%) Date Value 02/15/2023 6.5 08/15/2022 7.6 06/24/2021 6.8 05/23/2020 8.1 COPD/chronic respiratory failure. Current symptoms: daily chronic cough and shortness of breath on exertion. Symptoms are limiting daily activities or exercise. Treatment: Anoro Ellipta and albuterol as needed. Outdoor Adventure Leader: denies, does not want to see any specialists She quit smoking 20 years ago Current oxygen use of night time and during exertion with oxygen prescription 2L/min. PHYSICAL EXAM BP 128/58 Pulse 98 Temp 36.2 C (97.1 F) (Right Tympanic) Resp 20 Ht 160 cm (5' 3 ) Wt 133.1 kg (293 lb 6.4 oz) SpO2 96% BMI 51.97 kg/m GENERAL: well appearing, alert, in no acute distress CARDIOVASCULAR: regular rate and rhythm. No murmur, rubs or gallops. PULMONARY: clear to auscultation, no wheezing, rhonchi, or crackles Feet:Shoes and socks removed, No deformities, ulcers, calluses, and sensitive to 10 gm monofilament ASSESSMENT/PLAN: 1. Medicare annual wellness visit, subsequent - ICD9: V70.0, ICD10: Z00.00 (primary diagnosis) See medicare wellness plan 2. Anxiety - ICD9: 300.00, ICD10: F41.9 Start treatment with Buspar 5 mg BID which she did well on previously - Reviewed benefits of sleep hygeine, diet and exercise - Follow-up in 4 weeks or sooner as needed - Instructed patient to contact office or [id number] after-hours promptly should condition worsen or any new symptoms appear. - Given information regarding [facility] Su[facility] [employer] Crisis [employer] - BUSPIRONE 5 MG TABLET 3. Essential hypertension - ICD9: 401.9, ICD10: I10 - Controlled - Continue current medications - Recommend home blood pressure monitoring, to bring results to next visit - Encouraged sodium restriction, DASH or Mediterranean diet 4. Mixed hyperlipidemia - ICD9: 272.2, ICD10: E78.2 - Control undetermined, due for labs - Continue current medications - LIPID PANEL, NONFASTING 5. Type 2 diabetes mellitus with stage 3a chronic kidney disease, without long-term current use of insulin (HCC) - ICD9: 250.40, 585.3, ICD10: E11.22, N18.31 - Control undetermined, due for labs - Continue current medications - eGFR: 47 Stable - Albuminuria: <18 - Counseled on avoiding NSAIDs, adequate hydration - Counseled on low sodium diet 6. Chronic respiratory failure with hypoxia (HCC) - ICD9: 518.83, 799.02, ICD10: J96.11 stable 7. Asthma with chronic obstructive pulmonary disease (COPD) (HCC) - ICD9: 493.20, ICD10: J44.89 stable 8. Morbid obesity with BMI of 50.0-59.9, adult (HCC) - ICD9: 278.01, V85.43, ICD10: E66.01, Z68.43 Stable 9. Encounter for immunization - ICD9: V03.89, ICD10: Z23 - [employer] COVID-19 VACCINE ( SEASON) AGE 12+ YR - INFLUENZA VACCINE, PRSV FREE, AGE 65+ YR, HIGH DOSE, QUADRIVALENT (FLUZONE HIGH-DOSE) Lorin Warren APRN.JOCELYN documented in this encounter [facility] 07-17-2023 Miscellaneous Notes Last OV: 07/06/23 - Next scheduled appt: 08/23/23 Patient has been identified by name and date of : Yes Requested Prescriptions Pending Prescriptions Disp Refills lisinopril-hydroCHLOROthiazide (ZESTORETIC) 20-12.5 mg per tablet 180 tablet 1 Sig: Take 2 tablets by mouth every morning. RX INSTRUCTIONS: Patient aware RX will be sent to pharmacy. No need to notify patient. Nellie Gracia LPN documented in this encounter [facility] 07-06-2023 Nurse Note Patient presents to office today requiring assistance placing a [employer] home ambulatory monitoring device. I placed device that was ordered by Lorin Gonzalez CNP on patient and instructed patient about device and how to record events, charge device and how to change and place electrodes. Patient instructed to either call office and speak with myself with questions or refer to instruction pamphlet/customer care # she was given. Patient and caregiver verbalized understanding. Yumiko Martell Ma documented in this encounter [facility] 06-28-2023 Note HNO ID: [id number] Author: Lorin Gonzalez APRN.OIL WELL SHOOTER Service: ? Author Type: Nurse Practitioner Type: Progress Notes Filed: 06/28/2023 10:27 AM Note Text: CC: Patient presents with: decreased heart rate when sleeping HPI Rashida Kaufman is a 83 year old female who presents today for above. Patient had nocturnal pulse ox study to qualify for home oxygen. There was an incidental finding of bradycardia with heart rate less than 40 during the study. Patient denies a history of heart disease or low heart rate. She is not on any rate controlling medications. Denies chest pain, palpitations, dizziness, lightheadedness, feeling faint, passing out, malaise, PND, orthopnea. She has chronic SOB secondary to COPD/asthma, no worse than usual. She was diagnosed with LAINA in 2017 but declined treatment with CPAP. She is unsure about snoring or witnessed apnea. Denies waking up gasping/choking. Reports un-refreshed sleep, insomnia and excessive daytime sleepiness. Review of Systems See HPI PAST MEDICAL HISTORY Diagnosis Date Acquired hypothyroidism 05/31/2016 Anxiety 04/28/2010 Asthma with chronic obstructive pulmonary disease (COPD) Cellulitis of right lower leg 02/04/2018 SIRS CKD (chronic kidney disease) Stage 3, GFR 30-59 ml/min 06/21/2019 Depression 04/28/2010 Depressive disorder 04/28/2010 Essential hypertension 04/28/2010 Graves disease 07/2008 Mixed hyperlipidemia 06/13/2005 LAINA (obstructive sleep apnea) 10/31/201610/2016 - Testing at [facility]. . Intolerant of CPAP. Osteopenia 04/22/2009 Recurrent cellulitis of lower leg, right. 05/09/2018 Right knee pain (neuropathic) 02/26/2010 Supplemental oxygen dependent 09/26/2016 since 2013, 3LPM Uncontrolled diabetes mellitus type 2 without complications 01/23/2015 Unspecified asthma(493.90) Urticaria PAST SURGICAL HISTORY Procedure Laterality Date 2D ECHO (EXEP) 03/28/2018 EF=61%, Mild LVH and Murray Dysf. no valve issues. APPENDECTOMY 195 CHOLECYSTECTOMY 1978 Cholecystectomy TOTAL ABDOMINAL HYSTERECT W/WO RMVL TUBE OVARY 1985 Hysterectomy, FLORENCIO ALLERGIES Erythromycin, Naprosyn [Naproxen], and Nuprin [Ibuprofen] MEDICATIONS glipiZIDE (GLUCOTROL XL) 10mg 24 hr tablet Take 2 tablets by mouth every morning. metFORMIN (GLUCOPHAGE) 500 mg tablet Take 2 tablets by mouth twice daily with meals. lisinopril-hydroCHLOROthiazide (ZESTORETIC) 20-12.5 mg per tablet Take 2 tablets by mouth every morning. umeclidinium-vilanterol (ANORO ELLIPTA) 62.5-25 mcg/actuation inhaler Inhale 1 Inhalation as instructed once daily. amoxicillin (POLYMOX, AMOXIL) 500 mg capsule Take 1 capsule by mouth once daily. Per infectious disease. COMPOUNDED PRESCRIPTION Oxygen 3L home. DX: Sob, COPD, HALL. Night time use and with activity. [employer] Supp[employer] FAMILY HISTORY Problem Relation Age of Onset Cancer Mother Lung cancer Diabetes Mother Diabetes Father Cancer Father skin Diabetes Sister other (Other) Sister Schumacher's palsy Diabetes Sister Heart Attack Sister d/t [place] None Sister Heart Attack Other d/t [place] @ 57 year, Maternal niece Social History Tobacco Use Smoking status: Former Packs/day: 0.50 Years: 7.00 Additional pack years: 0.00 Total pack years: 3.50 Types: Cigarettes Start date: 08/07/1996 Quit date: 08/07/2003 Years since quittin.9 Smokeless tobacco: Never Substance Use Topics Alcohol use: No Drug use: No BP 140/70 Pulse 88 Resp 20 SpO2 98% Physical Exam Vitals reviewed. Constitutional: General: She is not in acute distress. Appearance: She is obese. She is not ill-appearing. Cardiovascular: Rate and Rhythm: Normal rate and regular rhythm. Pulses: Normal pulses. Heart sounds: Normal heart sounds. No murmur heard. Pulmonary: Effort: Pulmonary effort is normal. Breath sounds: Normal breath sounds. No wheezing, rhonchi or rales. Musculoskeletal: Right lower leg: No edema. Left lower leg: No edema. Neurological: Mental Status: She is alert. ASSESSMENT/PLAN: 1. Bradycardia - ICD9: 427.89, ICD10: R00.1 (primary diagnosis) Etiology unclear. Possibly secondary to untreated sleep apnea. No concerning symptoms or exam findings today. - ECG COMPLETE today normal sinus rhythm with occasional PVC's. No changes from previous in 2018. - recommend ambulatory campus monitor for further evaluation, patient agreeable. - see plan below 2. Obstructive sleep apnea - ICD9: 327.23, ICD10: G47.33 Discussed potential risks of untreated sleep apnea including heart attack and stroke. Recommend repeat sleep study, patient agreeable. She is adamant that she will not be able to tolerate any type of mask. If sleep study indicates sleep apnea she will be referred to sleep medicine, patient agreeable to this. Prescription instructions reviewed with patient as applicable. Potential red flag symptoms discussed with the patient. Reviewed appropriate action (more content not included)... [facility] 06-27-2023 Miscellaneous Notes Pt called back and apt scheduled for 06-28-23. Omer Sin LPN Pt called and is notified of providers results and instructions. Pt voices understanding. She is going to call back to make the appointment. Sharri Ling, LAMIN Please let the patient know her during the nocturnal pulse ox study her heart rate continually dropped less than 40 which is concerning for a heart arrhythmia. It is recommended she schedule a follow-up appointment for this in order to determine if additional cardiac testing is needed. Lorin Gonzalez APRN.CNP documented in this encounter [facility] 05-02-2023 Miscellaneous Notes Order faxed to [facility]. Yeni Renee LPN ASSESSMENT/PLAN: 1. Chronic respiratory failure with hypoxia (HCC) - ICD9: 518.83, 799.02, ICD10: J96.11 - OXIMETRY - NOCTURNAL Please forward to her primary care team. Lorrie Blanco APRN.JOCELYN Ana with [facility] calls to request an order for a nocturnal pulse ox . They will call pt to schedule. Fax order to: [phone]. Nellie Gracia LPN Please contact to schedule. TC to Mare/Patient did not qualify for the oxygen with exertion, reading 93,93,94. Does not need continuous oxygen. Needs to have nighttime nocturnal test, spo w/o oxygen in order to DC oxygen. Yeni Renee LPN Office opens at 8:30. Will call back later. [facility] [phone] The only request previously was from her insurance for oxygen testing was with ambulation (see phone note 03/09/23) which was ordered and completed. Please find out from [facility] what exactly is needed Lorin Gonzalez APRN.CNP Pt states when she had the pulse oximetry test at the hospital she was told she was to have another test done where her oxygen would be checked while she was sleeping. Pt states she has been waiting for call from pcp's office to schedule. Krista Sesay LPN documented in this encounter [facility] 03-22-2023 Procedure note Associated Ord er(s): OXIMETRY WITH AMBULATION RESPIRATORY THERAPY OXIMETRY WITH AMBULATION Oximetry with Ambulation Test for This Encounter O2 Device O2 Adapter NC O2 Flow SpO2% HR Activity Ft Walked (ft) Time (min) Avg Speed (MPH) R/A 93 89 Resting R/A 93 129 Walking, usual pace 200 3 0.76 R/A 94 104 Resting General Information Pulse Oximetry Site Total Time Spent O2 Supply Carrier Walking Assistance/Device L Index Finger 20 -- 3 Wheel Walker NAME: JENIFFER Sullivan PATIENT NAME: Rashida Kaufman DATE: March 22, 2023 TIME: 9:14 AM Comment: patient ambulated with rollator for stability. documented in this encounter [facility] 03-22-2023 History of Presen t illness Narrative PULM FUNCTION SMARTBLOCK: Provider: Dustin Wilder MD Assisting Tech: Meena Brito RPFT Oximetry - Ambulation: 1 documented in this encounter [facility] 03-20-2023 Miscellaneous Notes Scheduled. Omer Sin LPN Please contact Patient to schedule Oximetry with Ambulation. Yeni Renee LPN Please review. Pending is the O 2 with rest,ambulating then with O2 to see if pulse ox improved. Not sure if you want pulse ox at night? Pt calling to let you know she received a call from [employer] and needs to requalify for her home oxygen. Pt uses this at night and sometimes thru the day if needed. Spoke with [facility] and they need the following: Pt is Medicare and they stressed to make sure everything is done correctly. Pt waiting to hear from you to schedule testing needed. 1)Pt will need to be requalfied and results faxed to them 2)Office notes faxed 3)order for the oxygen faxed PH: [phone] ext [phone] FAX: [phone] Omer Sin LPN documented in this encounter [facility] 03-02-2023 Miscellaneous Notes Printed order faxed as requested. ASSESSMENT/PLAN: 1. Chronic respiratory failure with hypoxia (HCC) - ICD9: 518.83, 799.02, ICD10: J96.11 Printed order. - CANNULA NASAL Dustin Wilder MD Patient calls and states that she needs an order for her oxygen tubing. Patient states that she uses oxy nasal cannula [id number] tubing. Patient states that this order can be faxed to [facility] [phone]. Patient states if there are question can call [phone]. Please review and advise, Valeria Abad RN documented in this encounter [facility] 02-20-2023 Instructions Dustin Wilder MD - 02/20/2023 2:16 PM EDT Recombinant shingles vaccine (Shingrix) is recommended; 2 doses 2-6 months apart. Please read information, check with your insurance, and schedule vaccination at your local pharmacy. A prescription is not required. If you are certain you have coverage to receive this vaccine in the office, we can schedule this for you. Tetanus booster (Tdap) vaccine at your pharmacy also. documented in this encounter [facility] 02-20-2023 History of Presen t illness Narrative This note was created using Spectafy. Subjective Rashida Kaufman is a 83 year old female. She was doing well with no new concerns. She mentioned transient left chest pain with immediate relief from burping one week ago. Review of Systems Constitutional: Negative for chills and fever. Respiratory: Negative for cough, chest tightness, shortness of breath and wheezing. Cardiovascular: Negative for chest pain, palpitations and leg swelling. Gastrointestinal: Negative for abdominal pain. Genitourinary: Negative for difficulty urinating and dysuria. Musculoskeletal: Negative. 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 Chronic Respiratory Failure With Hypoxia (Hcc) Hypertensive Kidney Disease With Stage 3 Chronic Kidney Disease ([facility]) Leukocytosis Current Outpatient Medications Medication Sig glipiZIDE (GLUCOTROL XL) 10mg 24 hr tablet Take 2 tablets by mouth every morning. umeclidinium-vilanterol (ANORO ELLIPTA) 62.5-25 mcg/actuation inhaler Inhale 1 Inhalation as instructed once daily. metFORMIN (GLUCOPHAGE) 500 mg tablet Take 2 tablets by mouth twice daily with meals. lisinopril-hydroCHLOROthiazide (PRINZIDE,ZESTORETIC) 20-12.5 mg per tablet Take 2 tablets by mouth every morning. amoxicillin (POLYMOX, AMOXIL) 500 mg capsule Take 1 capsule by mouth once daily. Per infectious disease. COMPOUNDED PRESCRIPTION Oxygen 3L home. DX: Sob, COPD, HALL. Night time use and with activity. [facility] Supplier No current facility-administered medications for this visit. Objective BP 128/69 (BP Site: Right Arm, BP Position: Sitting, BP Cuff Size: Large Adult) Pulse 89 Resp 20 Wt 130.2 kg (287 lb) BMI 50.04 kg/m Physical Exam Constitutional: General: She is not in acute distress. Appearance: She is not ill-appearing or diaphoretic. HENT: Head: Normocephalic. Eyes: Conjunctiva/sclera: Conjunctivae normal. Cardiovascular: Rate and Rhythm: Normal rate and regular rhythm. Heart sounds: No murmur heard. No gallop. Pulmonary: Breath sounds: Normal breath sounds. No wheezing or rales. Abdominal: Palpations: Abdomen is soft. Tenderness: There is no abdominal tenderness. Musculoskeletal: Right lower leg: No edema. Left lower leg: No edema. Neurological: General: No focal deficit present. Mental Status: She is alert. Component Latest Ref Rng & Units 02/15/2023 WBC 3.70 - 11.00 k/uL 13.54 (H) RBC 3.90 - 5.20 m/uL 3.99 Hemoglobin 11.5 - 15.5 g/dL 12.6 Hematocrit 36.0 - 46.0 % 41.0 MCV 80.0 - 100.0 fL 102.8 (H) MCH 26.0 - 34.0 pg 31.6 MCHC 30.5 - 36.0 g/dL 30.7 RDW-CV 11.5 - 15.0 % 13.2 Platelet Count 150 - 400 k/uL 280 MPV 9.0 - 12.7 fL 11.8 Absolute nRBC <0.01 k/uL <0.01 Glucose 74 - 99 mg/dL 77 BUN 7 - 21 mg/dL 20 Creatinine 0.58 - 0.96 mg/dL 1.15 (H) Sodium 136 - 144 mmol/L 136 Potassium 3.7 - 5.1 mmol/L 3.9 Chloride 97 - 105 mmol/L 96 (L) CO2 22 - 30 mmol/L 29 Anion Gap 9 - 18 mmol/L 11 Calcium 8.5 - 10.2 mg/dL 8.6 eGFR >=60 mL/min/1.73m 47 (L) Creatinine, Ur Random (UCRR) 20.0 - 300.0 mg/dL Albumin, Urine Random mg/L Albumin/Creat Ratio <30 mg/g Hemoglobin A1C 4.3 - 5.6 % 6.5 (H) Estimated Average Glucose mg/dL 140 Assessment and Plan 1. Essential hypertension - ICD9: 401.9, ICD10: I10 (primary diagnosis) - Controlled - Continue current medications - LISINOPRIL 20 MG-HYDROCHLOROTHIAZIDE 12.5 MG TABLET 2. Type 2 diabetes mellitus with stage 3 chronic kidney disease, without long-term current use of insulin (HCC) - ICD9: 250.40, 585.3, ICD10: E11.22, N18.30 - Controlled - Continue current medications - eGFR: Stable - Counseled on avoiding NSAIDs, adequate hydration - GLIPIZIDE ER 10 MG TABLET, EXTENDED RELEASE 24 HR - METFORMIN 500 MG TABLET - HGB A1C 3. Mixed hyperlipidemia - ICD9: 272.2, ICD10: E78.2 - Controlled - Continue current medications - Counseled on healthy diet and regular exercise - COMP METABOLIC PANEL - LIPID PANEL BASIC 4. Asthma with chronic obstructive pulmonary disease (COPD) (HCC) - ICD9: 493.20, ICD10: J44.9 - Mild intermittent asthma stable - Avoidance of triggers recommended 5. Need for COVID-19 vaccine - ICD9: V04.89, ICD10: Z23 - PFIZER-BIONTECH COVID-19 BIVALENT VACCINE, AGE 12+ YR 6. Leukocytosis, unspecified type - ICD9: 288.60, ICD10: D72.829 Chronic, stable. Dustin Wilder MD documented in this encounter [facility] 02-20-2023 Evaluation note Diagnosis Essential hypertension- Primary Unspecified essential hypertension Type 2 diabetes mellitus with stage 3a chronic kidney disease, without long-term current use of insulin (HCC) Mixed hyperlipidemia Asthma with chronic obstructive pulmonary disease (COPD) (HCC) Chronic obstructive asthma, unspecified Need for COVID-19 vaccine Leukocytosis, unspecified type documented in this encounter [facility]02-06-2023 Miscellaneous Notes* Telephone Encounter - Ani Sullivan RN - 09/12/2022 1:33 PM EST Patient has been identified by name and date of : Yes, Provider Date Time Patient phones for refill(s): Requested Prescriptions Pending Prescriptions Disp Refills glipiZIDE XL (GLUCOTROL XL) 10 mg 24 hr tablet 180 tablet 1 Sig: Take 2 tablets by mouth every morning. Date of last office visit with pcp: 08/19/22 Date of last office visit in primary care: Last 2 Encounter Wt Readings: Date: Wt: 08/19/2022 127.9 kg (282 lb) 02/23/2022 131.1 kg (289 lb) Previous labs/tests for medication: Diabetes: Hemoglobin A1C (%) Date Value 08/15/2022 7.6 02/14/2022 7.0 06/24/2021 6.8 05/23/2020 8.1 Please advise. Thank you. Ani Sullivan RN [facility] Miscellaneous Notes* Telephone Encounter - Dustin Wilder MD - 08/30/2022 6:12 PM EST Disregard. * Telephone Encounter - Erlinda Sun LPN - 08/26/2022 2:05 PM EST Per request of PCP, nursing phoned [facility] pharmacy to request medication profile due to inconsistent refills. Antione , pharmacy staff not able to download the profile or unless a patient family member able to pick it up personally. Please advise. Erlinda Sun LPN [facility] Miscellaneous Notes* Telephone Encounter - Shirin Dumas LPN - 03/03/2022 4:08 PM EDT Patient notified of results and provider's instructions. Patient verbalizes understanding. Shirin Dumas LPN * Telephone Encounter - Shirin Dumas LPN - 03/03/2022 4:07 PM EDT ----- Message from Dustin Wilder MD sent at 03/03/2022 1:59 PM EDT ----- Labs with stable abnormalities. Watch carbohydrates. Hydrate well. documented in this encounterPro[facility] Instructions* Patient Instructions* Lorin Gonzalez APRN.CNP - 02/23/2022 1:11 PM EDT Increase Amoxicillin to twice a day for the next 4 days Call office in one week if sore throat persists General: - Use gargles to relieve throat pain. Prepare double-strength tea, hot or cold, or a salt-water solution (1 teaspoon salt in 8 oz. warm water). Use to gargle as often as you wish. - Use a cool-mist, ultrasonic humidifier to increase air moisture. This will relieve the dry, tightfeeling in the throat. Clean humidifier daily. - Replace your toothbrush. It may harbor germs. - Until infection is gone, use separate washcloths; don't share food. - It is not abnormal for a viral infection to be symptomatic for a week. Medication: - For minor discomfort, you may use non-prescription drugs such as acetaminophen or ibuprofen - Non-prescription throat lozenges may help ease discomfort. documented in this encounter[facility] History of Present illness Narrative* Lorin Gonzalez APRN.CNP - 02/23/2022 12:45 PM EDT CC: Patient presents with: left side of throat sore: x 4 days - on amoxicillin from Dr. oHrowitz HPI Rashida Kaufman is a 82 year old female who presents today for above. Patient reports the left side of her throat has been sore for the past 4 days. Denies fever, chills, fatigue, difficulty swallowing, post nasal drainage, rhinorrhea, nasal congestion, swollen glands,heartburn/reflux symptoms. No history of seasonal allergies. No sick contacts. She is currently on Amoxicillin 500 mg daily for chronic skin infections. Today throat is not as sore. REVIEW OF SYSTEMS Respiratory: no cough, no wheezing, no hemoptysis GI: Negative for nausea, vomiting PAST MEDICAL HISTORY Diagnosis Date Acquired hypothyroidism 05/31/2016 Anxiety 04/28/2010 Asthma with chronic obstructive pulmonary disease (COPD) (HCC) Cellulitis of right lower leg 02/04/2018 SIRS CKD (chronic kidney disease) Stage 3, GFR 30-59 ml/min 06/21/2019 Depression 04/28/2010 Essential hypertension 04/28/2010 Graves disease 07/2008 Mixed hyperlipidemia 06/13/2005 LAINA (obstructive sleep apnea) 10/31/201610/2016 - Testing at [facility]. . Intolerant of CPAP. Osteopenia 04/22/2009 Recurrent cellulitis of lower leg, right. 05/09/2018 Right knee pain (neuropathic) 02/26/2010 Supplemental oxygen dependent 09/26/2016 since 2013, 3LPM Uncontrolled diabetes mellitus type 2 without complications 01/23/2015 Unspecified asthma(493.90) Urticaria PAST SURGICAL HISTORY Procedure Laterality Date 2D ECHO (EXEP) 03/28/2018 EF=61%, Mild LVH and Murray Dysf. no valve issues. APPENDECTOMY 1958 CHOLECYSTECTOMY 1978 Cholecystectomy TOTAL ABDOMINAL HYSTERECT W/WO RMVL TUBE OVARY 1985 Hysterectomy, FLORENCIO ALLERGIES Erythromycin, Naprosyn [Naproxen], and Nuprin [Ibuprofen] MEDICATIONS metFORMIN (GLUCOPHAGE) 500 mg tablet Take 2 tablets by mouth twice daily with meals. lisinopril-hydroCHLOROthiazide (PRINZIDE,ZESTORETIC) 20-12.5 mg per tablet Take 2 tablets by mouth every morning. glipiZIDE (GLUCOTROL XL) 10mg 24 hr tablet Take 2 tablets by mouth every morning. umeclidinium-vilanterol (ANORO ELLIPTA) 62.5-25 mcg/actuation inhaler Inhale 1 Inhalation as instructed once daily. gabapentin (NEURONTIN) 100 mg capsule Take 1 capsule by mouth daily at bedtime for 180 days. linaGLIPtin (TRADJENTA) 5 mg tab Take 1 tablet by mouth once daily. amoxicillin (POLYMOX, AMOXIL) 500 mg capsule Take 1 capsule by mouth once daily. Per infectious disease. COMPOUNDED PRESCRIPTION Oxygen 3L home. DX: Sob, COPD, HALL. Night time use and with activity. [facility] Supplier FAMILY HISTORY Problem Relation Age of Onset Cancer Mother Lung cancer Diabetes Mother Diabetes Father Cancer Father skin Diabetes Sister other (Other) Sister Schumacher's palsy Diabetes Sister Heart Attack Sister d/t [place] None Sister Heart Attack Other d/t [place] @ 57 year, Maternal niece Social History Tobacco Use Smoking status: Former Smoker Packs/day: 0.50 Years: 7.00 Pack years: 3.50 Types: Cigarettes Start date: 08/07/1996 Quit date: 08/07/2003 Years since quittin.5 Smokeless tobacco: Never Used Substance Use Topics Alcohol use: No Drug use: No PHYSICAL EXAM BP 136/88 Pulse 92 Temp 36.7 C (98 F) (Temporal) Resp 16 Wt 131.1 kg (289 lb) SpO2 93% BMI 50.39 kg/m General Appearance: well appearing, in no acute distress, alert Neck: Neck supple, No adenopathy Oropharynx: lips normal without lesions, tongue midline and normal, soft palate, uvula, and tonsilsnormal Lymph nodes: No supraclavicular lymphadenopathy Lungs: Lungs clear to auscultation. No wheezing, rhonchi, rales. Heart: RRR without murmur, gallop, or rubs. No ectopy ASSESSMENT/PLAN: 1. Sore throat - ICD9: 462, ICD10: J02.9 - suspect viral however patient has been taking Amoxicillin 2 times a day for the past 3 days now and symptoms have been improving - Alere Strep Test negative, no culture pending - Continue with Amoxicillin twice a day for a total of 7 days - The patient may also use warm salt water gargles, throat lozenges and/or OTC throat spray as needed. - The patient should follow up in one week if symptoms persist or worsen - STREP A MOLECULAR (POC) Prescription instructions reviewed with patient as applicable. Potential red flag symptoms discussed with the patient. Reviewed appropriate action plan to take if red flag symptoms occur. Patient agreeable to treatment plan. Lorin Gonzalez APRN.CNP documented in this encounterPro[facility] History of Present illness Narrative* Dustin Wilder MD - 02/14/2022 1:58 PM EDT This note was created using Spectafy. Subjective Rashida Kaufman is a 82 year old female. She was here with her significant other. She had no concerns. She stopped tradjenta one month or more ago, and felt less fatigue. She was not checking homeglucose. She denied falling. Living will was discussed, and she will provide a copy. Her home partner was primary surrogate. Review of Systems Constitutional: Negative for fatigue and fever. Respiratory: Negative for cough, shortness of breath and wheezing. Cardiovascular: Negative for chest pain, palpitations and leg swelling. Gastrointestinal: Negative. Musculoskeletal: Positive for gait problem. Psychiatric/Behavioral: Negative. 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 Ckd (Chronic Kidney Disease) Stage 3, Gfr 30-59 Ml/Min (Hcc) Chronic Respiratory Failure With Hypoxia (Hcc) Hypertensive Kidney Disease With Stage 3 Chronic Kidney Disease (Hcc) Leukocytosis Current Outpatient Medications Medication Sig umeclidinium-vilanterol (ANORO ELLIPTA) 62.5-25 mcg/actuation inhaler Inhale 1 Inhalation as instructed once daily. lisinopril-hydroCHLOROthiazide (PRINZIDE,ZESTORETIC) 20-12.5 mg per tablet Take 2 tablets by mouth every morning. glipiZIDE (GLUCOTROL XL) 10mg 24 hr tablet Take 2 tablets by mouth every morning. metFORMIN (GLUCOPHAGE) 500 mg tablet Take 2 tablets by mouth twice daily with meals. amoxicillin (POLYMOX, AMOXIL) 500 mg capsule Take 1 capsule by mouth once daily. Per infectious disease. COMPOUNDED PRESCRIPTION Oxygen 3L home. DX: Sob, COPD, HALL. Night time use and with activity. [facility] Supplier gabapentin (NEURONTIN) 100 mg capsule Take 1 capsule by mouth daily at bedtime for 180 days. (Patient not taking: Reported on 02/14/2022) linaGLIPtin (TRADJENTA) 5 mg tab Take 1 tablet by mouth once daily. (Patient not taking: Reported on 02/14/2022 ) No current facility-administered medications for this visit. Objective BP 120/70 (BP Site: Right Arm, BP Position: Sitting, BP Cuff Size: Large Adult) Pulse 92 Temp 36.5 C (97.7 F) (Temporal Artery) Resp 18 Wt 131.5 kg (290 lb) SpO2 93% BMI 50.57 kg/m Physical Exam Constitutional: General: She is not in acute distress. Appearance: She is obese. Comments: Ambulatory with cane. On portable O2. Cardiovascular: Rate and Rhythm: Normal rate and regular rhythm. Heart sounds: No murmur heard. No gallop. Pulmonary: Breath sounds: Normal breath sounds. No wheezing or rales. Abdominal: Tenderness: There is no abdominal tenderness. Musculoskeletal: Right lower leg: No edema. Left lower leg: No edema. Neurological: Gait: Gait abnormal. Psychiatric: Mood and Affect: Mood normal. Assessment and Plan 1. Stage 3a chronic kidney disease (HCC) - ICD9: 585.3, ICD10: N18.31 (primary diagnosis) Recheck today. - CBC - BASIC METABOLIC PNL 2. Type 2 diabetes mellitus with stage 3 chronic kidney disease, without long- term current use of insulin (HCC) - ICD9: 250.40, 585.3, ICD10: E11.22, N18.30 Poor adherence to plan of care. - METFORMIN 500 MG TABLET - GLIPIZIDE ER 10 MG TABLET, EXTENDED RELEASE 24 HR - HGB A1C - COMP METABOLIC PANEL - LIPID PANEL BASIC - HGB A1C - ALBUMIN/CREAT RATIO RND UR 3. Essential hypertension - ICD9: 401.9, ICD10: I10 - good control - LISINOPRIL 20 MG-HYDROCHLOROTHIAZIDE 12.5 MG TABLET 4. Need for COVID-19 vaccine - ICD9: V04.89, ICD10: Z23 - PFIZER-BIONTECH COVID-19 VACCINE, AGE 12+ YR (COSME TOP) Health maintenance was discussed, and updated. Dustin Wilder MD [facility]* Diagnosis Stage 3a chronic kidney disease (HCC)- Primary Type 2 diabetes mellitus with stage 3a chronic kidney disease, without long-term current use of insulin (HCC) Essential hypertension Unspecified essential hypertension Need for COVID-19 vaccine documented in this encounter [facility] History of Past illness Narrative* Problem Noted Date Resolved Date CKD (chronic kidney disease) stage 3, GFR 30-59 ml/min 06/21/2019 08/19/2022 LAINA (obstructive sleep apnea) 10/31/2016 Overview: 10/2016 - Testing at [facility]. . Intolerant of CPAP. Vitamin D deficiency 09/26/2016 10/02/2017 Supplemental oxygen dependent 09/26/2016 Recent bereavement 03/13/2014 05/31/2016 Graves disease 04/28/2010 06/21/2019 Meralgia paraesthetica 04/28/2010 7 Depressive disorder 04/28/2010 08/19/2022 Anxiety 04/28/2010 10/29/2019 Right knee pain (neuropathic) 02/26/2010 Thyrotoxicosis 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 or other cause, without mention of thyrotoxic crisis or storm 02/01/2008 09/26/19 17 Hypothyroidism 01/21/2008 05/31/2016 DIABETES MELLITUS TYPE II-UNCOMPL 06/13/2005 09/25/2014 Type II or unspecified type diabetes mellitus without mention of complication, uncontrolled 09/25/2014 Urticaria 05/31/2016 DEPRESSIVE DISORDER NEC 09/25/19 15 documented as of this encounter (statuses as of 08/31/2022) [facility] of Past illness Narrative* Problem Noted Date Resolved Date CKD (chronic kidney disease) stage 3, GFR 30-59 ml/min 06/21/2019 08/19/2022 LAINA (obstructive sleep apnea) 10/31/2016 Overview: 10/2016 - Testing at [facility]. . Intolerant of CPAP. Vitamin D deficiency 09/26/2016 10/02/2017 Supplemental oxygen dependent 09/26/2016 Recent bereavement 03/13/2014 05/31/2016 Graves disease 04/28/2010 06/21/2019 Meralgia paraesthetica 04/28/2010 7 Depressive disorder 04/28/2010 08/19/2022 Anxiety 04/28/2010 10/29/2019 Right knee pain (neuropathic) 02/26/2010 Thyrotoxicosis 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 or other cause, without mention of thyrotoxic crisis or storm 02/01/2008 09/26/19 17 Hypothyroidism 01/21/2008 05/31/2016 DIABETES MELLITUS TYPE II-UNCOMPL 06/13/2005 09/25/2014 Type II or unspecified type diabetes mellitus without mention of complication, uncontrolled 09/25/2014 Urticaria 05/31/2016 DEPRESSIVE DISORDER NEC 09/25/19 15 documented as of this encounter (statuses as of 09/12/2022) [facility] of Past illness Narrative* Problem Noted Date Diagnosed Date Resolved Date CKD (chronic kidney disease) stage 3, GFR 30-59 ml/min 06/21/2019 08/19/2022 LAINA (obstructive sleep apnea) 10/31/2016 06/21/2019 Overview: 10/2016 - Testing at [facility]. . Intolerant of CPAP. Vitamin D deficiency 09/26/2016 018 Supplemental oxygen dependent 09/26/2016 10/29/2019 Acquired hypothyroidism 05/31/2016 07/02/2023 Recent bereavement 03/13/2014 6 Graves disease 04/28/2010 06/21/2019 Meralgia paraesthetica 04/28/201009/26 Depressive disorder 04/28/2010 08/19/19 23 Anxiety 04/28/2010 10/29/2019 Right knee pain (neuropathic) 02/26/2010 10/29/2019 Thyrotoxicosis 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 or other cause, without mention of thyrotoxic crisis or storm 02/01/2008 09/26/2016 Hypothyroidism 01/21/2008 05/31/2016 DIABETES MELLITUS TYPE II-UNCOMPL 06/13/2005 09/25/2014 Type II or unspecified type diabetes mellitus without mention of complication, uncontrolled 09/25/2014 Urticaria 05/31/2016 DEPRESSIVE DISORDER NEC 09/07 documented as of this encounter (statuses as of 02/21/2023) [facility] of Past illness Narrative* Problem Noted Date Diagnosed Date Resolved Date CKD (chronic kidney disease) stage 3, GFR 30-59 ml/min 06/21/2019 08/19/2022 LAINA (obstructive sleep apnea) 10/31/2016 06/21/2019 Overview: 10/2016 - Testing at [facility]. . Intolerant of CPAP. Vitamin D deficiency 09/26/2016 018 Supplemental oxygen dependent 09/26/2016 10/29/2019 Acquired hypothyroidism 05/31/201602/04 Recent bereavement 03/13/2014 6 Graves disease 04/28/2010 06/21/2019 Meralgia paraesthetica 04/28/201009/26 Depressive disorder 04/28/2010 08/19/19 23 Anxiety 04/28/2010 10/29/2019 Right knee pain (neuropathic) 02/26/2010 10/29/2019 Thyrotoxicosis 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 or other cause, without mention of thyrotoxic crisis or storm 02/01/2008 09/26/2016 Hypothyroidism 01/21/2008 05/31/2016 DIABETES MELLITUS TYPE II-UNCOMPL 06/13/2005 09/25/2014 Type II or unspecified type diabetes mellitus without mention of complication, uncontrolled 09/25/2014 Urticaria 05/31/2016 DEPRESSIVE DISORDER NEC 09/07 documented as of this encounter (statuses as of 03/02/2023) [facility] of Past illness Narrative* Problem Noted Date Diagnosed Date Resolved Date CKD (chronic kidney disease) stage 3, GFR 30-59 ml/min 06/21/2019 08/19/2022 LAINA (obstructive sleep apnea) 10/31/2016 06/21/2019 Overview: 10/2016 - Testing at [facility]. . Intolerant of CPAP. Vitamin D deficiency 09/26/2016 018 Supplemental oxygen dependent 09/26/2016 10/29/2019 Acquired hypothyroidism 05/31/201602/04 Recent bereavement 03/13/2014 6 Graves disease 04/28/2010 06/21/2019 Meralgia paraesthetica 04/28/201009/26 Depressive disorder 04/28/2010 08/19/19 23 Anxiety 04/28/2010 10/29/2019 Right knee pain (neuropathic) 02/26/2010 10/29/2019 Thyrotoxicosis 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 or other cause, without mention of thyrotoxic crisis or storm 02/01/2008 09/26/2016 Hypothyroidism 01/21/2008 05/31/2016 DIABETES MELLITUS TYPE II-UNCOMPL 06/13/2005 09/25/2014 Type II or unspecified type diabetes mellitus without mention of complication, uncontrolled 09/25/2014 Urticaria 05/31/2016 DEPRESSIVE DISORDER NEC 09/07 documented as of this encounter (statuses as of 03/20/2023) [facility] Past illness Narrative* Problem Noted Date Diagnosed Date Resolved Date CKD (chronic kidney disease) stage 3, GFR 30-59 ml/min 06/21/2019 08/19/2022 LAINA (obstructive sleep apnea) 10/31/2016 06/21/2019 Overview: 10/2016 - Testing at [facility]. . Intolerant of CPAP. Vitamin D deficiency 09/26/2016 018 Supplemental oxygen dependent 09/26/2016 10/29/2019 Acquired hypothyroidism 05/31/201602/04 Recent bereavement 03/13/2014 6 Graves disease 04/28/2010 06/21/2019 Meralgia paraesthetica 04/28/201009/26 Depressive disorder 04/28/2010 08/19/19 23 Anxiety 04/28/2010 10/29/2019 Right knee pain (neuropathic) 02/26/2010 10/29/2019 Thyrotoxicosis 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 or other cause, without mention of thyrotoxic crisis or storm 02/01/2008 09/26/2016 Hypothyroidism 01/21/2008 05/31/2016 DIABETES MELLITUS TYPE II-UNCOMPL 06/13/2005 09/25/2014 Type II or unspecified type diabetes mellitus without mention of complication, uncontrolled 09/25/2014 Urticaria 05/31/2016 DEPRESSIVE DISORDER NEC 09/07 documented as of this encounter (statuses as of 03/22/2023) [facility] Past illness Narrative* Problem Noted Date Diagnosed Date Resolved Date CKD (chronic kidney disease) stage 3, GFR 30-59 ml/min 06/21/2019 08/19/2022 LAINA (obstructive sleep apnea) 10/31/2016 06/21/2019 Overview: 10/2016 - Testing at [facility]. . Intolerant of CPAP. Vitamin D deficiency 09/26/2016 018 Supplemental oxygen dependent 09/26/2016 10/29/2019 Acquired hypothyroidism 05/31/201602/04 Recent bereavement 03/13/2014 6 Graves disease 04/28/2010 06/21/2019 Meralgia paraesthetica 04/28/201009/26 Depressive disorder 04/28/2010 08/19/19 23 Anxiety 04/28/2010 10/29/2019 Right knee pain (neuropathic) 02/26/2010 10/29/2019 Thyrotoxicosis 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 or other cause, without mention of thyrotoxic crisis or storm 02/01/2008 09/26/2016 Hypothyroidism 01/21/2008 05/31/2016 DIABETES MELLITUS TYPE II-UNCOMPL 06/13/2005 09/25/2014 Type II or unspecified type diabetes mellitus without mention of complication, uncontrolled 09/25/2014 Urticaria 05/31/2016 DEPRESSIVE DISORDER NEC 09/07 documented as of this encounter (statuses as of 05/02/2023) [facility] illness Narrative* Problem Noted Date Diagnosed Date Resolved Date CKD (chronic kidney disease) stage 3, GFR 30-59 ml/min 06/21/2019 08/19/2022 LAINA (obstructive sleep apnea) 10/31/2016 06/21/2019 Overview: 10/2016 - Testing at [facility]. . Intolerant of CPAP. Vitamin D deficiency 09/26/2016 018 Supplemental oxygen dependent 09/26/2016 10/29/2019 Acquired hypothyroidism 05/31/201602/04 Recent bereavement 03/13/2014 6 Graves disease 04/28/2010 06/21/2019 Meralgia paraesthetica 04/28/201009/26 Depressive disorder 04/28/2010 08/19/19 23 Anxiety 04/28/2010 10/29/2019 Right knee pain (neuropathic) 02/26/2010 10/29/2019 Thyrotoxicosis 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 or other cause, without mention of thyrotoxic crisis or storm 02/01/2008 09/26/2016 Hypothyroidism 01/21/2008 05/31/2016 DIABETES MELLITUS TYPE II-UNCOMPL 06/13/2005 09/25/2014 Type II or unspecified type diabetes mellitus without mention of complication, uncontrolled 09/25/2014 Urticaria 05/31/2016 DEPRESSIVE DISORDER NEC 09/07 documented as of this encounter (statuses as of 06/28/2023) [facility] Past illness Narrative* Problem Noted Date Diagnosed Date Resolved Date CKD (chronic kidney disease) stage 3, GFR 30-59 ml/min 06/21/2019 08/19/2022 Vitamin D deficiency 09/26/2016 018 Supplemental oxygen dependent 09/26/2016 10/29/2019 Acquired hypothyroidism 05/31/201602/04 Recent bereavement 03/13/2014 6 Graves disease 04/28/2010 06/21/2019 Meralgia paraesthetica 04/28/201009/26 Depressive disorder 04/28/2010 08/19/19 23 Anxiety 04/28/2010 10/29/2019 Right knee pain (neuropathic) 02/26/2010 10/29/2019 Thyrotoxicosis 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 or other cause, without mention of thyrotoxic crisis or storm 02/01/2008 09/26/2016 Hypothyroidism 01/21/2008 05/31/2016 DIABETES MELLITUS TYPE II-UNCOMPL 06/13/2005 09/25/2014 Type II or unspecified type diabetes mellitus without mention of complication, uncontrolled 09/25/2014 Urticaria 05/31/2016 DEPRESSIVE DISORDER NEC 09/07 documented as of this encounter (statuses as of 07/06/2023) [facility] illness Narrative* Problem Noted Date Diagnosed Date Resolved Date CKD (chronic kidney disease) stage 3, GFR 30-59 ml/min 06/21/2019 08/19/2022 Vitamin D deficiency 09/26/2016 018 Supplemental oxygen dependent 09/26/2016 10/29/2019 Acquired hypothyroidism 05/31/201602/04 Recent bereavement 03/13/2014 6 Graves disease 04/28/2010 06/21/2019 Meralgia paraesthetica 04/28/201009/26 Depressive disorder 04/28/2010 08/19/19 23 Anxiety 04/28/2010 10/29/2019 Right knee pain (neuropathic) 02/26/2010 10/29/2019 Thyrotoxicosis 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 or other cause, without mention of thyrotoxic crisis or storm 02/01/2008 09/26/2016 Hypothyroidism 01/21/2008 05/31/2016 DIABETES MELLITUS TYPE II-UNCOMPL 06/13/2005 09/25/2014 Type II or unspecified type diabetes mellitus without mention of complication, uncontrolled 09/25/2014 Urticaria 05/31/2016 DEPRESSIVE DISORDER NEC 09/07 documented as of this encounter (statuses as of 07/17/2023) [facility] Narrative* Problem Noted Date Diagnosed Date Resolved Date CKD (chronic kidney disease) stage 3, GFR 30-59 ml/min 06/21/2019 08/19/2022 Vitamin D deficiency 09/26/2016 018 Supplemental oxygen dependent 09/26/2016 10/29/2019 Acquired hypothyroidism 05/31/201602/04 Recent bereavement 03/13/2014 6 Graves disease 04/28/2010 06/21/2019 Meralgia paraesthetica 04/28/201009/26 Depressive disorder 04/28/2010 08/19/19 23 Anxiety 04/28/2010 10/29/2019 Right knee pain (neuropathic) 02/26/2010 10/29/2019 Thyrotoxicosis 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 or other cause, without mention of thyrotoxic crisis or storm 02/01/2008 09/26/2016 Hypothyroidism 01/21/2008 05/31/2016 DIABETES MELLITUS TYPE II-UNCOMPL 06/13/2005 09/25/2014 Type II or unspecified type diabetes mellitus without mention of complication, uncontrolled 09/25/2014 Urticaria 05/31/2016 DEPRESSIVE DISORDER NEC 09/07 documented as of this encounter (statuses as of 10/12/2023) [facility] Narrative* Problem Noted Date Resolved Date LAINA (obstructive sleep apnea) 10/31/2016 Overview: 10/2016 - Testing at [facility]. . Intolerant of CPAP. 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, without mention of thyrotoxic crisis or storm 02/01/2008 09/26/19 17 Hypothyroidism 01/21/2008 05/31/2016 DIABETES MELLITUS TYPE II-UNCOMPL 06/13/2005 09/25/2014 Type II or unspecified type diabetes mellitus without mention of complication, uncontrolled 09/25/2014 Urticaria 05/31/2016 DEPRESSIVE DISORDER NEC 09/25/19 15 documented as of this encounter (statuses as of 02/14/2022) [facility] Narrative* Problem Noted Date Resolved Date LAINA (obstructive sleep apnea) 10/31/2016 Overview: 10/2016 - Testing at [facility]. . Intolerant of CPAP. 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, without mention of thyrotoxic crisis or storm 02/01/2008 09/26/19 17 Hypothyroidism 01/21/2008 05/31/2016 DIABETES MELLITUS TYPE II-UNCOMPL 06/13/2005 09/25/2014 Type II or unspecified type diabetes mellitus without mention of complication, uncontrolled 09/25/2014 Urticaria 05/31/2016 DEPRESSIVE DISORDER NEC 09/25/19 15 documented as of this encounter (statuses as of 02/23/2022) [facility] Narrative* Problem Noted Date Resolved Date LAINA (obstructive sleep apnea) 10/31/2016 Overview: 10/2016 - Testing at [facility]. . Intolerant of CPAP. 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, without mention of thyrotoxic crisis or storm 02/01/2008 09/26/19 17 Hypothyroidism 01/21/2008 05/31/2016 DIABETES MELLITUS TYPE II-UNCOMPL 06/13/2005 09/25/2014 Type II or unspecified type diabetes mellitus without mention of complication, uncontrolled 09/25/2014 Urticaria 05/31/2016 DEPRESSIVE DISORDER NEC 09/25/19 15 documented as of this encounter (statuses as of 03/03/2022) [facility] Diagnosis Sore throat- Primary Acute pharyngitis documented in this encounter [facility] note* Diagnosis Type 2 diabetes mellitus with stage 3 chronic kidney disease, without long-term current use of insulin (HCC) [facility] Diagnosis Chronic respiratory failure with hypoxia (HCC)- Primary Chronic respiratory failure [facility]* Diagnosis Chronic respiratory failure with hypoxia (HCC)- Primary Chronic respiratory failure [facility]* Diagnosis Chronic respiratory failure with hypoxia (HCC) Chronic respiratory failure [facility]* Diagnosis Chronic respiratory failure with hypoxia (HCC)- Primary Chronic respiratory failure [facility] Diagnosis Dyspnea, unspecified type- Primary [facility] Diagnosis Essential hypertension Unspecified essential hypertension [facility] Diagnosis Medicare annual wellness visit, subsequent- Primary Routine general medical examination at a health care facility Anxiety Anxiety state, unspecified Essential hypertension Unspecified essential hypertension Mixed hyperlipidemia Type 2 diabetes mellitus with stage 3a chronic kidney disease, without long-term current use of insulin (HCC) Chronic respiratory failure with hypoxia (HCC) Chronic respiratory failure Asthma with chronic obstructive pulmonary disease (COPD) (HCC) Chronic obstructive asthma, unspecified Morbid obesity with BMI of 50.0-59.9, adult (HCC) Morbid obesity Encounter for immunization Need for other specified prophylactic vaccination against single bacterial disease [facility]* Diagnosis Type 2 diabetes mellitus with stage 3 chronic kidney disease, without long-term current use of insulin (HCC) [facility] Diagnosis Asthma with chronic obstructive pulmonary disease (COPD) (HCC)- Primary Chronic obstructive asthma, unspecified Osteoarthritis, unspecified osteoarthritis type, unspecified site Age-related physical debility Senility without mention of psychosis documented in this encounter [facility] note* Diagnosis 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- Primary Depression with anxiety Dysthymic disorder Encounter for immunization Need for other specified prophylactic vaccination against single bacterial disease Asthma with chronic obstructive pulmonary disease (COPD) (HCC) Chronic obstructive asthma, unspecified Essential hypertension Unspecified essential hypertension Type 2 diabetes mellitus with stage 3a chronic kidney disease, without long-term current use of insulin (HCC) Mixed hyperlipidemia Dermatophytosis of nail documented in this encounter [facility] for referral (narrative)* Outpatient Procedure (Routine) - Authorized Specialty Diagnoses / Procedures Referred By Niall t Referred To Contact [facility] Diagnoses Chronic respiratory failure with hypoxia (HCC) Procedures OXIMETRY WITH AMBULATION NONINVASIVE EAR/PULSE [place] [address] [place] [id number] [facility] [place] [address] [place] [address] Referral ID Status Reason Start Date Expiration Date Visits Requested Visits Authorized [id number] Authorized Auto-Generat ed Referral 03/10/2023 04/07/2024 1 1 [facility] Advance Directives No Advanced Directives Records FoundDocuments on File Type Date Recorded 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 Advance Directive(s) 02/24/2022 4:12 PM Documents on File Type Date Recorded 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 Advance Directive(s) 02/24/2022 4:12 PM Reason for Referral Specialty Diagnoses / Procedures Referred By Niall t Referred To Contact Ophthalmology Diagnoses Type 2 diabetes mellitus with stage 3a chronic kidney disease, without long-term current use of insulin (HCC) Procedures CONSULT TO OPHTHALMOLOGY OFFICE/OUTPATIENT [facility] 60 MINUTES Dustin Wilder MD [address] [place] [address] Referral ID Status Reason Start Date Expiration Date Visits Requested Visits Authorized [id number] Authorized PCP Requested Referral 4 05/28/2025 1 1 Specialty Diagnoses / Procedures Referred By Niall vela Referred To Contact Podiatry Diagnoses Type 2 diabetes mellitus with stage 3a chronic kidney disease, without long-term current use of insulin (HCC) Dermatophytosis of nail Procedures CONSULT TO PODIATRY OFFICE/OUTPATIENT [facility] [place] [address] [place] [id number] Referral ID Status Reason Start Date Expiration Date Visits Requested Visits Authorized [id number] Authorized PCP Requested Referral 4 05/28/2025 1 1 Summary Purpose Family History No Family History Records Found Additional Source Comments Source Comments (unrecognize d section and content) In the event this informatio n is protected by the Federal Confidentiality of Alcohol and Drug Abuse Patient Records regulations: The Federal rules restrict any use of the information to criminally investigate or prosecute any alcohol or drug abuse patient.[facility] the event this information is protected by the Federal Confidentiality of Alcohol and Drug Abuse Patient Records regulations: The Federal rules restrict any use of the information to criminally investigate or prosecute any alcohol or drug abuse patient.[facility] the event this information is protected by the Federal Confidentiality of Alcohol and Drug Abuse Patient Records regulations: The Federal rules restrict any use of the information to criminally investigate or prosecute any alcohol or drug abuse patient.[facility] the event this information is protected by the Federal Confidentiality of Alcohol and Drug Abuse Patient Records regulations: The Federal rules restrict any use of the information to criminally investigate or prosecute any alcohol or drug abuse patient.[facility] the event this information is protected by the Federal Confidentiality of Alcohol and Drug Abuse Patient Records regulations: The Federal rules restrict any use of the information to criminally investigate or prosecute any alcohol or drug abuse patient.[facility] the event this information is protected by the Federal Confidentiality of Alcohol and Drug Abuse Patient Records regulations: The Federal rules restrict any use of the information to criminally investigate or prosecute any alcohol or drug abuse patient.[facility] the event this information is protected by the Federal Confidentiality of Alcohol and Drug Abuse Patient Records regulations: The Federal rules restrict any use of the information to criminally investigate or prosecute any alcohol or drug abuse patient.[facility] HospitalIn the event this information is protected by the Federal Confidentiality of Alcohol and Drug Abuse Patient Records regulations: The Federal rules restrict any use of the information to criminally investigate or prosecute any alcohol or drug abuse patient.[facility] the event this information is protected by the Federal Confidentiality of Alcohol and Drug Abuse Patient Records regulations: The Federal rules restrict any use of the information to criminally investigate or prosecute any alcohol or drug abuse patient.[facility]In the event this information is protected by the Federal Confidentiality of Alcohol and Drug Abuse Patient Records regulations: The Federal rules restrict any use of the information to criminally investigate or prosecute any alcohol or drug abuse patient.[facility]In the event this information is protected by the Federal Confidentiality of Alcohol and Drug Abuse Patient Records regulations: The Federal rules restrict any use of the information to criminally investigate or prosecute any alcohol or drug abuse patient.[facility] HospitalIn the event this information is protected by the Federal Confidentiality of Alcohol and Drug Abuse Patient Records regulations: The Federal rules restrict any use of the information to criminally investigate or prosecute any alcohol or drug abuse patient.[facility] HospitalIn the event this information is protected by the Federal Confidentiality of Alcohol and Drug Abuse Patient Records regulations: The Federal rules restrict any use of the information to criminally investigate or prosecute any alcohol or drug abuse patient.[facility] HospitalIn the event this information is protected by the Federal Confidentiality of Alcohol and Drug Abuse Patient Records regulations: The Federal rules restrict any use of the information to criminally investigate or prosecute any alcohol or drug abuse patient.[facility] HospitalIn the event this information is protected by the Federal Confidentiality of Alcohol and Drug Abuse Patient Records regulations: The Federal rules restrict any use of the information to criminally investigate or prosecute any alcohol or drug abuse patient.[facility] HospitalIn the event this information is protected by the Federal Confidentiality of Alcohol and Drug Abuse Patient Records regulations: The Federal rules restrict any use of the information to criminally investigate or prosecute any alcohol or drug abuse patient.[facility] HospitalIn the event this information is protected by the Federal Confidentiality of Alcohol and Drug Abuse Patient Records regulations: The Federal rules restrict any use of the information to criminally investigate or prosecute any alcohol or drug abuse patient.[facility] HospitalIn the event this information is protected by the Federal Confidentiality of Alcohol and Drug Abuse Patient Records regulations: The Federal rules restrict any use of the information to criminally investigate or prosecute any alcohol or drug abuse patient.[facility] HospitalIn the event this information is protected by the Federal Confidentiality of Alcohol and Drug Abuse Patient Records regulations: The Federal rules restrict any use of the information to criminally investigate or prosecute any alcohol or drug abuse patient.[facility] HospitalIn the event this information is protected by the Federal Confidentiality of Alcohol and Drug Abuse Patient Records regulations: The Federal rules restrict any use of the information to criminally investigate or prosecute any alcohol or drug abuse patient.[facility] Reason for Visit (unrecogniz ed section and content) Reason Comments F/U 6 months Reason Comments left side of throat sore x 4 days - on a moxicillin from Dr. Horowitz Reason Comments Results, Lab Reason Comments Medication Problem Reason Onset Date Comments Refill Request 09/12/2022 Reason Comments Orders Reason Comments Orders Reason Comments Spirometry Specialty Diagnoses / Procedures Referred By Niall vela Ref[facility] Diagnoses Chronic respiratory failure with hypoxia (HCC) Procedures OXIMETRY WITH AMBULATION NONINVASIVE EAR/PULSE OXIMETRY [place] [address] [place] [id number] [facility] [address] [place] [address] Referral ID Status Reason Start Date Expiration Date V isits Requested Visits Authorized [id number] Closed Auto-Generate d Referral 03/10/2023 04/07/2024 1 1 Reason Comments Patient Question Reason Comments Results Appointment Reason Onset Date Comments Refill Request 07/17/2023 Reason Comments Medicare Wellness Exam Reason Onset Date Comments Refill Request 12/01/2023 Reason Comments Orders needs a raised toile t seat and a lift chair Reason Comments [facility]-verbal orders Reason Onset Date Comments Community monitoring outreach 05/27/2024 CD M Reason Comments Rash R leg rash Care Teams (unrecognized sec tion and content) Barrel Turner Relationship Specialty Start Date End Date Dustin Wilder MD [address] [place] [address] PCP - General Internal Medicine 03/31/17 Barrel Turner Relationship Specialty Start Date End Date Dustin Wilder MD [address] [place] [address] PCP - General Internal Medicine 03/31/17 Barrel Turner Relationship Specialty Start Date End Date Dustin Wilder MD [address] [facility] [place] [address] PCP - General Internal Medicine 03/31/17 Barrel Turner Relationship Specialty Start Date End Date Dustin Wilder MD [address] [place] [address] PCP - General Internal Medicine 03/31/17 Barrel Turner Relationship Specialty Start Date End Date Dustin Wilder MD [address] [place] [address] PCP - General Internal Medicine 03/31/17 Barrel Turner Relationship Specialty Start Date End Date Dustin Wilder MD [address] [place] [address] PCP - General Internal Medicine 03/31/17 Barrel Turner Relationship Specialty Start Date End Date Dustin Wilder MD [address] [place] [address] PCP - General Internal Medicine 03/31/17 Barrel Turner Relationship Specialty Start Date End Date Dustin Wilder MD [address] [place] [address] PCP - General Internal Medicine 03/31/17 Barrel Turner Relationship Specialty Start Date End Date Dustin Wilder MD [address] [place] [address] PCP - General Internal Medicine 03/31/17 Barrel Turner Relationship Specialty Start Date End Date Dustin Wilder MD [address] [place] [address] PCP - General Internal Medicine 03/31/17 Barrel Turner Relationship Specialty Start Date End Date Dustin Wilder MD [address] [facility] [place] [address] PCP - General Internal Medicine 03/31/17 Barrel Turner Relationship Specialty Start Date End Date Dustin Wilder MD [address] [facility] [place] [address] PCP - General Internal Medicine 03/31/17 Barrel Turner Relationship Specialty Start Date End Date Dustin Wilder MD [address] [facility] [place] [address] PCP - General Internal Medicine 03/31/17 Barrel Turner Relationship Specialty Start Date End Date Dustin Wilder MD [address] [facility] [place] [address] PCP - General Internal Medicine 03/31/17 Barrel Turner Relationship Specialty Start Date End Date Dustin Wilder MD [address] [place] [address] PCP - General Internal Medicine 03/31/17 Barrel Turner Relationship Specialty Start Date End Date Dustin Wilder MD [address] [place] [address] PCP - General Internal Medicine 03/31/17 INFORMATION SOURCE (unrecogn ized section and content) DATE CREATED AUTHOR 05/29/2024 [facility] FOR RECORDS PERTAINING TO PATIENTS WHO ARE OR HAVE BEEN ENROLLED IN A CHEMICAL DEPENDENCY/SUBSTANCEABUSE PROGRAM, SOME INFORMATION MAY BE OMITTED. This clinical summary was aggregated from multiple sources. Caution should be exercised in using it in the provision of clinical care. This summary normalizes information from multiple sources, and as a consequence, information in this document may materially change the coding, format and clinical context of patient data. In addition, data may be omitted in some cases. CLINICAL DECISIONS SHOULD BE BASED ON THE PRIMARY CLINICAL RECORDS. [employer] [facility]. provides no warranty or guarantee of the accuracy or completeness of information in this document.
--- NOTE | 2024-06-02 12:14 | EX.ED.DYSGE1 ---
HPI <MILY Raines - Last Filed: 06/02/24 14:36> History of Present Illness Chief Complaint: Shortness of Breath Narrative Narrative: Patient is an 84-year-old female with history of COPD on 3 L nasal cannula oxygen daily, history of cellulitis, obesity, type 2 diabetes, debility who lives at home with a significant other, presents to the emerged part with 3 to 4 days of worsening shortness of breath. Patient denies any recent coughing, fever chills nausea or vomiting. Patient dates she was diagnosed with CHF however this was a long time ago. Patient has minimal ambulation, patient states that she gets around by wheelchair, is here for evaluation. Denies any tobacco use. PFSH <MILY Raines - Last Filed: 06/02/24 14:36> PFSH Medical History Anxiety On home oxygen therapy HTN (hypertension) Diabetes History of cellulitis Home Medications ?Medication ?Instructions ?Recorded ?Last Taken ?Type metformin 500 mg tablet 1,000 mg PO BID DM 05/22/14 03/10/24 History buspirone 5 mg tablet 5 mg PO BID depression 02/04/18 03/10/24 History glipizide 10 mg tablet, extended 20 mg PO DAILY 03/08/24 03/10/24 History release 24 hr lisinopril 20 2 tab PO DAILY 03/08/24 03/10/24 History mg-hydrochlorothiazide 12.5 mg tablet acetaminophen 500 mg capsule 1,000 mg PO Q6H PRN pain 03/11/24 03/10/24 History doxycycline hyclate 100 mg tablet 100 mg PO BID #14 tabs 06/02/24 Unknown Rx Allergy/AdvReac Type Severity Reaction Status Date / Time erythromycin base Allergy Unknown Verified 03/08/24 05:58 (Erythromycin Base) ibuprofen (From Nuprin) Allergy Unknown Verified 03/08/24 05:58 Surgical History Hx of cholecystectomy History of hysterectomy History of appendectomy Social History Smoking Status: Former smoker ROS <MILY Raines - Last Filed: 06/02/24 14:36> ROS ED ROS Narrative Constitutional: Negative for fever, chills, weight loss. Positive for weakness Eyes: Negative for vision loss, vision change, double vision ENT: Negative for any sore throat, ear pain, congestion Cardiovascular: Negative for any chest pain, tightness, palpitations Respiratory: Negative for any cough, sputum production, hemoptysis.positive for dyspnea, dyspnea on exertion, orthopnea Gastrointestinal: Negative for any abdominal pain, nausea, vomiting, diarrhea, constipation, blood in stool, blood in vomit : Negative for any urinary frequency, dysuria, retention, blood in urine Muscle skeletal: Negative for any neck pain, back pain Neurological: Negative for any headache, syncope, dizziness Skin: Negative for any rashes, itching, abrasions, lacerations Psychiatric: Negative for any depression, anxiety, stress, suicidal ideation, homicidal ideation Hematologic: Negative for any excessive bruising, easy bleeding EXAM <Jose Peace NP-C - Last Filed: 06/02/24 14:36> Physical Exam Narrative Exam Narrative: Vital signs reviewed. Patient was speaking complete sentences, 97% on 3 L, slightly hypotensive HEET: Head normocephalic atraumatic, TMs clear bilaterally. Posterior pharynx is clear, dry mucous membranes. Nares clear bilaterally. Neck: Supple with no lymphadenopathy or tenderness. No signs of meningismus. Cardiac: Regular rate and rhythm no murmurs gallops or rubs, equal peripheral pulses bilaterally. Respiratory: Difficult secondary to body habitus, patient did have some diminished breath sounds at both bases, slight crackles to the lower bases. No chest tenderness. Abdomen: Soft, nontender, nondistended. No abdominal bruit or pulsatile masses. No hepatosplenomegaly Extremities: Patient does have some large legs, slight erythema to the right leg however currently patient is on Keflex. No signs of gross trauma or deformity. Active full range of motion of all extremities. Neuro: Cranial nerves II through XII intact, no focal neurological deficits. Skin: Clean dry and intact with no rash, purpura, petechiae, vesicles or pustules. Backs/flank: No CVA tenderness, no midline spinal tenderness, no deformity. Psych: Normal mood and affect. No SI, HI or acute psychosis. Const Vital Signs: 06/02/24 11:30 06/02/24 11:30 06/02/24 12:11 Temperature 97.9 F Temperature Source Oral Pulse Rate 101 H Respiratory Rate 20 H Respiratory Effort Normal Non-Labored Respiratory Depth Normal Respiratory Pattern Normal Blood Pressure 107/82 H Blood Pressure Mean 90 Pulse Ox 96 Oxygen Delivery Method Room Air Room Air Oxygen Flow Rate (L/min) 06/02/24 12:29 06/02/24 12:30 06/02/24 12:30 Temperature 97.8 F Temperature Source Temporal Pulse Rate 96 93 Respiratory Rate 20 H 17 Respiratory Effort Respiratory Depth Respiratory Pattern Normal Blood Pressure 133/66 H Blood Pressure Mean 88 Pulse Ox 99 97 Oxygen Delivery Method Room Air Nasal Cannula Oxygen Flow Rate (L/min) 2 06/02/24 13:00 06/02/24 13:40 06/02/24 14:50 Temperature 97.8 F Temperature Source Pulse Rate 99 98 82 Respiratory Rate 20 H 18 18 Respiratory Effort Respiratory Depth Respiratory Pattern Blood Pressure 137/62 H 137/62 H 134/67 H Blood Pressure Mean 87 87 89 Pulse Ox 95 96 96 Oxygen Delivery Method Room Air Room Air Oxygen Flow Rate (L/min) Positive obese Nutritional Appearance: obese <Dr. Diomedes Rene, DO - Last Filed: 06/02/24 18:39> Physical Exam Const Vital Signs: 06/02/24 11:30 06/02/24 11:30 06/02/24 12:11 Temperature 97.9 F Temperature Source Oral Pulse Rate 101 H Respiratory Rate 20 H Respiratory Effort Normal Non-Labored Respiratory Depth Normal Respiratory Pattern Normal Blood Pressure 107/82 H Blood Pressure Mean 90 Pulse Ox 96 Oxygen Delivery Method Room Air Room Air Oxygen Flow Rate (L/min) 06/02/24 12:29 06/02/24 12:30 06/02/24 12:30 Temperature 97.8 F Temperature Source Temporal Pulse Rate 96 93 Respiratory Rate 20 H 17 Respiratory Effort Respiratory Depth Respiratory Pattern Normal Blood Pressure 133/66 H Blood Pressure Mean 88 Pulse Ox 99 97 Oxygen Delivery Method Room Air Nasal Cannula Oxygen Flow Rate (L/min) 2 06/02/24 13:00 06/02/24 13:40 06/02/24 14:50 Temperature 97.8 F Temperature Source Pulse Rate 99 98 82 Respiratory Rate 20 H 18 18 Respiratory Effort Respiratory Depth Respiratory Pattern Blood Pressure 137/62 H 137/62 H 134/67 H Blood Pressure Mean 87 87 89 Pulse Ox 95 96 96 Oxygen Delivery Method Room Air Room Air Oxygen Flow Rate (L/min) [facility] <Jose MILY Peace - Last Filed: 06/02/24 14:36> [facility] Lab Data Labs: Laboratory Results - last 24 hr 06/02/24 06/02/24 12:30 14:03 WBC 13.7 H RBC 3.36 L Hgb 10.8 L Hct 35.6 L MCV 106.0 H MCH 32.1 H MCHC 30.3 L RDW Std Deviation 52.7 H RDW Coeff of Jose 13.5 Plt Count 235 MPV 10.2 Immature Gran % (Auto) 1.000 H Neut % (Auto) 78.2 H Lymph % (Auto) 4.2 L Gaston % (Auto) 5.2 Eos % (Auto) 10.9 H Baso % (Auto) 0.5 Absolute Neuts (auto) 10.7 H Absolute Lymphs (auto) 0.58 L Nucleated RBC % 0 Sodium 139 Potassium 4.0 Chloride 97 L Carbon Dioxide 39.0 H Anion Gap 3 L BUN 13 Creatinine 1.05 H Estim Creat Clear Calc 54.70 Est GFR (MDRD) Af Amer 64 Est GFR (MDRD) Non-Af 53 L BUN/Creatinine Ratio 12.4 Glucose 115 H Calcium 8.6 Troponin I High Sens 8 B-Natriuretic Peptide 92.6 POC Glucose 106 Radiography Diagnostic Testing: Clinical Impression(s) from Imaging Studies Chest X-Ray 06/02/24 12:50 IMPRESSION: Right lower lobe pneumonic consolidation and CSF exacerbation Electronically Signed: Ryne Mandujano MD at 13:14 EDT Reading Location ID and State: [address] [place] [address] , Service support , EKG EKG shows a normal sinus rhythm, rate of 95 bpm,: Attestation: I personally reviewed and interpreted this EKG as follows: Interpretation: Sinus Rhythm Comments: Patient is a normal sinus rhythm, rate 95 bpm, ID interval 174 ms, QRS duration 94 ms, no acute ST elevation, no acute infarct noted. Treatment and Re-Evaluation :: Differential diagnosis includes however is not limited to: Community-acquired pneumonia, viral symptoms such as COVID-19 influenza RSV, CHF exacerbation exacerbation of COPD, pulmonary embolism, ACS, [place] Patient appears generally well, vital signs are stable, patient is nontoxic-appearing. Patient presents to the emergency department with complaints of ongoing shortness of breath has been ongoing for the last 3 days. Patient does have history of COPD. Patient be given a respiratory cardiac workup. Including troponin, BNP, multiple laboratory values. Chest x-ray, breathing treatments. All radiologic examinations were read, reviewed by the emergency department attending. From these reads, a plan of care will be put in place. Viral panel will be completed. Patient will be reevaluated. On reevaluation, patient remained stable. Patient's laboratory values show a white blood cell count of 13.7, hemoglobin of 10.8, patient's chemistries show creatinine 1.05 this is stable. BNP was 92.6 which is negative, troponin was negative. Chest x-ray showed right lower lobe pneumonic consolidation and CHF exacerbation. Secondary to this finding, patient does have a leukocytosis, patient will see if she can get up out of bed and moved to a chair similar to what she does at home. Patient did well ambulating to a chair. Patient feels well enough for discharge. Patient will be placed on doxycycline twice a day for 1 week. She will take the antibiotics until finished. She is instructed to follow-up outpatient with her PCP, will return for any worsening symptoms. All questions answered, stable for discharge. <Dr. Diomedes Rene, DO - Last Filed: 06/02/24 18:39> [facility] Narrative Medical decision making narrative: I have personally performed a face to face assessment of the patient and have reviewed the DG Note. I performed a substantive portion of the visit including all aspects of the following. My neville findings include: History: Patient presents with shortness of breath that has been getting worse over the last 5 days. Patient states her breathing is worse with any exertion. Patient states EMS administered an aerosol which helped. Patient admits to a cough but denies any sputum production. Patient denies any fevers or chills. Patient denies any chest pain. Exam: Vital signs are stable. Patient is afebrile. Patient is in no acute distress. Oral mucosa is pink and moist. Neck is supple. Trachea is midline. No JVD. Heart was regular rate and rhythm. There are occasional ectopic beats noted. Lungs are clear and equal bilateral. There is good respiratory effort noted. Abdomen is soft. Bowel sounds are normal. There is no tenderness. Cranial nerves II through XII are intact. There are no focal motor or sensory deficits noted. Medical Decision Making: Differential diagnosis includes cardiac dysrhythmia, cardiac ischemia, pneumonia, COPD exacerbation, and electrolyte abnormality. EKG will be obtained to assess for cardiac dysrhythmia and cardiac ischemia. Chest x-ray will be obtained to assess for pneumonia and pneumothorax. COVID-19, influenza, and RSV PCR will be obtained to assess for viral illness. CBC will be obtained to assess for leukocytosis and anemia. Basic metabolic profile will be obtained to assess for electrolyte abnormality and renal function. BNP will be obtained to assess for congestive heart failure. High-sensitivity troponin will be obtained to assess for cardiac ischemia. Patient was given a DuoNeb aerosol here. Patient was also given albuterol aerosol. EKG was obtained. On my independent interpretation, it showed normal sinus rhythm with a rate of 95. There are nonspecific ST-T wave changes noted. This was unchanged compared to previous EKG dated 03/11/2024. CBC was reviewed. There is a mild leukocytosis of 13.7. There is a mild anemia with a hemoglobin of 10.8 and hematocrit of 35.6. Platelets were normal. Basic metabolic profile was reviewed and was essentially within normal limits. High-sensitivity troponin was reviewed and was normal at 8. BNP was reviewed and was normal at 92.6. Portable 1 view chest x-ray was obtained. On my independent interpretation, lung rosas show a right lower lobe consolidation. There is normal cardiac silhouette. Bony thorax is normal. There are other chronic changes noted. Radiologist also interpreted the x-ray and agrees. COVID-19 PCR was reviewed and was negative. Influenza PCR was reviewed and was negative for influenza A and influenza B. RSV PCR was reviewed and was negative. Patient was advised of her findings. Patient was given a prescription for doxycycline. Patient was instructed to follow-up with her primary care physician in 5 to 7 days. Patient understood and was agreeable with the plan. All questions were answered. Lab Data Labs: Laboratory Results - last 24 hr 06/02/24 06/02/24 12:30 14:03 WBC 13.7 H RBC 3.36 L Hgb 10.8 L Hct 35.6 L MCV 106.0 H MCH 32.1 H MCHC 30.3 L RDW Std Deviation 52.7 H RDW Coeff of Jose 13.5 Plt Count 235 MPV 10.2 Immature Gran % (Auto) 1.000 H Neut % (Auto) 78.2 H Lymph % (Auto) 4.2 L Gaston % (Auto) 5.2 Eos % (Auto) 10.9 H Baso % (Auto) 0.5 Absolute Neuts (auto) 10.7 H Absolute Lymphs (auto) 0.58 L Nucleated RBC % 0 Sodium 139 Potassium 4.0 Chloride 97 L Carbon Dioxide 39.0 H Anion Gap 3 L BUN 13 Creatinine 1.05 H Estim Creat Clear Calc 54.70 Est GFR (MDRD) Af Amer 64 Est GFR (MDRD) Non-Af 53 L BUN/Creatinine Ratio 12.4 Glucose 115 H Calcium 8.6 Troponin I High Sens 8 B-Natriuretic Peptide 92.6 POC Glucose 106 Radiography Diagnostic Testing: Clinical Impression(s) from Imaging Studies Chest X-Ray 06/02/24 12:50 IMPRESSION: Right lower lobe pneumonic consolidation and CSF exacerbation Electronically Signed: Ryne Mandujano MD at 13:14 EDT Reading Location ID and State: [address] [place] [address] , Service support , Discharge Plan Triage Chief Complaint: Shortness of Breath ED Midlevel Provider: Jose Peace ED Provider: Diomedes Rene Dx/Rx/DC Orders Clinical Impression: Community acquired pneumonia Instructions: ED Pneumonia (Adult) Prescriptions: New doxycycline hyclate 100 mg tablet 100 mg PO BID Qty: 14 0RF No Action metformin 500 MG tablet 1,000 mg PO BID Patient Comments: supposed to take 2 tabs bid; patient only takes 1 tab bid buspirone 5 tablet 5 mg PO BID Patient Comments: glipizide 10 mg tablet extended release 24hr 20 mg PO DAILY lisinopril-hydrochlorothiazide 20-12.5 mg tablet 2 tab PO DAILY acetaminophen 500 mg capsule 1,000 mg PO Q6H PRN (Reason: pain) Primary Care Provider: Dustin Lang Referrals: Dustin Lang MD [Primary Care Provider] - Activity Restrictions/Additional Instructions: Continue taking your Keflex, you now need to take doxycycline until finishing for your community-acquired pneumonia. You need to follow-up with your PCP next week. Print Language: Korean Disposition Disposition: Home, Self Care Discharge Date/Time: 06/02/24 15:14
[2024-06-02] MEDS: Ipratropium/Albuterol Sulfate 3 ML AMPUL.NEB INHALATION (12:30)
[2024-06-02] MEDS: Albuterol 2.5 MG/3 ML VIAL.NEB. INHALATION (12:30)
[2024-06-02 12:37] LABS: Absolute Lymphocyte Count 0.58 X10^3/uL (0.83-4.51); Absolute Neutrophil Count 10.7 X10^3/uL (2.0-7.7); Basophil# 0.07 X10^3/uL; Basophil% 0.5 % (0-1); Eosinophil# 1.49 X10^3/uL; Eosinophils% 10.9 % (0-5); Hematocrit 35.6 % (37-47); Hemoglobin 10.8 g/dL (12.0-15.0); Lymphocyte # 0.58 X10^3/ul (0.83-4.51); Lymphocyte % 4.2 % (19-41); Mean Corp Hgb Conc 30.3 g/dL (32-36); Mean Corpuscular Hgb 32.1 pg (27.0-32.0); Mean Platelet Vol. 10.2 fl (6.2-12.0); Monocyte# 0.71 X10^3/uL; Monocyte% 5.2 % (0-10); NRBC Flagged by Analyzer 0 % (0-5); Neutrophil # 10.66 X10^3/uL (2.7-7.7); Neutrophil % 78.2 % (47-70); POSITIVE DIFFERENTIAL YES; Platelet Count 235 K/mm3 (150-450); RBC Distribution Width CV 13.5 % (11.6-14.6); RBC Distribution Width SD 52.7 fl (35.1-43.9); Red Blood Count 3.36 M/mm3 (4.2-5.4); White Blood Count 13.7 K/mm3 (4.4-11.0)
--- NOTE | 2024-06-02 12:50 | RAD_ITS ---
STUDY: X-RAY CHEST REASON FOR EXAM: Female, 84 years old. cough TECHNIQUE: Single AP portable view of the chest. COMPARISON: April 29, 2018 FINDINGS: 1. 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 Trace bilateral pleural effusions are present 3. Right medial lower lobe consolidation with air bronchograms 4. Mild cardiomegaly and chronic CHF 5. Stable mediastinum and osseous structures There is no demonstrated abnormality of the visualized soft tissue structures of the upper abdomen. RAD/Chest 1 View (Portable) IMPRESSION: Right lower lobe pneumonic consolidation and CSF exacerbation Electronically Signed: Ryne Mandujano MD at 13:14 EDT ,
[2024-06-02 13:00] LABS: Anion Gap 3 (5-15); BUN 13 mg/dL (7-18); BUN/Creat Ratio 12.4 RATIO (10-20); Calcium,Total 8.6 mg/dL (8.5-10.1); Chloride 97 mmol/L (98-107); Creatinine, Serum 1.05 mg/dL (0.55-1.02); EST Glomerular Filtration Rate 53 mL/min (>60); Est Glom Filt Rate - Afr Amer 64 mL/min (>60); Glucose 115 mg/dL (74-106); Sodium Level 139 mmol/L (136-145); Troponin-I HS 8 pg/mL (3.0-54.0)
[2024-06-02 13:08] LABS: BNP,B-Type NATRIURETIC PEPTIDE 92.6 pg/mL (0-100)
[2024-06-02 14:34] LABS: Bedside Glucose 106 mg/dL (74-106)
[2024-06-02] MEDS: Doxycycline 100 MG CAPSULE PO (14:49)
== END 2024-06-02 15:14 | disposition home or self-care (01) ==
PROVIDERS: Nurse Practitioner; Emergency Provider Emergency Medicine; PCP Internal Medicine; Visit Provider Emergency Medicine
DX: J18.9 Pneumonia, unspecified organism (principal); J44.9 Chronic obstructive pulmonary disease, unspecified; E11.9 Type 2 diabetes mellitus without complications; I10 Essential (primary) hypertension; E66.9 Obesity, unspecified; Z87.891 Personal history of nicotine dependence
CPT/HCPCS: 99285; 71045; 80048; 82962; 83880; 84484; 85025; 87631; 93005; 94640; A4216

== ENCOUNTER 2024-06-04 08:47 | Inpatient (IN) | payer MEDICARE, SELFPAY ==
[2024-06-04] VITALS (16 sets, daily range): BP systolic 126–162; BP diastolic 56–88; PULSE 91–111; RESP 18–28; TEMP 35.7–36.8; O2SAT 8–99; BMI 59.3; BMI 67.6
[2024-06-04 09:25] LABS: Absolute Lymphocyte Count 0.83 X10^3/uL (0.83-4.51); Absolute Neutrophil Count 12.1 X10^3/uL (2.0-7.7); Basophil# 0.09 X10^3/uL; Basophil% 0.6 % (0-1); Eosinophil# 1.66 X10^3/uL; Eosinophils% 10.5 % (0-5); Hematocrit 35.5 % (37-47); Hemoglobin 10.8 g/dL (12.0-15.0); Lymphocyte # 0.83 X10^3/ul (0.83-4.51); Lymphocyte % 5.3 % (19-41); Mean Corp Hgb Conc 30.4 g/dL (32-36); Mean Corpuscular Hgb 32.2 pg (27.0-32.0); Mean Platelet Vol. 9.9 fl (6.2-12.0); Monocyte# 1.05 X10^3/uL; Monocyte% 6.6 % (0-10); NRBC Flagged by Analyzer 0 % (0-5); Neutrophil # 12.05 X10^3/uL (2.7-7.7); Neutrophil % 76.3 % (47-70); Platelet Count 223 K/mm3 (150-450); RBC Distribution Width CV 13.4 % (11.6-14.6); RBC Distribution Width SD 52.6 fl (35.1-43.9); Red Blood Count 3.35 M/mm3 (4.2-5.4); White Blood Count 15.8 K/mm3 (4.4-11.0)
[2024-06-04] MEDS: MethylPREDNISolone 125 MG/2 ML Vial IV (09:28)
[2024-06-04] MEDS: Ipratropium/Albuterol Sulfate 3 ML AMPUL.NEB INHALATION (09:36)
[2024-06-04] MEDS: Albuterol 2.5 MG/3 ML VIAL.NEB. INHALATION (09:37)
[2024-06-04 09:46] LABS: Anion Gap 4 (5-15); BUN 14 mg/dL (7-18); BUN/Creat Ratio 15.2 RATIO (10-20); Calcium,Total 8.9 mg/dL (8.5-10.1); Chloride 95 mmol/L (98-107); Creatinine, Serum 0.92 mg/dL (0.55-1.02); EST Glomerular Filtration Rate 62 mL/min (>60); Est Glom Filt Rate - Afr Amer 75 mL/min (>60); Estimated Creatinine Clearance 62.77 ml/min; Glucose 75 mg/dL (74-106); Potassium 3.7 mmol/L (3.5-5.1); Sodium Level 137 mmol/L (136-145); Troponin-I HS 9 pg/mL (3.0-54.0)
[2024-06-04] MEDS: levoFLOXacin IV 500 MG/100 ML BAG 100 MG IV (14:50)
[2024-06-04 17:31] LABS: Troponin-I HS 9 pg/mL (3.0-54.0)
[2024-06-04 18:24] LABS: Bedside Glucose 155 mg/dL (74-106)
[2024-06-04] MEDS: Furosemide 40 MG/4 ML Vial IV (18:41)
[2024-06-04 19:31] LABS: Troponin-I HS 10 pg/mL (3.0-54.0)
[2024-06-04] MEDS: Doxycycline 100 MG CAPSULE PO (21:21)
[2024-06-04] MEDS: busPIRone 5 MG Tablet PO (21:21)
[2024-06-04] MEDS: 0.9% Saline Lock 10 ML Syringe IV (21:21)
[2024-06-04] MEDS: Enoxaparin 40 MG/0.4 ML Syringe SC (21:21)
[2024-06-04] MEDS: Insulin Lispro 100 UNIT/ML INSULN.PEN SC (21:26)
[2024-06-04 22:16] LABS: Bedside Glucose 187 mg/dL (74-106)
[2024-06-04] MEDS: Nystatin Powder 15gm Bottle 1 APPLIC TOPICAL (23:28)
[2024-06-04 23:37] LABS: Troponin-I HS 11 pg/mL (3.0-54.0)
[2024-06-04 23:39] LABS: Hemoglobin A1c 5.3 % (3.8-5.6)
[2024-06-05] VITALS (10 sets, daily range): BP systolic 115–170; BP diastolic 53–100; PULSE 74–107; RESP 16–18; TEMP 36.5–36.7; O2SAT 94–100; BMI 71.1
[2024-06-05] MEDS: Carvedilol 6.25 MG Tablet PO ×3 (00:04→23:20)
[2024-06-05] MEDS: hydroCHLOROthiazide 6.25mg TAB 12.5 MG PO ×2 (00:05→09:38)
[2024-06-05] MEDS: QUEtiapine 25 MG Tablet 50 MG PO (01:55)
[2024-06-05] MEDS: Nystatin Powder 15gm Bottle 1 APPLIC TOPICAL ×3 (06:30→23:20)
[2024-06-05] MEDS: Insulin Lispro 100 UNIT/ML INSULN.PEN SC ×2 (06:31→11:33)
[2024-06-05 06:43] LABS: Absolute Lymphocyte Count 0.43 X10^3/uL (0.83-4.51); Basophil# 0.01 X10^3/uL; Basophil% 0.1 % (0-1); Hematocrit 33.9 % (37-47); Lymphocyte # 0.43 X10^3/ul (0.83-4.51); Lymphocyte % 4.9 % (19-41); Mean Corp Hgb Conc 29.5 g/dL (32-36); Mean Corpuscular Hgb 31.3 pg (27.0-32.0); Mean Corpuscular Volume 106.3 fL (81-99); Mean Platelet Vol. 10.5 fl (6.2-12.0); Monocyte# 0.19 X10^3/uL; Monocyte% 2.2 % (0-10); NRBC Flagged by Analyzer 0 % (0-5); Neutrophil # 8.04 X10^3/uL (2.7-7.7); POSITIVE DIFFERENTIAL YES; Platelet Count 201 K/mm3 (150-450); RBC Distribution Width CV 13.1 % (11.6-14.6); RBC Distribution Width SD 51.6 fl (35.1-43.9); Red Blood Count 3.19 M/mm3 (4.2-5.4); White Blood Count 8.7 K/mm3 (4.4-11.0)
[2024-06-05 06:52] LABS: Bedside Glucose 180 mg/dL (74-106)
[2024-06-05 07:03] LABS: Anion Gap 3 (5-15); BUN 18 mg/dL (7-18); BUN/Creat Ratio 19.5 RATIO (10-20); Calcium,Total 8.4 mg/dL (8.5-10.1); Chloride 94 mmol/L (98-107); Creatinine, Serum 0.92 mg/dL (0.55-1.02); EST Glomerular Filtration Rate 61 mL/min (>60); Est Glom Filt Rate - Afr Amer 74 mL/min (>60); Estimated Creatinine Clearance 71.07 ml/min; Glucose 188 mg/dL (74-106); Potassium 4.4 mmol/L (3.5-5.1); Sodium Level 136 mmol/L (136-145)
[2024-06-05] MEDS: Ipratropium/Albuterol Sulfate 3 ML AMPUL.NEB INHALATION ×4 (07:26→19:58)
[2024-06-05] MEDS: glipiZIDE XL 5 MG Tablet 20 MG PO (09:37)
[2024-06-05] MEDS: busPIRone 5 MG Tablet PO ×2 (09:37→23:20)
[2024-06-05] MEDS: Menthol/Lanolin/Calamine/Znox 113 GM Tube 1 APPLIC TOPICAL ×2 (09:37→23:20)
[2024-06-05] MEDS: 0.9% Saline Lock 10 ML Syringe IV ×4 (09:38→23:21)
[2024-06-05] MEDS: Doxycycline 100 MG CAPSULE PO ×2 (09:38→23:20)
[2024-06-05] MEDS: Furosemide 40 MG/4 ML Vial IV ×2 (09:38→17:51)
[2024-06-05] MEDS: Escitalopram Oxalate 10 MG Tablet PO (09:47)
[2024-06-05] MEDS: Lisinopril 20 MG Tablet PO (09:47)
[2024-06-05] MEDS: Enoxaparin 40 MG/0.4 ML Syringe SC ×2 (09:47→23:20)
[2024-06-05 11:59] LABS: Bedside Glucose 168 mg/dL (74-106)
[2024-06-05 17:16] LABS: Bedside Glucose 120 mg/dL (74-106)
[2024-06-05 23:45] LABS: Bedside Glucose 102 mg/dL (74-106)
[2024-06-06] VITALS (8 sets, daily range): BP systolic 120–156; BP diastolic 58–94; PULSE 83–88; RESP 16–22; TEMP 36.4–36.7; O2SAT 79–99; BMI 67.5
[2024-06-06] MEDS: Nystatin Powder 15gm Bottle 1 APPLIC TOPICAL ×3 (06:10→21:47)
[2024-06-06] MEDS: 0.9% Saline Lock 10 ML Syringe IV ×4 (06:10→18:05)
[2024-06-06 07:15] LABS: Bedside Glucose 80 mg/dL (74-106)
[2024-06-06] MEDS: busPIRone 5 MG Tablet PO ×2 (09:34→21:46)
[2024-06-06] MEDS: Menthol/Lanolin/Calamine/Znox 113 GM Tube 1 APPLIC TOPICAL ×2 (09:34→21:46)
[2024-06-06] MEDS: glipiZIDE XL 5 MG Tablet 20 MG PO (09:34)
[2024-06-06] MEDS: Doxycycline 100 MG CAPSULE PO ×2 (09:35→21:47)
[2024-06-06] MEDS: Carvedilol 6.25 MG Tablet PO ×2 (09:35→21:47)
[2024-06-06] MEDS: hydroCHLOROthiazide 6.25mg TAB 12.5 MG PO (09:35)
[2024-06-06] MEDS: Furosemide 40 MG/4 ML Vial IV ×2 (09:36→18:05)
[2024-06-06] MEDS: Enoxaparin 40 MG/0.4 ML Syringe SC ×2 (09:37→21:47)
[2024-06-06] MEDS: Escitalopram Oxalate 10 MG Tablet PO (09:37)
[2024-06-06] MEDS: Lisinopril 20 MG Tablet PO (09:37)
[2024-06-06 13:08] LABS: Bedside Glucose 104 mg/dL (74-106)
[2024-06-06] MEDS: Insulin Lispro 100 UNIT/ML INSULN.PEN SC (16:12)
[2024-06-06 16:54] LABS: Bedside Glucose 164 mg/dL (74-106)
[2024-06-06] MEDS: Ipratropium/Albuterol Sulfate 3 ML AMPUL.NEB INHALATION (19:13)
[2024-06-06 23:00] LABS: Bedside Glucose 116 mg/dL (74-106)
[2024-06-07 03:09] VITALS: BP 147/61; PULSE 76; RESP 16; TEMP 36.4; O2SAT 97
[2024-06-07 04:24] VITALS: BMI 67.6
[2024-06-07] MEDS: Nystatin Powder 15gm Bottle 1 APPLIC TOPICAL ×2 (06:30→14:35)
[2024-06-07 06:47] VITALS: PULSE 85; RESP 20; O2SAT 98
[2024-06-07] MEDS: Ipratropium/Albuterol Sulfate 3 ML AMPUL.NEB INHALATION (06:47)
[2024-06-07 07:01] LABS: Bedside Glucose 88 mg/dL (74-106)
[2024-06-07 07:20] LABS: Anion Gap 5 (5-15); BUN 45 mg/dL (7-18); Calcium,Total 8.6 mg/dL (8.5-10.1); Chloride 89 mmol/L (98-107); Creatinine, Serum 1.25 mg/dL (0.55-1.02); EST Glomerular Filtration Rate 43 mL/min (>60); Est Glom Filt Rate - Afr Amer 52 mL/min (>60); Estimated Creatinine Clearance 50.44 ml/min; Glucose 89 mg/dL (74-106); Potassium 3.9 mmol/L (3.5-5.1); Sodium Level 137 mmol/L (136-145)
[2024-06-07 09:50] VITALS: BP 142/70; PULSE 87; RESP 16; TEMP 36.4; O2SAT 97
[2024-06-07] MEDS: glipiZIDE XL 5 MG Tablet 20 MG PO (09:51)
[2024-06-07] MEDS: Doxycycline 100 MG CAPSULE PO (09:52)
[2024-06-07] MEDS: Carvedilol 6.25 MG Tablet PO (09:52)
[2024-06-07] MEDS: Menthol/Lanolin/Calamine/Znox 113 GM Tube 1 APPLIC TOPICAL (09:52)
[2024-06-07] MEDS: busPIRone 5 MG Tablet PO (09:52)
[2024-06-07] MEDS: hydroCHLOROthiazide 6.25mg TAB 12.5 MG PO (09:53)
[2024-06-07] MEDS: Enoxaparin 40 MG/0.4 ML Syringe SC (09:53)
[2024-06-07] MEDS: 0.9% Saline Lock 10 ML Syringe IV ×2 (09:54→14:36)
[2024-06-07] MEDS: Furosemide 40 MG/4 ML Vial IV (09:54)
[2024-06-07] MEDS: Escitalopram Oxalate 10 MG Tablet PO (09:54)
[2024-06-07] MEDS: Glucerna Shake 120 ML LIQUID PO (09:56)
[2024-06-07 11:01] VITALS: O2SAT 84; O2SAT 89; O2SAT 91
[2024-06-07] MEDS: Lisinopril 20 MG Tablet PO (11:28)
[2024-06-07 12:20] LABS: Bedside Glucose 140 mg/dL (74-106)
[2024-06-07 14:32] VITALS: BP 128/46; PULSE 87; RESP 18; TEMP 36.4; O2SAT 96
[2024-06-07] MEDS: Insulin Lispro 100 UNIT/ML INSULN.PEN SC (15:52)
[2024-06-07 16:12] LABS: Bedside Glucose 163 mg/dL (74-106)
[2024-06-07 17:10] VITALS: BP 128/46; PULSE 87; RESP 18; TEMP 36.4; O2SAT 96
== END 2024-06-07 17:11 | disposition home health service (06) | DRG 291 ==
LOC: ED 14:31 → PCU 14:53
PROVIDERS: Emergency Provider Emergency Medicine; PCP Internal Medicine; Visit Provider Internal Medicine
DX: I11.0 Hypertensive heart disease with heart failure (principal); I50.33 Acute on chronic diastolic (congestive) heart failure; J44.1 Chronic obstructive pulmonary disease with (acute) exacerbation; Z68.45 Body mass index [BMI] 70 or greater, adult; J96.11 Chronic respiratory failure with hypoxia; E11.9 Type 2 diabetes mellitus without complications; F41.9 Anxiety disorder, unspecified; E66.01 Morbid (severe) obesity due to excess calories; E66.813 Obesity, class 3; Z79.84 Long term (current) use of oral hypoglycemic drugs; Z90.710 Acquired absence of both cervix and uterus; Z87.891 Personal history of nicotine dependence; Z79.2 Long term (current) use of antibiotics
CPT/HCPCS: 36415; 71045; 71046; 71250; 80048; 82962; 83036; 83880; 84484; 85025; 87631; 93005; 93306; 94640; 94668; 97162; 97166; 97530; 97535; 99252; 99285; J7050; Q9957; A4216; C8929; G0463; J1940

== ENCOUNTER 2024-06-09 09:25 | Inpatient (IN) | payer MEDICARE, SELFPAY ==
[2024-06-09] VITALS (10 sets, daily range): BP systolic 110–127; BP diastolic 59–98; PULSE 87–104; RESP 16–23; TEMP 36.6–36.8; O2SAT 94–100; BMI 55.0; BMI 55.3
--- NOTE | 2024-06-09 09:45 | EKG12_ITS ---
Test Reason : dizziness Blood Pressure : */* mmHG Vent. Rate : 100 BPM Atrial Rate : * BPM P-R Int : * ms QRS Dur : 96 ms QT Int : 340 ms P-R-T Axes : * 22 33 degrees QTcB Int : 438 ms Atrial fibrillation Abnormal ECG baseline artifact Confirmed by Marciano Carlson ([id number]), editor book PETRA ACE ([id number]) on 06/10/2024 9:20:28 AM Referred By: Confirmed By: Marciano Carlson
--- NOTE | 2024-06-09 09:47 | EDS_ITS ---
HPI History of Present Illness Chief Complaint: Dizziness Informant: patient and EMS Narrative Narrative: Patient brought to the emergency room with a chief complaint of dizziness. Patient was recently admitted to the hospital and was discharged home yesterday. She had been approved for correction but wanted to return to the outpatient setting. She states this morning she had gotten out taking her medicines had cookies and coffee. States that she had finished having some diarrhea and urinating when she fell 2 pieces. By this she states that she was dizzy and felt like she might pass out. That had subsided and the patient is still noting some nausea and dry heaving. She has a history of anxiety as well as claustrophobia and cannot tolerate the door being closed. She denies any fever. She is a very poor historian who can tell me very little about how she is feeling or recent medical events such as what happened in the hospital and what she was diagnosed with. I see from the chart that she had been diagnosed with pneumonia return to the hospital and had discharge diagnoses including heart failure with preserved ejection fraction. Patient states that she does have a roommate. She is chronically on home oxygen. She states that I am dying I just know it. [facility] Medical History Anxiety On home oxygen therapy HTN (hypertension) Diabetes History of cellulitis Home Medications ?Medication ?Instructions ?Recorded ?Last Taken ?Type metformin 500 mg tablet 1,000 mg PO BID DM 05/22/14 06/04/24 History buspirone 5 mg tablet 5 mg PO BID depression 02/04/18 03/10/24 History glipizide 10 mg tablet, extended 20 mg PO DAILY Blood sugars 03/08/24 06/04/24 History release 24 hr acetaminophen 500 mg capsule 1,000 mg PO Q6H PRN pain 03/11/24 06/03/24 History doxycycline hyclate 100 mg tablet 100 mg PO BID #14 tabs 06/02/24 06/04/24 Rx escitalopram oxalate 10 mg tablet 10 mg PO DAILY Depression 06/04/24 06/04/24 History carvedilol 6.25 mg tablet 6.25 mg PO BID #60 tabs 06/07/24 Unknown Rx furosemide 20 mg tablet 60 mg (3 x 20 mg) PO BID #180 tabs 11/01/24 Unknown Rx lisinopril 20 mg tablet 20 mg PO DAILY #30 tabs 06/07/24 Unknown Rx potassium chloride 10 mEq 20 meq (2 x 10 mEq) PO BID #120 06/07/24 Unknown Rx tablet,extended release (Klor-Con) tabs prednisone 20 mg tablet 20 mg PO DAILY #7 tabs 06/07/24 Unknown Rx Allergy/AdvReac Type Severity Reaction Status Date / Time erythromycin base Allergy Unknown Verified 06/04/24 08:56 (Erythromycin Base) ibuprofen (From Nuprin) Allergy Unknown Verified 06/04/24 08:56 Surgical History Hx of cholecystectomy History of hysterectomy History of appendectomy Social History Smoking Status: Former smoker ROS ROS ED Constitutional Constitutional ED: Denies chills, fever(s) or weight loss Eyes Eyes: Denies change in vision or diplopia ENT ENT ED: Denies ear pain, rhinorrhea or sore throat Cardiovascular Cardiovascular: Denies chest pain, orthopnea, palpitations or racing heartbeat Respiratory/Chest Respiratory/Chest: Reports cough and dyspnea; Denies orthopnea Gastrointestinal Gastrointestinal: Reports diarrhea, nausea and other Details: dry heaves ; Denies abdominal pain or vomiting Genitourinary Genitourinary ED: Denies dysuria, hematuria or urinary frequency Musculoskeletal Musculoskeletal: Denies arthralgias or myalgias Integumentary Denies abscess or rash Neurologic Neurologic: Denies headache(s) or weakness Psychiatric Psychiatric: Reports anxiety and depression; Denies suicidal ideation or suicidal thoughts Endocrine Endocrinology: Denies polydipsia, polyphagia or polyuria Allergic/Immunologic Allergic/Immunologic ED: Denies mouth swelling, tongue swelling or urticaria EXAM Physical Exam Const Vital Signs: 06/09/24 09:26 06/09/24 09:33 06/09/24 11:26 Temperature 97.8 F Temperature Source Oral Pulse Rate 104 H 101 H 99 Respiratory Rate 23 H 16 20 H Blood Pressure 122/98 H 118/75 110/61 Blood Pressure Mean 106 89 77 Pulse Ox 94 95 100 Oxygen Delivery Method Nasal Cannula Nasal Cannula Oxygen Flow Rate (L/min) 3 3 06/09/24 12:19 Temperature Temperature Source Pulse Rate 95 Respiratory Rate 20 H Blood Pressure 117/64 Blood Pressure Mean 81 Pulse Ox 99 Oxygen Delivery Method Room Air Oxygen Flow Rate (L/min) Positive well nourished, well developed and obese General Appearance ED: well developed and NAD Nutritional Appearance: obese HEENT Reports normocephalic, head/scalp atraumatic and moist mucous membranes Eyes PERRL and EOMs intact bilaterally Neck no lymphadenopathy, supple and no JVD Resp normal respiratory effort and clear to auscultation bilaterally Cardio regular rhythm and no murmurs Rate: tachycardic Rhythm: abnormal rhythm irregularly irregular GI normal to inspection, nondistended, normoactive bowel sounds and non-tender Palpation: soft Back/Spine no CVA tenderness and normal ROM Extremity General Extremety ED: Yes edema General Extremity: edema bilateral lower extremity Details: mild Neuro oriented x3 and CN's II-XII intact bilaterally Sensorium / Orientation: alert Motor Exam: strength 5/5 throughout Psych Mood & Affect: depressed, anxious and tearful Skin no rashes or lesions noted and no wounds MDM MDM MDM Narrative Medical decision making narrative: Differential diagnosis includes but not limited to vasovagal near syncope cardiac dysrhythmia electrolyte abnormalities anemia anxiety attack My independent interpretation of the chest x-ray is no acute process. Patient has been in atrial fibrillation with rates around 90-100. She has been normal tensive. Turned her oxygen down to 1 L and she continues to sat 98 to 99%. White count 12.2 hemoglobin 12.6 platelet count of 195. BMP shows a carbon dioxide greater than 45 creatinine 1.25 BUN of 51 glucose 160 troponin is 10. An ABG was obtained which demonstrates a pH of 7.332 CO2 of 88.7 PaO2 112 bicarb of 47. This would suggest to me that the patient is a chronic CO2 retainer. She is awake she is alert. I had social work visit with her. She does not wish correction facility or hospitalization at this time. History & Record Review Discussion w/independent historian: Patient Additional record(s) reviewed:: Prior inpatient record, Prior ED visit and Prior labs Lab Data Attestation: I reviewed the patient's lab results. Labs: Laboratory Results - last 24 hr 06/09/24 10:00 WBC 12.2 H RBC 3.90 L Hgb 12.6 Hct 40.1 MCV 102.8 H MCH 32.3 H MCHC 31.4 L D RDW Std Deviation 50.9 H RDW Coeff of Jose 13.2 Plt Count 195 MPV 10.6 Immature Gran % (Auto) 0.500 Neut % (Auto) 86.4 H Lymph % (Auto) 4.4 L [place] % (Auto) 8.4 Eos % (Auto) 0.2 Baso % (Auto) 0.1 Absolute Neuts (auto) 10.6 H Absolute Lymphs (auto) 0.54 L Nucleated RBC % 0 Sodium 140 Potassium 3.4 L Chloride 85 L Carbon Dioxide > 45.0 H* Anion Gap TNP BUN 51 H Creatinine 1.28 H Estim Creat Clear Calc 42.95 Est GFR (MDRD) Af Amer 51 L Est GFR (MDRD) Non-Af 42 L BUN/Creatinine Ratio 39.8 H Glucose 160 H Calcium 8.3 L Troponin I High Sens 10 ABG Data ABG results: ABG 06/09/24 13:02 Specimen Type ART Sample Site L Radial pH 7.33 L Bicarbonate Actual 47.0 H Total CO2 50 Base Excess 21 H O2 Saturation 98 ABG pCO2 88.7 H* ABG pO2 112 H Frankie Test Positive O2 Delivery Device Cannula Vent Mode Not entered Crit Call To/Read Back Yes Blood Gas Notified Whom elvis Blood Gas Notified Time 13:03:35 Radiography Diagnostic Testing: Clinical Impression(s) from Imaging Studies Chest X-Ray 06/09/24 10:18 IMPRESSION: Bilateral pleural effusions, left greater than right, cannot exclude associated bibasilar consolidation. Electronically Signed: Maile Manuel MD at 10:32 EST , EKG Initial EKG: Attestation: I personally reviewed and interpreted this EKG as follows: Comments: Atrial fibrillation ventricular rate of 100 bpm Management Discussion w/another healthcare provider: adz worker/Case management Discharge Plan Triage Chief Complaint: Dizziness ED Provider: Nikolas Chaves Dx/Rx/DC Orders Clinical Impression: Anxiety, Atrial fibrillation, Near syncope, Nausea Instructions: ED Near-Fainting- Vagal Reaction Prescriptions: No Action metformin 500 MG tablet 1,000 mg PO BID Patient Comments: supposed to take 2 tabs bid; patient only takes 1 tab bid buspirone 5 tablet 5 mg PO BID Patient Comments: glipizide 10 mg tablet extended release 24hr 20 mg PO DAILY acetaminophen 500 mg capsule 1,000 mg PO Q6H PRN (Reason: pain) doxycycline hyclate 100 mg tablet 100 mg PO BID Qty: 14 0RF escitalopram oxalate 10 mg tablet 10 mg PO DAILY carvedilol 6.25 mg Tablet 6.25 mg PO BID Qty: 60 0RF furosemide 20 mg tablet 60 mg PO BID Qty: 180 1RF lisinopril 20 mg tablet 20 mg PO DAILY Qty: 30 1RF prednisone 20 mg tablet 20 mg PO DAILY Qty: 7 0RF Rx Instructions: Take for 7 days then discontinue potassium chloride [Klor-Con 10] 10 mEq tablet extended release 20 meq PO BID Qty: 120 0RF Primary Care Provider: Dustin Lang Referrals: Dustin Lang MD [Primary Care Provider] - As soon as possible Activity Restrictions/Additional Instructions: Social work visited with you today. I know that you have home health care coming in tomorrow. It is important that you work to find a way to follow-up with your primary care doctor to provide your outpatient care. As we discussed you chronically retaining carbon dioxide. While you are at rest in the bed your oxygen levels are 98 to 99%. You may not need oxygen if you are sitting and watching TV or may only require 1 L. I would recommend continuing to wear your oxygen when you exert yourself. Print Language: Japanese Disposition Disposition: Home, Self Care
[2024-06-09] MEDS: LORazepam 2 MG/ML Syringe 0.5 MG IV (10:06)
[2024-06-09 10:10] LABS: Absolute Lymphocyte Count 0.54 X10^3/uL (0.83-4.51); Absolute Neutrophil Count 10.6 X10^3/uL (2.0-7.7); Basophil# 0.01 X10^3/uL; Basophil% 0.1 % (0-1); Eosinophil# 0.02 X10^3/uL; Eosinophils% 0.2 % (0-5); Hematocrit 40.1 % (37-47); Hemoglobin 12.6 g/dL (12.0-15.0); Lymphocyte # 0.54 X10^3/ul (0.83-4.51); Lymphocyte % 4.4 % (19-41); Mean Corp Hgb Conc 31.4 g/dL (32-36); Mean Corpuscular Hgb 32.3 pg (27.0-32.0); Mean Corpuscular Volume 102.8 fL (81-99); Mean Platelet Vol. 10.6 fl (6.2-12.0); Monocyte# 1.03 X10^3/uL; Monocyte% 8.4 % (0-10); NRBC Flagged by Analyzer 0 % (0-5); Neutrophil # 10.57 X10^3/uL (2.7-7.7); Neutrophil % 86.4 % (47-70); POSITIVE DIFFERENTIAL YES; Platelet Count 195 K/mm3 (150-450); RBC Distribution Width CV 13.2 % (11.6-14.6); RBC Distribution Width SD 50.9 fl (35.1-43.9); White Blood Count 12.2 K/mm3 (4.4-11.0)
--- NOTE | 2024-06-09 10:18 | RAD_ITS ---
INDICATION: near syncope EXAMINATION/TECHNIQUE: X-RAY - XR Chest 1 View COMPARISON: June 04, 2024 FINDINGS: LINES/DEVICES: None. LUNGS: There are stable bilateral pleural effusions, left greater than right. No pneumothorax. MEDIASTINUM AND CARDIOVASCULAR STRUCTURES: Cardiac silhouette not enlarged. Central airways and mediastinal contour are unremarkable. BONES AND SOFT TISSUES: Unremarkable. RAD/Chest 1 View (Portable) IMPRESSION: Bilateral pleural effusions, left greater than right, cannot exclude associated bibasilar consolidation. Electronically Signed: Maile Manuel MD at 10:32 EST ,
[2024-06-09 10:30] LABS: BUN 51 mg/dL (7-18); BUN/Creat Ratio 39.8 RATIO (10-20); Calcium,Total 8.3 mg/dL (8.5-10.1); Carbon Dioxide > 45.0 mmol/L (21.0-32.0); Chloride 85 mmol/L (98-107); Creatinine, Serum 1.28 mg/dL (0.55-1.02); EST Glomerular Filtration Rate 42 mL/min (>60); Est Glom Filt Rate - Afr Amer 51 mL/min (>60); Estimated Creatinine Clearance 42.95 ml/min; Glucose 160 mg/dL (74-106); Potassium 3.4 mmol/L (3.5-5.1); Sodium Level 140 mmol/L (136-145); Troponin-I HS 10 pg/mL (3.0-54.0)
--- NOTE | 2024-06-09 10:30 | CM.ED ---
Social work: alcoholism worker made contact with patient and patient's friend Baltazar with whom patient has lived with for over 26 years. Patient consented to social work visit however fell asleep and was unable to stay awake for visit. Patient did say that this morning her legs were feeling numb and was told that she had been sitting on the toilet for too long which patient denied. Patient stated her legs feel weak. Baltazar reported patient had been at the hospital from Monday-Monday. Baltazar stated he knew patient was going to come back to the hospital today because that's her trend. Baltazar stated he is able to help patient at home and doesn't understand why patient has been coming to the hospital more often. Baltazar stated he believes patient was given something to help her sleep as patient didn't sleep last night. Grocery Carrier will return to complete visit with patient once patient is able to stay awake. Jennifer Nair, FOUNDRY WORKER GENERAL, OCEANOGRAPHY TEACHER
[2024-06-09 12:05] LABS: Allen Test Positive; Base Excess 21 mmol/L (-2 to +2); Blood Gas Specimen Type ART; Mode Not entered; O2 Delivery Device Cannula; PO2 112 mmHG (75-100); SITE L Radial; SO2 98 % (95-99); Total Carbon Dioxide 50 mmol/L; pCO2 88.7 mmHg (35-45); pH 7.33 (7.35-7.45)
--- NOTE | 2024-06-09 12:11 | CPS ---
Critical value verified times two. Hand delivered results to . Verified by read back.
--- NOTE | 2024-06-09 12:50 | CM.ED ---
Social Work: Date of referral: 06/09/2024 Reason for referral: Anxiety Referred by: ED Doctor bog worker attempted second visit with patient. Patient was alone, awake and consented to social work visit. Patient admitted she has anxiety related to current medical conditions and wasn't able to verbalize what she feels she needs. Patient stated she doesn't want to go to a SNF because the last time she was in a SNF she had so stay in soiled briefs all day and doesn't want to experience that again. Patient described her friend Baltazar as a big help who is able to assist her with whatever she needs. Patient denied being involved in counseling and denied that she is interested in any counseling resources. Patient described herself as homebound due to not being able to get in and out of the van. bog worker provided education about Telehealth options that are available and patient continued to decline. Patient has DME including a toilet lift, walker, wheelchair and a lift chair. Patient reported the lewis to her bathroom will not accommodate/withstand grab bars. Patient reported that most of her family has but member does have a daughter, Cici, who lives in [place]. Patient asked for resources for Meals on Wheels which older adult social work specialist provided. Patient declined any other needs at this time. Jennifer Nair, WINE MERCHANT, TRUST OFFICER
--- NOTE | 2024-06-09 14:30 | CASEMGMT ---
Social Work: carry in worker and patient's nurse met with patient and patient's friend Baltazar again and talked with both in regards to concerns revolving discharge planning when patient stated she had no way of following through with an in person appointment with her PCP. Due to increased weakness, increased fall risk and need for therapy to help patient be able to stand, walk and ambulate in general as well as not being able to follow up with needed medical appointments, it was decided that patient is in need of a SNF placement which patient became agreeable to. Jennifer Nair, DENTAL CREAM MAKER, REGISTERED VETERINARY TECHNICIAN
--- NOTE | 2024-06-09 15:09 | HP.PCM.HOS_ITS ---
HPI - General General Date of Admission: 06/09/24 Date of Service: 06/09/24 Chief Complaint: weakness. HPI Narrative RASHIDA TOWNSEND, is a 84 F who presents within 48 hours after being discharged for COPD exacerbation and CHF exacerbation. Patient was treated and I was transitioned over to oral meds. Is followed by physical and Occupational Therapy that patient be appropriate for senior care facility but patient decided to go home. So patient was discharged on the first. Yesterday she started feeling dizzy and then today, we just felt very weak and unable to get up. So she presented to the emergency room. In the emergency room, patient was feeling anxious feel that she is going to when he close a door. She did receive a dose of lorazepam. Patient being brought into the hospital under observation status because of her weakness and unable to adequately care for herself. [facility] Medical History Anxiety On home oxygen therapy HTN (hypertension) Diabetes History of cellulitis Home Medications ?Medication ?Instructions ?Recorded ?Last Taken ?Type metformin 500 mg tablet 1,000 mg PO BID DM 05/22/14 06/04/24 History buspirone 5 mg tablet 5 mg PO BID depression 02/04/18 03/10/24 History glipizide 10 mg tablet, extended 20 mg PO DAILY Blood sugars 03/08/24 06/04/24 History release 24 hr escitalopram oxalate 10 mg tablet 10 mg PO DAILY Depression 06/04/24 06/04/24 History carvedilol 6.25 mg tablet 6.25 mg PO BID #60 tabs 06/07/24 Unknown Rx furosemide 20 mg tablet 60 mg (3 x 20 mg) PO BID #180 tabs 06/07/24 Unknown Rx lisinopril 20 mg tablet 20 mg PO DAILY #30 tabs 06/07/24 Unknown Rx potassium chloride 10 mEq 20 meq (2 x 10 mEq) PO BID #120 06/07/24 Unknown Rx tablet,extended release (Klor-Con) tabs cephalexin 500 mg capsule 500 mg PO TID 06/09/24 06/09/24 History doxycycline hyclate 100 mg tablet 100 mg PO BID 06/09/24 06/09/24 History prednisone 20 mg tablet 20 mg PO DAILY 06/09/24 06/09/24 History Allergy/AdvReac Type Severity Reaction Status Date / Time erythromycin base Allergy Unknown Verified 06/04/24 08:56 (Erythromycin Base) ibuprofen (From Nuprin) Allergy Unknown Verified 06/04/24 08:56 Surgical History Hx of cholecystectomy History of hysterectomy History of appendectomy Social History Smoking Status: Former smoker ROS ROS Narrative No shortness of breath. On home oxygen. Has chronic lower extremity edema but she does not know if it is worse or better. All review of systems were negative except as mentioned above in the history of present illness and the other review of systems. Vital Signs Vital Signs Vital Signs: 06/09/24 09:26 06/09/24 09:33 06/09/24 11:26 Temperature 36.6 C Temperature Source Oral Pulse Rate 104 H 101 H 99 Respiratory Rate 23 H 16 20 H Blood Pressure 122/98 H 118/75 110/61 Blood Pressure Mean 106 89 77 Pulse Ox 94 95 100 Oxygen Delivery Method Nasal Cannula Nasal Cannula Oxygen Flow Rate (L/min) 3 3 06/09/24 12:19 06/09/24 14:00 06/09/24 14:50 Temperature 36.6 C Temperature Source Pulse Rate 95 98 87 Respiratory Rate 20 H 22 H 20 H Blood Pressure 117/64 127/59 H 121/79 H Blood Pressure Mean 81 81 93 Pulse Ox 99 98 100 Oxygen Delivery Method Room Air Nasal Cannula Oxygen Flow Rate (L/min) 2 Weight Weight: 136.531 kg Body Mass Index (BMI) 55.0 Physical Exam Const alert and no apparent distress HEENT normocephalic and head/scalp atraumatic Resp normal respiratory effort, no retractions, no use of accessory muscles and clear to auscultation bilaterally Cardio regular rate, regular rhythm, S1 normal heart sound and S2 normal heart sound GI normal to inspection, nondistended, normoactive bowel sounds, soft to palpation, non-tender and non-distended GI Narrative: Obese Extremity Extremity Narrative: Marked bilateral lower extremity edema nonpitting and no seeping Neuro Sensorium / Orientation: awake and alert Psych Mood & Affect: anxious Results Lab / Micro Data 06/09/24 10:00 06/09/24 10:00 Labs: Laboratory Results - last 24 hr 06/09/24 10:00: WBC 12.2 H, RBC 3.90 L, Hgb 12.6, Hct 40.1, MCV 102.8 H, MCH 32.3 H, MCHC 31.4 L D, RDW Std Deviation 50.9 H, RDW Coeff of Jose 13.2, Plt Count 195, MPV 10.6, Immature Gran % (Auto) 0.500, Neut % (Auto) 86.4 H, Lymph % (Auto) 4.4 L, [place] % (Auto) 8.4, Eos % (Auto) 0.2, Baso % (Auto) 0.1, Absolute Neuts (auto) 10.6 H, Absolute Lymphs (auto) 0.54 L, Nucleated RBC % 0, Sodium 140, Potassium 3.4 L, Chloride 85 L, Carbon Dioxide > 45.0 H*, Anion Gap TNP, B UN 51 H, Creatinine 1.28 H, Estim Creat Clear Calc 42.95, Est GFR (MDRD) Af Amer 51 L, Est GFR (MDRD) Non-Af 42 L, BUN/Creatinine Ratio 39.8 H, Glucose 160 H, C alcium 8.3 L, Troponin I High Sens 10 ABG Data ABG results: ABG 06/09/24 13:02 Specimen Type ART Sample Site L Radial pH 7.33 L Bicarbonate Actual 47.0 H Total CO2 50 Base Excess 21 H O2 Saturation 98 ABG pCO2 88.7 H* ABG pO2 112 H Frankie Test Positive O2 Delivery Device Cannula Vent Mode Not entered Crit Call To/Read Back Yes Blood Gas Notified Whom [facility] Blood Gas Notified Time 13:03:35 Imaging Radiology Impression Chest X-Ray 06/09/24 10:18 IMPRESSION: Bilateral pleural effusions, left greater than right, cannot exclude associated bibasilar consolidation. Electronically Signed: Maile Manuel MD at 10:32 EST , Assessment & Plan Assessment/Plan (1) Adult failure to thrive: PLAN: Patient was deemed appropriate for senior care facility this most recent hospitalization when she was just discharged on the first. Patient now has a understand that she is not able to adequately care for herself. PT OT evaluate and treat. Case management to assist on disposition PLAN: Plan Chronic conditions * Obesity class III: Complicates care and recovery * Chronic HFpEF: EF 60% from echocardiogram on June 05. Continue with furosemide, carvedilol, lisinopril. Chest x-ray does show pulm vascular congestion as well as pleural effusion but it does appear to be improved from the . * Diabetes mellitus type 2: Continue with metformin. Sliding scale insulin. * Chronic respiratory failure: Patient has elevated pCO2 on her ABG as well as chronically on her BMP. Patient has been told that she has sleep apnea. She states that she was told by bed teacher that a BiPAP would be dangerous. I told her I find that hard to believe as that she would clearly benefit from that. She adamantly expresses desire for no BiPAP or CPAP. Wean oxygen as tolerated. * COPD: Was treated for an exacerbation. Is on a 7-day course of prednisone 20 mg. Will continue that until that is completed. VTE prophylaxis: Low risk given current observation status. CODE STATUS: Push forward from the previous hospitalization where I asked her myself and patient is DNR Comfort Care arrest no intubation. Patient has low medical literacy but also an unwillingness to listen to recommendations. I told the patient that we are here to help her and if she chooses not to listen that she is only going to be harming herself. I encouraged her to listen to the medical providers who are involved in her care as we are trying to help her. Charges/Coding Visit Charges Inpatient E&M: 86536 Init Hosp L2
[2024-06-09 16:53] LABS: Bedside Glucose 90 mg/dL (74-106)
[2024-06-09] MEDS: Furosemide 20 MG Tablet 60 MG PO (19:03)
[2024-06-09] MEDS: Potassium Chloride Oral Tablet 20 MEQ PO (20:40)
[2024-06-09] MEDS: Menthol/Lanolin/Calamine/Znox 113 GM Tube 1 APPLIC TOPICAL (20:40)
[2024-06-09] MEDS: Nystatin Powder 15gm Bottle 1 APPLIC TOPICAL (20:40)
[2024-06-09] MEDS: busPIRone 5 MG Tablet PO (20:40)
[2024-06-09] MEDS: Carvedilol 6.25 MG Tablet PO (20:40)
[2024-06-09] MEDS: APIXABAN 5 MG TABLET PO (20:40)
[2024-06-10] VITALS (7 sets, daily range): BP systolic 120–132; BP diastolic 54–70; PULSE 73–95; RESP 16–18; TEMP 36.2–36.9; O2SAT 94–100
[2024-06-10 05:15] LABS: Bedside Glucose 87 mg/dL (74-106)
--- NOTE | 2024-06-10 07:08 | PN.HOSP_ITS ---
Reason for Visit Reason for Visit: Diagnoses Adult failure to thrive (06/09/24) Subjective Subjective Patient is an 84-year-old lady with recent hospitalization for COPD with acute exacerbation who presented back to the ED 2 days following her discharge with progressive generalized weakness and inability to take care of oneself Objective Data Objective Data Vital Signs: Vital Signs Temp Pulse Resp BP Pulse Ox O2 Del Method O2 Flow Rate 98.5 F 89 18 122/54 H 96 Nasal Cannula 2 06/10/24 04:35 06/10/24 04:35 06/10/24 04:35 06/10/24 04:35 06/10/24 06:12 06/10/24 06:12 06/10/24 06:12 Oxygen Flow Rate (L/min) 2 Oxygen Delivery Method Nasal Cannula Weight: 137.2 kg Body Mass Index (BMI) 55.3 Intake & Output: Intake and Output for Last 24 Hours 06/08/24 06/09/24 06/10/24 23:59 22:59 23:59 Intake Total 400 / 400 300 / 300 Balance 400 / 400 300 / 300 Lab / Micro Data 06/09/24 10:00 06/10/24 06:25 Labs: Laboratory Results - last 24 hr 06/09/24 10:00: WBC 12.2 H, RBC 3.90 L, Hgb 12.6, Hct 40.1, MCV 102.8 H, MCH 32.3 H, MCHC 31.4 L D, RDW Std Deviation 50.9 H, RDW Coeff of Jose 13.2, Plt Count 195, MPV 10.6, Immature Gran % (Auto) 0.500, Neut % (Auto) 86.4 H, Lymph % (Auto) 4.4 L, Tyrrell % (Auto) 8.4, Eos % (Auto) 0.2, Baso % (Auto) 0.1, Absolute Neuts (auto) 10.6 H, Absolute Lymphs (auto) 0.54 L, Nucleated RBC % 0, Sodium 140, Potassium 3.4 L, Chloride 85 L, Carbon Dioxide > 45.0 H*, Anion Gap TNP, B UN 51 H, Creatinine 1.28 H, Estim Creat Clear Calc 42.95, Est GFR (MDRD) Af Amer 51 L, Est GFR (MDRD) Non-Af 42 L, BUN/Creatinine Ratio 39.8 H, Glucose 160 H, C alcium 8.3 L, Troponin I High Sens 10 06/09/24 16:35: POC Glucose 90 06/10/24 04:55: POC Glucose 87 Micro: Microbiology 06/09/24 17:45 Stool Clostridioides difficile (PCR) - Final ABG Data ABG results: ABG 06/09/24 13:02 Specimen Type ART Sample Site L Radial pH 7.33 L Bicarbonate Actual 47.0 H Total CO2 50 Base Excess 21 H O2 Saturation 98 ABG pCO2 88.7 H* ABG pO2 112 H Frankie Test Positive O2 Delivery Device Cannula Vent Mode Not entered Crit Call To/Read Back Yes Blood Gas Notified Whom [facility] Blood Gas Notified Time 13:03:35 Radiography Diagnostic Testing: Radiology Impression Chest X-Ray 06/09/24 10:18 IMPRESSION: Bilateral pleural effusions, left greater than right, cannot exclude associated bibasilar consolidation. Electronically Signed: Maile Manuel MD at 10:32 EST , Physical Exam Narrative GENERAL: cooperative HEENT: Atraumatic; normocephalic EYES; Anicteric, Normal Conjunctiva NECK; supple, normal thyroid, RESPIRATORY: Diminished to auscultation CARDIOVASCULAR: Regular S1 S2, GI: soft, normoactive bowel sounds, : No Renal angle tenderness; EXTREMITIES: No edema, no clubbing, MUSCULOSKELETAL: no muscle wasting NEURO: Awake; no lateralizing signs. SKIN: No Rash PSYCH; Flat affect Assessment & Plan Assessment/Plan (1) Adult failure to thrive: (2) CHF exacerbation: (3) COPD exacerbation: PLAN: Plan Patient is an 84-year-old lady with recent hospitalization for COPD with acute exacerbation who presented back to the ED 2 days following her discharge with progressive generalized weakness and inability to take care of oneself 1. Physical deconditioning ? Requested for PT OT eval and administrator social welfare to assist with discharge planning 2. Acute on chronic congestive heart failure ? With preserved ejection fraction echo obtained on 06/05/2024 demonstrated EF of 60%. Patient is on guideline directed medical therapy 3. COPD with recent acute exacerbation ? Patient has significant hypercarbia.. Patient is on bronchodilator treatment, in addition to oral corticosteroid and supplemental oxygen. Consult was placed to pulmonary medicine 4. Class III obesity with BMI of 55.3 ? Complicating care 5. Hypertension ? Blood pressure controlled, home medications continued with dose adjustment as needed 6. Diabetes mellitus type II -patient's oral hypoglycemics held. Placed on long acting insulin, Accu-Cheks a.c. and at bedtime and covered with sliding scale insulin 7. Chronic hypoxic respiratory failure ? Patient is on baseline home O2 8. Paroxysmal A-fib ? Rate controlled on carvedilol patient is on systemic anticoagulation with apixaban did continue 9. DVT prophylaxis ? On apixaban 10. Hypokalemia ? Corrected per protocol repeat labs ordered for a.m. Time spent in the patient's overall evaluation,decision-making process, review of diagnostic data, adjustment of management, discussion with other providers, nursing nursing and ancillary staff involved in patient's care documentation,50 Minutes Charges/Coding Visit Charges Inpatient E&M: 51032 [facility] L3
[2024-06-10 07:35] LABS: BUN 59 mg/dL (7-18); BUN/Creat Ratio 50.4 RATIO (10-20); Calcium,Total 8.2 mg/dL (8.5-10.1); Carbon Dioxide > 45.0 mmol/L (21.0-32.0); Chloride 87 mmol/L (98-107); Creatinine, Serum 1.17 mg/dL (0.55-1.02); EST Glomerular Filtration Rate 47 mL/min (>60); Est Glom Filt Rate - Afr Amer 57 mL/min (>60); Estimated Creatinine Clearance 47.14 ml/min; Glucose 100 mg/dL (74-106); Magnesium 1.9 mg/dL (1.6-2.6); Potassium 3.4 mmol/L (3.5-5.1); Sodium Level 141 mmol/L (136-145)
[2024-06-10] MEDS: predniSONE 20 MG Tablet PO (08:04)
[2024-06-10] MEDS: Lisinopril 20 MG Tablet PO (08:04)
[2024-06-10] MEDS: Carvedilol 6.25 MG Tablet PO ×2 (08:04→23:09)
[2024-06-10] MEDS: Furosemide 20 MG Tablet 60 MG PO ×2 (08:04→18:02)
[2024-06-10] MEDS: Escitalopram Oxalate 10 MG Tablet PO ×2 (08:04)
[2024-06-10] MEDS: glipiZIDE XL 5 MG Tablet 20 MG PO (08:05)
[2024-06-10] MEDS: metFORMIN HCl 1,000 MG Tablet 1000 MG PO ×2 (08:05→18:02)
[2024-06-10] MEDS: busPIRone 5 MG Tablet PO ×2 (08:05→23:10)
[2024-06-10] MEDS: APIXABAN 5 MG TABLET PO ×2 (08:05→23:10)
[2024-06-10] MEDS: Menthol/Lanolin/Calamine/Znox 113 GM Tube 1 APPLIC TOPICAL ×2 (08:06→23:10)
[2024-06-10] MEDS: Potassium Chloride Oral Tablet 20 MEQ PO ×4 (08:06→23:10)
[2024-06-10] MEDS: Nystatin Powder 15gm Bottle 1 APPLIC TOPICAL ×2 (08:07→23:11)
--- NOTE | 2024-06-10 09:51 | CASEMGMT ---
Discharge Planning A list of?SNF providers including quality and resource use data and consistent with the patient's preferred geographic region, medical needs, and insurance network was created in [facility]Port Guide.? This list was provided to the SW. Krista Grey Discharge Planning Asst.
[2024-06-10 12:10] LABS: Bedside Glucose 112 mg/dL (74-106)
--- NOTE | 2024-06-10 13:05 | CASEMGMT ---
Addendum entered by Fabi Jansen 06/10/24 15:27: Social Work- BELKIS spoke with pt to confirm that she is agreeable to being placed in a private room in LTC wing, as per [facility], that is the only room available. PT is agreeable. [facility] notified. YOKO Bird Original Note: Social Work- BELKIS met with pt to discuss preferences at d/c. Pt declines a SNF list, reporting that she wants a referral to [facility]. Pt reports she completed therapy this morning. [facility] notified of referral request. BELKIS remains available to follow. YOKO Bird
[2024-06-10] MEDS: Loperamide 2 MG Capsule 4 MG PO (13:21)
--- NOTE | 2024-06-10 13:46 | CASEMGMT ---
Addendum entered by Krista Grey 06/10/24 15:55: [facility] has accepted. Krista Grey DC Planning Asst. Original Note: Discharge Planning Referral sent via careport to [facility]. Krista Grey DC Planning Asst.
--- NOTE | 2024-06-10 13:47 | EX.PCM.CONCC ---
Assessment & Plan Assessment/Plan (1) Adult failure to thrive: PLAN: Plan RECOMMENDATIONS: 1. Continue supplemental oxygen as needed. 2. Ongoing diuresis as tolerated by hemodynamics and renal function. 3. As needed bronchodilator therapy. 4. Encourage incentive spirometer use and mobilize patient as tolerated. 5. Outpatient pulmonary follow-up after discharge, if the patient is agreeable. 6. Will sign off from a pulmonary perspective. Please call if we can be of any additional assistance. IMPRESSIONS: 1. Questionable COPD with chronic hypoxemic respiratory failure The patient was readmitted to the hospital following recent inpatient admission for CHF/COPD exacerbation. She appears to be unable to care for herself and will likely require placement. She is not currently active with a medical payment poster. She does have a remote smoking history and may certainly have an underlying component of COPD. She did have an ABG obtained yesterday which demonstrated chronic CO2 retention. I do suspect that in addition to possible COPD, the patient likely has obstructive sleep apnea and/or a component of alveolar hypoventilation secondary to obesity. However, the patient is insistent that she would not be interested in utilizing any form of nocturnal PAP therapy. At this time, I have no additional recommendations from a pulmonary perspective. If the patient is agreeable, she can follow-up after discharge in the pulmonary medicine clinic so that baseline PFTs can be obtained to determine if COPD is present. Otherwise, continue supportive care per hospitalist. 2. Heart failure with preserved ejection fraction/generalized deconditioning/morbid obesity/hypertension/diabetes mellitus/paroxysmal atrial fibrillation Complicates care, management, recovery and prognosis. Continue home medications as indicated. This note was generated with [employer] dictation software. It may contain incorrect words, spelling, and punctuation that were not noted in checking the note before signing. HPI Consult Data Date of Consult: 06/10/24 HPI Narrative Reason for Consultation: COPD with significant hypercapnia HPI Narrative: The patient is an 84-year-old female, with a history as outlined below, who presented to the emergency department on June 09 with complaints of dizziness and weakness. The patient had just been admitted to the hospital June 04 through June 07, during which time, she was apparently treated for a combination of CHF and COPD exacerbation. The patient reported to me that she is not currently active with a medical payment poster. She has a very remote smoking history, having quit completely in 1999. Although the patient is at high risk for sleep apnea, she has never completed a sleep study, and reported that she would not be interested in utilizing any form of nocturnal PAP therapy. The patient was initially admitted to the hospital with failure to thrive, with plans to obtain PT and OT evaluations, as the patient would likely require placement. She has a chronic medical history that includes morbid obesity, heart failure with preserved ejection fraction and diabetes mellitus. She currently has no active pulmonary needs and is on her baseline oxygen. The patient does not appear to utilize any form of bronchodilator therapy at her baseline. ABG obtained on June 09 demonstrated a pH of 7.3 with a pCO2 of 88 and pO2 of 112. [facility] Medical History (Updated 06/10/24 @ 08:[address] Williams Kay MD) CHF exacerbation COPD exacerbation Anxiety On home oxygen therapy HTN (hypertension) Diabetes History of cellulitis Home Medications ?Medication ?Instructions ?Recorded ?Last Taken ?Type metformin 500 mg tablet 1,000 mg PO BID DM 05/22/14 06/09/24 History buspirone 5 mg tablet 5 mg PO BID depression 02/04/18 06/09/24 History glipizide 10 mg tablet, extended 20 mg PO DAILY Blood sugars 03/08/24 06/09/24 History release 24 hr escitalopram oxalate 10 mg tablet 10 mg PO DAILY Depression 06/04/24 06/09/24 History carvedilol 6.25 mg tablet 6.25 mg PO BID #60 tabs 06/07/24 06/09/24 Rx furosemide 20 mg tablet 60 mg (3 x 20 mg) PO BID #180 tabs 06/07/24 06/09/24 Rx lisinopril 20 mg tablet 20 mg PO DAILY #30 tabs 06/07/24 06/09/24 Rx potassium chloride 10 mEq 20 meq (2 x 10 mEq) PO BID #120 06/07/24 06/09/24 Rx tablet,extended release (Klor-Con) tabs cephalexin 500 mg capsule 500 mg PO TID 06/09/24 06/09/24 History doxycycline hyclate 100 mg tablet 100 mg PO BID 06/09/24 06/09/24 History prednisone 20 mg tablet 20 mg PO DAILY 06/09/24 06/09/24 History Allergy/AdvReac Type Severity Reaction Status Date / Time erythromycin base Allergy Unknown Verified 06/04/24 08:56 (Erythromycin Base) ibuprofen (From Nuprin) Allergy Unknown Verified 06/04/24 08:56 Surgical History Hx of cholecystectomy History of hysterectomy History of appendectomy Social History Smoking Status: Former smoker ROS ROS Narrative 10 systems were reviewed with pertinent positives as noted in the HPI above. Physical Exam Const alert and no apparent distress Constitutional Narrative: Morbidly obese. Sitting upright in bed. General Appearance: cooperative HEENT normocephalic and head/scalp atraumatic Eyes PERRL, EOMs intact bilaterally and conjunctivae normal Neck supple General: trachea midline Chest inspection of chest normal Resp normal respiratory effort Auscultation: diminished lung sounds Cardio regular rate and regular rhythm GI normal to inspection, nondistended, normoactive bowel sounds Extremity no clubbing, cyanosis or edema Skin no rashes or lesions noted Neuro CN's II-XII intact bilaterally and no focal motor deficits Psych Mood & Affect: flat affect Lab / Micro Data 06/09/24 10:00 06/10/24 06:25 Labs: Laboratory Results - last 24 hr 06/09/24 16:35: POC Glucose 90 06/10/24 04:55: POC Glucose 87 06/10/24 06:25: Sodium 141, Potassium 3.4 L, Chloride 87 L, Carbon Dioxide > 45.0 H*, Anion Gap TNP, BUN 59 H, Creatinine 1.17 H, Estim Creat Clear Calc 47.14, Est GFR (MDRD) Af Amer 57 L, Est GFR (MDRD) Non-Af 47 L, BUN/Creatinine Ratio 50.4 H, Glucose 100, Calcium 8.2 L, Magnesium 1.9 06/10/24 11:53: POC Glucose 112 H Micro: Microbiology 06/09/24 17:45 Stool Clostridioides difficile (PCR) - Final Charges/Coding Visit Charges Inpatient E&M: 48584 Init Hosp L3
--- NOTE | 2024-06-10 15:23 | CASEMGMT ---
Met with patient to complete GAVIN form. GAVIN form explained to patient who voiced understanding and signed form. Original form placed in pt?s chart and copy provided to patient. Krista Grey, Discharge Planning Asst
[2024-06-10 16:57] LABS: Bedside Glucose 91 mg/dL (74-106)
[2024-06-11] VITALS (8 sets, daily range): BP systolic 95–119; BP diastolic 41–69; PULSE 89–98; RESP 16–20; TEMP 35.7–36.4; O2SAT 94–100
[2024-06-11] MEDS: Dicyclomine 10 MG Capsule 20 MG PO ×3 (02:55→16:16)
[2024-06-11 07:01] LABS: Bedside Glucose 44 mg/dL (74-106)
[2024-06-11 07:01] LABS: Bedside Glucose 46 mg/dL (74-106)
[2024-06-11 07:21] LABS: Bedside Glucose 73 mg/dL (74-106)
[2024-06-11 07:54] LABS: Absolute Lymphocyte Count 0.87 X10^3/uL (0.83-4.51); Absolute Neutrophil Count 18.1 X10^3/uL (2.0-7.7); Basophil# 0.02 X10^3/uL; Basophil% 0.1 % (0-1); Eosinophil# 0.01 X10^3/uL; Hematocrit 36.1 % (37-47); Lymphocyte # 0.87 X10^3/ul (0.83-4.51); Lymphocyte % 4.3 % (19-41); Mean Corp Hgb Conc 30.5 g/dL (32-36); Mean Corpuscular Hgb 31.9 pg (27.0-32.0); Mean Corpuscular Volume 104.6 fL (81-99); Mean Platelet Vol. 11.5 fl (6.2-12.0); Monocyte% 5.9 % (0-10); NRBC Flagged by Analyzer 0 % (0-5); Neutrophil # 18.12 X10^3/uL (2.7-7.7); Neutrophil % 88.7 % (47-70); Platelet Count 165 K/mm3 (150-450); RBC Distribution Width CV 13.4 % (11.6-14.6); RBC Distribution Width SD 51.9 fl (35.1-43.9); Red Blood Count 3.45 M/mm3 (4.2-5.4); White Blood Count 20.4 K/mm3 (4.4-11.0)
[2024-06-11] MEDS: Potassium Chloride Oral Tablet 20 MEQ PO ×2 (08:00→11:08)
[2024-06-11] MEDS: Furosemide 20 MG Tablet 60 MG PO (08:01)
[2024-06-11] MEDS: Menthol/Lanolin/Calamine/Znox 113 GM Tube 1 APPLIC TOPICAL ×2 (08:03→21:07)
[2024-06-11] MEDS: Escitalopram Oxalate 10 MG Tablet PO (08:03)
[2024-06-11] MEDS: predniSONE 20 MG Tablet PO (08:03)
[2024-06-11] MEDS: Nystatin Powder 15gm Bottle 1 APPLIC TOPICAL ×2 (08:04→21:06)
[2024-06-11] MEDS: Carvedilol 6.25 MG Tablet PO ×2 (08:04→21:08)
[2024-06-11] MEDS: busPIRone 5 MG Tablet PO ×2 (08:05→21:08)
[2024-06-11 08:45] LABS: BUN 77 mg/dL (7-18); Calcium,Total 8.2 mg/dL (8.5-10.1); Carbon Dioxide > 45.0 mmol/L (21.0-32.0); Chloride 90 mmol/L (98-107); Creatinine, Serum 1.35 mg/dL (0.55-1.02); EST Glomerular Filtration Rate 40 mL/min (>60); Est Glom Filt Rate - Afr Amer 48 mL/min (>60); Estimated Creatinine Clearance 40.85 ml/min; Glucose 72 mg/dL (74-106); Magnesium 1.9 mg/dL (1.6-2.6); Phosphorus 3.3 mg/dL (2.5-4.9); Potassium 3.7 mmol/L (3.5-5.1); Sodium Level 140 mmol/L (136-145)
[2024-06-11] MEDS: APIXABAN 5 MG TABLET PO (11:07)
--- NOTE | 2024-06-11 11:21 | PCM.PN.HOSP ---
Reason for Visit Reason for Visit: Diagnoses Heart failure, unspecified (06/09/24) Chronic obstructive pulmonary disease with (acute) exacerbation (06/09/24) Adult failure to thrive (06/09/24) Subjective Subjective Saw patient this morning. Patient was fatigued morning. Per patient and nursing staff, patient had many loose bowel movements overnight and this morning. Yesterday they were more greenish appearing but as of this morning they had been dark and tarry. Patient denies history of GI bleed. She notably was started on Eliquis on admission given newly diagnosed A-fib with RVR. Her significant other was present at bedside and noted that she appeared somewhat more confused and lethargic than she typically is. Patient states her appetite has been worse than her normal as well. C. difficile notably was negative yesterday. Objective Data Objective Data Vital Signs: Vital Signs Temp Pulse Resp BP Pulse Ox O2 Del Method O2 Flow Rate 96.5 F L 94 20 H 119/69 100 Nasal Cannula 3 06/11/24 08:00 06/11/24 08:00 06/11/24 08:00 06/11/24 08:00 06/11/24 08:00 06/11/24 08:00 06/11/24 08:00 Oxygen Flow Rate (L/min) 3 Oxygen Delivery Method Nasal Cannula Weight: 137.2 kg Body Mass Index (BMI) 55.3 Intake & Output: Intake and Output for Last 24 Hours 06/09/24 06/10/24 06/11/24 22:59 23:59 23:59 Intake Total 400 / 400 900 / 900 300 / 300 Output Total 400 / 400 Balance 400 / 400 900 / 500 -100 / -100 Lab / Micro Data 06/11/24 17:10 06/11/24 07:11 Labs: Laboratory Results - last 24 hr 06/10/24 11:53: POC Glucose 112 H 06/10/24 16:40: POC Glucose 91 06/11/24 06:18: POC Glucose 44 L* 06/11/24 06:20: POC Glucose 46 L 06/11/24 07:03: POC Glucose 73 L 06/11/24 07:11: WBC 20.4 H, RBC 3.45 L, Hgb 11.0 L, Hct 36.1 L, MCV 104.6 H, MCH 31.9, MCHC 30.5 L, RDW Std Deviation 51.9 H, RDW Coeff of Jose 13.4, Plt Count 165, MPV 11.5, Immature Gran % (Auto) 1.000 H, Neut % (Auto) 88.7 H, Lymph % (Auto) 4.3 L, Kane % (Auto) 5.9, Eos % (Auto) 0.0, Baso % (Auto) 0.1, Absolute Neuts (auto) 18.1 H, Absolute Lymphs (auto) 0.87, Nucleated RBC % 0, Sodium 140, Potassium 3.7, Chloride 90 L, Carbon Dioxide > 45.0 H*, Anion Gap TNP, BUN 77 H, Creatinine 1.35 H, Estim Creat Clear Calc 40.85, Est GFR (MDRD) Af Amer 48 L, Est GFR (MDRD) Non-Af 40 L, BUN/Creatinine Ratio 57.0 H, Glucose 72 L, Calcium 8.2 L, Phosphorus 3.3, Magnesium 1.9 Micro: Microbiology 06/09/24 17:45 Stool Clostridioides difficile (PCR) - Final Physical Exam Const alert, oriented x3 and no apparent distress Constitutional Narrative: Elderly female, morbidly obese, fatigued appearing, answering questions with short appropriate responses, in no acute distress. General Appearance: cooperative and comfortable HEENT normocephalic, head/scalp atraumatic, hearing grossly normal bilaterally and nasal mucous membranes and turbinates normal Eyes PERRL, EOMs intact bilaterally and conjunctivae normal Neck full ROM Chest inspection of chest normal Resp normal respiratory effort and no use of accessory muscles Resp Narrative: Breath sounds difficult to auscultate due to body habitus patient breathing comfortably on 3 L nasal cannula at rest with good oxygen saturations. Cardio regular rate, regular rhythm, no murmurs and peripheral pulses 2+ throughout GI normal to inspection, nondistended, normoactive bowel sounds, soft to palpation, non-tender and non-distended Back/Spine normal ROM Extremity normal to inspection and no pedal edema Skin no rashes or lesions noted Assessment & Plan Assessment/Plan (1) Adult failure to thrive: (2) Atrial fibrillation: (3) GI bleed: PLAN: Plan Patient is an 84-year-old female who presented [facility] ED on 06/09/2024 with worsening debility. 1. Adult failure to thrive ? PT/OT/case management following. Patient with recent hospitalization from 06/04-06/07 for COPD and CHF exacerbations, had recs for discharge to SNF but instead insisted on discharge home. Presented back to ED on 06/09 with worsening weakness. Planning for discharge to SNF after this hospitalization and would likely be best served in a long-term care facility. 2. Concern for upper GI bleed ? Patient with significant loose stools beginning on 06/10. Initially more green appearing but became dark and tarry on morning of 06/11. C. difficile negative on 06/10. Hemoglobin slightly downtrending but patient is hemodynamically stable. Was started on Eliquis on 06/09 for new onset A-fib with RVR. No prior history of GI bleed per patient. Notably with significantly elevated BUN of 77 on 06/11 despite creatinine around baseline. Discussed with patient on afternoon of 06/11 and she was adamant she would not want an upper scope done as she does not want any further procedures done. Will treat with IV PPI twice daily for now. Will follow-up hemoglobin tomorrow morning. Eliquis discontinued. Will follow closely. 3. New onset A-fib with RVR ? New diagnosis on this admission. Started on Eliquis 5 mg twice daily given elevated [id number] score. Appears that patient has been in sinus rhythm now since 06/10. Eliquis discontinued for now as noted above due to concern for GI bleed. Continue Coreg 6.25 mg twice daily. Continue cardiac monitoring. 4. Chronic respiratory failure with COPD ? On 2 L nasal cannula at rest and 3 L with exertion at home. Treated for COPD exacerbation during recent previous hospitalization. Continue prednisone 20 mg daily to complete 7-day course of steroids total. Has been stable on home level of oxygen since admission. Pulmonology did evaluate on admission and notes that patient has chronic CO2 retention and likely underlying LAINA with possible alveolar hypoventilation due to obesity; however, noted that patient has been nonadherent with medical therapy and is unwilling to wear nocturnal PAP therapy so pulmonology has no further recommendations at this time. 5. Chronic HFpEF ? Has appeared euvolemic since admission. Continue home p.o. Lasix 60 mg twice daily. Continue home lisinopril. 6. Leukocytosis ? WBC count stable at 20,000 since admission. Noninfectious appearing. Suspect elevated WBC count is due to steroids. Monitor CBC daily. 7. Medical noncompliance ? Noted during multiple previous hospitalizations. Chronic medical conditions: ? Morbid obesity: BMI 55 on admit. Complicates hospital course, care and prognosis. ? Anxiety/depression: Stable. Continue home escitalopram and BuSpar. ? Type 2 diabetes mellitus: Holding home oral regimen. Continue sliding scale insulin with meals while inpatient. DVT prophylaxis: SCDs CODE STATUS: DNR CCA, DNI Expected disposition: SNF, 1 to 2 days Total clinical time spent by myself addressing the patient's medical issues, reviewing all the data, and collaborating with patient's care team: 50 minutes. Charges/Coding Visit Charges Inpatient E&M: 53501 [facility] Hosp L3
[2024-06-11 11:32] LABS: Bedside Glucose 97 mg/dL (74-106)
[2024-06-11] MEDS: Lactated Ringers 1,000 ML 100 ML IV (13:56)
[2024-06-11] MEDS: 0.9% Saline Lock 10 ML Syringe IV (13:59)
[2024-06-11 17:15] LABS: Bedside Glucose 120 mg/dL (74-106)
[2024-06-11 17:43] LABS: Hematocrit 33.2 % (37-47); Hemoglobin 10.5 g/dL (12.0-15.0); Mean Corp Hgb Conc 31.6 g/dL (32-36); Mean Corpuscular Hgb 32.6 pg (27.0-32.0); Mean Corpuscular Volume 103.1 fL (81-99); Mean Platelet Vol. 12.2 fl (6.2-12.0); Platelet Count 171 K/mm3 (150-450); RBC Distribution Width CV 13.2 % (11.6-14.6); RBC Distribution Width SD 50.7 fl (35.1-43.9); Red Blood Count 3.22 M/mm3 (4.2-5.4); White Blood Count 20.5 K/mm3 (4.4-11.0)
--- NOTE | 2024-06-11 18:16 | NURSING ---
Pt incont x2 earlier today but small amts and did not have fluid running. This RN bladder scanned pt for 575ml. Dr. Dickson paged. awaiting response.
[2024-06-11] MEDS: Pantoprazole Sodium 40 MG in 0.9% Normal Saline (100mL MB+) 100 ML 330 MG IV ×2 (18:29→21:05)
[2024-06-11] MEDS: Acetaminophen 325 MG Tablet 650 MG PO (21:48)
[2024-06-11 22:03] LABS: Bedside Glucose 129 mg/dL (74-106)
[2024-06-12] VITALS (8 sets, daily range): BP systolic 89–118; BP diastolic 36–64; PULSE 81–97; RESP 16–18; TEMP 36.4–36.7; O2SAT 93–98
[2024-06-12] MEDS: MELATONIN 3 MG TABLET 6 MG PO ×2 (00:18→21:58)
[2024-06-12] MEDS: Dicyclomine 10 MG Capsule 20 MG PO ×3 (06:43→16:26)
[2024-06-12 07:08] LABS: Absolute Lymphocyte Count 0.86 X10^3/uL (0.83-4.51); Absolute Neutrophil Count 14.6 X10^3/uL (2.0-7.7); Eosinophil# 0.01 X10^3/uL; Eosinophils% 0.1 % (0-5); Hematocrit 32.8 % (37-47); Hemoglobin 9.8 g/dL (12.0-15.0); Lymphocyte # 0.86 X10^3/ul (0.83-4.51); Lymphocyte % 5.1 % (19-41); Mean Corp Hgb Conc 29.9 g/dL (32-36); Mean Corpuscular Hgb 30.9 pg (27.0-32.0); Mean Corpuscular Volume 103.5 fL (81-99); Mean Platelet Vol. 11.9 fl (6.2-12.0); Monocyte# 1.14 X10^3/uL; Monocyte% 6.8 % (0-10); NRBC Flagged by Analyzer 0 % (0-5); Neutrophil # 14.58 X10^3/uL (2.7-7.7); Neutrophil % 87.3 % (47-70); Platelet Count 152 K/mm3 (150-450); RBC Distribution Width CV 13.3 % (11.6-14.6); RBC Distribution Width SD 51.2 fl (35.1-43.9); Red Blood Count 3.17 M/mm3 (4.2-5.4); White Blood Count 16.7 K/mm3 (4.4-11.0)
[2024-06-12 07:09] LABS: Bedside Glucose 115 mg/dL (74-106)
[2024-06-12 07:41] LABS: BUN 93 mg/dL (7-18); BUN/Creat Ratio 61.2 RATIO (10-20); Carbon Dioxide > 45.0 mmol/L (21.0-32.0); Chloride 90 mmol/L (98-107); Creatinine, Serum 1.52 mg/dL (0.55-1.02); EST Glomerular Filtration Rate 35 mL/min (>60); Est Glom Filt Rate - Afr Amer 42 mL/min (>60); Estimated Creatinine Clearance 36.28 ml/min; Glucose 102 mg/dL (74-106); Potassium 4.2 mmol/L (3.5-5.1); Sodium Level 138 mmol/L (136-145)
[2024-06-12] MEDS: Furosemide 20 MG Tablet 60 MG PO ×2 (08:48→18:20)
[2024-06-12] MEDS: busPIRone 5 MG Tablet PO ×2 (08:49→21:56)
[2024-06-12] MEDS: Escitalopram Oxalate 10 MG Tablet PO (08:50)
[2024-06-12] MEDS: Potassium Chloride Oral Tablet 20 MEQ PO ×2 (08:54→18:21)
[2024-06-12] MEDS: Pantoprazole Sodium 40 MG in 0.9% Normal Saline (100mL MB+) 100 ML 330 MG IV ×2 (08:58→21:53)
[2024-06-12] MEDS: 0.9% Saline Lock 10 ML Syringe IV (08:59)
[2024-06-12] MEDS: Menthol/Lanolin/Calamine/Znox 113 GM Tube 1 APPLIC TOPICAL ×2 (09:03→21:56)
[2024-06-12] MEDS: Nystatin Powder 15gm Bottle 1 APPLIC TOPICAL ×2 (11:13→21:55)
--- NOTE | 2024-06-12 11:18 | CASEMGMT ---
Discharge Planning [facility] updated that pt will likely dc tomorrow. Krista Grey, DC Planning Asst.
--- NOTE | 2024-06-12 11:55 | PN.HOSP_ITS ---
Reason for Visit Reason for Visit: Diagnoses Unspecified atrial fibrillation (06/11/24) Heart failure, unspecified (06/11/24) Chronic obstructive pulmonary disease with (acute) exacerbation (06/11/24) Gastrointestinal hemorrhage, unspecified (06/11/24) Adult failure to thrive (06/11/24) Subjective Subjective Saw patient at bedside this morning, significant other present. Patient appeared similar this morning to yesterday afternoon. She was fatigued appearing and somewhat confused appearing but was making appropriate eye contact with me. Per nursing staff, patient has not had any further bowel movements at all since yesterday evening. Hemoglobin stable today from yesterday. No other new concerns today. Objective Data Objective Data Vital Signs: Vital Signs Temp Pulse Resp BP Pulse Ox O2 Del Method O2 Flow Rate 97.5 F L 90 18 107/56 L 98 Nasal Cannula 2 06/12/24 11:00 06/12/24 11:00 06/12/24 11:00 06/12/24 11:00 06/12/24 11:00 06/12/24 11:00 06/12/24 11:00 FiO2 3 06/11/24 18:00 Oxygen Flow Rate (L/min) 2 Oxygen Delivery Method Nasal Cannula Weight: 137.2 kg Body Mass Index (BMI) 55.3 Intake & Output: Intake and Output for Last 24 Hours 06/10/24 06/11/24 06/12/24 23:59 23:59 23:59 Intake Total 900 / 900 1740 / 1840 210 / 210 Output Total 400 / 550 275 / 275 Balance 900 / 500 1340 / 1290 -65 / -65 Lab / Micro Data 06/12/24 12:55 06/12/24 06:35 Labs: Laboratory Results - last 24 hr 06/11/24 16:09: POC Glucose 120 H 06/11/24 17:10: WBC 20.5 H, RBC 3.22 L, Hgb 10.5 L, Hct 33.2 L, MCV 103.1 H, MCH 32.6 H, MCHC 31.6 L, RDW Std Deviation 50.7 H, RDW Coeff of Jose 13.2, Plt Count 171, MPV 12.2 H 06/11/24 21:45: POC Glucose 129 H 06/12/24 06:30: POC Glucose 115 H 06/12/24 06:35: WBC 16.7 H, RBC 3.17 L, Hgb 9.8 L, Hct 32.8 L, MCV 103.5 H, MCH 30.9, MCHC 29.9 L D, RDW Std Deviation 51.2 H, RDW Coeff of Jose 13.3, Plt Count 152, MPV 11.9, Immature Gran % (Auto) 0.700, Neut % (Auto) 87.3 H, Lymph % (Auto) 5.1 L, [place] % (Auto) 6.8, Eos % (Auto) 0.1, Baso % (Auto) 0.0, Absolute Neuts (auto) 14.6 H, Absolute Lymphs (auto) 0.86, Nucleated RBC % 0, Sodium 138, Potassium 4.2, Chloride 90 L, Carbon Dioxide > 45.0 H*, Anion Gap TNP, BUN 93 H, Creatinine 1.52 H, Estim Creat Clear Calc 36.28, Est GFR (MDRD) Af Amer 42 L, E st GFR (MDRD) Non-Af 35 L, BUN/Creatinine Ratio 61.2 H, Glucose 102, Calcium 8.0 L Micro: Microbiology 06/09/24 17:45 Stool Clostridioides difficile (PCR) - Final Physical Exam Const alert, oriented x3 and no apparent distress Constitutional Narrative: Elderly female, morbidly obese, laying back comfortably in bed, fatigued appearing, making appropriate eye contact but only answering questions with very short responses, in no acute distress. General Appearance: cooperative and comfortable HEENT normocephalic, head/scalp atraumatic, hearing grossly normal bilaterally and nasal mucous membranes and turbinates normal Eyes PERRL, EOMs intact bilaterally and conjunctivae normal Neck full ROM Chest inspection of chest normal Resp normal respiratory effort and no use of accessory muscles Resp Narrative: Breath sounds difficult to auscultate due to body habitus patient breathing comfortably on 3 L nasal cannula at rest with good oxygen saturations. Cardio regular rate, regular rhythm, no murmurs and peripheral pulses 2+ throughout GI normal to inspection, nondistended, normoactive bowel sounds, soft to palpation, non-tender and non-distended Back/Spine normal ROM Extremity normal to inspection and no pedal edema Skin no rashes or lesions noted Assessment & Plan Assessment/Plan (1) Adult failure to thrive: (2) Atrial fibrillation: (3) GI bleed: PLAN: Plan Patient is an 84-year-old female who presented [facility] ED on 06/09/2024 with worsening debility. 1. Adult failure to thrive ? PT/OT/case management following. Patient with recent hospitalization from 06/04-06/07 for COPD and CHF exacerbations, had recs for discharge to SNF but instead insisted on discharge home. Presented back to ED on 06/09 with worsening weakness. Planning for discharge to SNF after this hospitalization and would likely be best served in a long-term care facility. 2. Concern for upper GI bleed, improved ? Patient with significant loose stools beginning on 06/10. Initially more green appearing but became dark and tarry on morning of 06/11. C. difficile negative on 06/10. Hemoglobin slightly down trended but patient was hemodynamically stable. Was notably started on Eliquis on 06/09 for new onset A-fib with RVR. No prior history of GI bleed. Notably had elevated BUN of 77 on 06/11 despite normal creatinine. Discussed with patient on afternoon of 06/11 and she was adamant she would not want an upper scope done as she does not want any further procedures done. Started on IV PPI twice daily and Eliquis discontinued on 06/11. Hemoglobin stable around 10 on 06/12 and patient now has not had any bowel movements at all since afternoon of 06/11. Will continue IV PPI twice daily for now but the patient remains stable tomorrow can likely de-escalate to p.o. PPI twice daily. Trend daily CBC. 3. Uremia ? Patient with normal BUN during previous admission. BUN elevated at 51 on this admission on 06/09 despite creatinine at baseline and has continued to worsen. Suspected that BUN is elevated largely due to GI bleed as noted above. Most recent BUN 93 on 06/12. Has uremia symptoms including mild confusion, mild tremors, loss of appetite and malaise. Creatinine slightly worse than baseline but patient has had good urine output. Given IV fluids on 06/11, hemodynamically stable on 06/12 so no need for further IV fluids at this time. Anticipate that BUN will start to downtrend with control of GI bleed as noted above. Monitor BMP daily. 4. New onset A-fib with RVR ? New diagnosis on this admission. Started on Eliquis 5 mg twice daily given elevated [id number] score. Appears that patient has been in sinus rhythm now since 06/10. Eliquis discontinued for now as noted above due to concern for GI bleed. Continue Coreg 6.25 mg twice daily. Continue cardiac monitoring. 5. Chronic respiratory failure with COPD ? On 2 L nasal cannula at rest and 3 L with exertion at home. Treated for COPD exacerbation during recent previous hospitalization. Continue prednisone 20 mg daily to complete 7-day course of steroids total. Has been stable on home level of oxygen since admission. Pulmonology did evaluate on admission and notes that patient has chronic CO2 retention and likely underlying LAINA with possible alveolar hypoventilation due to obesity; however, noted that patient has been nonadherent with medical therapy and is unwilling to wear nocturnal PAP therapy so pulmonology has no further recommendations at this time. 6. Chronic HFpEF ? Has appeared euvolemic since admission. Continue home p.o. Lasix 60 mg twice daily. Continue home lisinopril. 7. Leukocytosis ? WBC count elevated to 20,000 on admission. Noninfectious appearing. Suspected that elevated WBC count is due to steroids. Steroids discontinued on 06/12 given GI bleed as noted above. Monitor CBC daily. No antibiotics needed at this time. 8. Medical noncompliance ? Noted during multiple previous hospitalizations. Chronic medical conditions: ? Morbid obesity: BMI 55 on admit. Complicates hospital course, care and prognosis. ? Anxiety/depression: Stable. Continue home escitalopram and BuSpar. ? Type 2 diabetes mellitus: Holding home oral regimen. Continue sliding scale insulin with meals while inpatient. DVT prophylaxis: SCDs CODE STATUS: DNR CCA, DNI Expected disposition: SNF, 2 to 3 days Total clinical time spent by myself addressing the patient's medical issues, reviewing all the data, and collaborating with patient's care team: 35 minutes. Charges/Coding Visit Charges Inpatient E&M: 78434 Subs Hosp L2
[2024-06-12 13:04] LABS: Hemoglobin 9.9 g/dL (12.0-15.0); Mean Corp Hgb Conc 30.9 g/dL (32-36); Mean Corpuscular Hgb 31.7 pg (27.0-32.0); Mean Corpuscular Volume 102.6 fL (81-99); Mean Platelet Vol. 11.6 fl (6.2-12.0); Platelet Count 139 K/mm3 (150-450); RBC Distribution Width CV 13.6 % (11.6-14.6); RBC Distribution Width SD 51.2 fl (35.1-43.9); Red Blood Count 3.12 M/mm3 (4.2-5.4); White Blood Count 16.6 K/mm3 (4.4-11.0)
[2024-06-12] MEDS: 0.9% Normal Saline (1000mL) 1,000 ML 75 ML IV (20:54)
[2024-06-12 22:23] LABS: Bedside Glucose 120 mg/dL (74-106)
[2024-06-12 22:23] LABS: Bedside Glucose 126 mg/dL (74-106)
[2024-06-13 01:00] VITALS: BP 93/43; PULSE 84; RESP 16; TEMP 36.6; O2SAT 98
[2024-06-13 06:30] VITALS: BP 101/43; PULSE 89; RESP 18; TEMP 36.6; O2SAT 98
[2024-06-13] MEDS: Dicyclomine 10 MG Capsule 20 MG PO ×2 (06:38→17:42)
[2024-06-13 06:57] LABS: Bedside Glucose 117 mg/dL (74-106)
[2024-06-13 07:25] LABS: Absolute Lymphocyte Count 1.22 X10^3/uL (0.83-4.51); Absolute Neutrophil Count 13.2 X10^3/uL (2.0-7.7); Basophil# 0.01 X10^3/uL; Basophil% 0.1 % (0-1); Eosinophil# 0.01 X10^3/uL; Eosinophils% 0.1 % (0-5); Hematocrit 30.2 % (37-47); Hemoglobin 9.1 g/dL (12.0-15.0); Lymphocyte # 1.22 X10^3/ul (0.83-4.51); Lymphocyte % 7.7 % (19-41); Mean Corp Hgb Conc 30.1 g/dL (32-36); Mean Corpuscular Hgb 31.2 pg (27.0-32.0); Mean Corpuscular Volume 103.4 fL (81-99); Mean Platelet Vol. 12.1 fl (6.2-12.0); Monocyte% 7.6 % (0-10); NRBC Flagged by Analyzer 0 % (0-5); Neutrophil # 13.24 X10^3/uL (2.7-7.7); Neutrophil % 83.9 % (47-70); Platelet Count 138 K/mm3 (150-450); RBC Distribution Width CV 13.6 % (11.6-14.6); RBC Distribution Width SD 52.8 fl (35.1-43.9); Red Blood Count 2.92 M/mm3 (4.2-5.4); White Blood Count 15.8 K/mm3 (4.4-11.0)
--- NOTE | 2024-06-13 07:45 | PN.HOSP_ITS ---
Reason for Visit Reason for Visit: Diagnoses Unspecified atrial fibrillation (06/11/24) Heart failure, unspecified (06/11/24) Chronic obstructive pulmonary disease with (acute) exacerbation (06/11/24) Gastrointestinal hemorrhage, unspecified (06/11/24) Adult failure to thrive (06/11/24) Subjective Subjective Patient with continued fatigue, malaise although will awaken to stimuli but discussed with family ongoing nasal cannula supplementation needs as well as increased leukocytosis with left shift and worsening acute kidney injury with elevated BUN with hemoglobin decreased from 06/12/2024 down to 9.9 with original presentation hemoglobin 06/09/2024 Hgb 12.6. Patient and family report she has had a significant decline, refusing any oral intake at this time with minimal urine output and agitated with any activity requesting specifically comfort care and transition to hospice. Given patient decline will attempt to consult with hospice and potential consideration of IUP versus hospice in facility. Patient reports intermittent mild nausea without emesis, occasional abdominal discomfort but no pain, dyspnea. Patient denies fevers, chills, chest pain. Objective Data Objective Data Vital Signs: Vital Signs Temp Pulse Resp BP Pulse Ox O2 Del Method O2 Flow Rate 97.9 F 89 18 101/43 L 98 Nasal Cannula 2 06/13/24 06:30 06/13/24 06:30 06/13/24 06:30 06/13/24 06:30 06/13/24 06:30 06/13/24 06:30 06/13/24 06:30 FiO2 3 06/11/24 18:00 Oxygen Flow Rate (L/min) 2 Oxygen Delivery Method Nasal Cannula Weight: 302 lb 7.587 oz Body Mass Index (BMI) 55.3 Intake & Output: Intake and Output for Last 24 Hours 06/11/24 06/12/24 06/13/24 23:59 23:59 23:59 Intake Total 1740 / 1840 1170 / 1170 50 / 50 Output Total 400 / 550 275 / 375 400 / 400 Balance 1340 / 1290 895 / 795 -350 / -350 Lab / Micro Data 06/13/24 06:44 06/13/24 06:44 Labs: Laboratory Results - last 24 hr 06/12/24 11:46: POC Glucose 120 H 06/12/24 12:55: WBC 16.6 H, RBC 3.12 L, Hgb 9.9 L, Hct 32.0 L, MCV 102.6 H, MCH 31.7, MCHC 30.9 L, RDW Std Deviation 51.2 H, RDW Coeff of Jose 13.6, Plt Count 139 L, MPV 11.6 06/12/24 16:32: POC Glucose 126 H 06/13/24 06:39: POC Glucose 117 H 06/13/24 06:44: WBC 15.8 H, RBC 2.92 L, Hgb 9.1 L, Hct 30.2 L, MCV 103.4 H, MCH 31.2, MCHC 30.1 L, RDW Std Deviation 52.8 H, RDW Coeff of Jose 13.6, Plt Count 138 L, MPV 12.1 H, Immature Gran % (Auto) 0.600, Neut % (Auto) 83.9 H, Lymph % (Auto) 7.7 L, [place] % (Auto) 7.6, Eos % (Auto) 0.1, Baso % (Auto) 0.1, Absolute Neuts (auto) 13.2 H, Absolute Lymphs (auto) 1.22, Nucleated RBC % 0 Micro: Microbiology 06/09/24 17:45 Stool Clostridioides difficile (PCR) - Final Physical Exam Narrative Physical Examination: General: Awake, alert, oriented to self, place and some recent events, very fatigued, does openly discuss preference of transition to comfort care and hospice noting that she is tired and would prefer to pass, laying in the MS bed, no obvious clinical distress. Skin: Normal color, normal turgor, no icterus, no cyanosis except very stage ecchymoses, occasional abrasion likely secondary to recent lab draws, bilateral lower extremity venous stasis skin changes HEENT: AT/NC, EOMI, PERRLA, dry MM. Lungs: Diminished, greater bases, appropriate effort, no rales, ronchi or wheezing. Heart: Currently regular rate and rhythm; no gallop, rub audible. Abdomen: Soft, morbidly obese, NTTP, difficult to assess distention given habitus, mildly hyperactive BS. Extremities: No cyanosis, no clubbing, peripheral distal chronic edema, no markedly pitting. Neurological: Patient awake, alert, oriented as noted, cognitive function improved family notes from previously but still fatigued and lethargic, still not baseline intact; pupils equally reactive to light and accommodation, cranial nerves grossly normal, moving all 4 extremities, no focal deficits, strength severely globally decreased. Psychiatric: Affect appears flat, fatigued, lethargic, no acute evidence of depressive or anxiety feelings. Assessment & Plan Assessment/Plan (1) GI bleed: PLAN: Plan The patient is an 84 y/o F w/ PMHx: CKD stage III unclear subtype per GFR trending, PAF, COPD w/ Chronic Hypoxic and Hypercarbic Respiratory Failure (2L rest, 3L activity), LAINA noncompliant with PAP therapy, HTN, Anxiety and Depression, Diabetes mellitus type II, HFpEF, Morbid obesity, Chronic normocytic anemia who presents to the [facility] ED on 06/09/24 with history of recent discharge within the past 48 hours for COPD exacerbation and heart failure/ovation with worsening fatigue, malaise, dizziness with inability to even ambulate or function at home prompting ED evaluation. #1. Concern for Upper Acute GI Bleed w/ resultant Acute Blood Loss Anemia with significant diarrhea onset: Patient with onset of loose stools 06/10, eventually dark and tarry in appearance, C. difficile negative, hemoglobin trended down, recent initiation 06/09 on Eliquis therapy for new onset A-fib RVR however given concern for GI bleed with decreasing hemoglobins this was discontinued and patient was started on IV PPI, unfortunately declined any GI consultation or upper endoscopy, 06/13/2024 hemoglobin 9.1, MCV 103.4, decreased from 06/09/2024 hemoglobin 12.6. Given 06/13/2024 patient and family decision transition to DNRCC status we will hold on further evaluation and requesting hospice consultation. #2. Worsening leukocytosis despite steroid discontinuation with left shift, possible underlying process, potentially bilateral pneumonia with noted bibasilar consolidation versus other infectious process: Chest x-ray upon presentation remote 06/09/2024 with bilateral pleural effusions, left greater than right with inability to exclude bibasilar consolidations and given worsening leukocytosis with left shift although afebrile had discussed potential repeat chest x-ray AP and lateral and further workup to assure no underlying infectious process as patient steroids had been discontinued 06/12 given GI bleed with also additional plan for UA/UCX but family at this time is declining as well as patient and would prefer to transition to hospice with comfort care direction. #3. Acute kidney injury on CKD stage III unclear subtype per GFR trending suspect secondary to poor intake coupled with GI bleed with uremia with uremic symptoms including confusion, mild tremors, decreased appetite and malaise: Admission BUN/Cr 59/1.17, GFR 47, prior baseline creatinine noted to be 0.9-1.2 primarily although has vacillated, 06/13/2024 hemoglobin 9.1, MCV 103.4, worsening. Initially given patient's poor oral intake would plan very judicious hydration given heart failure underlying history but following discussion and lengthy plan of care with patient and family decision to avoid and requested specifically comfort care transition with hospice evaluation at this time. #4. New onset atrial fibrillation with RVR: New diagnosis upon current presentation likely associated with her acute illness as noted above, initially had planned initiation of oral Eliquis however given GI bleed concerns this was held, placed on Coreg low-dose with spontaneous conversion 06/10/2024, initially maintain on cardiac monitoring but given plan for hospice transition patient transitioned off telemetry and will defer any further lab assessment. #5. Adult failure to thrive, multifactorial, significant decline: Patient has been declining more so recently per discussion with family with now repeat admissions, current presentation unfortunately complicated by 1-4 as noted above, given status as noted planned transition to DNRCC and hospice evaluation. #6. Chronic hypoxic respiratory failure with underlying COPD: Patient per history on 2 L nasal cannula at rest and 3 with exertion however here she is needed increased supplementation even at rest with recent COPD exacerbation during prior hospitalization with completion of 7 days of steroids with also likely chronic CO2 retention and underlying sleep apnea with possibly alveolar hypoventilation due to obesity with unfortunately patient is reported to been on compliant with medical therapy and not using PAP therapy either. As noted steroids were discontinued which likely is contributing some component to the leukocytosis but given her decline concern for possible alternate/additional etiology. #7. HFpEF: Patient since admission was initially euvolemic however significant decreased oral intake and initially had been on home Lasix and lisinopril but given acute kidney injury noted 06/13/2024 this was discontinued with initial plan for hydration but as noted above plan transition to comfort care focus only and hospice. #8. Hypertension: Coreg, given acute kidney injury holding Lasix and lisinopril as noted, PRN hydralazine. #9. Diabetes mellitus type II: Hold oral home regimen, ADA diet, accu checks w/ ISS initially but given transition to hospice will discontinue Accu-Cheks and will allow broadening of patient diet. #10. Anxiety and depression: We will continue patient home escitalopram and BuSpar regimen however low threshold to give medications for anxiety given comfort care plan transition is noted. #11. Morbid obesity: Noted upon presentation, complicates presentation however given comfort care transition will defer further intervention. #12. DVT prophylaxis: Previously SCDs given GI bleed, given hospice comfort transition will discontinue. #13. CODE status: Patient is currently coherent and giving appropriate orientation answers however her daughter and family are present and she notes she would prefer that her daughter be her medical decision-maker and be involved in this process. Discussed CODE status at length including difference between FULL code, DNR-CCA and DNR-CC status. Following discussions about the differences in these status, requested transition to DNRCC with form signed and hospice consultation requested at this time. Advanced Care Planning Face to Face Time: 16 minutes. Charges/Coding Visit Charges Inpatient E&M: 08026 Subs Hosp L3 Procedures Hospitalists Procedures: 35890 Advncd Care Plan 30 Min
[2024-06-13 08:21] LABS: Anion Gap 3 (5-15); BUN 108 mg/dL (7-18); BUN/Creat Ratio 50.5 RATIO (10-20); Calcium,Total 8.1 mg/dL (8.5-10.1); Chloride 90 mmol/L (98-107); Creatinine, Serum 2.14 mg/dL (0.55-1.02); EST Glomerular Filtration Rate 23 mL/min (>60); Est Glom Filt Rate - Afr Amer 28 mL/min (>60); Estimated Creatinine Clearance 25.77 ml/min; Glucose 109 mg/dL (74-106); Sodium Level 137 mmol/L (136-145)
[2024-06-13] MEDS: Furosemide 20 MG Tablet 60 MG PO (08:51)
[2024-06-13] MEDS: Pantoprazole Sodium 40 MG in 0.9% Normal Saline (100mL MB+) 100 ML 330 MG IV (08:51)
[2024-06-13] MEDS: Escitalopram Oxalate 10 MG Tablet PO (08:52)
[2024-06-13] MEDS: Potassium Chloride Oral Tablet 20 MEQ PO ×2 (08:52→17:43)
[2024-06-13] MEDS: Menthol/Lanolin/Calamine/Znox 113 GM Tube 1 APPLIC TOPICAL ×2 (08:53→20:51)
[2024-06-13] MEDS: busPIRone 5 MG Tablet PO ×2 (08:53→20:50)
[2024-06-13 09:18] VITALS: BP 93/71; PULSE 86; RESP 18; TEMP 36.9; O2SAT 98
--- NOTE | 2024-06-13 12:08 | CASEMGMT ---
Addendum entered by Fabi Jansen 06/13/24 16:00: Social Work- SW spoke with pt dtr who reports that hospice consult is scheduled for 17:00. Physician and bedside nurse updated. SW offered support to pt dtr & SW remains available for support. [employer] Original Note: Social Work- SW completed hospice referral per family request. Physician issued order and will be updated along with the family when BELKIS learns of an eval time. [employer] Bird
[2024-06-13] MEDS: Nystatin Powder 15gm Bottle 1 APPLIC TOPICAL ×2 (13:21→20:50)
[2024-06-13 16:00] VITALS: RESP 18
[2024-06-13 17:00] VITALS: BP 104/48; PULSE 86; RESP 18; TEMP 36.7; O2SAT 98
[2024-06-13 20:44] VITALS: BP 109/43; PULSE 67; RESP 14; TEMP 36.2; O2SAT 97
[2024-06-13] MEDS: MELATONIN 3 MG TABLET 6 MG PO (20:50)
[2024-06-14 02:44] VITALS: BP 106/45; PULSE 82; RESP 14; TEMP 36.4; O2SAT 98
--- NOTE | 2024-06-14 06:46 | PN.HOSP_ITS ---
Reason for Visit Reason for Visit: Diagnoses Unspecified atrial fibrillation (06/11/24) Heart failure, unspecified (06/11/24) Chronic obstructive pulmonary disease with (acute) exacerbation (06/11/24) Gastrointestinal hemorrhage, unspecified (06/11/24) Adult failure to thrive (06/11/24) Subjective Subjective Plan for repeat discussions with hospice for possible SNF hospice transition. Objective Data Objective Data Vital Signs: Vital Signs Temp Pulse Resp BP Pulse Ox O2 Del Method O2 Flow Rate 97.5 F L 82 14 106/45 L 98 Nasal Cannula 2 06/14/24 02:44 06/14/24 02:44 06/14/24 02:44 06/14/24 02:44 06/14/24 02:44 06/14/24 02:45 06/14/24 02:45 FiO2 3 06/11/24 18:00 Oxygen Flow Rate (L/min) 2 Oxygen Delivery Method Nasal Cannula Weight: 302 lb 7.587 oz Body Mass Index (BMI) 55.3 Intake & Output: Intake and Output for Last 24 Hours 06/12/24 06/13/24 06/14/24 23:59 23:59 23:59 Intake Total 1170 / 1170 2110 / 2110 Output Total 275 / 375 850 / 850 Balance 895 / 795 1260 / 1260 Lab / Micro Data 06/13/24 06:44 06/13/24 06:44 Labs: Laboratory Results - last 24 hr 06/13/24 06:39: POC Glucose 117 H 06/13/24 06:44: WBC 15.8 H, RBC 2.92 L, Hgb 9.1 L, Hct 30.2 L, MCV 103.4 H, MCH 31.2, MCHC 30.1 L, RDW Std Deviation 52.8 H, RDW Coeff of Jose 13.6, Plt Count 138 L, MPV 12.1 H, Immature Gran % (Auto) 0.600, Neut % (Auto) 83.9 H, Lymph % (Auto) 7.7 L, [place] % (Auto) 7.6, Eos % (Auto) 0.1, Baso % (Auto) 0.1, Absolute Neuts (auto) 13.2 H, Absolute Lymphs (auto) 1.22, Nucleated RBC % 0, Sodium 137, Potassium 5.0, Chloride 90 L, Carbon Dioxide 43.0 H, Anion Gap 3 L, BUN 108 H*, Creatinine 2.14 H, Estim Creat Clear Calc 25.77, Est GFR (MDRD) Af Amer 28 L, E st GFR (MDRD) Non-Af 23 L, BUN/Creatinine Ratio 50.5 H, Glucose 109 H, Calcium 8.1 L Micro: Microbiology 06/09/24 17:45 Stool Clostridioides difficile (PCR) - Final Physical Exam Narrative Physical Examination: General: Awake, alert, oriented to self, place and some recent events, very fatigued, does openly discuss preference of transition to comfort care and hospice noting that she is tired and would prefer to pass, laying in the MS bed, no obvious clinical distress. Skin: Normal color, normal turgor, no icterus, no cyanosis except very stage ecchymoses, occasional abrasion likely secondary to recent lab draws, bilateral lower extremity venous stasis skin changes HEENT: AT/NC, EOMI, PERRLA, dry MM. Lungs: Diminished, greater bases, appropriate effort, no rales, ronchi or wheezing. Heart: Currently regular rate and rhythm; no gallop, rub audible. Abdomen: Soft, morbidly obese, NTTP, difficult to assess distention given habitus, mildly hyperactive BS. Extremities: No cyanosis, no clubbing, peripheral distal chronic edema, no markedly pitting. Neurological: Patient awake, alert, oriented as noted, cognitive function improved family notes from previously but still fatigued and lethargic, still not baseline intact; pupils equally reactive to light and accommodation, cranial nerves grossly normal, moving all 4 extremities, no focal deficits, strength severely globally decreased. Psychiatric: Affect appears flat, fatigued, lethargic, no acute evidence of depressive or anxiety feelings. 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 #1. Concern for Upper Acute GI Bleed w/ resultant Acute Blood Loss Anemia with significant diarrhea onset: Patient with onset of loose stools 06/10, eventually dark and tarry in appearance, C. difficile negative, hemoglobin trended down, recent initiation 06/09 on Eliquis therapy for new onset A-fib RVR however given concern for GI bleed with decreasing hemoglobins this was discontinued and patient was started on IV PPI, unfortunately declined any GI consultation or upper endoscopy, 06/13/2024 hemoglobin 9.1, MCV 103.4, decreased from 06/09/2024 hemoglobin 12.6. Given 06/13/2024 patient and family decision transition to DNRCC status we will hold on further evaluation and requesting hospice consultation. #2. Worsening leukocytosis despite steroid discontinuation with left shift, possible underlying process, potentially bilateral pneumonia with noted bibasilar consolidation versus other infectious process: Chest x-ray upon presentation remote 06/09/2024 with bilateral pleural effusions, left greater than right with inability to exclude bibasilar consolidations and given worsening leukocytosis with left shift although afebrile had discussed potential repeat chest x-ray AP and lateral and further workup to assure no underlying infectious process as patient steroids had been discontinued 06/12 given GI bleed with also additional plan for UA/UCX but family at this time is declining as well as patient and would prefer to transition to hospice with comfort care direction. #3. Acute kidney injury on CKD stage III unclear subtype per GFR trending suspect secondary to poor intake coupled with GI bleed with uremia with uremic symptoms including confusion, mild tremors, decreased appetite and malaise: Admission BUN/Cr 59/1.17, GFR 47, prior baseline creatinine noted to be 0.9-1.2 primarily although has vacillated, 06/13/2024 hemoglobin 9.1, MCV 103.4, worsening. Initially given patient's poor oral intake would plan very judicious hydration given heart failure underlying history but following discussion and lengthy plan of care with patient and family decision to avoid and requested specifically comfort care transition with hospice evaluation at this time. #4. New onset atrial fibrillation with RVR: New diagnosis upon current presentation likely associated with her acute illness as noted above, initially had planned initiation of oral Eliquis however given GI bleed concerns this was held, placed on Coreg low-dose with spontaneous conversion 06/10/2024, initially maintain on cardiac monitoring but given plan for hospice transition patient transitioned off telemetry and will defer any further lab assessment. #5. Adult failure to thrive, multifactorial, significant decline: Patient has been declining more so recently per discussion with family with now repeat admissions, current presentation unfortunately complicated by 1-4 as noted above, given status as noted planned transition to DNC and hospice evaluation. #6. Chronic hypoxic respiratory failure with underlying COPD: Patient per history on 2 L nasal cannula at rest and 3 with exertion however here she is needed increased supplementation even at rest with recent COPD exacerbation during prior hospitalization with completion of 7 days of steroids with also likely chronic CO2 retention and underlying sleep apnea with possibly alveolar hypoventilation due to obesity with unfortunately patient is reported to been on compliant with medical therapy and not using PAP therapy either. As noted steroids were discontinued which likely is contributing some component to the leukocytosis but given her decline concern for possible alternate/additional etiology. #7. HFpEF: Patient since admission was initially euvolemic however significant decreased oral intake and initially had been on home Lasix and lisinopril but given acute kidney injury noted 06/13/2024 this was discontinued with initial plan for hydration but as noted above plan transition to comfort care focus only and hospice. #8. Hypertension: Coreg, given acute kidney injury holding Lasix and lisinopril as noted, PRN hydralazine. #9. Diabetes mellitus type II: Hold oral home regimen, ADA diet, accu checks w/ ISS initially but given transition to hospice will discontinue Accu-Cheks and will allow broadening of patient diet. #10. Anxiety and depression: We will continue patient home escitalopram and BuSpar regimen however low threshold to give medications for anxiety given comfort care plan transition is noted. #11. Morbid obesity: Noted upon presentation, complicates presentation however given comfort care transition will defer further intervention. #12. DVT prophylaxis: Previously SCDs given GI bleed, given hospice comfort transition will discontinue. #13. CODE status: Patient is currently coherent and giving appropriate orientation answers however her daughter and family are present and she notes she would prefer that her daughter be her medical decision-maker and be involved in this process. Discussed CODE status at length including difference between FULL code, DNR-CCA and DNR-CC status. Following discussions about the differences in these status, requested transition to DNRCC with form signed and hospice consultation requested at this time. Advanced Care Planning Face to Face Time: 16 minutes.
[2024-06-14 08:00] VITALS: BP 96/70; PULSE 82; RESP 16; TEMP 36.9; O2SAT 97
[2024-06-14 08:31] VITALS: O2SAT 97
[2024-06-14] MEDS: Escitalopram Oxalate 10 MG Tablet PO (10:06)
[2024-06-14] MEDS: Potassium Chloride Oral Tablet 20 MEQ PO (10:07)
[2024-06-14] MEDS: Menthol/Lanolin/Calamine/Znox 113 GM Tube 1 APPLIC TOPICAL (10:07)
[2024-06-14] MEDS: Nystatin Powder 15gm Bottle 1 APPLIC TOPICAL (10:08)
[2024-06-14] MEDS: Dicyclomine 10 MG Capsule 20 MG PO (10:08)
--- NOTE | 2024-06-14 10:36 | CASEMGMT ---
Social Work- BELKIS met with pt and pt human resource consultant of 26 years, Baltazar. Pt was lying in bed, awake and alert. When SW began to talk about pt meeting with hospice, pt closed her eyes and became non-responsive to conversation. Baltazar states that pt often does this behavior when she does not want to engage in conversation. Pt intermittently opened eyes and inserted phrases at various points of conversation. Pt reported that she wanted to go home with Baltazar and was tired. Pt reported that she did not want to participate in therapy because it's terrible. When SW questioned why therapy was terrible, pt would not answer. SW inquired if it was too hard, made pt too anxious, or caused pain; pt would not respond. SW provided education about hospice and medicare SNF coverage, as well as palliative care, LTC medicaid, and in-home private duty options. Pt was observed to have tremors in hands and feet; pt friend is uncertain if organic in origin or purposeful movement. Pt friend noted that since pt fall, she has been talking in her sleep and it is 'always' her childhood memories/reliving her childhood. Pt friend has noted that pt has had severe anxiety regarding ambulation since the fall as well. Pt friend reports that pt has always been 'stubborn' and done what she wanted, however pt friend notes that pt's good days seemed to use all of her energy and her 'bad' days don't seem to be from stubbornness. Pt friend reported that pt dtr makes all decisions regarding care and he remains supportive. Pt did not offer any conversation regarding d/c plans, remaining silent when asked if she is still agreeable to her selection of [facility]. BELKIS called pt dtrSerina Bolanos, who was under the impression that pt would be able to d/c to [facility] under hospice care and it would be covered by medicare. SW provided education on medicare coverage of SNF, hospice, medicaid, palliative, and private duty in-home care options. Pt dtr states that pt was in [facility] in March and, at that time, pt dtr was told pt was not agreeable to medicaid. Pt dtr reports that she would prefer pt continue original d/c plan to [facility] with palliative care and allow [facility] to assist pt with transition to hospice and medicaid. BELKIS updated physician and DCA. BELKIS updated pt and friend Baltazar. Plan: [facility]; skilled level of care YOKO Bird
--- NOTE | 2024-06-14 11:35 | TREXTCAR_ITS ---
Diet Diet Order/Speech Therapy: 06/09/24 15:46 Diet: REGULAR DIET GIVEN COMFORT FOCUS, MAY TRANSITION OFF DIABETIC MEDICATIONS AND DEFER ACCU CHECKS PER FACILITY PREFERENCE. Routine Orders/Code Status Enema Type: Fleetz Enema Frequency: Daily PRN Suppository Type: Dulcolax 10mg Suppository Frequency: Daily PRN O2 Liters per Minute: 2L rest, 3L activity. O2 Frequency: Continuous Keep PO Greater than or Equal to (%): 89 Routine Lab Work: - (Labs do not need to repeated given patient and family preference for comfort care focus only.) Code Status: DNRCC Suggestions for Active Care Positions to Avoid: ADDITIONAL: Given comfort focus, patient may be direct her activity level. Therapies Weight Bearing: Weight bearing as tolerated Physical Therapy: Eval and Treat (Per patient preference given comfort focus.) Occupational Therapy: Eval and Treat (Per patient preference given comfort focus.) Problem/Diagnosis (1) GI bleed: Status: Acute Code(s): K92.2 - Gastrointestinal hemorrhage, unspecified Comment: DISCHARGE DIAGNOSES: #1. Concern for Upper Acute GI Bleed w/ resultant Acute Blood Loss Anemia with significant diarrhea onset #2. Worsening leukocytosis despite steroid discontinuation with left shift, possible underlying process #3. Acute kidney injury on CKD stage III unclear subtype per GFR trending suspect secondary to poor intake coupled with GI bleed with uremia with uremic symptoms including confusion, mild tremors, decreased appetite and malaise #4. New onset atrial fibrillation with RVR #5. Adult failure to thrive, multifactorial, significant decline #6. Chronic hypoxic respiratory failure with underlying COPD (2L rest, 3L activity baseline prior) #7. HFpEF #8. Hypertension #9. Diabetes mellitus type II #10. Anxiety and depression #11. Morbid obesity #12. CODE status: DNRCC Allergies/Procedures Done in Hospital Allergies erythromycin base (Erythromycin Base) Allergy (Verified 06/04/24 08:56) Unknown ibuprofen (From Nuprin) Allergy (Verified 06/04/24 08:56) Unknown Procedures: EKG Type of Care/Length of Stay Estimated LOS: Convalescent Care Less Than 30 days Type of Care Needed: Skilled Rehab Potential: Fair Prognosis: Fair Additional Orders/Day of Discharge Day of Discharge: 06/14/24 Dietary and Speech Recommendations Dietitian Recommendations/Changes: Change diet to 1800 lexx Cardiac/ Sodium restricted w/ fluid restriction per MD Monitor need for ONS pending po intake as established. Discharge Plan Admission Admit Date/Time: 06/11/24 15:45 Primary Reason for Your Visit: Concern GI bleed, ABLA, ROSHNI on CKD, PAF RVR, Adult FTT Attending Provider: Marlena Castro Primary Care Provider: Dustin Lang Consulting Providers: Diomedes Copeland; Williams Kay; Delbert Dickson; Williams Khanna; Kalyani Rivas; Jennifer Hope; Nataly Zamarripa; Eloise Mina [employer]; Carolina Cotton Instructions Additional Instructions / Restrictions: ADDITIONAL INFORMATION: #1. Concern for Upper Acute GI Bleed w/ resultant Acute Blood Loss Anemia with significant diarrhea onset: recent initiation 06/09 on Eliquis therapy for new onset A-fib RVR however given concern for GI bleed with decreasing hemoglobins this was discontinued and patient was started on IV PPI. Patient declined GI consultation or endoscopy. 06/13/2024 hemoglobin 9.1, MCV 103.4, decreased from 06/09/2024 hemoglobin 12.6. Given 06/13/2024 patient and family decision transition to DNRCC status no further labs were obtained. Given planned transition at SNF to palliative program then transition to medicaid with hospice again we will continue to focus on comfort only. We will continue the protonix to assist with comfort. #2. During admission noted Worsening leukocytosis despite steroid discontinuation with left shift, possible underlying process: Chest x-ray upon presentation remote 06/09/2024 with bilateral pleural effusions, left greater than right with inability to exclude bibasilar consolidations and given worsening leukocytosis with left shift although afebrile had discussed potential repeat chest x-ray AP and lateral and further workup to assure no underlying infectious process as patient steroids had been discontinued 06/12 given GI bleed with also additional plan for UA/UCX but given planned transition to DNR-CC family and patient declined further evaluation in favor of comfort focus only. #3. Acute kidney injury on CKD stage III unclear subtype per GFR trending suspect secondary to poor intake coupled with GI bleed with uremia with uremic symptoms including confusion, mild tremors, decreased appetite and malaise: Admission BUN/Cr 59/1.17, GFR 47, prior baseline creatinine noted to be 0.9-1.2 primarily although has vacillated, 06/13/2024 hemoglobin 9.1, MCV 103.4, worsened. Initially given patient's poor oral intake had planned judicious hydration; however, patient and family decision to avoid and requested specif ically comfort care transition. No further labs were obtained. #4. New onset atrial fibrillation with RVR: New diagnosis likely associated with her acute illness as noted above, initially had planned initiation of oral Eliquis however given GI bleed concerns this was held, placed on Coreg low-dose with spontaneous conversion 06/10/2024, initially maintain on cardiac monitoring but given DNR-CC transition telemetry deferred further. Will continue coreg upon discharge until formal hospice transition. #5. Chronic hypoxic respiratory failure with underlying COPD: Patient per history on 2 L nasal cannula at rest and 3 with exertion which should be continued at facility for comfort. Per patient preference she does not want to use PAP therapy. #6. HFpEF (Heart failure with preserved ejection fraction): Given patient decreased oral intake initially with onset acute kidney injury noted 06/13/2024 lisinopril and lasix were held with initial plan for hydration but as noted above plan transition to comfort care focus only so further labs were held. These were not restarted as blood pressure was low normal range at discharge. ADDITIONAL INFORMATION ADDED PER NON-PHYSICIAN STAFF: Social work visited with you today. I know that you have home health care coming in tomorrow. It is important that you work to find a way to follow-up with your primary care doctor to provide your outpatient care. As we discussed you chronically retaining carbon dioxide. While you are at rest in the bed your oxygen levels are 98 to 99%. You may not need oxygen if you are sitting and watching TV or may only require 1 L. I would recommend continuing to wear your oxygen when you exert yourself. Discharge Orders/Prescriptions Prescriptions: New nystatin [[facility]] 100,000 unit/gram Powder 1 applic topical BID Qty: 0 0RF Protocol: *Topical Application Instructions APPLICATION INSTRUCTIONS: under abdominal flap Rx Instructions: Apply to affected region until resolved. Continued metformin 500 MG tablet 1,000 mg PO BID Patient Comments: supposed to take 2 tabs bid; patient only takes 1 tab bid glipizide 10 mg tablet extended release 24hr 20 mg PO DAILY carvedilol 6.25 mg Tablet 6.25 mg PO BID Qty: 60 0RF Rx Instructions: Hold for HR < 55, hold for SBP < 110 buspirone 5 tablet 5 mg PO BID 5 Days Qty: 10 0RF escitalopram oxalate 10 mg tablet 10 mg PO DAILY Held furosemide 20 mg tablet 60 mg PO BID Qty: 180 1RF Hold Instructions: Resume on 06/19/24. Reassess blood pressure and edema. If preference to restart for comfort the would add back otherwise may hold. lisinopril 20 mg tablet 20 mg PO DAILY Qty: 30 1RF Hold Instructions: Resume on 06/19/24. Similarly to lasix, may continue to hold and reassess blood pressure. If needed may add back but again focus on patient comfort. potassium chloride [Klor-Con 10] 10 mEq tablet extended release 20 meq PO BID Qty: 120 0RF Hold Instructions: Resume on 06/19/24. If restart lasix then would restart potassium supplementation otherwise hold. Discontinued cephalexin 500 mg capsule 500 mg PO TID Rx Instructions: X7D 05/30 FILL DATE prednisone 20 mg tablet 20 mg PO DAILY Rx Instructions: Take for 7 days then discontinue 06/07 FILL DATE doxycycline hyclate 100 mg tablet 100 mg PO BID Rx Instructions: X7D, FILLED 06/02 Referrals / Follow Up: Palliative Care, Hospice Care ([facility]) [Other] (Please continue to follow up with Palliative care at the skilled facility who will help you transition to medicaid and then transition from Palliative care to Hospice with ongoing focus on comfort.) Dustin Lang MD [Primary Care Provider] - As soon as possible (May follow- up with primary care as desired given plan for transition to skilled facility and change to medicaid and then to hospice. If prefer to continue to follow-up in interim may consider appointment within 3-5 days of hospital discharge.) Disposition Disposition (needs filled in before D/C Order can be placed): [facility]
--- NOTE | 2024-06-14 11:40 | PCM.DC.SUM ---
Providers Date of Admission: 06/11/24 Date of Discharge: 06/14/24 Primary Care Physician: Dr. Dustin Lang MD Consultations 06/10/24 08:10 Consult: Agriculture Laboratory Technician / Pulmonary Medicine Routine Consulting Provider: Intensivists/Pulmonary Med Reason for Consult: COPD with significant hypercapnia EMERGENT Consult: No Notified: Yes Date Notified: 06/10/24 Time Notified: 10:42 Method of Notification: Text 06/13/24 11:24 Consult: Hospice / Palliative Care Routine Consulting Provider: [facility] Reason for Consult: Decline, ? possible IUP versus outpatient SNF hospice EMERGENT Consult: No MD Notified: Yes Date Notified: 06/13/24 Time Notified: 11:24 Method of Notification: Answering Service Reason For Visit: DEBILITY Diagnosis Discharge Diagnosis (1) GI bleed: Status: Acute Code(s): K92.2 - Gastrointestinal hemorrhage, unspecified Plan: DISCHARGE DIAGNOSES: #1. Concern for Upper Acute GI Bleed w/ resultant Acute Blood Loss Anemia with significant diarrhea onset #2. Worsening leukocytosis despite steroid discontinuation with left shift, possible underlying process #3. Acute kidney injury on CKD stage III unclear subtype per GFR trending suspect secondary to poor intake coupled with GI bleed with uremia with uremic symptoms including confusion, mild tremors, decreased appetite and malaise #4. New onset atrial fibrillation with RVR #5. Adult failure to thrive, multifactorial, significant decline #6. Chronic hypoxic respiratory failure with underlying COPD (2L rest, 3L activity baseline prior) #7. HFpEF #8. Hypertension #9. Diabetes mellitus type II #10. Anxiety and depression #11. Morbid obesity #12. [facility] Medications at Discharge Home Medications metformin 500 mg tablet 1,000 mg PO BID DM 05/22/14 glipizide 10 mg tablet, extended release 24 hr 20 mg PO DAILY Blood sugars 03/08/24 escitalopram oxalate 10 mg tablet 10 mg PO DAILY Depression 06/04/24 furosemide 20 mg tablet 60 mg (3 x 20 mg) PO BID #180 tabs 06/07/24 lisinopril 20 mg tablet 20 mg PO DAILY #30 tabs 06/07/24 potassium chloride 10 mEq tablet,extended release (Klor-Con) 20 meq (2 x 10 mEq) PO BID #120 tabs 06/07/24 buspirone 5 mg tablet 5 mg PO BID Anxiety and Depression 5 days #10 tabs 06/14/24 carvedilol 6.25 mg tablet 6.25 mg PO BID #60 tabs 06/14/24 nystatin 100,000 unit/gram topical powder (Nyamyc) 1 applic topical BID #0 grams 06/14/24 Hospital Course Operations None Procedures EKG Summary of Care Provided Minutes Spent on Discharge: 35 Hospital Course: The patient is an 84 y/o F w/ PMHx: CKD stage III unclear subtype per GFR trending, PAF, COPD w/ Chronic Hypoxic and Hypercarbic Respiratory Failure (2L rest, 3L activity), LAINA noncompliant with PAP therapy, HTN, Anxiety and Depression, Diabetes mellitus type II, HFpEF, Morbid obesity, Chronic normocytic anemia who presentED to the [facility] ED on 06/09[facility]24 with history of recent discharge within the past 48 hours for COPD exacerbation and heart failure/ovation with worsening fatigue, malaise, dizziness with inability to even ambulate or function at home prompting ED evaluation. Patient with recent initiation 06/09 on Eliquis therapy for new onset A-fib RVR however given concern for GI bleed with decreasing hemoglobins this was discontinued and patient was initially started on IV PPI. Patient declined GI consultation or endoscopy. 06/13/2024 hemoglobin 9.1, MCV 103.4, decreased from 06/09/2024 hemoglobin 12.6. Given 06/13/2024 patient and family decision transition to DNRCC status no further labs were obtained. Given planned transition at SNF to palliative program then transition to medicaid with hospice again focused on comfort only. Patient at discharge was continued on oral protonix to assist with comfort. During admission noted Worsening leukocytosis despite steroid discontinuation with left shift, possible underlying process with chest x-ray upon presentation remote 06/09/2024 with bilateral pleural effusions, left greater than right with inability to exclude bibasilar consolidations and given worsening leukocytosis with left shift although afebrile had discussed potential repeat chest x-ray AP and lateral and further workup to assure no underlying infectious process as patient steroids had been discontinued 06/12 given GI bleed with also additional plan for UA/UCX but given planned transition to DNR-CC family and patient declined further evaluation in favor of comfort focus only. Admission BUN/Cr 59/1.17, GFR 47, prior baseline creatinine noted to be 0.9-1.2 primarily although has vacillated, 06/13/2024 hemoglobin 9.1, MCV 103.4, worsened. Initially given patient's poor oral intake had planned judicious hydration; however, patient and family decision to avoid and requested specifically comfort care transition. No further labs were obtained. Patient with also noted new onset atrial fibrillation with RVR likely associated with her acute illness as noted above, initially had planned initiation of oral Eliquis however given GI bleed concerns this was held, placed on Coreg low-dose with spontaneous conversion 06/10/2024, initially maintained on cardiac monitoring but given DNR-CC transition telemetry deferred further. Continueed coreg upon discharge until formal hospice transition. Given patient decreased oral intake initially with onset acute kidney injury noted 06/13/2024 lisinopril and lasix were held with initial plan for hydration but as noted above plan transition to comfort care focus only so further labs were held. These were not restarted as blood pressure was low normal range at discharge. Patient discharge arranged for SNF with palliative with then transition at facility to medicaid and then transition to hospice as patient would have to private pay if she went to SNF under hospice directly from the hospital. DAY OF DISCHARGE PROGRESS NOTE: Subjective: Patient without acute event overnight per self and nursing report but continues to be fatigued and lethargic with also labile mood. Discussed current plan of care and she still is requesting continued comfort care focus only and understands the plan with eventual transition to Medicaid and hospice at facility. Patient denies fever, chills, nausea, emesis, abdominal pain, chest pain or dyspnea. Patient agreeable to discharge to skilled facility with plan as noted. Recommend patient follow-up with palliative/hospice as well as physician at the facility as arranged. Noted that eventually given her plan transition to hospice she could follow-up only with hospice care but if she wanted to the interim certainly could follow with her primary care physician. Objective: T98.6, heart 77, BP 96/48, respiratory rate 16, 97% on 2 L nasal cannula. Physical Examination: General: Awake, alert, oriented x 3, fatigued, remains certain of comfort care source, intermittently labile mood. Skin: Normal color, normal turgor, no icterus, no cyanosis except very stage ecchymoses, occasional abrasion likely secondary to recent lab draws, bilateral lower extremity venous stasis skin changes HEENT: AT/NC, EOMI, PERRLA, dry MM. Lungs: Diminished, greater bases, appropriate effort, no rales, ronchi or wheezing. Heart: Currently regular rate and rhythm; no gallop, rub audible. Abdomen: Soft, morbidly obese, NTTP, difficult to assess distention given habitus, mildly hyperactive BS. Extremities: No cyanosis, no clubbing, peripheral distal chronic edema, no markedly pitting. Neurological: Patient awake, alert, oriented as noted, cognitive function improved family notes from previously but still fatigued and lethargic, still not baseline intact; pupils equally reactive to light and accommodation, cranial nerves grossly normal, moving all 4 extremities, no focal deficits, strength severely globally decreased. Psychiatric: Affect appears flat, fatigued, no acute evidence of depressive or anxiety feelings. Assessment and Plan: Please see hospital summary above. Weight / BMI Weight Weight: 302 lb 7.587 oz Body Mass Index (BMI) 55.3 ABG / Lab / Microbiology Data 06/13/24 06:44 06/13/24 06:44 Microbiology: Microbiology 06/09/24 17:45 Stool Clostridioides difficile (PCR) - Final Meaningful Use Info Meaningful Use Meaningful Use Diagnoses (Choose all that apply): None applicable Ischemic Stroke Statin Dosing Therapy Reference: STATIN DOSE THERAPY REFERENCE: * Patients > 75 years receive moderate or high dose statin therapy. * Patients 75 years or YOUNGER should receive HIGH intensity statin dose unless contraindicated. You will be required to document reason for non-treatment if statin daily dose does not meet guidelines. HIGH DOSE STATIN THERAPY DAILY Atorvastatin > than or = to 40 mg Rosuvastatin > than or = to 20 mg Amlodipine + Atorvastatin > than or = to 2.5/40 mg Ezetimibe + Simvastatin 10/80 mg Simvastatin 80mg Discharge Plan Admission Admit Date/Time: 06/11/24 15:45 Primary Reason for Your Visit: Concern GI bleed, ABLA, ROSHNI on CKD, PAF RVR, Adult FTT Attending Provider: Marlena Castro Primary Care Provider: Dustin Lang Consulting Providers: Diomedes Copeland; Williams Kay; Delbert Dickson; Williams Khanna; Kalyani Rivas; Jennifer Hope; Nataly Zamarripa; Eloise Mina VEHICLE BODY MAKER; Carolina Cotton Instructions Additional Instructions / Restrictions: ADDITIONAL INFORMATION: #1. Concern for Upper Acute GI Bleed w/ resultant Acute Blood Loss Anemia with significant diarrhea onset: recent initiation 06/09 on Eliquis therapy for new onset A-fib RVR however given concern for GI bleed with decreasing hemoglobins this was discontinued and patient was started on IV PPI. Patient declined GI consultation or endoscopy. 06/13/2024 hemoglobin 9.1, MCV 103.4, decreased from 06/09/2024 hemoglobin 12.6. Given 06/13/2024 patient and family decision transition to DNRCC status no further labs were obtained. Given planned transition at SNF to palliative program then transition to medicaid with hospice again we will continue to focus on comfort only. We will continue the protonix to assist with comfort. #2. During admission noted Worsening leukocytosis despite steroid discontinuation with left shift, possible underlying process: Chest x-ray upon presentation remote 06/09/2024 with bilateral pleural effusions, left greater than right with inability to exclude bibasilar consolidations and given worsening leukocytosis with left shift although afebrile had discussed potential repeat chest x-ray AP and lateral and further workup to assure no underlying infectious process as patient steroids had been discontinued 06/12 given GI bleed with also additional plan for UA/UCX but given planned transition to DNR-CC family and patient declined further evaluation in favor of comfort focus only. #3. Acute kidney injury on CKD stage III unclear subtype per GFR trending suspect secondary to poor intake coupled with GI bleed with uremia with uremic symptoms including confusion, mild tremors, decreased appetite and malaise: Admission BUN/Cr 59/1.17, GFR 47, prior baseline creatinine noted to be 0.9-1.2 primarily although has vacillated, 06/13/2024 hemoglobin 9.1, MCV 103.4, worsened. Initially given patient's poor oral intake had planned judicious hydration; however, patient and family decision to avoid and requested specifically comfort care transition. No further labs were obtained. #4. New onset atrial fibrillation with RVR: New diagnosis likely associated with her acute illness as noted above, initially had planned initiation of oral Eliquis however given GI bleed concerns this was held, placed on Coreg low-dose with spontaneous conversion 06/10/2024, initially maintain on cardiac monitoring but given DNR-CC transition telemetry deferred further. Will continue coreg upon discharge until formal hospice transition. #5. Chronic hypoxic respiratory failure with underlying COPD: Patient per history on 2 L nasal cannula at rest and 3 with exertion which should be continued at facility for comfort. Per patient preference she does not want to use PAP therapy. #6. HFpEF (Heart failure with preserved ejection fraction): Given patient decreased oral intake initially with onset acute kidney injury noted 06/13/2024 lisinopril and lasix were held with initial plan for hydration but as noted above plan transition to comfort care focus only so further labs were held. These were not restarted as blood pressure was low normal range at discharge. ADDITIONAL INFORMATION ADDED PER NON-PHYSICIAN STAFF: Social work visited with you today. I know that you have home health care coming in tomorrow. It is important that you work to find a way to follow-up with your primary care doctor to provide your outpatient care. As we discussed you chronically retaining carbon dioxide. While you are at rest in the bed your oxygen levels are 98 to 99%. You may not need oxygen if you are sitting and watching TV or may only require 1 L. I would recommend continuing to wear your oxygen when you exert yourself. Discharge Orders/Prescriptions Prescriptions: New nystatin [[facility]] 100,000 unit/gram Powder 1 applic topical BID Qty: 0 0RF Protocol: *Topical Application Instructions APPLICATION INSTRUCTIONS: under abdominal flap Rx Instructions: Apply to affected region until resolved. Continued metformin 500 MG tablet 1,000 mg PO BID Patient Comments: supposed to take 2 tabs bid; patient only takes 1 tab bid glipizide 10 mg tablet extended release 24hr 20 mg PO DAILY carvedilol 6.25 mg Tablet 6.25 mg PO BID Qty: 60 0RF Rx Instructions: Hold for HR < 55, hold for SBP < 110 buspirone 5 tablet 5 mg PO BID 5 Days Qty: 10 0RF escitalopram oxalate 10 mg tablet 10 mg PO DAILY Held furosemide 20 mg tablet 60 mg PO BID Qty: 180 1RF Hold Instructions: Resume on 06/19/24. Reassess blood pressure and edema. If preference to restart for comfort the would add back otherwise may hold. lisinopril 20 mg tablet 20 mg PO DAILY Qty: 30 1RF Hold Instructions: Resume on 06/19/24. Similarly to lasix, may continue to hold and reassess blood pressure. If needed may add back but again focus on patient comfort. potassium chloride [Klor-Con 10] 10 mEq tablet extended release 20 meq PO BID Qty: 120 0RF Hold Instructions: Resume on 06/19/24. If restart lasix then would restart potassium supplementation otherwise hold. Discontinued cephalexin 500 mg capsule 500 mg PO TID Rx Instructions: X7D 05/30 FILL DATE prednisone 20 mg tablet 20 mg PO DAILY Rx Instructions: Take for 7 days then discontinue 06/07 FILL DATE doxycycline hyclate 100 mg tablet 100 mg PO BID Rx Instructions: X7D, FILLED 06/02 Referrals / Follow Up: Palliative Care, Hospice Care ([facility]) [Other] (Please continue to follow up with Palliative care at the skilled facility who will help you transition to medicaid and then transition from Palliative care to Hospice with ongoing focus on comfort.) Dustin Lang MD [Primary Care Provider] - As soon as possible (May follow-up with primary care as desired given plan for transition to skilled facility and change to medicaid and then to hospice. If prefer to continue to follow-up in interim may consider appointment within 3-5 days of hospital discharge.) Disposition Disposition (needs filled in before D/C Order can be placed): [facility] Charges/Coding Visit Charges Inpatient E&M: 66455 Disch Hosp >30min
--- NOTE | 2024-06-14 12:52 | CASEMGMT ---
Discharge Planning Discharge orders, signed med list, and transport time sent to [facility] via [facility]. Physicians will transport patient by cot at 1:45p. Nursing, SW, pt, and her family (present in room) updated. Krista Grey DC Planning Asst.
--- NOTE | 2024-06-14 12:54 | CASEMGMT ---
Social Work Physician feels that pt is ready for discharge today.? 7000 convalescent form completed in [facility].? SW met with pt and they are agreeable to discharge plan as stated above.? DCA and bedside nurse notified of discharge. Disposition:[facility], skilled level of care under convalescent stay. YOKO Bird
[2024-06-14 13:42] VITALS: BP 96/48; PULSE 77; RESP 16; TEMP 37; O2SAT 97
== END 2024-06-14 14:00 | disposition skilled nursing facility (03) | DRG 378 ==
LOC: ED 14:40 → MS3 16:03
PROVIDERS: Hospitalist; Internal Medicine; Emergency Provider Emergency Medicine; PCP Internal Medicine; Visit Provider Family Medicine
DX: K92.2 Gastrointestinal hemorrhage, unspecified (principal); J96.12 Chronic respiratory failure with hypercapnia; D68.32 Hemorrhagic disorder due to extrinsic circulating anticoagulants; E87.29 Other acidosis; E66.2 Morbid (severe) obesity with alveolar hypoventilation; J96.11 Chronic respiratory failure with hypoxia; I50.32 Chronic diastolic (congestive) heart failure; I13.0 Hypertensive heart and chronic kidney disease with heart failure and stage 1 through stage 4 chronic kidney disease, or unspecified chronic kidney disease; N17.9 Acute kidney failure, unspecified; Z68.43 Body mass index [BMI] 50.0-59.9, adult; D62 Acute posthemorrhagic anemia; E11.22 Type 2 diabetes mellitus with diabetic chronic kidney disease; D72.829 Elevated white blood cell count, unspecified; Z66 Do not resuscitate; J44.9 Chronic obstructive pulmonary disease, unspecified; N18.30 Chronic kidney disease, stage 3 unspecified; F32.A Depression, unspecified; I48.0 Paroxysmal atrial fibrillation; R11.0 Nausea; F41.9 Anxiety disorder, unspecified; E87.6 Hypokalemia; R19.7 Diarrhea, unspecified; R62.7 Adult failure to thrive; R53.81 Other malaise; E66.813 Obesity, class 3; Z91.199 Patient's noncompliance with other medical treatment and regimen due to unspecified reason; F40.240 Claustrophobia; Z99.81 Dependence on supplemental oxygen; Z79.84 Long term (current) use of oral hypoglycemic drugs; Z79.01 Long term (current) use of anticoagulants; Z87.891 Personal history of nicotine dependence
CPT/HCPCS: 36415; 36600; 71045; 80048; 82803; 82962; 83735; 84100; 84484; 85025; 85027; 87493; 93005; 97162; 97166; 97530; 99285; A4216